=== PATIENT | female | born 1955 | race Caucasian/White ===

== ENCOUNTER 2019-06-04 12:37 | Emergency (ER) | payer OTHER, SELFPAY ==
[2019-06-04 12:31] VITALS: BP 128/78; BP 129/75; PULSE 107; PULSE 110; RESP 18; TEMP 36.8; O2SAT 97; O2SAT 98; BMI 29.8
--- NOTE | 2019-06-04 12:40 | W.ED.NECK ---
HPI - Neck Pain/Injury General: Chief Complaint: Fall Stated Complaint: fall Time Seen by Provider: 06/04/19 12:38 Source: patient Mode of arrival: ambulatory Limitations: no limitations History of Present Illness: HPI Narrative: Patient comes in today for evaluation of fall and injury. Patient reports stepping up onto the sidewalk and slipping falling backwards and hitting the back of her head on the ground. Patient has a noticeable hematoma to the occiput of her scalp. No open areas. Patient reports tenderness in the area but no headache. Patient reports feeling normal. Patient has no other complaints except for pain in the back of the head. Patient appears well. Patient appears in mild pain. Review of Systems General: Reports: 10 or more systems reviewed and unremarkable except in HPI and below Musc: Reports: neck pain Neuro: Reports: other (scalp hemotoma occiput scalp) PFSH ED PFSH: Statuses (acute, chronic, etc) shown below reflect problem list status as previously entered and may not be historically accurate Social History Smoking and tobacco status: never smoked Physical Exam Const: COMMON NORMALS: no apparent distress and oriented x3 GENERAL APPEARANCE: cooperative HENMT: COMMON NORMALS: external ears normal, EAC's normal, TM's normal bilaterally and external nose normal HEAD & SCALP: scalp tenderness (hemotoma right occiput 4 cm diameter, no skull crepitus); no palpable skull fracture FACE & SINUS: normal facial exam NOSE: external nose normal GENERAL EAR: hearing not grossly impaired EXTERNAL EAR: Yes external ears normal EXTERNAL AUDITORY CANAL: EAC's normal TYMPANIC MEMBRANE: TM's normal bilaterally MOUTH: oral and palatal mucosa normal THROAT: posterior oropharynx normal Eye: COMMON NORMALS: PERRL and EOMs intact bilaterally PUPIL: Yes PERRL Neck/C-Spine: COMMON NORMALS: full ROM (no vertebral tenderness) Lymph: LYMPHATIC: no lymphedema noted Chest: COMMONS NORMALS: inspection of chest normal and palpation of chest normal Resp: COMMON NORMALS: normal respiratory effort and clear to auscultation bilaterally AUSCULTATION: clear to auscultation bilaterally Cardio: COMMON NORMALS: regular rate and regular rhythm RATE: regular rate RHYTHM: regular rhythm GI: COMMON NORMALS: normal to inspection, nondistended, normoactive bowel sounds and non-tender : COMMON NORMALS: Yes no CVA tenderness BLADDER/KIDNEY EXAM: Yes no CVA tenderness Back/Pelvis: COMMON NORMALS: no CVA tenderness and thoracic and lumbar spine normal to inspection (no vertebral tenderness) Extremity: COMMON NORMALS: normal to inspection GENERAL: No edema Neuro: COMMON NORMALS: oriented x3, moves all extremities and no focal motor deficits Psych: COMMON NORMALS: mental status grossly normal and cooperative Skin: COMMON NORMALS: no rashes or lesions noted GENERAL SKIN EXAM: no rashes or lesions noted Course Vital Signs: Vital signs: Vital Signs Temperature 98.2 F 06/04/19 12:53 Pulse Rate 110 H 06/04/19 12:31 Respiratory Rate 18 06/04/19 12:31 Blood Pressure 129/75 06/04/19 12:31 Pulse Oximetry 98 06/04/19 12:31 MDM - Neck Pain/Injury MDM Narrative: Medical decision making narrative: Patient comes in after suffering a fall this morning after slipping on the ice while stepping up onto the sidewalk. Patient complains of pain to the occipital head and to her buttocks. Patient appears well. Patient reports being able to ambulate without difficulty. Palpation of the vertebra noted no tenderness. Tenderness noted to the soft tissue of the buttocks. Hematoma was noted to the right parietal occiput of the scalp. No focal neural deficits. Vital signs were stable. Differential diagnosis includes fracture, sprain, intercerebral bleeding, contusion, hematoma, concussion. CT of the head and cervical spine were negative for fracture or intracranial bleeding. Patient did have some mild tachycardia that was sinus related per EKG. Reviewed exam with patient recommended Tylenol as needed for pain patient was given 1 hydrocodone in the emergency room for discomfort. Patient reported understanding of care plan and need for follow-up. EKG Data^: EKG 1: Attestation: I personally reviewed and interpreted this EKG as follows: (1344, sinus tach 130's, no ectopy, no QT elevation, regular rate.) Discharge Plan Discharge Patient Disposition: Home, Self-Care Clinical Impression: Fall due to slipping on ice or snow Qualifiers: Encounter type: initial encounter Qualified Code(s): W00.9XXA - Unspecified fall due to ice and snow, initial encounter Hematoma of right parietal scalp Qualifiers: Encounter type: initial encounter Qualified Code(s): S00.03XA - Contusion of scalp, initial encounter Condition: Stable Prescriptions: No Action Klor-Con M10 10 mEq tablet,ER particles/crystals PO RF: 0 Discharge Orders: Discharge Order (Routine); Ordered 06/04/19 Ordered By: Misbah Das Referrals: [facility] [Other] Discharge Diet: Usual diet Discharge Activity: Resume usual activity Activity Restrictions/Additional Instructions: Home and rest Activity as tolerated Drink plenty of water Acetaminophen as needed for headache Ice or heat to area for comfort Follow-up with primary care in one week for recheck Coding Level of Care Code ED Title Examiner for Long Fwchapo Exam Problem Focused
--- NOTE | 2019-06-04 12:47 | CT_ITS ---
WS: [id number] CT scan of the head, 06/04/2019 Clinical Data: fall Comparison: None. DLP: 882.[address] scans at [facility] use at least one of these dose optimization techniques: automat ed exposure control; mA and/or kV adjustment per patient size (includes targeted exams where dose is matched to clinical indication); or iterative reconstruction. Findings: The ventricular system is minimally dilated without shift. No recent infarct or hemorrhage is seen. T here are no abnormal intracerebral masses. The cerebellum and brainstem are not remarkable. Bony windows of the skull and skull base show no fractures or erosions. The mastoid air cells, pharmacy intern al auditory canals, sella turcica, intraorbital contents, and paranasal sinuses are unremarkable. CT/CT head wo con* [id number] Impression: Negative CT scan of the head
--- NOTE | 2019-06-04 12:47 | CT_ITS ---
WS: [id number] CT cervical spine. Additional two-dimensional coronal and sagittal reconstruction was performed. 06/04 Clinical Data: fall Comparison: None. DLP: 666.[address] scans at [facility] use at least one of these dose optimization techniques: automat ed exposure control; mA and/or kV adjustment per patient size (includes targeted exams where dose is matched to clinical indication); or iterative reconstruction. Findings: No compression fractures are seen. There is disc space narrowing at C4-C5 and C5-C6. At C5-C6 there i s anterior and posterior osteoarthritic narrowing. There is left facet joint arthritis at C4-C5.. The spinous processes are in good alignment. The odontoid is unremarkable. There is no prevertebral soft tissue swelling. The soft tissues of the cervical spine and the lung apices are not remarkable. CT/CT cervical spin wo con* [id number] Impression: 1. Negative for cervical spine fracture. 2. Osteoarthritis and disc space narrowing C4-C5 and C5-C6.
[2019-06-04 12:53] VITALS: TEMP 36.8
--- NOTE | 2019-06-04 13:11 | ECG_ITS ---
Measurements Intervals [place] Rate: 139 P: -14 WI: 142 QRS: 22 QRSD: 90 T: 42 QT: 292 QTc: 445 SINUS TACHYCARDIA ABNORMAL RHYTHM ECG Compared to ECG 12/03/2015 15:52:06 Sinus rhythm no longer present T-wave abnormality no longer present Electronically Signed On 06-05-2019 11:26:06 PHOTOVOLTAIC INSTALLER by Irwin Urbina M.D. [email or web address]
[2019-06-04] MEDS: HYDROcodone-acetaminophen 5-325 mg Tablet 1 TAB PO (13:58)
[2019-06-04 14:00] VITALS: BP 103/70; PULSE 116; RESP 18; O2SAT 98
== END 2019-06-04 14:01 | disposition home or self-care (01) ==
PROVIDERS: Emergency Provider Nurse Practitioner Family
DX: S00.03XA Contusion of scalp, initial encounter (principal); W00.0XXA Fall on same level due to ice and snow, initial encounter
CPT/HCPCS: 70450; 72125; 93005; 99282; 99283

== ENCOUNTER 2019-06-18 12:55 | Outpatient (RCR) | payer OTHER, SELFPAY ==
--- NOTE | 2019-05-28 15:13 | XR_ITS ---
WS: [id number] FOOT RIGHT TECHNIQUE: 3 views of the right foot CLINICAL INFORMATION: DIABETES W/FOOT ULCER/R FOOT PAIN COMPARISON: None. FINDINGS: Soft tissue edema. Ulceration plantar soft tissues first digit. Small pocket of subcutaneous emphysem a. No definite evidence of osteomyelitis. Plantar calcaneal spurring. XR/XR foot RT min 3V* [id number] IMPRESSION: Soft tissue edema with ulceration. No definite osteomyelitis.
[2019-05-28 15:49] LABS: Hematocrit 39.4 % (37.0-47.0); Hemoglobin 12.5 g/dL (11.5-15.3); Mean Corpuscular HGB Conc 31.7 g/dL (30.0-36.0); Mean Corpuscular Hemoglobin 26.7 pg (28.0-34.0); Mean Corpuscular Volume 84.2 fL (81-99); Mean Platelet Volume 9.5 fL (7.4-10.4); Monocytes # 0.6 10^3/uL (0.2-0.9); Monocytes % 6.7 %; Neutrophils # 6.4 10^3/uL (1.8-7.7); Neutrophils % 70.9 %; Nucleated Red Blood Cells % 0 %; Platelet Count 269 10^3/cmm (130-400); Red Blood Count 4.68 10^6/uL (4.1-5.3); Red Cell Distribution Width 13.8 % (12.1-15.1)
[2019-05-28 15:59] LABS: Alanine Aminotransferase 21 U/L (0-33); Albumin Level 3.8 g/dL (3.5-5.2); Alkaline Phosphatase 144 IU/L (35-105); Anion Gap 13.5 (5-19); Aspartate Amino Transferase 18 U/L (0-32); Blood Urea Nitrogen 13 mg/dL (8-23); Carbon Dioxide 26 mmol/L (22-29); Chloride 97 mmol/L (98-107); Glomerular Filtration Rate 84.5 mL/min (90-130); Glucose 247 mg/dL (74-106); Potassium 4.5 mmol/L (3.5-5.1); Sodium 132 mmol/L (136-145); Total Bilirubin 0.2 mg/dL (0.15-1.2); Total Protein 6.8 g/dL (6.6-8.7)
[2019-05-28 16:19] LABS: Estmated Average Glucose 194; Hemoglobin A1C 8.4 % (4.0-6.0)
== END 2019-06-18 23:59 | disposition home or self-care (01) ==
LOC: WOUND 12:55
PROVIDERS: Visit Provider Surgery
DX: E11.621 Type 2 diabetes mellitus with foot ulcer (principal); L97.413 Non-pressure chronic ulcer of right heel and midfoot with necrosis of muscle
CPT/HCPCS: 11043; 36415; 73630; 80053; 83036; 85025; 87070; L4387

== ENCOUNTER 2019-06-25 10:48 | Outpatient (CLI) | payer OTHER, SELFPAY ==
--- NOTE | 2019-06-25 11:13 | CT_ITS ---
WS: [id number] CT scan of the right foot with IV contrast.. Additional two-dimensional coronal and sagittal reconstr uction was performed. 06/25/2019 Clinical Data: DIABETIC ULCER/R FOOT PAIN/?OSTEOMYELITIS Comparison: Right foot x-ray, 05/28/2019 DLP: 175.[address] scans at [facility] use at least one of these dose optimization techniques: automat ed exposure control; mA and/or kV adjustment per patient size (includes targeted exams where dose is matched to clinical indication); or iterative reconstruction. Findings: The patient has soft tissue swelling on the plantar surface of the foot with a soft tissue ulcer that communicates with the soft tissue at the level of the head of the right first metatarsal. There is s oft tissue swelling all along the plantar surface of the foot. A definite abscess is not seen. No bon e destruction or evidence of osteomyelitis is noted. The metatarsals and phalanges appear to be intac t. The toes demonstrate flexion deformity seen in hammertoes. There is a plantar spur. The tarsal bon es are normal. CT/CT foot RT w con [id number] Impression: 1. Ulcer at the head of the right first metatarsal with soft tissue swelling of mixed density extending the length of the plantar surface of the foot. 2. Negative for bone destruction or evidence of osteomyelitis. 3. No definite subcutaneous abscess is seen.
[2019-06-25] MEDS: iohexol 300 mg/mL 100 mL Btl 95 ML IV (11:30)
== END 2019-06-25 10:49 | disposition home or self-care (01) ==
LOC: RAD 11:08
PROVIDERS: PCP Family Medicine; Visit Provider Surgery
DX: E11.621 Type 2 diabetes mellitus with foot ulcer (principal)
CPT/HCPCS: 11043; 73701; 87070; 87205; Q9967

== ENCOUNTER 2019-07-16 09:40 | Outpatient (RCR) | payer OTHER, SELFPAY | END 2019-07-17 23:59 | disposition home or self-care (01) | LOC: WOUND 09:40 | PROVIDERS: PCP Family Medicine; Visit Provider Surgery | DX: E11.621 Type 2 diabetes mellitus with foot ulcer (principal); L97.512 Non-pressure chronic ulcer of other part of right foot with fat layer exposed | CPT/HCPCS: 11042; 11043 ==

== ENCOUNTER 2019-07-26 14:00 | Emergency (ER) | payer OTHER, SELFPAY ==
[2019-07-26 14:44] VITALS: BP 123/83; PULSE 94; RESP 16; TEMP 37; O2SAT 98; BMI 30.7
--- NOTE | 2019-07-26 16:07 | PC.NURSE ---
PT PRESENTS WITH MULTIPLE C/O. STATES HER RIGHT FOOT, WHICH WAS INJURED BEFORE ERWIN, IS SLOW TO HEAL . C/O THAT RIGHT FOOT IN [place], AND HER BELLY BUTTON IS RED, AND SHE'S BEEN RUNNING A FEVER. PT NOTED TO BE AFEBRILE AT THIS TIME.
--- NOTE | 2019-07-26 17:02 | W.ED.EXTPRO ---
HPI - Extremity Problem General: Chief complaint: Extremity Injury, Lower Stated complaint: fever, right foot is swollen Time Seen by Provider: 07/26/19 16:06 Source: patient Mode of arrival: ambulatory Limitations: no limitations History of Present Illness: HPI Narrative: Patient is a 64-year-old female who presents to ED today with complaints of an ulcer to her right foot that she has had chronically. Patient states yesterday she thought she was running a fever and was told if anytime she runs a fever she needs to come to the emergency department for evaluation. Patient states she checked her fever multiple times and it was never abnormal however she felt hot . She was afebrile upon arrival. Patient follows with wound care weekly for her ulcer. She states if she is up on her extremity for long periods of time she will notice a little redness and swelling to the foot but this always subsides with rest and elevation. Patient has not noticed any differences in her foot or ulcer today. There is been no change in drainage or odor. Complaint: other (R foot ulcer) Onset (ago): month(s) Location: right Associated symptoms: Reports no associated symptoms; Deny fever(s) (subjective) Review of Systems Const: Denies: fever (subjective), chills, body aches, change in appetite or change in weight GI: Denies: nausea or vomiting Musc: Reports: redness (mild R foot redness-normal per patient ); Denies: neck pain, back pain, extremity pain, joint pain or joint swelling Skin/Breast: Reports: other (chronic ulcer) Neuro: Denies: headache, numbness in extremities, weakness in extremities or changes in sensation [facility] ED PFSH: Social History Smoking and tobacco status: former smoker Physical Exam Const: COMMON NORMALS: no apparent distress, average body habitus, oriented x3, no limitations, healthy appearing, alert and well nourished Extremity: OTHER: pt has a stage II ulcer to plantar R foot measuring about 4x3cm; no discharge or foul smell; no surrounding erythema; pt has mild erythema and swelling to dorsum of foot that again she states is normal for her Neuro: COMMON NORMALS: oriented x3 SENSORIUM/ORIENTATION: Yes alert Skin: OTHER: see extremity assessment Course Vital Signs: Vital signs: Vital Signs Temperature 98.6 F 07/26/19 14:44 Pulse Rate 72 07/26/19 17:19 Respiratory Rate 18 07/26/19 17:19 Blood Pressure 156/74 07/26/19 17:19 Pulse Oximetry 96 07/26/19 17:19 MDM - Extremity (Nontraumatic) MDM Narrative: Medical decision making narrative: Patient really has no new complaints today. Her vital signs are completely stable. I do not feel she needs any additional work-up from the emergency department. Recommend she follow-up with her normal wound care appointment on Friday. Discharge Plan Discharge Patient Disposition: Home, Self-Care Clinical Impression: Crista infection Chronic ulcer of right foot Qualifiers: Non-pressure ulcer stage: with fat layer exposed Qualified Code(s): L97.512 - Non-pressure chronic ulcer of other part of right foot with fat layer exposed Condition: Stable Prescriptions: New nystatin 100,000 unit/gram powder 1 applic TOPICAL BID Qty: 15 RF: 0 No Action Klor-Con M10 10 mEq tablet,ER particles/crystals PO RF: 0 Discharge Orders: Discharge Order (Routine); Ordered 07/26/19 Ordered By: Negra Joaquin Referrals: Tree Souza MD [Primary Care Provider] - Activity Restrictions/Additional Instructions: Follow up with wound care on Friday as scheduled. Discharge Date/Time: 07/26/19 17:23 Coding Level of Care Code ED Sweatband Flanger for Long Du
[2019-07-26 17:19] VITALS: BP 156/74; PULSE 72; RESP 18; O2SAT 96
== END 2019-07-26 17:23 | disposition home or self-care (01) ==
PROVIDERS: Emergency Provider Physician Assistant; PCP Family Medicine
DX: L89.612 Pressure ulcer of right heel, stage 2 (principal); B37.2 Candidiasis of skin and nail; Z87.891 Personal history of nicotine dependence
CPT/HCPCS: 11043; 12345; 99281

== ENCOUNTER 2019-07-30 14:32 | Outpatient (CLI) | payer OTHER, SELFPAY ==
--- NOTE | 2019-07-30 14:45 | USCV_ITS ---
Jacquelin Garduno Age: 64 Gender: F : 1955 Exam Date: 07/30/2019 15:01 Ordering Phys: Kurtis Rios MD Technologist: Gladis Power Exam Location: [facility] – [place] Indication: RT NON HEALING WOUND RT FOREFOOT HISTORY: Non healing wound rt foot. Swollen Rt leg PROCEDURES: Venous duplex imaging was performed in only the right lower extremity. The following venous structures were evaluated: common femoral vein, profunda vein, proximal portion of the greater saphenous vein, superficial femoral vein, and the popliteal vein. In addition, the posterior tibial and peroneal trunk were evaluated. Serial compression, augmentation maneuvers, and spectral Doppler flow evaluation were performed. FINDINGS: No DVT seen in any vessel examined CONCLUSIONS No evidence of right lower extremity DVT. Salbador Choudhury MD (Electronically Signed) Final Date: 30 July 2019 16:34 S
== END 2019-07-30 14:33 | disposition home or self-care (01) ==
LOC: RAD 14:42
PROVIDERS: PCP Family Medicine; Visit Provider Surgery
DX: M79.661 Pain in right lower leg (principal); M79.89 Other specified soft tissue disorders
CPT/HCPCS: 93971

== ENCOUNTER 2019-08-06 14:13 | Outpatient (CLI) | payer OTHER, SELFPAY ==
--- NOTE | 2019-08-06 14:39 | CT_ITS ---
WS: [id number] CT scan of the of the right leg, ankle and foot with and without IV contrast.. Additional two-dimensi onal coronal and sagittal reconstruction was performed. MIP images were also performed. 08/06/2019 Clinical Data: PAIN, REDNESS, NON HEALING ULCER, R/O OSTEOMYELITIS Comparison: CT foot, 06/25/2019. DLP: 1304.[address] scans at [facility] use at least one of these dose optimization techniques: automat ed exposure control; mA and/or kV adjustment per patient size (includes targeted exams where dose is matched to clinical indication); or iterative reconstruction. Findings: Compared to the prior study there is been erosion of the head of the right first metatarsal which is suspicious for rapidly developing osteomyelitis. There is erosion of the medial sesamoid bone at the head of the right first metatarsal again consistent with osteomyelitis. There is cystic change at the base of the right first proximal phalanx. The second through fifth metatarsals and phalanges show no change. There is soft tissue swelling about the right ankle and the foot. It is erosion of the subcu taneous tissue on the plantar surface of the foot at the level of the right first metatarsal probably corresponding to a soft tissue ulcer. No soft tissue abscess or fluid collection is seen. The tarsal bones are intact. The ankle is unremarkable. CT/CT lower leg RT w con [id number] Impression: 1. Change from the prior study with erosion of the right first metatarsal, eros ion of the medial sesamoid of the head of the right first metatarsal and cystic change and erosion of the base of the right first proximal phalanx. Suspicious for osteomyelitis. 2. Soft tissue swelling about the foot and ankle. 3. Soft tissue ulcer at the dorsal surface of the head of the right first metat arsal but no soft tissue abscess is seen.
[2019-08-06] MEDS: iohexol 300 mg/mL 100 mL Btl IV (16:30)
== END 2019-08-06 14:14 | disposition home or self-care (01) ==
LOC: RADWPI 14:16
PROVIDERS: PCP Family Medicine; Visit Provider Surgery
DX: L97.518 Non-pressure chronic ulcer of other part of right foot with other specified severity (principal); M79.89 Other specified soft tissue disorders; M79.671 Pain in right foot
CPT/HCPCS: 73701; 82565; 84520; Q9967

== ENCOUNTER 2019-08-06 16:15 | Inpatient (IN) | payer OTHER, SELFPAY ==
[2019-08-06 16:37] VITALS: BMI 33.3
[2019-08-06 16:43] VITALS: BP 143/97; PULSE 97; RESP 18; TEMP 37; O2SAT 98
--- NOTE | 2019-08-06 18:58 | P.HP_ITS ---
Providers/Chief Complaint Admitting Physician: Autumn Ivory MD Primary Care Provider: Tree Souza MD Chief Complaint: R foot pain and swelling History of Present Illness Jacquelin Garduno is a 64 year old female with PMHx of NIDDM type II, CKD stage 2, HTN, Obesity, GERD, Gout; presents as direct admission from wound care clinic per Dr. Pinon' request due to R diabetic foot infection and concern for possible abscess and osteomyelitis. Patient was seen by Dr. Pinon earlier today at the wound care clinic in was noted to have a right foot wound that he debrided but was concerned about increased foot swelling and possible abscess, osteomyelitis so requested direct admission. She had a CT of the lower extremity done showing soft tissue swelling, suspicious for osteomyelitis. Findings discussed with Dr. Rios and plan is to treat with IV antibiotics for at least 6 weeks, no need for surgical intervention at this time. Patient states that she has had the wound on her right foot since April but had noted increased pain and swelling of the right foot for the past 2 to 3 days. She has been able to weight-bear though with increasing discomfort. She has not noted any drainage and denies any fever/chills, precipitating trauma. She is a known diabetic with last A1c done in May being 8.4. She is on metformin and Januvia, denies being on any insulin therapy. Has otherwise been in her usual state of health. I will order baseline labs including ESR, CRP, lactic acid and request blood cultures as well. I will start her on treatment with vancomycin and Zosyn for broad-spectrum coverage. Patient is being admitted for further management including IV antibiotic treatment as mentioned. Review of Systems Const: Reports: change in appetite (decreased appetite) and fatigue; Denies: fever or chills Eyes: Denies: change in vision ENMT: Reports: dry mouth Card: Denies: chest pain, swelling of feet/ankles or lightheadedness Resp: Reports: productive cough (green sputum); Denies: shortness of breath GI: Denies: abdominal pain, nausea, vomiting, vomiting blood or blood in stool : Reports: urinary frequency; Denies: difficulty urinating or painful urination Musc: Denies: back pain Skin/Breast: Denies: rash Neuro: Reports: weakness in extremities; Denies: numbness in extremities Psych: Denies: anxiety Medications/Allergies Home Medications Medication Instructions Recorded Confirmed Last Taken Type allopurinol 100 mg PO DAILY 08/06/19 08/06/19 Unknown History metformin mg 08/06/19 Unknown History Allergies Allergy/AdvReac Type Severity Reaction Status Date / Time ibuprofen Allergy ALGY-Rash Verified 06/04/19 12:54 PFSH Acute PFSH: Medical History (Updated 08/06/19 @ 19:11 by Autumn Ivory MD) Cardiomyopathy Congestive heart failure Diabetes mellitus, type II With peripheral neuropathy and nephropathy Gall bladder disease Gastroesophageal reflux Gout Hypertension Rotator cuff arthropathy of both shoulders Surgical History (Updated 08/06/19 @ 19:01 by Autumn Ivory MD) H/O shoulder surgery Bilateral History of appendectomy History of cardiac cath History of delivery Hx of cholecystectomy Family History Other Diabetes Social History (Updated 08/06/19 @ 19:02 by Autumn Ivory MD) Smoking and tobacco status: former smoker Alcohol intake: never Substance/Drug Use: never Lives independently: Yes Household members: spouse Vitals/I&O/Wt Last Vital Signs Temp 98.6 F 08/06/19 16:43 Pulse 97 08/06/19 16:43 Resp 18 08/06/19 16:43 BP 143/97 08/06/19 16:43 Pulse Ox 98 08/06/19 16:43 08/06/19 08/06/19 08/06/19 06:59 14:59 22:59 Intake Total 540 / 540 Output Total 300 / 300 Balance 240 / 240 Weight last 48 hrs Weight 82.724 kg Physical Exam Const: COMMON NORMALS: no apparent distress and oriented x3 GENERAL APPEARANCE: cooperative and comfortable NUTRITIONAL APPEARANCE: obese ORIENTATION/CONSCIOUSNESS: Yes awake HENMT: COMMON NORMALS: normocephalic, head/scalp atraumatic, hearing grossly normal bilaterally and moist oral mucous membranes HEAD & SCALP: normocephalic and atraumatic Eye: COMMON NORMALS: PERRL, EOMs intact bilaterally and conjunctivae normal CONJUNCTIVA: Yes conjunctivae normal PUPIL: Yes PERRL Neck/C-Spine: COMMON NORMALS: full ROM GENERAL: Yes normal visual inspection and Yes trachea midline Resp: COMMON NORMALS: normal respiratory effort, no retractions, no use of accessory muscles and clear to auscultation bilaterally EFFORT & INSPECTION: Yes able to speak in complete sentences, Yes symmetric chest movement and No tachypneic AUSCULTATION: clear to auscultation bilaterally Cardio: COMMON NORMALS: regular rate, regular rhythm, S1 normal heart sound, S2 normal heart sound and no murmurs RATE: regular rate RHYTHM: regular rhythm HEART SOUNDS: S1 normal and S2 normal GI: COMMON NORMALS: normal to inspection, nondistended, normoactive bowel sounds, soft to palpation and non-tender INSPECTION: Yes central obesity PALPATION: Yes soft Extremity: COMMON NORMALS: normal to inspection, full ROM and no clubbing, cyanosis or edema (of LLE); negative for no pedal edema NARRATIVE EXTREMITY EXAM: -unable to palpate peripheral pulses on R foot -R foot: erythematous, warm to touch, open wound on dorsum of foot with good granulation tissue noted, no active drainage, no tunneling -diminished pulses on L Neuro: COMMON NORMALS: oriented x3, moves all extremities, no focal motor deficits and no sensory deficits noted Psych: COMMON NORMALS: mental status grossly normal, thought process normal, cooperative, affect normal and speech normal SPEECH: Yes normal speech THOUGHT PROCESS: normal thought process Skin: COMMON NORMALS: no rashes or lesions noted, no jaundice, no petechiae and no mottling NARRATIVE SKIN EXAM: -R foot: discrete area of erythema extending to about mid-foot, + edema, tinea pedis, onychomycosis GENERAL SKIN EXAM: no rashes or lesions noted A&P Assessment and plan (1) Diabetic foot ulcer: -noted R diabetic foot ulcer, debrided earlier today by Dr. Watts at [facility], noted good granulation tissue on wound bed, + edema and erythema extending to mid-foot, will jaylon area to monitor response to treatment -order baseline labs including CRP, ESR -CT RLE: Noted erosion of the right first metatarsal, medial sesamoid of right first metatarsal and erosion of the base of the right proximal phalanx, findings suspicious for osteomyelitis. Noted soft tissue swelling involving the foot and ankle; for abscess. Findings discussed with Dr. Rios; no need for surgery -start on broad spectrum antibiotics; Vanc/Zosyn for appropriate coverage -order blood cx -pain control as needed -keep RLE elevated -wet to dry dressing changes per Dr. Giurguis -surgery consult by Dr. Watts -will need PICC line for exterminator termite IV antibiotics Status: Acute Qualifiers: Diabetic foot ulcer location: unspecified part of foot Diabetes mellitus type: type 2 Laterality: right Non-pressure ulcer stage: unspecified non-pressure ulcer stage Qualified Code(s): E11.621 - Type 2 diabetes mellitus with foot ulcer; L97.519 - Non-pressure chronic ulcer of other part of right foot with unspecified severity Code(s): E11.621 - Type 2 diabetes mellitus with foot ulcer; L97.509 - Non-pressure chronic ulcer of other part of unspecified foot with unspecified severity (2) Diabetes mellitus, type II: -has known hx of NIDDM type II, last A1c-8.4 (05/2019) -Accuchecks, ISS, hold metformin as had contrast study -consistent carb diet -complicated by peripheral neuropathy and nephropathy Status: Acute Qualifiers: Diabetes mellitus senior living insulin use: without senior living use Diabetes mellitus complication status: with neurologic complications Diabetes mellitus complication detail: with polyneuropathy Qualified Code(s): E11.42 - Type 2 diabetes mellitus with diabetic polyneuropathy Code(s): E11.9 - Type 2 diabetes mellitus without complications (3) Congestive heart failure: -normal EF per stress echo done 11/2015 -resume diuretics Status: Acute Qualifiers: Heart failure type: diastolic Heart failure chronicity: chronic Qualified Code(s): I50.32 - Chronic diastolic (congestive) heart failure Code(s): I50.9 - Heart failure, unspecified Additional A&P Information -Morbid obesity: BMI-33 kg/m2 -HTN; resume ACEi -CKD stage 2; baseline Cr wnl -Gout; resume allopurinol -GERD; resume PPI -GI ppx with PPI -DVT ppx with Lovenox -Dispo: home -Code status: FULL code Attestations Medical Necessity Statement*: Jacquelin Garduno's hospital stay will require greater than 2 midnights for management of R diabetic foot infection with likely osteomyelitis, needs IV antibiotics and appropriate wound care. Time Spent in Patient Care: Greater than 35 minutes (>than 50% of time spent in counselling and/or direct pt care on unit) . Coding Level of Care Code Acute Roasterman for Chg Fwd Diagnoses Diabetic foot ulcer E11.621; L97.519 Diabetic foot ulcer location: unspecified part of foot Diabetes mellitus type: type 2 Laterality: right Non-pressure ulcer stage: unspecified non-pressure ulcer stage Diabetes mellitus, type II E11.42 Diabetes mellitus exterminator termite insulin use: without senior living use Diabetes mellitus complication status: with neurologic complications Diabetes mellitus complication detail: with polyneuropathy Congestive heart failure I50.32 Heart failure type: diastolic Heart failure chronicity: chronic
[2019-08-06 20:00] VITALS: BP 157/98; PULSE 99; RESP 18; TEMP 36.6; O2SAT 95
[2019-08-06 20:22] LABS: Basophils % 0.2 %; Eosinophils # 0.1 10^3/uL (0.0-0.8); Eosinophils % 0.7 %; Hematocrit 34.5 % (37.0-47.0); Lymphocytes % 16.8 %; Mean Corpuscular HGB Conc 31.9 g/dL (30.0-36.0); Mean Corpuscular Hemoglobin 24.9 pg (28.0-34.0); Mean Corpuscular Volume 78.1 fL (81-99); Monocytes # 0.7 10^3/uL (0.2-0.9); Monocytes % 5.8 %; Neutrophils # 9.1 10^3/uL (1.8-7.7); Neutrophils % 75.9 %; Nucleated Red Blood Cells % 0 %; Platelet Count 379 10^3/cmm (130-400); Red Blood Count 4.42 10^6/uL (4.1-5.3); Red Cell Distribution Width 13.7 % (12.1-15.1)
[2019-08-06 20:31] LABS: Alanine Aminotransferase 18 U/L (0-33); Albumin Level 3.1 g/dL (3.5-5.2); Alkaline Phosphatase 124 IU/L (35-105); Anion Gap 17.1 (5-19); Aspartate Amino Transferase 15 U/L (0-32); Blood Urea Nitrogen 10 mg/dL (8-23); Calcium 9.4 mg/dL (8.5-10.5); Carbon Dioxide 27 mmol/L (22-29); Chloride 92 mmol/L (98-107); Globulin 4.6 g/dL (1.3-4.6); Glomerular Filtration Rate 84.5 mL/min (90-130); Glucose 318 mg/dL (65-115); Osmolality Calculated 282 mOsm/kg (285-295); Potassium 4.1 mmol/L (3.5-5.1); Sodium 132 mmol/L (136-145); Total Bilirubin 0.2 mg/dL (0.15-1.2); Total Protein 7.7 g/dL (6.6-8.7)
[2019-08-06 20:32] LABS: Lactic Sepsis W/Reflex 1.3 mmol/L (0.5-2.2)
--- NOTE | 2019-08-06 20:47 | PC.PHAR ---
Creatinine clearance is 82.00. Vancomycin is dosed at 1500mg IVPB every 18 hours to produce a predicted trough level of 14.44 (population based pharmacokinetic analysis). A trough level has been ordered from the lab to be obtained before the fourth dose to confirm and adjust if needed.
[2019-08-06 21:13] LABS: Erythrocyte Sedimentation Rate 107 mm/hr (0-15)
[2019-08-06] MEDS: enoxaparin 40 mg/0.4 mL Syringe SUBCUT (21:31)
[2019-08-06 21:45] LABS: Glucose Point of Care 295 mg/dL (70-110)
[2019-08-06] MEDS: piperacillin-tazobactam 3.375 GM in sodium chloride 0.9% (plus) 50 ML IV (23:12)
[2019-08-07] VITALS (9 sets, daily range): BP systolic 137–158; BP diastolic 76–102; PULSE 74–101; RESP 17–18; TEMP 36.3–37.2; O2SAT 92–96
[2019-08-07] MEDS: piperacillin-tazobactam 3.375 GM in sodium chloride 0.9% (plus) 50 ML IV ×3 (06:07→23:19)
[2019-08-07 06:38] LABS: Glucose Point of Care 245 mg/dL (70-110)
[2019-08-07] MEDS: bumetanide 1 mg Tablet 0.5 MG PO (08:08)
[2019-08-07] MEDS: dilTIAZem ER (24HR) 120 mg Capsule PO (08:08)
[2019-08-07] MEDS: lisinopril 20 mg Tablet 40 MG PO (08:08)
--- NOTE | 2019-08-07 08:08 | PM.PN ---
Subjective Subjective: Interval history: Overall patient feels better, undergone a CT scan of the right foot with IV contrast as previously ordered that did show no abscess formation, patient was admitted on the hospitalist service to receive IV anti-microbial therapy and because of the concern of osteomyelitis on the CT scan she will receive a PICC line to start antibiotics for at least 6-week. Patient was seen and evaluated yesterday at the wound care center as she follows up with me on weekly basis yet yesterday she had worsening swelling of the right forefoot associated with redness that required hospitalization and IV antibiotics. CT scan findings: 1. Change from the prior study with erosion of the right first metatarsal, erosion of the medial sesamoid of the head of the right first metatarsal and cystic change and erosion of the base of the right first proximal phalanx. Suspicious for osteomyelitis. 2. Soft tissue swelling about the foot and ankle. 3. Soft tissue ulcer at the dorsal surface of the head of the right first metatarsal but no soft tissue abscess is seen. Vitals/I&O/Wt Last Vital Signs Temp 97.8 F 08/07/19 07:56 Pulse 96 08/07/19 07:56 Resp 17 08/07/19 07:56 BP 158/101 08/07/19 07:56 Pulse Ox 95 08/07/19 07:56 08/06/19 08/07/19 08/07/19 22:59 06:59 14:59 Intake Total 540 / 540 300 / 840 Output Total 300 / 300 1625 / 1925 Balance 240 / 240 -1325 / -1085 Weight last 48 hrs Weight 182 lb 6 oz Physical Exam Narrative: EXAM NARRATIVE: Patient is conscious alert oriented X3 BMI 33.4 Head and neck examination PERRLA no masses no cervical lymphadenopathy no jaundice Right foot examination shows much less swelling and receding of the cellulitis, mild discharge from the ulcer and packing was done by me bedside in the form of new gauze quarter inch followed by POPPY and Tami. Data : 08/06/19 20:03 08/06/19 20:03 Micro: Microbiology 08/06/19 19:58 Blood Culture - Preliminary Blood SPECIMEN COLLECTED 08/06/19 20:03 Blood Culture - Preliminary Blood SPECIMEN COLLECTED A&P Assessment and plan (1) Diabetic foot ulcer: After thorough history physical examination and reviewing the chart and images with my personal interpretation and from surgical standpoint of view 1-we will continue broad-spectrum IV antibiotic 2-Patient will require PICC line for 6 weeks of antibiotics to treat osteomyelitis 3-Daily packing of the wound with new gauze quarter inch dry to dry followed by Yulia 4-Physical therapy to assess the patient with recommendation to have non-weight bearing of right forefoot 5-Management of diabetes per hospitalist service 6-We will keep n.p.o. after midnight for reevaluation in the morning in case the wound deteriorated and require surgical intervention Assurance and education All questions have been answered and all concerns have been addressed to patient's satisfaction. I appreciate Dr. Ivory's input Status: Acute Qualifiers: Diabetic foot ulcer location: unspecified part of foot Diabetes mellitus type: type 2 Laterality: right Non-pressure ulcer stage: unspecified non-pressure ulcer stage Qualified Code(s): E11.621 - Type 2 diabetes mellitus with foot ulcer; L97.519 - Non-pressure chronic ulcer of other part of right foot with unspecified severity Code(s): E11.621 - Type 2 diabetes mellitus with foot ulcer; L97.509 - Non-pressure chronic ulcer of other part of unspecified foot with unspecified severity Attestations Medical Necessity Statement*: Medical necessity care is expected to cross 2 midnights Time Spent in Patient Care: 16 - 35 minutes (>than 50% of time spent in counselling and/or direct pt care on unit). Coding Level of Care Code Acute Optical Instrument Repairer for g Fwd Diagnoses Diabetic foot ulcer E11.621; L97.519 Diabetic foot ulcer location: unspecified part of foot Diabetes mellitus type: type 2 Laterality: right Non-pressure ulcer stage: unspecified non-pressure ulcer stage
[2019-08-07] MEDS: allopurinol 100 mg Tablet PO (08:09)
[2019-08-07] MEDS: sertraline 50 mg Tablet PO (08:12)
[2019-08-07 08:28] LABS: Basophils % 0.3 %; Eosinophils % 0.4 %; Hematocrit 37.1 % (37.0-47.0); Hemoglobin 11.8 g/dL (11.5-15.3); Lymphocytes # 1.9 10^3/uL (0.8-4.8); Lymphocytes % 16.7 %; Mean Corpuscular HGB Conc 31.8 g/dL (30.0-36.0); Mean Corpuscular Hemoglobin 24.8 pg (28.0-34.0); Mean Corpuscular Volume 78.1 fL (81-99); Mean Platelet Volume 10.3 fL (7.4-10.4); Monocytes # 0.7 10^3/uL (0.2-0.9); Monocytes % 6.5 %; Neutrophils # 8.5 10^3/uL (1.8-7.7); Neutrophils % 75.6 %; Nucleated Red Blood Cells % 0 %; Platelet Count 387 10^3/cmm (130-400); Red Blood Count 4.75 10^6/uL (4.1-5.3); Red Cell Distribution Width 13.9 % (12.1-15.1); White Blood Count 11.2 10^3/uL (4.0-10.0)
--- NOTE | 2019-08-07 08:30 | PM.PN ---
Subjective Subjective: Interval history: Patient seen and examined with Dr. Watts. Sitting up in bed, no apparent distress, has 1625 mL urine output overnight, noted AM labs with leukocytosis, increased ESR and CRP. Denies pain currently, R foot less swollen and erythematous, able to express minimal pus, area demarcated again. Dressing change done at bedside by Dr. Watts, will keep NPO after midnight in case of need for surgical intervention. Discussed PICC line which patient is agreeable to. Noted hypertension this AM, will recheck BP. Medications: Reviewed: Yes Medication Review Details: Active Medications Generic Name Dose Route Start Last Admin Trade Name Freq PRN Reason Stop Dose Admin Acetaminophen 650 mg 08/06/19 18:54 Tylenol PO Q6H PRN Mild/Mod Pain Or Temp >/= 101 Hydrocodone Bitart /Acetaminophen 1 tab 08/06/19 18:54 Elberta 5-325 Mg PO Q4H PRN MODERATE TO SEVER E PAIN Allopurinol 100 mg 08/07/19 09:00 08/07/19 08:09 Zyloprim PO 100 mg DAILY HERNAN Administration Bumetanide 0.5 mg 08/07/19 09:00 08/07/19 08:08 Bumex PO 0.5 mg DAILY HERNAN Administration Cyclobenzaprine HC l 10 mg 08/06/19 18:54 Flexeril PO TID PRN MUSCLE SPASMS Dextrose 25 ml 08/06/19 18:54 D50w IVP ONCE PRN hypoglycemia prot ocol Protocol Dextrose 50 ml 08/06/19 18:54 D50w IVP PRN PRN hypoglycemia prot ocol Protocol Diltiazem HCl 120 mg 08/07/19 09:00 08/07/19 08:08 Cardizem Cd (24h r) PO 120 mg DAILY HERNAN Administration Enoxaparin Sodium 40 mg 08/06/19 19:00 08/06/19 21:31 Lovenox SUBCUT 40 mg Q24H HERNAN Administration Glucagon 1 mg 08/06/19 18:54 Glucagen IM ONCE PRN Adult Acute Hypog lycemia Prot. Protocol Dextrose 500 mls @ 100 mls /hr 08/06/19 18:54 D5w IV ONCE PRN Adult Acute Hypog lycemia Prot Protocol Vancomycin HCl 1,5 00 mg/ 250 mls @ 250 mls /hr 08/06/19 21:00 08/06/19 23:12 Sodium Chloride IV Infused Q18H HERNAN Infusion Protocol As Directed Piperacillin Sod/T azobactam 50 mls @ 12.5 mls /hr 08/06/19 19:30 08/07/19 06:07 Sod 3.375 gm/ So dium Chloride IV 12.5 mls/hr Q8H HERNAN Administration Protocol Insulin Aspart 0 unit 08/06/19 21:00 08/07/19 08:07 Novolog SUBCUT 8 unit WM&BEDTIME HERNAN Administration Protocol Lisinopril 40 mg 08/07/19 09:00 08/07/19 08:08 Prinivil PO 40 mg DAILY HERNAN Administration Morphine Sulfate 2 mg 08/06/19 18:54 Morphine IVP Q4H PRN SEVERE PAIN Ondansetron HCl 4 mg 08/06/19 18:54 Zofran IVP Q6H PRN vomiting, or N/V if npo Sertraline HCl 50 mg 08/07/19 09:00 08/07/19 08:12 Zoloft PO 50 mg DAILY HERNAN Administration ibuprofen Allergy (Verified 06/04/19 12:54) ALGY-Rash Vitals/I&O/Wt Last Vital Signs Temp 97.4 F L 08/07/19 08:00 Pulse 96 08/07/19 08:00 Resp 17 08/07/19 08:00 BP 158/101 08/07/19 08:00 Pulse Ox 95 08/07/19 08:00 08/06/19 08/07/19 08/07/19 22:59 06:59 14:59 Intake Total 540 / 540 300 / 840 Output Total 300 / 300 1625 / 1925 Balance 240 / 240 -1325 / -1085 Weight last 48 hrs Weight 82.724 kg Physical Exam Const: COMMON NORMALS: no apparent distress and oriented x3 GENERAL APPEARANCE: cooperative and comfortable NUTRITIONAL APPEARANCE: obese ORIENTATION/CONSCIOUSNESS: Yes awake HENMT: COMMON NORMALS: normocephalic, head/scalp atraumatic, hearing grossly normal bilaterally and moist oral mucous membranes HEAD & SCALP: normocephalic and atraumatic Eye: COMMON NORMALS: PERRL, EOMs intact bilaterally and conjunctivae normal CONJUNCTIVA: Yes conjunctivae normal PUPIL: Yes PERRL Neck/C-Spine: COMMON NORMALS: full ROM GENERAL: Yes normal visual inspection and Yes trachea midline Resp: COMMON NORMALS: normal respiratory effort, no retractions, no use of accessory muscles and clear to auscultation bilaterally EFFORT & INSPECTION: Yes able to speak in complete sentences, Yes symmetric chest movement and No tachypneic AUSCULTATION: clear to auscultation bilaterally Cardio: COMMON NORMALS: regular rate, regular rhythm, S1 normal heart sound, S2 normal heart sound and no murmurs RATE: regular rate RHYTHM: regular rhythm HEART SOUNDS: S1 normal and S2 normal GI: COMMON NORMALS: normal to inspection, nondistended, normoactive bowel sounds, soft to palpation and non-tender INSPECTION: Yes central obesity PALPATION: Yes soft Extremity: COMMON NORMALS: normal to inspection, full ROM and no clubbing, cyanosis or edema (of LLE); negative for no pedal edema NARRATIVE EXTREMITY EXAM: -unable to palpate peripheral pulses on R foot -R foot: less erythematous, warm to touch, open wound on dorsum of foot with good granulation tissue noted and minimal expression of pus, tunneling -diminished pulses on L Neuro: COMMON NORMALS: oriented x3, moves all extremities, no focal motor deficits and no sensory deficits noted Psych: COMMON NORMALS: mental status grossly normal, thought process normal, cooperative, affect normal and speech normal SPEECH: Yes normal speech THOUGHT PROCESS: normal thought process Skin: COMMON NORMALS: no rashes or lesions noted, no jaundice, no petechiae and no mottling NARRATIVE SKIN EXAM: -R foot: discrete area of erythema extending to about mid-foot, + edema (decreasing), tinea pedis, onychomycosis GENERAL SKIN EXAM: no rashes or lesions noted Data : 08/07/19 05:14 08/06/19 20:03 Micro: Microbiology 08/06/19 19:58 Blood Culture - Preliminary Blood SPECIMEN COLLECTED 08/06/19 20:03 Blood Culture - Preliminary Blood SPECIMEN COLLECTED A&P Assessment and plan (1) Diabetic foot ulcer: -noted R diabetic foot ulcer, debrided by Dr. Watts at [facility] (08/05), noted good granulation tissue on wound bed, + edema and erythema extending to mid-foot, marked area to monitor response to treatment -noted elevated CRP, ESR; leukocytosis with neutrophilic predominance; continue to trend WBC -CT RLE: Noted erosion of the right first metatarsal, medial sesamoid of right first metatarsal and erosion of the base of the right proximal phalanx, findings suspicious for osteomyelitis. Noted soft tissue swelling involving the foot and ankle; for abscess. Findings discussed with Dr. Rios; no need for surgery but will keep NPO after midnight in case wound does not improve as expected -on broad spectrum antibiotics; Vanc/Zosyn for appropriate coverage -f/u blood cx -pain control as needed -keep RLE elevated; NWB RLE; PT evaluation -wound care per Dr. Watts -surgery consult by Dr. Watts -will need PICC line for terminal computer operator IV antibiotics Status: Acute Qualifiers: Diabetic foot ulcer location: unspecified part of foot Diabetes mellitus type: type 2 Laterality: right Non-pressure ulcer stage: unspecified non-pressure ulcer stage Qualified Code(s): E11.621 - Type 2 diabetes mellitus with foot ulcer; L97.519 - Non-pressure chronic ulcer of other part of right foot with unspecified severity Code(s): E11.621 - Type 2 diabetes mellitus with foot ulcer; L97.509 - Non-pressure chronic ulcer of other part of unspecified foot with unspecified severity (2) Diabetes mellitus, type II: -has known hx of NIDDM type II, last A1c-8.4 (05/2019) -MAR Minor, hold metformin as had contrast study -consistent carb diet -complicated by peripheral neuropathy and nephropathy Status: Acute Qualifiers: Diabetes mellitus skilled nursing insulin use: without skilled nursing use Diabetes mellitus complication status: with neurologic complications Diabetes mellitus complication detail: with polyneuropathy Qualified Code(s): E11.42 - Type 2 diabetes mellitus with diabetic polyneuropathy Code(s): E11.9 - Type 2 diabetes mellitus without complications (3) Congestive heart failure: -normal EF per stress echo done 11/2015 -resume diuretics Status: Acute Qualifiers: Heart failure type: diastolic Heart failure chronicity: chronic Qualified Code(s): I50.32 - Chronic diastolic (congestive) heart failure Code(s): I50.9 - Heart failure, unspecified Additional A&P Information -Morbid obesity: BMI-33 kg/m2 -HTN; continue ACEi -CKD stage 2; baseline Cr wnl -Gout; continue allopurinol -GERD; continue PPI -GI ppx with PPI -DVT ppx with Lovenox -Dispo: home -Code status: FULL code Attestations Medical Necessity Statement*: Patient requires hospitalization for continued IV antibiotic treatment of R diabetic foot ulcer pending culture results and consistent clinical improvement. Time Spent in Patient Care: 16 - 35 minutes (>than 50% of time spent in counselling and/or direct pt care on unit). Coding Level of Care Code Acute Licensed Bondsman for g Fwd Diagnoses Diabetic foot ulcer E11.621; L97.519 Diabetic foot ulcer location: unspecified part of foot Diabetes mellitus type: type 2 Laterality: right Non-pressure ulcer stage: unspecified non-pressure ulcer stage Diabetes mellitus, type II E11.42 Diabetes mellitus terminal computer operator insulin use: without terminal computer operator use Diabetes mellitus complication status: with neurologic complications Diabetes mellitus complication detail: with polyneuropathy Congestive heart failure I50.32 Heart failure type: diastolic Heart failure chronicity: chronic
[2019-08-07 08:37] LABS: Anion Gap 14.6 (5-19); Blood Urea Nitrogen 8 mg/dL (8-23); Calcium 9.4 mg/dL (8.5-10.5); Carbon Dioxide 31 mmol/L (22-29); Chloride 92 mmol/L (98-107); Glomerular Filtration Rate 124.6 mL/min (90-130); Glucose 228 mg/dL (65-115); Osmolality Calculated 281 mOsm/kg (285-295); Potassium 3.6 mmol/L (3.5-5.1); Sodium 134 mmol/L (136-145)
[2019-08-07 10:57] LABS: Glucose Point of Care 318 mg/dL (70-110)
--- NOTE | 2019-08-07 15:19 | PC.CHAP ---
Pastoral Care Encounter/Spiritual Assessment Type of Contact [] Declined excel developer visit [] Patient/Family/Request visit [] Outpatient visit [] Follow-up visit [] Physician referral [] Code/Alert [X] Routine visit [] Staff referral [] Actively dying [] Patient sleeping [] Family support [] [] Out of room [] Palliative care [] [] Receiving care in room [] Pre-surgical visit [] Trauma [] Long length of stay [] ICU visit [] Other: Relational/Emotional Strength [] Patient feels connected with others/family/visitors/staff [] Distress [] Loneliness/isolation [] Abandonment Spirituality of Patient [] Person of [place] [] Attends Hindu of their [place] [] Believes in Prayer [] Reads Bible or Presybeterian materials [] There are Spiritual issues to be addressed Newspaper Carriers Supervisor Interventions [] Prayer [] Active listening [] Non-anxious presence [] Spiritual/emotional support [] Crisis/trauma care [] Spiritual counseling [] Bereavement support [] Provided bereavement packet [] Provided Bible/devotional materials [] Provided toy/stuffed animal, coloring book to patient or family member [] Provided Communion [] Anointing/S[place]cer [] Salvation [] Completed spiritual assessment [] Other: Impact on Illness or Injury [] Angry [] Fearful [] Anxious [] Often cries [] Exhaustion [] Unable to work [] Unable to attend spiritism [] Unable to walk/stand [] Unable to read [] Unable to drive [] Unable to eat/drink [] Unable to sleep [] Unable to be with family [] Patient intubated [] Other: Summary ONE VISITOR WITH PT Time spent with patient
[2019-08-07 16:50] LABS: Glucose Point of Care 230 mg/dL (70-110)
[2019-08-07 20:07] LABS: Glucose Point of Care 330 mg/dL (70-110)
[2019-08-07] MEDS: enoxaparin 40 mg/0.4 mL Syringe SUBCUT (20:19)
[2019-08-08] VITALS: BP 132/86; PULSE 82; RESP 18; TEMP 37.2; O2SAT 93
[2019-08-08 04:00] VITALS: BP 146/92; PULSE 100; RESP 18; TEMP 37; O2SAT 97
[2019-08-08 06:02] LABS: Basophils % 0.4 %; Eosinophils # 0.1 10^3/uL (0.0-0.8); Eosinophils % 1.4 %; Hematocrit 37.9 % (37.0-47.0); Hemoglobin 11.9 g/dL (11.5-15.3); Lymphocytes # 1.8 10^3/uL (0.8-4.8); Lymphocytes % 22.1 %; Mean Corpuscular HGB Conc 31.4 g/dL (30.0-36.0); Mean Corpuscular Hemoglobin 24.6 pg (28.0-34.0); Mean Corpuscular Volume 78.5 fL (81-99); Monocytes # 0.7 10^3/uL (0.2-0.9); Neutrophils # 5.4 10^3/uL (1.8-7.7); Neutrophils % 66.7 %; Nucleated Red Blood Cells % 0 %; Platelet Count 384 10^3/cmm (130-400); Red Blood Count 4.83 10^6/uL (4.1-5.3); Red Cell Distribution Width 13.9 % (12.1-15.1); White Blood Count 8.1 10^3/uL (4.0-10.0)
[2019-08-08] MEDS: piperacillin-tazobactam 3.375 GM in sodium chloride 0.9% (plus) 50 ML IV ×3 (06:07→22:23)
[2019-08-08 06:28] LABS: Anion Gap 16.8 (5-19); Blood Urea Nitrogen 8 mg/dL (8-23); Calcium 9.5 mg/dL (8.5-10.5); Carbon Dioxide 27 mmol/L (22-29); Chloride 95 mmol/L (98-107); Glomerular Filtration Rate 124.6 mL/min (90-130); Glucose 248 mg/dL (65-115); Osmolality Calculated 284 mOsm/kg (285-295); Potassium 3.8 mmol/L (3.5-5.1); Sodium 135 mmol/L (136-145)
[2019-08-08 06:47] LABS: Glucose Point of Care 267 mg/dL (70-110)
--- NOTE | 2019-08-08 07:47 | P.PN_ITS ---
Subjective Subjective: Interval history: Patient overall feels, no acute events overnight no evidence of fevers and WBC count normalized Medications: Reviewed: Yes Vitals/I&O/Wt Last Vital Signs Temp 98.6 F 08/08/19 04:00 Pulse 100 08/08/19 04:00 Resp 18 08/08/19 04:00 BP 146/92 08/08/19 04:00 Pulse Ox 97 08/08/19 04:00 08/07/19 08/08/19 08/08/19 22:59 06:59 14:59 Intake Total 405 / 815 50 / 865 Output Total 2250 / 2900 1400 / 4300 Balance -1845 / -2085 -1350 / -3435 Weight last 48 hrs Weight 186 lb 12.8 oz Weight 182 lb 6 oz Physical Exam Narrative: EXAM NARRATIVE: Patient is conscious alert oriented X3 BMI 33.4 Head and neck examination PERRLA no masses no cervical lymphadenopathy no jaundice Right foot examination shows much more less swelling and more receding of the cellulitis, no evidence of discharge from the ulcer and packing was done by me bedside after irrigation with normal saline, packing was in the form of new gauze quarter inch followed by Yulia. Please note line marked by me indicating receding of the cellulitis Data : 08/08/19 05:01 08/08/19 05:01 Micro: Microbiology 08/06/19 19:58 Blood Culture - Preliminary Blood NEGATIVE TO DATE 08/06/19 20:03 Blood Culture - Preliminary Blood NEGATIVE TO DATE A&P Assessment and plan (1) Diabetic foot ulcer: From surgical standpoint of view patient is making good clinical progress will hold off taking the patient to the OR and Will order a breakfast tray for the patient otherwise; 1-we will continue broad-spectrum IV antibiotic 2-tomorrow the plan that the patient will get a PICC line for 6 weeks of antibiotics to treat osteomyelitis 3-Daily packing of the wound with new gauze quarter inch dry to dry followed by Yulia 4-Physical therapy to assess the patient with recommendation to have non-weight bearing of right forefoot 5-Management of diabetes per hospitalist service. 6-patient continues to have hyperglycemia will defer to Dr. Ivory's expertise for tighter control Assurance and education All questions have been answered and all concerns have been addressed to patient's satisfaction. I appreciate Dr. Ivory's input Status: Acute Qualifiers: Diabetic foot ulcer location: unspecified part of foot Diabetes mellitus type: type 2 Laterality: right Non-pressure ulcer stage: unspecified non-pressure ulcer stage Qualified Code(s): E11.621 - Type 2 diabetes mellitus with foot ulcer; L97.519 - Non-pressure chronic ulcer of other part of right foot with unspecified severity Code(s): E11.621 - Type 2 diabetes mellitus with foot ulcer; L97.509 - Non-pressure c hronic ulcer of other part of unspecified foot with unspecified severity Attestations Medical Necessity Statement*: Medical necessity care is expected to cross 2 midnights Time Spent in Patient Care: 16 - 35 minutes (>than 50% of time spent in counselling and/or direct pt care on unit) . Coding Level of Care Code Acute Warehouse Receiving Supervisor for g Fwd Diagnoses Diabetic foot ulcer E11.621; L97.519 Diabetic foot ulcer location: unspecified part of foot Diabetes mellitus type: type 2 Laterality: right Non-pressure ulcer stage: unspecified non-pressure ulcer stage
[2019-08-08 08:00] VITALS: BP 146/95; PULSE 104; RESP 17; TEMP 36.8; O2SAT 97
[2019-08-08] MEDS: bumetanide 1 mg Tablet 0.5 MG PO (08:40)
[2019-08-08] MEDS: lisinopril 20 mg Tablet 40 MG PO (08:40)
[2019-08-08] MEDS: dilTIAZem ER (24HR) 120 mg Capsule PO (08:41)
[2019-08-08] MEDS: sertraline 50 mg Tablet PO (08:41)
[2019-08-08] MEDS: allopurinol 100 mg Tablet PO (08:41)
[2019-08-08 11:08] LABS: Glucose Point of Care 358 mg/dL (70-110)
[2019-08-08 11:31] VITALS: BP 169/106; PULSE 95; RESP 22; TEMP 36.6; O2SAT 97
--- NOTE | 2019-08-08 11:35 | PM.PN ---
Subjective Subjective: Interval history: AM labs noted, leukocytosis resolved, afebrile, noted to have some BP spikes, Accuchecks reviewed, will add Lantus and scheduled aspart as no need for surgical intervention per Dr. Watts, dressing change done by him earlier this AM. Patient had 3050 mL urine output overnight. Resting comfortably in bed, no complaints. PICC line placement tomorrow. Medications: Reviewed: Yes Medication Review Details: Active Medications Generic Name Dose Route Start Last Admin Trade Name Freq PRN Reason Stop Dose Admin Acetaminophen 650 mg 08/06/19 18:54 Tylenol PO Q6H PRN Mild/Mod Pain Or Temp >/= 101 Hydrocodone Bitart /Acetaminophen 1 tab 08/06/19 18:54 [place] 5-325 Mg PO Q4H PRN MODERATE TO SEVER E PAIN Allopurinol 100 mg 08/07/19 09:00 08/08/19 08:41 Zyloprim PO 100 mg DAILY HERNAN Administration Bumetanide 0.5 mg 08/07/19 09:00 08/08/19 08:40 Bumex PO 0.5 mg DAILY HERNAN Administration Cyclobenzaprine HC l 10 mg 08/06/19 18:54 Flexeril PO TID PRN MUSCLE SPASMS Dextrose 25 ml 08/06/19 18:54 D50w IVP ONCE PRN hypoglycemia prot ocol Protocol Dextrose 50 ml 08/06/19 18:54 D50w IVP PRN PRN hypoglycemia prot ocol Protocol Diltiazem HCl 120 mg 08/07/19 09:00 08/08/19 08:41 Cardizem Cd (24h r) PO 120 mg DAILY HERNAN Administration Enoxaparin Sodium 40 mg 08/06/19 19:00 08/07/19 20:19 Lovenox SUBCUT 40 mg Q24H HERNAN Administration Glucagon 1 mg 08/06/19 18:54 Glucagen IM ONCE PRN Adult Acute Hypog lycemia Prot. Protocol Dextrose 500 mls @ 100 mls /hr 08/06/19 18:54 D5w IV ONCE PRN Adult Acute Hypog lycemia Prot Protocol Vancomycin HCl 1,5 00 mg/ 250 mls @ 250 mls /hr 08/06/19 21:00 08/08/19 10:30 Sodium Chloride IV Infused Q18H HERNAN Infusion Protocol As Directed Piperacillin Sod/T azobactam 50 mls @ 12.5 mls /hr 08/06/19 19:30 08/08/19 08:58 Sod 3.375 gm/ So dium Chloride IV Infused Q8H [facility] Infusion Protocol Insulin Aspart 0 unit 08/06/19 21:00 08/08/19 11:23 Novolog SUBCUT 14 unit WM&BEDTIME HERNAN Administration Protocol Insulin Aspart 10 unit 08/08/19 17:00 Novolog SUBCUT TIDAC HERNAN Insulin Glargine 15 unit 08/08/19 21:00 Lantus SUBCUT BEDTIME HERNAN Lisinopril 40 mg 08/07/19 09:00 08/08/19 08:40 Prinivil PO 40 mg DAILY HERNAN Administration Morphine Sulfate 2 mg 08/06/19 18:54 Morphine IVP Q4H PRN SEVERE PAIN Ondansetron HCl 4 mg 08/06/19 18:54 Zofran IVP Q6H PRN vomiting, or N/V if npo Sertraline HCl 50 mg 08/07/19 09:00 08/08/19 08:41 Zoloft PO 50 mg DAILY HERNAN Administration ibuprofen Allergy (Verified 06/04/19 12:54) ALGY-Rash Vitals/I&O/Wt Last Vital Signs Temp 97.8 F 08/08/19 11:31 Pulse 95 08/08/19 11:31 Resp 22 H 08/08/19 11:31 BP 169/106 08/08/19 11:31 Pulse Ox 97 08/08/19 11:31 08/07/19 08/08/19 08/08/19 22:59 06:59 14:59 Intake Total 405 / 815 50 / 865 780 / 780 Output Total 2250 / 2900 1400 / 4300 450 / 450 Balance -1845 / -2085 -1350 / -3435 330 / 330 Weight last 48 hrs Weight 84.096 kg Weight 84.731 kg Weight 82.724 kg Physical Exam Const: COMMON NORMALS: no apparent distress and oriented x3 GENERAL APPEARANCE: cooperative and comfortable NUTRITIONAL APPEARANCE: obese ORIENTATION/CONSCIOUSNESS: Yes awake HENMT: COMMON NORMALS: normocephalic, head/scalp atraumatic, hearing grossly normal bilaterally and moist oral mucous membranes HEAD & SCALP: normocephalic and atraumatic Eye: COMMON NORMALS: PERRL, EOMs intact bilaterally and conjunctivae normal CONJUNCTIVA: Yes conjunctivae normal PUPIL: Yes PERRL Neck/C-Spine: COMMON NORMALS: full ROM GENERAL: Yes normal visual inspection and Yes trachea midline Resp: COMMON NORMALS: normal respiratory effort, no retractions, no use of accessory muscles and clear to auscultation bilaterally EFFORT & INSPECTION: Yes able to speak in complete sentences, Yes symmetric chest movement and No tachypneic AUSCULTATION: clear to auscultation bilaterally Cardio: COMMON NORMALS: regular rate, regular rhythm, S1 normal heart sound, S2 normal heart sound and no murmurs RATE: regular rate RHYTHM: regular rhythm HEART SOUNDS: S1 normal and S2 normal GI: COMMON NORMALS: normal to inspection, nondistended, normoactive bowel sounds, soft to palpation and non-tender INSPECTION: Yes central obesity PALPATION: Yes soft Extremity: COMMON NORMALS: normal to inspection, full ROM and no clubbing, cyanosis or edema (of LLE); negative for no pedal edema NARRATIVE EXTREMITY EXAM: -diminished peripheral pulses on R foot -R foot: less erythematous particularly around great toe, warm to touch, clean dressing in place -diminished pulses on L Neuro: COMMON NORMALS: oriented x3, moves all extremities, no focal motor deficits and no sensory deficits noted Psych: COMMON NORMALS: mental status grossly normal, thought process normal, cooperative, affect normal and speech normal SPEECH: Yes normal speech THOUGHT PROCESS: normal thought process Skin: COMMON NORMALS: no rashes or lesions noted, no jaundice, no petechiae and no mottling NARRATIVE SKIN EXAM: -R foot: receding discrete area of erythema, minimal edema, tinea pedis, onychomycosis. Clean dressing in place GENERAL SKIN EXAM: no rashes or lesions noted Data : 08/08/19 05:01 08/08/19 05:01 Micro: Microbiology 08/06/19 19:58 Blood Culture - Preliminary Blood NEGATIVE TO DATE 08/06/19 20:03 Blood Culture - Preliminary Blood NEGATIVE TO DATE A&P Assessment and plan (1) Diabetic foot ulcer: -noted R diabetic foot ulcer, debrided by Dr. Watts at [facility] (08/05), noted good granulation tissue on wound bed, + edema and erythema extending to mid-foot, marked area to monitor response to treatment -noted elevated CRP, ESR; leukocytosis with neutrophilic predominance now resolved -CT RLE: Noted erosion of the right first metatarsal, medial sesamoid of right first metatarsal and erosion of the base of the right proximal phalanx, findings suspicious for osteomyelitis. Noted soft tissue swelling involving the foot and ankle; for abscess. Findings discussed with Dr. Rios; no need for surgery -on broad spectrum antibiotics; Vanc/Zosyn for appropriate coverage -blood cx: prelim negative -pain control as needed -keep RLE elevated; NWB RLE; PT evaluation -wound care per Dr. Watts -surgery consult by Dr. Watts -will need PICC line for termite renewal inspector IV antibiotics, anticipate placement tomorrow Status: Acute Qualifiers: Diabetes mellitus type: type 2 Diabetic foot ulcer location: unspecified part of foot Laterality: right Non-pressure ulcer stage: unspecified non-pressure ulcer stage Qualified Code(s): E11.621 - Type 2 diabetes mellitus with foot ulcer; L97.519 - Non-pressure chronic ulcer of other part of right foot with unspecified severity Code(s): E11.621 - Type 2 diabetes mellitus with foot ulcer; L97.509 - Non-pressure chronic ulcer of other part of unspecified foot with unspecified severity (2) Diabetes mellitus, type II: -has known hx of NIDDM type II, last A1c-8.4 (05/2019) -Accuchecks, ISS, hold metformin as had contrast study. Continue ISS, add long acting and meal-time insulin for more optimal BG control -consistent carb diet -complicated by peripheral neuropathy and nephropathy Status: Chronic Qualifiers: Diabetes mellitus complication detail: with polyneuropathy Diabetes mellitus complication status: with neurologic complications Diabetes mellitus termite renewal inspector insulin use: without termite renewal inspector use Qualified Code(s): E11.42 - Type 2 diabetes mellitus with diabetic polyneuropathy Code(s): E11.9 - Type 2 diabetes mellitus without complications (3) Congestive heart failure: -normal EF per stress echo done 11/2015 -continue diuretics Status: Chronic Qualifiers: Heart failure chronicity: chronic Heart failure type: diastolic Qualified Code(s): I50.32 - Chronic diastolic (congestive) heart failure Code(s): I50.9 - Heart failure, unspecified Additional A&P Information -Morbid obesity: BMI-33 kg/m2 -HTN; continue ACEi, add Amlodipine for more optimal and consistent BP control -CKD stage 2; baseline Cr wnl -Gout; continue allopurinol -GERD; continue PPI -GI ppx with PPI -DVT ppx with Lovenox -Dispo: home with home health due to IV antibiotics -Code status: FULL code Attestations Medical Necessity Statement*: Patient requires hospitalization for continued management of R diabetic foot infection with suspicion for osteomyelitis on IV antibiotics, pending PICC line placement. Time Spent in Patient Care: 16 - 35 minutes (>than 50% of time spent in counselling and/or direct pt care on unit). Coding Level of Care Code Acute Making Department Preparer for [facility] Fwd Exam Comprehensive Diagnoses Diabetic foot ulcer E11.621; L97.519 Diabetes mellitus type: type 2 Diabetic foot ulcer location: unspecified part of foot Laterality: right Non-pressure ulcer stage: unspecified non-pressure ulcer stage Diabetes mellitus, type II E11.42 Diabetes mellitus complication detail: with polyneuropathy Diabetes mellitus complication status: with neurologic complications Diabetes mellitus penitentiary insulin use: without termite renewal inspector use Congestive heart failure I50.32 Heart failure chronicity: chronic Heart failure type: diastolic
[2019-08-08] MEDS: amlodipine 5 mg Tablet PO (12:19)
[2019-08-08 15:17] VITALS: BP 148/91; PULSE 84; RESP 22; TEMP 36.9; O2SAT 95
[2019-08-08 17:10] LABS: Glucose Point of Care 294 mg/dL (70-110)
[2019-08-08 19:05] VITALS: BP 147/88; PULSE 103; RESP 18; TEMP 37.1; O2SAT 97
[2019-08-08] MEDS: insulin glargine 100 units/1 mL 15 UNIT SUBCUT (20:18)
[2019-08-08] MEDS: enoxaparin 40 mg/0.4 mL Syringe SUBCUT (20:18)
[2019-08-08 20:59] LABS: Glucose Point of Care 358 mg/dL (70-110)
[2019-08-09] VITALS: BP 158/91; PULSE 84; RESP 20; TEMP 36.8; O2SAT 95
[2019-08-09 04:00] VITALS: BP 162/98; PULSE 90; RESP 18; TEMP 36.8; O2SAT 94
[2019-08-09] MEDS: piperacillin-tazobactam 3.375 GM in sodium chloride 0.9% (plus) 50 ML IV ×2 (05:21→15:17)
[2019-08-09 06:41] LABS: Glucose Point of Care 201 mg/dL (70-110)
[2019-08-09 07:59] VITALS: BP 143/78; PULSE 95; RESP 18; TEMP 36.6; O2SAT 96
[2019-08-09] MEDS: bumetanide 1 mg Tablet 0.5 MG PO (08:05)
[2019-08-09] MEDS: dilTIAZem ER (24HR) 180 mg Capsule PO (08:05)
[2019-08-09] MEDS: amlodipine 5 mg Tablet PO (08:06)
[2019-08-09] MEDS: allopurinol 100 mg Tablet PO (08:06)
[2019-08-09] MEDS: lisinopril 20 mg Tablet 40 MG PO (08:06)
[2019-08-09 11:43] VITALS: BP 145/84; PULSE 84; RESP 18; TEMP 36.7; O2SAT 98
[2019-08-09 11:55] LABS: Glucose Point of Care 242 mg/dL (70-110)
--- NOTE | 2019-08-09 13:37 | PM.DCS ---
Discharge Providers Date of Admission: 08/06/19 16:15 Date of Discharge: August 09, 2019 Attending Provider at Admission: Autumn Ivory MD Attending Provider at Discharge: Autumn Ivory MD Primary Care Provider: Tree Souza MD Diagnoses at Discharge Discharge Diagnosis (1) Diabetic foot ulcer: Status: Acute Problem details: -noted R diabetic foot ulcer, debrided by Dr. Watts at [facility] (08/05), noted good granulation tissue on wound bed, + edema and erythema extending to mid-foot, marked area to monitor response to treatment -noted elevated CRP, ESR; leukocytosis with neutrophilic predominance now resolved -CT RLE: Noted erosion of the right first metatarsal, medial sesamoid of right first metatarsal and erosion of the base of the right proximal phalanx, findings suspicious for osteomyelitis. Noted soft tissue swelling involving the foot and ankle; for abscess. Findings discussed with Dr. Rios; no need for surgery -on broad spectrum antibiotics; Vanc/Zosyn for appropriate coverage -blood cx: prelim negative -pain control as needed -keep RLE elevated; NWB RLE; PT evaluation -wound care per Dr. Watts -surgery consult by Dr. Watts appreciated; f/u at [facility] -has PICC line for intermodal owner operator truck driver IV antibiotics Qualifiers: Diabetes mellitus type: type 2 Diabetic foot ulcer location: unspecified part of foot Laterality: right Non-pressure ulcer stage: unspecified non-pressure ulcer stage Qualified Code(s): E11.621 - Type 2 diabetes mellitus with foot ulcer; L97.519 - Non-pressure chronic ulcer of other part of right foot with unspecified severity (2) Diabetes mellitus, type II: Status: Chronic Problem details: -has known hx of NIDDM type II, last A1c-8.4 (05/2019) -Accuchecks, ISS, hold metformin as had contrast study. Continue ISS, add long acting and meal-time insulin for more optimal BG control -consistent carb diet -complicated by peripheral neuropathy and nephropathy Qualifiers: Diabetes mellitus complication detail: with polyneuropathy Diabetes mellitus complication status: with neurologic complications Diabetes mellitus fpc insulin use: without intermodal owner operator truck driver use Qualified Code(s): E11.42 - Type 2 diabetes mellitus with diabetic polyneuropathy (3) Congestive heart failure: Status: Chronic Problem details: -normal EF per stress echo done 11/2015 -continue diuretics Qualifiers: Heart failure chronicity: chronic Heart failure type: diastolic Qualified Code(s): I50.32 - Chronic diastolic (congestive) heart failure Other Information Additional DC diagnoses/information: -Morbid obesity: BMI-33 kg/m2 -HTN; continue ACEi, added Amlodipine for more optimal and consistent BP control -CKD stage 2; baseline Cr wnl -Gout; continue allopurinol -GERD; continue PPI Reason for Visit Reason for Visit: Reason For Visit: R foot pain and swelling Hospital Course Hospital Course: Patient was admitted directly from the wound care clinic to the medical surgical floor and started on broad-spectrum IV antibiotic coverage as well as wound care per Dr. Watts recommendations. She had CT scan done to rule out leandro abscess and was found to have no drainable abscess part finding suspicious for osteomyelitis in addition to soft tissue swelling. Right diabetic foot infection has been responding well to broad-spectrum IV antibiotics and due to suspicion for osteomyelitis she will require long-term IV antibiotic treatment for at least 6 weeks hence PICC line placement. Leukocytosis has resolved, she has been afebrile, with no other noted systemic signs of infection. She is tolerating oral intake without difficulty. She had intermittent spikes in her blood pressure hence addition of oral antihypertensive regimen which she will continue on discharge. She will continue to follow-up with Dr. Rios at the wound care clinic and is to be nonweightbearing on the right to allow for appropriate wound healing. He was counseled on need to continue to monitor her blood sugar at home and to be compliant with her hypoglycemic medications. Metformin was held as patient had had a contrast study; she was covered with insulin instead. Discharge Summary: -Patient to follow up with primary care provider within 1 week -Patient to continue to follow-up with Dr. Rios at wound care clinic Physical Exam Const: COMMON NORMALS: no apparent distress and oriented x3 GENERAL APPEARANCE: cooperative and comfortable NUTRITIONAL APPEARANCE: obese ORIENTATION/CONSCIOUSNESS: Yes awake HENMT: COMMON NORMALS: normocephalic, head/scalp atraumatic, hearing grossly normal bilaterally and moist oral mucous membranes HEAD & SCALP: normocephalic and atraumatic Eye: COMMON NORMALS: PERRL, EOMs intact bilaterally and conjunctivae normal CONJUNCTIVA: Yes conjunctivae normal PUPIL: Yes PERRL Neck/C-Spine: COMMON NORMALS: full ROM GENERAL: Yes normal visual inspection and Yes trachea midline Resp: COMMON NORMALS: normal respiratory effort, no retractions, no use of accessory muscles and clear to auscultation bilaterally EFFORT & INSPECTION: Yes able to speak in complete sentences, Yes symmetric chest movement and No tachypneic AUSCULTATION: clear to auscultation bilaterally Cardio: COMMON NORMALS: regular rate, regular rhythm, S1 normal heart sound, S2 normal heart sound and no murmurs RATE: regular rate RHYTHM: regular rhythm HEART SOUNDS: S1 normal and S2 normal GI: COMMON NORMALS: normal to inspection, nondistended, normoactive bowel sounds, soft to palpation and non-tender INSPECTION: Yes central obesity PALPATION: Yes soft Extremity: COMMON NORMALS: normal to inspection, full ROM and no clubbing, cyanosis or edema (of LLE); negative for no pedal edema NARRATIVE EXTREMITY EXAM: -diminished peripheral pulses on R foot -R foot: less erythematous particularly around great toe, warm to touch, clean dressing in place -diminished pulses on L Neuro: COMMON NORMALS: oriented x3, moves all extremities, no focal motor deficits and no sensory deficits noted Psych: COMMON NORMALS: mental status grossly normal, thought process normal, cooperative, affect normal and speech normal SPEECH: Yes normal speech THOUGHT PROCESS: normal thought process Skin: COMMON NORMALS: no rashes or lesions noted, no jaundice, no petechiae and no mottling NARRATIVE SKIN EXAM: -R foot: receding discrete area of erythema, minimal edema, tinea pedis, onychomycosis. Clean dressing in place GENERAL SKIN EXAM: no rashes or lesions noted Discharge Data Data Completed and Pending: Pending at discharge Category Date Time Status Blood Culture Rou garcia Lab 08/06/19 19:58 Results Vancomycin Trough Timed Lab 08/09/19 20:00 Ordered Labs from last 24 hours 08/09/19 08/09/19 08/08/19 11:42 06:36 20:56 POC Glucose 242 201 358 08/08/19 16:58 POC Glucose 294 Vitals: Last Vital Signs Temp 98.1 F 08/09/19 11:43 Pulse 84 08/09/19 11:43 Resp 18 08/09/19 11:43 BP 145/84 08/09/19 11:43 Pulse Ox 98 08/09/19 11:43 Discharge Plan Discharge Patient Disposition: Home Health Service Condition: Stable Prescriptions: New hydrocodone-acetaminophen 5-325 mg Tablet 1 tab PO Q4H PRN (Reason: Moderate To Severe Pain) Qty: 30 RF: 0 lisinopril 20 mg Tablet 40 mg PO DAILY 30 Days Qty: 60 RF: 0 amlodipine 5 mg Tablet 5 mg PO DAILY 30 Days Qty: 30 RF: 0 bumetanide 1 mg Tablet 0.5 mg PO DAILY 30 Days Qty: 30 RF: 0 DILT-XR 180 mg Capsule,Ext.Rel 24h Degradable 180 mg PO DAILY 30 Days Qty: 30 RF: 0 Zosyn 3.375 gram recon soln 3.375 gm IVP Q8H 38 Days Qty: 114 RF: 0 vancomycin 1.5 gram recon soln 1.5 gm IVP Q12H 38 Days Qty: 76 RF: 0 Continued potassium chloride [Klor-Con M10] 10 mEq tablet,ER particles/crystals 10 meq PO DAILY RF: 0 metformin [Glucophage] 850 mg Tablet 850 mg PO DAILY RF: 0 allopurinol 100 mg Tablet 100 mg PO DAILY RF: 0 glipizide 10 mg Tablet 20 mg PO BID RF: 0 Januvia 50 mg tablet 50 mg PO DAILY RF: 0 Lipitor 40 mg tablet 40 mg PO DAILY RF: 0 omeprazole 20 mg capsule,delayed release(DR/EC) 20 mg PO DAILY RF: 0 Discharge Orders: Discharge Order (Routine); Ordered 08/09/19 Ordered By: Autumn Ivory Referrals: [facility] [Outside] Tree Souza MD [Primary Care Provider] - 4-7 days (Post hospital discharge follow up, treated for diabetic foot infection and osteomyelitis with 6 weeks of IV antibiotics. ) Kurtis Rios MD [Physician] - 08/13/19 (Follow up at wound care clinic) Discharge Diet: Diabetic Discharge Activity: Resume usual activity Activity Restrictions/Additional Instructions: -Please continue non-weight bearing status on R foot to allow for appropriate wound healing Discharge Attestations Time Spent in Discharge Care*: greater than 30 min Specific Discharge Activities: Specific discharge activities: educating patient, educating and/or supporting family/caregiver, discussing with pcp/other providers, discussing with counter caser/social workers/dc planners, documenting/other paperwork and evaluating patient/reviewing data Status at Discharge: Cognitive status at discharge: cognitively intact, Behavioral status at discharge: cooperative, Functional status at discharge: other (NWB on RLE) Overall status at discharge: patient is back to baseline Quality Metrics Clinical Quality Measures During this hospital stay, did patient experience: None Coding Level of Care Code Acute Physician Anesthesiologist for g Fwd Exam Comprehensive Diagnoses Diabetic foot ulcer E11.621; L97.519 Diabetes mellitus type: type 2 Diabetic foot ulcer location: unspecified part of foot Laterality: right Non-pressure ulcer stage: unspecified non-pressure ulcer stage Diabetes mellitus, type II E11.42 Diabetes mellitus complication detail: with polyneuropathy Diabetes mellitus complication status: with neurologic complications Diabetes mellitus intermodal owner operator truck driver insulin use: without fpc use Congestive heart failure I50.32 Heart failure chronicity: chronic Heart failure type: diastolic
--- NOTE | 2019-08-09 13:47 | XR_ITS ---
WS: [id number] CHEST XRAY TECHNIQUE: Portable chest. CLINICAL INFORMATION: post picc COMPARISON: None. FINDINGS: Right PICC line with tip in the proximal mid SVC. No pneumothorax. Shallow inspiration. Rotator cuff anchors. XR/XR chest 1V portable [id number] IMPRESSION: Right PICC line with tip in the proximal to mid SVC
--- NOTE | 2019-08-09 14:33 | P.PN_ITS ---
Subjective Subjective: Interval history: Patient overall feels much better No acute events overnight Swelling is much less and almost cellulitis subside Vitals/I&O/Wt Last Vital Signs Temp 98.1 F 08/09/19 11:43 Pulse 84 08/09/19 11:43 Resp 18 08/09/19 11:43 BP 145/84 08/09/19 11:43 Pulse Ox 98 08/09/19 11:43 08/08/19 08/09/19 08/09/19 22:59 06:59 14:59 Intake Total 410 / 1670 300 / 1970 585 / 585 Output Total 1800 / 2250 1600 / 3850 400 / 400 Balance -1390 / -580 -1300 / -1880 185 / 185 Weight last 48 hrs Weight 185 lb 6.4 oz Weight 185 lb 6.4 oz Physical Exam Narrative: EXAM NARRATIVE: Patient is conscious alert oriented X3 BMI 33.4 Head and neck examination PERRLA no masses no cervical lymphadenopathy no jaundice Right foot examination shows almost the swelling is gone and more receding of the cellulitis, no evidence of discharge from the ulcer bed. Data : 08/08/19 05:01 08/08/19 05:01 A&P Assessment and plan (1) Diabetic foot ulcer: From surgical standpoint of view patient can be discharged today once she gets the PICC line and follow-up with me this coming Friday at the wound care c enter Continue diabetes management and hyperglycemic control per hospitalist service and further recommendations as an outpatient Daily packing of the wound with dry to dry using quarter inch Nu Gauze allowed by POPPY and Tami Assurance and education All questions have been answered and all concerns have been addressed to patient's satisfaction. I appreciate Dr. Ivory's input Status: Acute Qualifiers: Diabetic foot ulcer location: unspecified part of foot Diabetes mellitus type: type 2 Laterality: right Non-pressure ulcer stage: unspecified non-pressure ulcer stage Qualified Code(s): E11.621 - Type 2 diabetes mellitus with foot ulcer; L97.519 - Non-pressure chronic ulcer of other part of right foot with unspecified severity Code(s): E11.621 - Type 2 diabetes mellitus with foot ulcer; L97.509 - Non-pressure chronic ulcer of other part of unspecified foot with unspecified severity Attestations Medical Necessity Statement*: Per hospitalist service Time Spent in Patient Care: 16 - 35 minutes (>than 50% of time spent in counselling and/or direct pt care on unit) . Coding Level of Care Code Acute Pharmacy District Manager for [place] Fwd Diagnoses Diabetic foot ulcer E11.621; L97.519 Diabetic foot ulcer location: unspecified part of foot Diabetes mellitus type: type 2 Laterality: right Non-pressure ulcer stage: unspecified non-pressure ulcer stage
[2019-08-09 15:23] VITALS: BP 145/84; PULSE 84; RESP 18; TEMP 36.7; O2SAT 98
[2019-08-09 15:43] VITALS: BP 120/75; PULSE 72; RESP 18; TEMP 37.2; O2SAT 95
--- NOTE | 2019-08-09 16:41 | PC.NURSE ---
Patient being discharged today, Dr. Ivory wanted patient to have a dose of Zosyn and Vancomycin before discharge. She stated that it was okay for Zosyn to be ran over 30 minute period through peripheral IV and Vancomycin to be hung early and run through her PICC line
[2019-08-09 17:03] LABS: Glucose Point of Care 247 mg/dL (70-110)
== END 2019-08-09 18:38 | disposition home health service (06) | DRG 638 ==
PROVIDERS: Admitting Provider Family Medicine; PCP Family Medicine; Visit Provider Family Medicine
DX: E11.621 Type 2 diabetes mellitus with foot ulcer (principal); I50.32 Chronic diastolic (congestive) heart failure; I13.0 Hypertensive heart and chronic kidney disease with heart failure and stage 1 through stage 4 chronic kidney disease, or unspecified chronic kidney disease; M86.8X7 Other osteomyelitis, ankle and foot; L97.519 Non-pressure chronic ulcer of other part of right foot with unspecified severity; E11.42 Type 2 diabetes mellitus with diabetic polyneuropathy; N18.2 Chronic kidney disease, stage 2 (mild); K21.9 Gastro-esophageal reflux disease without esophagitis; M10.9 Gout, unspecified; E66.9 Obesity, unspecified; E66.01 Morbid (severe) obesity due to excess calories; Z79.84 Long term (current) use of oral hypoglycemic drugs; Z79.83 Long term (current) use of bisphosphonates; Z68.33 Body mass index [BMI] 33.0-33.9, adult
CPT/HCPCS: 11044; 12345; 36415; 36416; 36569; 71045; 80048; 80053; 82962; 83605; 85025; 85651; 86140; 87040; 96372; 97161; J1650; J1815; J2543; J3370; J7050

== ENCOUNTER 2019-08-13 13:19 | Outpatient (RCR) | payer OTHER, SELFPAY ==
[2019-08-16 11:11] LABS: Blood Urea Nitrogen 19 mg/dL (8-23); Vancomycin Trough 18.5 ug/mL (10-15)
== END 2019-08-17 23:59 | disposition home or self-care (01) ==
LOC: WOUND 13:19
PROVIDERS: PCP Family Medicine; Visit Provider Surgery
DX: E11.621 Type 2 diabetes mellitus with foot ulcer (principal); L97.412 Non-pressure chronic ulcer of right heel and midfoot with fat layer exposed
CPT/HCPCS: 11043; 11044; 80202; 82565; 84520; 85025; L3260; L4387

== ENCOUNTER 2019-08-23 12:40 | Outpatient (CLI) | payer OTHER, SELFPAY ==
[2019-08-23 13:53] LABS: Blood Urea Nitrogen 15 mg/dL (8-23); Glomerular Filtration Rate 72.4 mL/min (90-130); Vancomycin Trough 19.5 ug/mL (10-15)
== END 2019-08-23 12:41 | disposition home or self-care (01) ==
LOC: LAB 12:42
PROVIDERS: PCP Family Medicine; Visit Provider Family Medicine
DX: E11.621 Type 2 diabetes mellitus with foot ulcer (principal); M86.9 Osteomyelitis, unspecified
CPT/HCPCS: 11042; 80202; 82565; 84520

== ENCOUNTER 2019-08-30 15:45 | Outpatient (CLI) | payer OTHER, SELFPAY ==
[2019-08-30 17:36] LABS: Blood Urea Nitrogen 12 mg/dL (8-23); Glomerular Filtration Rate 72.4 mL/min (90-130)
[2019-08-30 17:51] LABS: Vancomycin Trough 45.8 ug/mL (10-15)
[2019-08-31 10:11] LABS: Vancomycin Trough 16.1 ug/mL (10-15)
== END 2019-08-30 15:46 | disposition home or self-care (01) ==
LOC: LAB 15:47
PROVIDERS: PCP Family Medicine; Visit Provider Family Medicine
DX: M86.9 Osteomyelitis, unspecified (principal)
CPT/HCPCS: 11042; 80202; 82565; 84520

== ENCOUNTER 2019-09-06 19:21 | Outpatient (REF) | payer OTHER, SELFPAY ==
[2019-09-06 21:11] LABS: Blood Urea Nitrogen 16 mg/dL (8-23); Glomerular Filtration Rate 84.5 mL/min (90-130)
[2019-09-06 23:20] LABS: Vancomycin Trough 26.5 ug/mL (10-15)
== END 2019-09-06 19:22 | disposition home or self-care (01) ==
LOC: LAB 19:21
PROVIDERS: PCP Family Medicine; Visit Provider Family Medicine
DX: M86.9 Osteomyelitis, unspecified (principal); E11.621 Type 2 diabetes mellitus with foot ulcer
CPT/HCPCS: 80202; 82565; 84520

== ENCOUNTER 2019-09-08 17:48 | Outpatient (CLI) | payer OTHER, SELFPAY ==
[2019-09-08 23:30] LABS: Vancomycin Trough 15.7 ug/mL (10-15)
== END 2019-09-08 17:49 | disposition home or self-care (01) ==
LOC: LAB 17:51
PROVIDERS: PCP Family Medicine; Visit Provider Family Medicine
DX: E11.9 Type 2 diabetes mellitus without complications (principal); M86.9 Osteomyelitis, unspecified
CPT/HCPCS: 80202

== ENCOUNTER 2019-09-13 09:55 | Outpatient (RCR) | payer OTHER, SELFPAY ==
[2019-09-10 15:06] LABS: Basophils # 0.1 10^3/uL (0.0-0.1); Basophils % 0.8 %; Eosinophils # 0.4 10^3/uL (0.0-0.8); Eosinophils % 3.8 %; Hematocrit 39.4 % (37.0-47.0); Hemoglobin 12.3 g/dL (11.5-15.3); Lymphocytes # 1.7 10^3/uL (0.8-4.8); Mean Corpuscular HGB Conc 31.2 g/dL (30.0-36.0); Mean Corpuscular Hemoglobin 24.2 pg (28.0-34.0); Mean Corpuscular Volume 77.4 fL (81-99); Mean Platelet Volume 9.6 fL (7.4-10.4); Monocytes # 0.8 10^3/uL (0.2-0.9); Monocytes % 7.2 %; Neutrophils # 8.1 10^3/uL (1.8-7.7); Neutrophils % 72.8 %; Nucleated Red Blood Cells % 0 %; Platelet Count 278 10^3/cmm (130-400); Red Blood Count 5.09 10^6/uL (4.1-5.3); Red Cell Distribution Width 15.2 % (12.1-15.1); White Blood Count 11.2 10^3/uL (4.0-10.0)
[2019-09-10 15:24] LABS: Blood Urea Nitrogen 18 mg/dL (8-23)
[2019-09-13 10:38] LABS: Blood Urea Nitrogen 10 mg/dL (8-23); Glomerular Filtration Rate 72.4 mL/min (90-130); Vancomycin Trough 8.3 ug/mL (10-15)
== END 2019-09-16 23:59 | disposition home or self-care (01) ==
LOC: WOUND 09:55
PROVIDERS: Surgery; PCP Family Medicine; Visit Provider Family Medicine
DX: E11.621 Type 2 diabetes mellitus with foot ulcer (principal); L97.413 Non-pressure chronic ulcer of right heel and midfoot with necrosis of muscle
CPT/HCPCS: 11042; 11044; 36415; 80202; 82565; 84520; 85025

== ENCOUNTER 2019-09-17 13:54 | Outpatient (CLI) | payer OTHER, SELFPAY | END 2019-09-17 13:55 | disposition home or self-care (01) | LOC: WOUND 09-20 13:39 | PROVIDERS: PCP Family Medicine; Visit Provider Surgery | DX: E11.621 Type 2 diabetes mellitus with foot ulcer (principal); L97.412 Non-pressure chronic ulcer of right heel and midfoot with fat layer exposed | CPT/HCPCS: 11042 ==

== ENCOUNTER 2019-09-24 14:19 | Outpatient (CLI) | payer OTHER, SELFPAY | END 2019-09-24 14:20 | disposition home or self-care (01) | LOC: WOUND 14:20 | PROVIDERS: PCP Family Medicine; Visit Provider Surgery | DX: E11.621 Type 2 diabetes mellitus with foot ulcer (principal); L97.413 Non-pressure chronic ulcer of right heel and midfoot with necrosis of muscle | CPT/HCPCS: 99212 ==

== ENCOUNTER 2019-10-18 14:06 | Emergency (ER) | payer OTHER, SELFPAY ==
[2019-10-18 14:14] VITALS: BP 110/78; PULSE 107; RESP 14; TEMP 36.7; O2SAT 98; BMI 29.0
--- NOTE | 2019-10-18 14:21 | CT_ITS ---
WS: [id number] CT head wo con* [id number] REASON FOR EXAM: injury IV CONTRAST ADMINISTERED: none TOTAL EXAM DLP: 978.[address] scans at [facility] use at least one of these dose optimization techniques: automat ed exposure control; mA and/or kV adjustment per patient size (includes targeted exams where dose is matched to clinical indication); or iterative reconstruction. FINDINGS: The right temporal lobe shows an intraparenchymal hemorrhage the area involved measures 4.8 3 cm. The left side appears to be essentially normal. The calvarium was intact with no fractures seen. The paranasal sinuses were normal. The orbits show no abnormalities. Mild dilatation of the ventricles. No intraventricular hemorrhage. The posterior fossa was normal as well as the page. CT/CT head wo con* [id number] IMPRESSION: Prominent intraparenchymal hemorrhage temporal lobe right side
--- NOTE | 2019-10-18 15:56 | ECG_ITS ---
Measurements Intervals [place] Rate: 92 P: -15 PA: 149 QRS: 7 QRSD: 94 T: 40 QT: 345 QTc: 429 SINUS RHYTHM Compared to ECG 06/04/2019 13:44:47 Sinus tachycardia no longer present Electronically Signed On 10-18-2019 17:04:44 CDT by Irwin Urbina M.D. [id number]
--- NOTE | 2019-10-18 15:56 | XR_ITS ---
WS: [id number] XR chest 1V portable [id number] REASON FOR EXAM: fall FINDINGS: The lung peacock are mildly hypoaerated. There is no definite infiltrates pneumonia, edema, or pleural effusion. There is postop changes in the right shoulder. There is no fractures of the clavicles, shoulders, or rib cage. XR/XR chest 1V portable [id number] IMPRESSION: No fractures or injuries of the lung peacock.
[2019-10-18 16:00] VITALS: BP 130/85; PULSE 98; RESP 20; O2SAT 98
--- NOTE | 2019-10-18 16:06 | W.ED.FALL ---
HPI - Fall General: Chief Complaint: Fall Stated Complaint: fall last friday,weaver, blurry vision Time Seen by Provider: 10/18/19 15:56 Source: patient Mode of arrival: ambulatory Limitations: no limitations History of Present Illness: HPI Narrative: 64-year-old female who states she fell 4 days ago and struck her head. She states she is not been able to get in the hospital but she has had weakness along with blurry vision. She has had a headache as well. Patient is awake and alert able answer all my questions currently. Denies any pain elsewhere. complaint: fall Onset (ago): day(s) Associated symptoms-after fall: Denies abdominal pain, chest pain, headache(s) or neck pain Review of Systems Const: Denies: fever(s), chills, body aches or change in appetite Eyes: Denies: blurry vision or eye discomfort ENMT: Denies: throat pain or dental pain Card: Denies: chest pain Resp: Denies: dyspnea GI: Denies: abdominal pain, nausea, vomiting or diarrhea : Denies: dysuria Musc: Denies: neck pain or back pain Skin/Breast: Denies: rash Neuro: Denies: headache(s) Psych: Denies: depression Candido/Lymph: Denies: easy bruising All/Imm: Denies: urticaria PFSH ED PFSH: Medical History Cardiomyopathy Congestive heart failure -normal EF per stress echo done 11/2015 -continue diuretics Diabetes mellitus, type II -has known hx of NIDDM type II, last A1c-8.4 (05/2019) -Accuchecks, ISS, hold metformin as had contrast study. Continue ISS, add long acting and meal-time insulin for more optimal BG control -consistent carb diet -complicated by peripheral neuropathy and nephropathy Gall bladder disease Gastroesophageal reflux Gout Hypertension Rotator cuff arthropathy of both shoulders Surgical History H/O shoulder surgery Bilateral History of appendectomy History of cardiac cath History of delivery Hx of cholecystectomy Family History Other Diabetes Social History Smoking and tobacco status: never smoked Alcohol intake: never Lives independently: Yes Household members: spouse Physical Exam Const: COMMON NORMALS: no acute distress, patient oriented x3 and healthy appearing HENMT: COMMON NORMALS: normocephalic and atraumatic HEAD & SCALP: normocephalic and atraumatic Eye: COMMON NORMALS: Equal, round and reactive pupils present and EOMs intact bilaterally PUPIL: Yes Equal, round and reactive pupils present Neck/C-Spine: COMMON NORMALS: full ROM and supple Chest: COMMONS NORMALS: normal inspection of the chest and normal palpation of entire chest wall Resp: COMMON NORMALS: normal respiratory effort, No retractions, No use of accessory muscles and clear to auscultation bilaterally AUSCULTATION: clear to auscultation bilaterally Cardio: COMMON NORMALS: regular rate, regular rhythm and No murmurs present (Cardio) RATE: regular rate RHYTHM: regular rhythm GI: COMMON NORMALS: Normal to inspection, nondistended, normoactive bowel sounds present, Soft to palpation, non-tender and no masses PALPATION: Yes Soft to palpation Extremity: COMMON NORMALS: normal to inspection and full ROM Neuro: COMMON NORMALS: patient oriented x3, moves all extremities and no focal motor deficits Psych: COMMON NORMALS: mental status grossly normal, Normal thought process present and cooperative THOUGHT PROCESS: Normal thought process present Skin: COMMON NORMALS: no rashes or lesions noted and no wounds GENERAL SKIN EXAM: no rashes or lesions noted Course Vital Signs: Vital signs: Vital Signs Temperature 98.1 F 10/18/19 14:14 Pulse Rate 98 10/18/19 16:00 Respiratory Rate 20 H 10/18/19 16:00 Blood Pressure 130/85 10/18/19 16:00 Pulse Oximetry 98 10/18/19 16:00 MDM - Fall MDM Narrative: Medical decision making narrative: Patient presents here with an intracranial hemorrhage from a fall. Hemorrhage is large and 4 cm. Patient is awake and alert and neurologically intact here. I spoke to physician at [facility] and will transfer there for higher level of care for neurosurgery. Critical Care Time Critical Care Time: Critical Care Time: Yes Total Critical Care Time: 36 Attestation: This case had a high probability of a clinically significant, sudden, or life threatening deterioration of this patient's condition which required my full and direct attention, intervention and personal management. Discharge Plan Discharge Patient Disposition: Xfer Other Clinical Impression: Intraparenchymal hemorrhage of brain, Fall Condition: Stable Referrals: Tree Souza MD [Primary Care Provider] - Coding Level of Care Code ED Crime Scene Analyst for [place]
[2019-10-18] MEDS: sodium chloride 0.9% 1,000 ML 999 ML IV (16:07)
[2019-10-18 16:16] VITALS: BP 132/87; PULSE 98; RESP 18; O2SAT 98
[2019-10-18 16:31] LABS: Basophils % 0.4 %; Hemoglobin 12.1 g/dL (11.5-15.3); Lymphocytes % 19.7 %; Mean Corpuscular Hemoglobin 24.8 pg (28.0-34.0); Mean Corpuscular Volume 79.9 fL (81-99); Monocytes # 0.8 10^3/uL (0.2-0.9); Monocytes % 7.9 %; Neutrophils # 7.2 10^3/uL (1.8-7.7); Neutrophils % 71.5 %; Nucleated Red Blood Cells % 0 %; Platelet Count 295 10^3/cmm (130-400); Red Blood Count 4.88 10^6/uL (4.1-5.3); White Blood Count 10.1 10^3/uL (4.0-10.0)
[2019-10-18 16:43] LABS: INR 0.94 (0.8-1.2)
[2019-10-18 17:17] LABS: Alanine Aminotransferase 28 U/L (0-33); Albumin Level 4.2 g/dL (3.5-5.2); Alkaline Phosphatase 149 IU/L (35-105); Aspartate Amino Transferase 25 U/L (0-32); Blood Urea Nitrogen 28 mg/dL (8-23); Calcium 9.8 mg/dL (8.5-10.5); Carbon Dioxide 18 mmol/L (22-29); Chloride 91 mmol/L (98-107); Globulin 3.3 g/dL (1.3-4.6); Glucose 189 mg/dL (65-115); Osmolality Calculated 266 mOsm/kg (285-295); Sodium 127 mmol/L (136-145); Total Bilirubin 0.2 mg/dL (0.15-1.2); Total Protein 7.5 g/dL (6.6-8.7)
== END 2019-10-18 16:51 | disposition other institution (70) ==
PROVIDERS: Emergency Provider Emergency Medicine; PCP Family Medicine
DX: S06.309A Unspecified focal traumatic brain injury with loss of consciousness of unspecified duration, initial encounter (principal); W19.XXXA Unspecified fall, initial encounter; I11.0 Hypertensive heart disease with heart failure; I50.9 Heart failure, unspecified; E11.9 Type 2 diabetes mellitus without complications
CPT/HCPCS: 12345; 36415; 70450; 71045; 80053; 85025; 85610; 93005; 96361; 96374; 99282; 99283; J1953; J7030

== ENCOUNTER 2021-05-11 17:29 | Inpatient (IN) | payer MEDICARE, OTHER, SELFPAY ==
[2021-05-11 17:38] VITALS: BP 115/77; PULSE 104; RESP 16; TEMP 37.1; O2SAT 98
--- NOTE | 2021-05-11 17:43 | ED_ITS ---
HPI - Wound/Laceration General: Chief Complaint: Wound/Laceration Stated Complaint: RIGHT FOOT INJURY Time Seen by Provider: 05/11/21 17:42 History of Present Illness: HPI narrative: 86-year-old female presents emergency room with complaint of a wound on her right foot. Is been treated in the past and is recurring. Has drainage from the wound has not been running a fever has not been having wound cared for recently. Onset (ago): minute(s) Extremity Location: Right: foot Place: home Associated symptoms: Reports pain; Denies chills, fever(s), foreign body sensation, inability to move, nausea, numbness, syncope or vomiting Treatments prior to arrival: bandage Review of Systems Const: Denies: fever(s) or chills ENMT: Denies: throat pain, ear or mastoid pain, nasal discharge or nasal congestion Card: Denies: syncope Resp: Denies: dyspnea, productive cough or non-productive cough GI: Denies: nausea or vomiting : Denies: flank pain, difficulty voiding, dysuria, urinary frequency or urinary urgency Skin/Breast: Denies: rash or pruritus PFSH ED PFSH: Medical History (Updated 05/18/21 @ 08:16 by Leonard Forbes DO) Cardiomyopathy Congestive heart failure -normal EF per stress echo done 11/2015 -continue diuretics Diabetes mellitus, type II -has known hx of NIDDM type II, last A1c-8.4 (05/2019) -complicated by peripheral neuropathy and nephropathy Gall bladder disease Gastroesophageal reflux Gout Hypertension Rotator cuff arthropathy of both shoulders Surgical History (Updated 05/18/21 @ 08:16 by Leonard Forbes DO) H/O shoulder surgery Bilateral History of appendectomy History of cardiac cath History of delivery Hx of cholecystectomy Family History Other Diabetes Social History Smoking and tobacco status: never smoked Alcohol intake: never Lives independently: Yes Household members: spouse Physical Exam Const: COMMON NORMALS: no acute distress GENERAL APPEARANCE: cooperative and comfortable ORIENTATION/CONSCIOUSNESS: Yes awake, Yes oriented to person, Yes oriented to place and Yes oriented to time HENMT: COMMON NORMALS: normocephalic, atraumatic and hearing grossly normal bilaterally HEAD & SCALP: normocephalic and atraumatic Neck/C-Spine: COMMON NORMALS: no JVD Resp: COMMON NORMALS: normal respiratory effort, No retractions, No use of accessory muscles and clear to auscultation bilaterally AUSCULTATION: clear to auscultation bilaterally Cardio: COMMON NORMALS: no JVD, regular rate, regular rhythm and No murmurs present (Cardio) RATE: regular rate RHYTHM: regular rhythm GI: COMMON NORMALS: Soft to palpation and No hepatosplenomegaly present AUSCULTATION: Yes normoactive bowel sounds PALPATION: Yes Soft to palpation, No Tenderness to palpation present (GI), No Guarding due to palpation present (GI) and Yes No hepatosplenomegaly present Extremity: OTHER: Sole of the right foot between first and second distal metatarsal heads there is an open wound. Great toe and the second toe are inflamed and enlarged with significant swelling and erythema with proximal lymphangitic spread. Neuro: SENSORIUM/ORIENTATION: Yes oriented to person, Yes oriented to place and Yes oriented to time Skin: COMMON NORMALS: no rashes or lesions noted GENERAL SKIN EXAM: no rashes or lesions noted Course Vital Signs: Vital signs: Vital Signs Temperature 98.0 F 05/18/21 07:40 Pulse Rate 100 05/18/21 07:40 Respiratory Rate 16 05/18/21 07:40 Blood Pressure 141/85 05/18/21 07:40 Pulse Oximetry 95 05/18/21 07:40 MDM - Wound/Laceration MDM Narrative: Medical decision making narrative: Labs imaging and EKG reviewed as found on the chart patient has significant cellulitis and osteomyelitis. Will admit start IV antibiotics consult orthopedics. Discharge Plan Discharge Patient Disposition: Admitted As Inpatient Admit Provider: Kelvin Antunez Clinical Impression: Diabetic infection of right foot, Osteomyelitis, Status post amputation, Diabetes mellitus, type II Condition: Stable Coding Level of Care Code ED Forestry Fire Aid for Chg Fwd Exam Detailed
[2021-05-11 17:47] VITALS: BP 115/77; PULSE 104; RESP 16; TEMP 37.1; O2SAT 98
--- NOTE | 2021-05-11 17:52 | XRR_ITS ---
PROCEDURE INFORMATION: Exam: XR Right Foot Exam date and time: 05/11/2021 5:52 PM Age: 66 years old Clinical indication: Swelling, leg or foot; Additional info: Pain/swelling TECHNIQUE: Imaging protocol: XR Right foot. Views: 3 or more views. COMPARISON: No relevant prior studies available. FINDINGS: Bones/joints: Well-defined marginal erosions along the medial and lateral aspects of the 1st metatarsal head, radiographic appearance resembles gout. There is also severe joint space narrowing of the 1st MTP as well as some periarticular calcifications. Prominent calcaneal spur noted. Soft tissues: Soft tissue swelling around the 1st MTP. XR/XR foot RT min 3V* [id number] IMPRESSION: Constellation of findings resembling gout at the 1st MTP as described in the body of the report.
[2021-05-11 19:08] LABS: Basophils % 0.3 %; Eosinophils # 0.1 10^3/uL (0.0-0.8); Eosinophils % 1.1 %; Hematocrit 34.2 % (37.0-47.0); Hemoglobin 10.9 g/dL (11.5-15.3); Lymphocytes # 2.3 10^3/uL (0.8-4.8); Lymphocytes % 19.1 %; Mean Corpuscular HGB Conc 31.9 g/dL (30.0-36.0); Mean Corpuscular Hemoglobin 23.6 pg (28.0-34.0); Mean Corpuscular Volume 74.2 fl (81-99); Mean Platelet Volume 10.4 fL (7.4-10.4); Monocytes # 1.1 10^3/uL (0.2-0.9); Monocytes % 8.9 %; Neutrophils # 8.35 10^3/uL (1.8-7.7); Neutrophils % 69.8 %; Nucleated Red Blood Cells % 0 %; Platelet Count 331 10^3/cmm (130-400); Red Blood Count 4.61 10^6/uL (4.1-5.3); Red Cell Distribution Width 15.4 % (12.1-15.1)
[2021-05-11 19:29] LABS: Alanine Aminotransferase 11 U/L (0-33); Albumin Level 3.4 g/dL (3.5-5.2); Alkaline Phosphatase 118 IU/L (35-105); Anion Gap 20.8 (5-19); Aspartate Amino Transferase 12 U/L (0-32); Blood Urea Nitrogen 14 mg/dL (8-23); C Reactive Protein 172.5 mg/L (0.0-4.9); Carbon Dioxide 21 mmol/L (22-29); Chloride 87 mmol/L (98-107); Globulin 4.1 g/dL (1.3-4.6); Glomerular Filtration Rate 62.8 mL/min (90-130); Glucose 265 mg/dL (65-115); Osmolality Calculated 270 mOsm/kg (285-295); Potassium 3.8 mmol/L (3.5-5.1); Sodium 125 mmol/L (136-145); Total Bilirubin 0.3 mg/dL (0.15-1.2); Total Protein 7.5 g/dL (6.6-8.7)
--- NOTE | 2021-05-11 23:07 | PM.HP ---
Providers/Chief Complaint Admitting Physician: Kelvin Antunez Primary Care Provider: Tree Souza MD Chief Complaint: RIGHT FOOT INJURY History of Present Illness Jacquelin Garduno is a 66 year old female with past medical history of hypertension, hyperlipidemia, gout, diabetes mellitus and chronic diabetic foot ulcer who is presenting to ER with increasing right foot pain/swelling. This has been progressively increasing for the past 3 days. Noted redness extending primarily from right big toe. Denied any fevers however noted some chills. Upon arrival to ER she was noted to have a wbc of 12. Right foot xray showed well-defined marginal erosions along the medial and lateral aspects of the 1st metatarsal head, radiographic appearance resembles gout with soft tissue swelling. Patient was admitted for further work up. Review of Systems General: Reports: 10 or more systems reviewed and unremarkable except in HPI and below Medications/Allergies Home Medications Medication Instructions Recorded Confirmed Last Taken Type potassium chloride [Klor-Con M10] 10 meq PO DAILY 06/04/19 10/18/19 10/18/19 History allopurinol 100 mg PO DAILY 08/06/19 10/18/19 10/18/19 History metformin [Glucophage] 850 mg PO BID 08/06/19 10/18/19 10/18/19 History Januvia 50 mg PO DAILY 08/07/19 10/18/19 10/18/19 History atorvastatin [Lipitor] 40 mg PO DAILY 08/07/19 10/18/19 10/17/19 History glipizide 20 mg PO BID 08/07/19 10/18/19 10/18/19 History omeprazole 20 mg PO BID 08/07/19 10/18/19 10/18/19 History aspirin 325 mg PO DAILY 10/18/19 10/18/19 10/18/19 History bumetanide 0.5 mg PO DAILY 10/18/19 10/18/19 10/18/19 History cyclobenzaprine 10 mg PO TID PRN 10/18/19 10/18/19 Unknown History diltiazem HCl 180 mg PO DAILY 10/18/19 10/18/19 10/18/19 History lisinopril 40 mg PO DAILY 10/18/19 10/18/19 10/18/19 History sertraline 50 mg PO DAILY 10/18/19 10/18/19 10/18/19 History Allergies Allergy/AdvReac Type Severity Reaction Status Date / Time ibuprofen Allergy ALGY-Rash Verified 05/11/21 17:42 PFSH Acute PFSH: Medical History (Updated 05/12/21 @ 04:16 by Clemencia Burk MD) Cardiomyopathy Congestive heart failure -normal EF per stress echo done 11/2015 -continue diuretics Diabetes mellitus, type II -has known hx of NIDDM type II, last A1c-8.4 (05/2019) -Accuchecks, ISS, hold metformin as had contrast study. Continue ISS, add long acting and meal-time insulin for more optimal BG control -consistent carb diet -complicated by peripheral neuropathy and nephropathy Gall bladder disease Gastroesophageal reflux Gout Hypertension Rotator cuff arthropathy of both shoulders Surgical History H/O shoulder surgery Bilateral History of appendectomy History of cardiac cath History of delivery Hx of cholecystectomy Family History Other Diabetes Social History Smoking and tobacco status: never smoked Alcohol intake: never Lives independently: Yes Household members: spouse Vitals/I&O/Wt Last Vital Signs Temp 98.1 F 05/12/21 00:00 Pulse 136 H 05/12/21 03:46 Resp 16 05/12/21 00:00 BP 124/78 05/12/21 00:00 Pulse Ox 94 05/12/21 00:00 Weight last 48 hrs Weight 81.647 kg Physical Exam Narrative: EXAM NARRATIVE: General : Alert, awake, oriented x3 HEENT: Grossly unremarkable CVS;Tachycardia Chest: Non-labored respiration Abd; soft,NT,ND Ext; Right 1st MTP joint tenderness, erythema of right foot. Data : 05/11/21 18:55 05/11/21 18:55 Micro: Microbiology 05/11/21 18:55 Blood Culture - Preliminary Blood SPECIMEN COLLECTED 05/11/21 18:55 Blood Culture - Preliminary Blood SPECIMEN COLLECTED A&P Assessment and plan (1) Diabetic infection of right foot: Status: Acute (2) Gout attack: Status: Acute (3) Diabetes mellitus, type II: Status: Chronic Qualifiers: Diabetes mellitus alf insulin use: without alf use Diabetes mellitus complication status: with neurologic complications Diabetes mellitus complication detail: with polyneuropathy Qualified Code(s): E11.42 - Type 2 diabetes mellitus with diabetic polyneuropathy (4) Congestive heart failure: Status: Chronic Qualifiers: Heart failure type: diastolic Heart failure chronicity: chronic Qualified Code(s): I50.32 - Chronic diastolic (congestive) heart failure (5) Diabetic foot ulcer: Status: Acute Qualifiers: Diabetic foot ulcer location: unspecified part of foot Diabetes mellitus type: type 2 Laterality: right Non-pressure ulcer stage: unspecified non-pressure ulcer stage Qualified Code(s): E11.621 - Type 2 diabetes mellitus with foot ulcer; L97.519 - Non-pressure chronic ulcer of other part of right foot with unspecified severity Additional A&P Information Possible gout attack vs cellulitis Will empirically start on vancomycin/zosyn Follow up on blood culture x 2 May consider MRI to r/o osteomylitis Pain control Procal in am ESR/CRP in am Verfiy and resume home meds Attestations Medical Necessity Statement*: Anticipate > 2 midnight stay in hospital for eval and treatment Time Spent in Patient Care: Greater than 35 minutes Coding Level of Care Code Acute Dial Maker for g Fwd Diagnoses Diabetic infection of right foot E11.628; L08.9 Gout attack M10.9 Diabetes mellitus, type II E11.42 Diabetes mellitus predatory animal exterminator insulin use: without alf use Diabetes mellitus complication status: with neurologic complications Diabetes mellitus complication detail: with polyneuropathy Congestive heart failure I50.32 Heart failure type: diastolic Heart failure chronicity: chronic Diabetic foot ulcer E11.621; L97.519 Diabetic foot ulcer location: unspecified part of foot Diabetes mellitus type: type 2 Laterality: right Non-pressure ulcer stage: unspecified non-pressure ulcer stage
[2021-05-12] VITALS (8 sets, daily range): BP systolic 116–135; BP diastolic 78–93; PULSE 86–136; RESP 16–18; TEMP 36.4–37.1; O2SAT 93–97
--- NOTE | 2021-05-12 03:46 | ECG_ITS ---
[facility] Test Date: 2021-05-12 Pat Name: Jacquelin Garduno Department: Room: 254 Gender: Female Engine Cowling Installer: : [id number] Requested By: Clemencia Burk Order Number: [id number] Marry MD: Annette Irving M.D. Measurements Intervals [place] Rate: 98 P: 42 MI: 150 QRS: 15 QRSD: 97 T: 15 QT: 348 QTc: 445 Interpretive Statements SINUS RHYTHM WITH OCCASIONAL VENTRICULAR PREMATURE COMPLEXES WITH OCCASIONAL SUPRAVENTRICULAR PREMATURE COMPLEXES Compared to ECG 10/18/2019 16:20:06 Ventricular premature complex(es) now present Electronically Signed On 05-12-2021 17:05:37 ETHNOARCHAEOLOGY PROFESSOR by Annette Irving M.D. [id number]
--- NOTE | 2021-05-12 04:16 | PC.NURSE ---
i reported to nurse high pulse 131
--- NOTE | 2021-05-12 04:16 | PC.PHAR ---
Vancomycin is dosed at 1500mg IVPB every 24 hours to produce a predicted trough level of 13.75 (population based pharmacokinetic analysis). A trough level has been ordered from the lab to be obtained before the fourth dose to confirm and adjust if needed. The Zosyn is dosed at 3.375gm IVPB every 8 hours on the basis of the creatinine clearance of 61.70
[2021-05-12] MEDS: vancomycin 1,500 MG/300 ML PIGGYBACK 150 MG IV (04:30)
[2021-05-12] MEDS: heparin 5,000 unit/mL INJ 1 mL 5000 UNIT SUBCUT ×3 (04:30→19:41)
[2021-05-12] MEDS: sodium chloride 0.9% 500 ML 999 ML IV (04:30)
[2021-05-12] MEDS: sodium chloride 0.9% 1,000 ML 75 ML IV ×2 (05:19→19:41)
[2021-05-12 05:20] LABS: Basophils % 0.4 %; Eosinophils # 0.1 10^3/uL (0.0-0.8); Eosinophils % 1.8 %; Hematocrit 35.8 % (37.0-47.0); Hemoglobin 11.2 g/dL (11.5-15.3); Lymphocytes % 26.1 %; Mean Corpuscular HGB Conc 31.3 g/dL (30.0-36.0); Mean Corpuscular Hemoglobin 23.2 pg (28.0-34.0); Mean Corpuscular Volume 74.1 fl (81-99); Mean Platelet Volume 10.2 fL (7.4-10.4); Monocytes # 0.7 10^3/uL (0.2-0.9); Neutrophils # 4.78 10^3/uL (1.8-7.7); Neutrophils % 62.1 %; Nucleated Red Blood Cells % 0 %; Platelet Count 332 10^3/cmm (130-400); Red Blood Count 4.83 10^6/uL (4.1-5.3); Red Cell Distribution Width 15.2 % (12.1-15.1); White Blood Count 7.7 10^3/uL (4.0-10.0)
[2021-05-12 05:44] LABS: Alanine Aminotransferase 10 U/L (0-33); Albumin Level 3.4 g/dL (3.5-5.2); Alkaline Phosphatase 117 IU/L (35-105); Anion Gap 18.4 (5-19); Aspartate Amino Transferase 10 U/L (0-32); Blood Urea Nitrogen 9 mg/dL (8-23); Calcium 8.4 mg/dL (8.5-10.5); Carbon Dioxide 23 mmol/L (22-29); Chloride 95 mmol/L (98-107); Globulin 3.9 g/dL (1.3-4.6); Glomerular Filtration Rate 123.8 mL/min (90-130); Glucose 98 mg/dL (65-115); Osmolality Calculated 275 mOsm/kg (285-295); Potassium 3.4 mmol/L (3.5-5.1); Sodium 133 mmol/L (136-145); Total Bilirubin 0.3 mg/dL (0.15-1.2); Total Protein 7.3 g/dL (6.6-8.7)
[2021-05-12] MEDS: dilTIAZem ER (24HR) 180 mg Capsule PO (05:52)
[2021-05-12] MEDS: piperacillin-tazobactam 3.375 GM in sodium chloride 0.9% (plus) 50 ML IV ×3 (06:29→22:15)
[2021-05-12 07:29] LABS: Glucose Point of Care 135 mg/dL (70-110)
[2021-05-12] MEDS: sertraline 50 mg Tablet PO (08:08)
[2021-05-12] MEDS: pantoprazole DR 40 mg Tablet PO (08:08)
[2021-05-12 09:49] LABS: Uric Acid 2.8 mg/dL (2.4-5.7)
[2021-05-12] MEDS: potassium chloride ER 20 mEq Tablet PO (09:56)
[2021-05-12 11:50] LABS: Glucose Point of Care 295 mg/dL (70-110)
[2021-05-12] MEDS: insulin lispro 100 unit/1 mL SUBCUT ×3 (12:24→20:54)
--- NOTE | 2021-05-12 14:19 | PM.PN ---
Subjective Subjective: Interval history: Right foot plantar ulceration is draining fluid. First toe, distal foot is red, tender, swollen. Vitals/I&O/Wt Last Vital Signs Temp 98.1 F 05/12/21 11:25 Pulse 93 05/12/21 11:25 Resp 18 05/12/21 11:25 BP 116/81 05/12/21 11:25 Pulse Ox 97 05/12/21 11:25 05/11/21 05/12/21 05/12/21 22:59 06:59 14:59 Intake Total 1040 / 1040 835.00 / 835.00 Output Total 160 / 160 Balance 880 / 880 835.00 / 835.00 Weight last 48 hrs Weight 81.647 kg Physical Exam Const: COMMON NORMALS: no acute distress and patient oriented x3 HENMT: COMMON NORMALS: oropharynx normal Neck/C-Spine: COMMON NORMALS: no JVD Resp: COMMON NORMALS: normal respiratory effort and clear to auscultation bilaterally AUSCULTATION: clear to auscultation bilaterally Cardio: COMMON NORMALS: no JVD, regular rhythm, S1 normal heart sound present, S2 normal heart sound present and No murmurs present (Cardio) RHYTHM: regular rhythm HEART SOUNDS: S1 normal heart sound present and S2 normal heart sound present GI: COMMON NORMALS: Normal to inspection, nondistended, normoactive bowel sounds present, Soft to palpation and non-tender PALPATION: Yes Soft to palpation Extremity: COMMON NORMALS: no joint enlargement and no pedal edema Neuro: COMMON NORMALS: patient oriented x3 and moves all extremities Skin: LESIONS: lesion noted (R plantar sub-MTP joint ulcer draining thick turbid fluid) RASHES: rashes noted (Erythema, swelling first and second toes, distal foot) Data : 05/12/21 04:37 05/12/21 04:37 Micro: Microbiology 05/11/21 18:55 Blood Culture - Preliminary Blood SPECIMEN COLLECTED 05/11/21 18:55 Blood Culture - Preliminary Blood SPECIMEN COLLECTED A&P Assessment and plan (1) Diabetic infection of right foot: Draining turbid thick fluid from ulceration on plantar surface of right MTP joint, swelling of the distal foot, toes, with cellulitis. Discussed with her high concern for osteomyelitis given nonhealing infection, drainage. Would benefit from MRI assessment. Currently continue IV antibiotics. Pending additional surgical evaluation. Requested to collect cultures from the drainage. Status: Acute (2) Gout attack: She has also had gout previously, possibly predisposing conditions to the development of the current nonhealing ulcer, infection. Gouty changes noted on x-ray. Check uric acid. Status: Acute (3) Diabetes mellitus, type II: Status: Chronic Qualifiers: Diabetes mellitus piano bench assembler insulin use: without piano bench assembler use Diabetes mellitus complication status: with neurologic complications Diabetes mellitus complication detail: with polyneuropathy Qualified Code(s): E11.42 - Type 2 diabetes mellitus with diabetic polyneuropathy (4) Congestive heart failure: Status: Chronic Qualifiers: Heart failure type: diastolic Heart failure chronicity: chronic Qualified Code(s): I50.32 - Chronic diastolic (congestive) heart failure (5) Diabetic foot ulcer: Status: Acute Qualifiers: Diabetic foot ulcer location: unspecified part of foot Diabetes mellitus type: type 2 Laterality: right Non-pressure ulcer stage: unspecified non-pressure ulcer stage Qualified Code(s): E11.621 - Type 2 diabetes mellitus with foot ulcer; L97.519 - Non-pressure chronic ulcer of other part of right foot with unspecified severity Attestations Medical Necessity Statement*: Continue admission for cyst management of nonhealing diabetic wound, soft tissue and suspected bony foot infection in a lady with diabetes. Coding Level of Care Code Acute Insole Department Worker for [facility] Diagnoses Diabetic infection of right foot E11.628; L08.9 Gout attack M10.9 Diabetes mellitus, type II E11.42 Diabetes mellitus piano bench assembler insulin use: without piano bench assembler use Diabetes mellitus complication status: with neurologic complications Diabetes mellitus complication detail: with polyneuropathy Congestive heart failure I50.32 Heart failure type: diastolic Heart failure chronicity: chronic Diabetic foot ulcer E11.621; L97.519 Diabetic foot ulcer location: unspecified part of foot Diabetes mellitus type: type 2 Laterality: right Non-pressure ulcer stage: unspecified non-pressure ulcer stage
--- NOTE | 2021-05-12 15:05 | PM.CONSULT ---
Providers/Reason For Consult Consulting Physician/Specialty*: Adeline Akbar MD Reason for Consult*: Right diabetic foot ulcer, plantar, with infection Requesting Physician: Dr. Leonard Forbes Attending Physician: Kelvin Antunez Primary Care Provider: Tree Souza MD History of Present Illness History of Present Illness Jacquelin Garduno is a 66 year old female who presented through the emergency department with a chronically draining right first metatarsal head plantar surface diabetic foot ulcer. The patient's previously been treated at wound care. This was approximately a year to a year and a half ago. She notes that she chronically treats her foot with bacitracin. She states occasionally it drains but not very often. She presented to the emergency department because she states it was more red than it had been, and she noted that it was more painful. Upon presentation to the hospital and treatment with antibiotics, her white count has normalized and redness and pain are significantly less. Review of Systems General: Reports: 10 or more systems reviewed and unremarkable except in HPI and below Const: Denies: fever(s) or chills ENMT: Denies: throat pain, ear or mastoid pain, nasal discharge or nasal congestion Card: Denies: syncope Resp: Denies: dyspnea, productive cough or non-productive cough GI: Denies: nausea or vomiting : Denies: flank pain, difficulty voiding, dysuria, urinary frequency or urinary urgency Skin/Breast: Denies: rash or pruritus Meds/Allergies Home Medications and Allergies Home Medications Medication Instructions Recorded Confirmed Last Taken Type potassium chloride [Klor-Con M10] 10 meq PO QAM 06/04/19 05/12/21 10/18/19 History allopurinol 100 mg PO DAILY 08/06/19 05/12/21 10/18/19 History Januvia 50 mg PO QAM 08/07/19 05/12/21 10/18/19 History atorvastatin [Lipitor] 40 mg PO BEDTIME 08/07/19 05/12/21 10/17/19 History glipizide 20 mg PO BID 08/07/19 05/12/21 10/18/19 History aspirin 325 mg PO DAILY 10/18/19 05/12/21 10/18/19 History bumetanide 0.5 mg PO QAM 10/18/19 05/12/21 10/18/19 History cyclobenzaprine 10 mg PO TID PRN 10/18/19 05/12/21 Unknown History diltiazem HCl 180 mg PO QAM 10/18/19 05/12/21 10/18/19 History lisinopril 40 mg PO QAM 10/18/19 05/12/21 10/18/19 History sertraline 50 mg PO DAILY 10/18/19 05/12/21 10/18/19 History Vitamin B-12 1 tab PO DAILY 05/12/21 05/12/21 Unknown History amlodipine 5 mg PO QAM 05/12/21 05/12/21 Unknown History ascorbic acid (vitamin C) [Vitamin 500 mg PO DAILY 05/12/21 05/12/21 Unknown History C] metformin 850 mg PO BID 05/12/21 05/12/21 Unknown History multivitamin 1 tab PO DAILY 05/12/21 05/12/21 Unknown History sulfamethoxazole-trimethoprim 1 tab PO BID 05/12/21 05/12/21 Unknown History vitamin E 1 cap PO DAILY 05/12/21 05/12/21 Unknown History Allergies Allergy/AdvReac Type Severity Reaction Status Date / Time ibuprofen Allergy ALGY-Rash Verified 05/12/21 08:57 Current Medications Current Medications Generic Name Dose Route Start Last Admin Trade Name Freq PRN Reason Stop Dose Admin Diltiazem HCl 180 mg 05/12/21 09:00 05/12/21 06:14 Diltiazem Er (24hr) 180 Mg Capsule PO Not Given DAILY HERNAN Heparin Sodium (Porcine) 5,000 unit 05/12/21 04:00 05/12/21 12:25 Heparin 5,000 Unit/Ml Inj 1 Ml SUBCUT 5,000 unit Q8H HERNAN Administration Sodium Chloride 1,000 mls @ 75 mls/hr 05/12/21 04:00 05/12/21 10:00 Sodium Chloride 0.9% IV 75 mls/hr .[id number] HERNAN Infusion Piperacillin Sod/Tazobactam 50 mls @ 12.5 mls/hr 05/12/21 05:30 05/12/21 14:10 Sod 3.375 gm/ Sodium Chloride IV 12.5 mls/hr Q8H HERNAN Administration Protocol As Directed Vancomycin/PEG/NADA/Lysine/Water 1,500 mg in 300 mls @ 150 mls/hr 05/12/21 04:30 05/12/21 06:37 Vancocin IV Infused Q24H HERNAN Infusion Insulin Human Lispro 0 unit 05/12/21 08:00 05/12/21 12:24 Insulin Lispro 100 Unit/1 Ml SUBCUT 8 unit WM&BEDTIME HERNAN Administration Protocol Pantoprazole Sodium 40 mg 05/12/21 09:00 05/12/21 08:[address] 40 Mg Tablet PO 40 mg DAILY HERNAN Administration Sertraline HCl 50 mg 05/12/21 09:00 05/12/21 08:08 Sertraline 50 Mg Tablet PO 50 mg DAILY HERNAN Administration PFSH Acute PFSH: Medical History Cardiomyopathy Congestive heart failure -normal EF per stress echo done 11/2015 -continue diuretics Diabetes mellitus, type II -has known hx of NIDDM type II, last A1c-8.4 (05/2019) -Accuchecks, ISS, hold metformin as had contrast study. Continue ISS, add long acting and meal-time insulin for more optimal BG control -consistent carb diet -complicated by peripheral neuropathy and nephropathy Gall bladder disease Gastroesophageal reflux Gout Hypertension Rotator cuff arthropathy of both shoulders Surgical History H/O shoulder surgery Bilateral History of appendectomy History of cardiac cath History of delivery Hx of cholecystectomy Family History Other Diabetes Social History Smoking and tobacco status: never smoked Alcohol intake: never Lives independently: Yes Household members: spouse Vitals/I&O/Wt Last Vital Signs Temp 98.1 F 05/12/21 11:25 Pulse 93 05/12/21 11:25 Resp 18 05/12/21 11:25 BP 116/81 05/12/21 11:25 Pulse Ox 97 05/12/21 11:25 05/12/21 05/12/21 05/12/21 06:59 14:59 22:59 Intake Total 1040 / 1040 835.00 / 835.00 Output Total 160 / 160 Balance 880 / 880 835.00 / 835.00 Weight last 48 hrs Weight 180 lb Physical Exam Const: COMMON NORMALS: no acute distress, average body habitus, patient oriented x3 and alert GENERAL APPEARANCE: cooperative and comfortable ORIENTATION/CONSCIOUSNESS: Yes awake HENMT: COMMON NORMALS: normocephalic and atraumatic HEAD & SCALP: normocephalic and atraumatic Eye: GENERAL EYE: appearance normal, both eyes and all related structures Chest: COMMONS NORMALS: normal inspection of the chest Resp: COMMON NORMALS: normal respiratory effort EFFORT & INSPECTION: Yes able to speak in complete sentences and Yes symmetric chest movement Extremity: RIGHT LOWER EXTREMITY: Yes foot & digits (Erythematous great toe with drainage from ulcer, improving) Right foot and digits: Yes inspection (Draining plantar diabetic ulcer), Yes ROM (Able to wiggle the great toe.) and Yes neurovascular exam (Decreased sensation throughout) LEFT LOWER EXTREMITY: Yes foot & digits (Intact with no prior amputation) Neuro: COMMON NORMALS: patient oriented x3 SENSORIUM/ORIENTATION: Yes alert Psych: COMMON NORMALS: mental status grossly normal APPEARANCE: Yes grossly normal ATTITUDE: Yes calm and Yes engaged ATTENTION/CONCENTRATION: Yes attention grossly intact Skin: COMMON NORMALS: no rashes or lesions noted GENERAL SKIN EXAM: no rashes or lesions noted Data Micro: Micro: Microbiology 05/11/21 18:55 Blood Culture - Pr eliminary Blood SPECIMEN [facility] 05/11/21 18:55 Blood Culture - Pr eliminary Blood SPECIMEN [facility] Imaging^: Xray Ortho: I personally reviewed and interpreted this imaging study as follows: My impression: There is destructive change at the right first metatarsal head. This was read by the radiologist as consistent with gout, but likely, this is consistent with osteomyelitis. A&P Assessment and plan (1) Diabetic infection of right foot: Ms. Crowe is a 66-year-old woman who presents with chronic complaints of ulceration on the plantar surface of her right first metatarsal head. She states that at times it drains, but at other times, she feels that she nearly had her issue completely resolved. This issue was previously been treated by Dr. Rios, but she states over the past year, she has been treating it herself . She is using ointment and notes that on occasion, it is nearly normal. I discussed with her the need for an MRI with and without contrast as this will better define the extent of her osteomyelitis. She is also advised that she will likely need an amputation, and this seemed to surprise her. Further discussion will be undertaken with the patient when she has more information in the form of her MRI. Status: Acute (2) Diabetes mellitus, type II: Status: Chronic Qualifiers: Diabetes mellitus terminal press operator insulin use: without care home use Diabetes mellitus complication status: with neurologic complications Diabetes mellitus complication detail: with polyneuropathy Qualified Code(s): E11.42 - Type 2 diabetes mellitus with diabetic polyneuropathy (3) Diabetic foot ulcer: Status: Acute Qualifiers: Diabetic foot ulcer location: unspecified part of foot Diabetes mellitus type: type 2 Laterality: right Non-pressure ulcer stage: unspecified non-pressure ulcer stage Qualified Code(s): E11.621 - Type 2 diabetes mellitus with foot ulcer; L97.519 - Non-pressure chronic ulcer of other part of right foot with unspecified severity Consult Attestations Medical Necessity Statement: Patient requires ongoing IV antibiotic for treatment of diabetic foot ulcer. This is being managed by the medical service. MRI is pending. Coding Level of Care Code Acute Water Regulator And Valve Repairer [facility] Diagnoses Diabetic infection of right foot E11.628; L08.9 Diabetes mellitus, type II E11.42 Diabetes mellitus terminal press operator insulin use: without terminal press operator use Diabetes mellitus complication status: with neurologic complications Diabetes mellitus complication detail: with polyneuropathy Diabetic foot ulcer E11.621; L97.519 Diabetic foot ulcer location: unspecified part of foot Diabetes mellitus type: type 2 Laterality: right Non-pressure ulcer stage: unspecified non-pressure ulcer stage
[2021-05-12 17:22] LABS: Glucose Point of Care 251 mg/dL (70-110)
[2021-05-12 20:05] LABS: Glucose Point of Care 214 mg/dL (70-110)
[2021-05-12] MEDS: atorvastatin 40 mg Tablet PO (20:55)
[2021-05-12] MEDS: silver sulfadiazine cream 1% 50 gm 1 APPLIC TOPICAL (21:55)
[2021-05-13 04:00] VITALS: BP 152/85; PULSE 93; RESP 18; TEMP 36.9; O2SAT 98
[2021-05-13] MEDS: heparin 5,000 unit/mL INJ 1 mL 5000 UNIT SUBCUT ×3 (04:38→21:11)
[2021-05-13] MEDS: vancomycin 1,500 MG/300 ML PIGGYBACK 150 MG IV (04:39)
[2021-05-13 05:37] LABS: Basophils % 0.7 %; Eosinophils # 0.1 10^3/uL (0.0-0.8); Eosinophils % 2.3 %; Hematocrit 33.9 % (37.0-47.0); Hemoglobin 10.5 g/dL (11.5-15.3); Lymphocytes # 1.4 10^3/uL (0.8-4.8); Lymphocytes % 23.6 %; Mean Corpuscular Hemoglobin 23.2 pg (28.0-34.0); Mean Platelet Volume 10.4 fL (7.4-10.4); Monocytes # 0.5 10^3/uL (0.2-0.9); Monocytes % 9.4 %; Neutrophils # 3.66 10^3/uL (1.8-7.7); Neutrophils % 63.5 %; Nucleated Red Blood Cells % 0 %; Platelet Count 283 10^3/cmm (130-400); Red Blood Count 4.52 10^6/uL (4.1-5.3); Red Cell Distribution Width 15.1 % (12.1-15.1); White Blood Count 5.8 10^3/uL (4.0-10.0)
[2021-05-13 06:17] LABS: Alanine Aminotransferase 12 U/L (0-33); Albumin Level 3.1 g/dL (3.5-5.2); Alkaline Phosphatase 104 IU/L (35-105); Anion Gap 15.9 (5-19); Aspartate Amino Transferase 11 U/L (0-32); Blood Urea Nitrogen 8 mg/dL (8-23); Carbon Dioxide 24 mmol/L (22-29); Chloride 101 mmol/L (98-107); Globulin 3.9 g/dL (1.3-4.6); Glomerular Filtration Rate 123.8 mL/min (90-130); Glucose 133 mg/dL (65-115); Osmolality Calculated 284 mOsm/kg (285-295); Potassium 3.9 mmol/L (3.5-5.1); Sodium 137 mmol/L (136-145); Total Bilirubin 0.2 mg/dL (0.15-1.2)
[2021-05-13 06:30] LABS: Glucose Point of Care 181 mg/dL (70-110)
[2021-05-13] MEDS: piperacillin-tazobactam 3.375 GM in sodium chloride 0.9% (plus) 50 ML IV ×3 (06:45→22:47)
[2021-05-13 07:57] VITALS: BP 149/97; PULSE 99; RESP 17; TEMP 36.4; O2SAT 96
[2021-05-13] MEDS: sertraline 50 mg Tablet PO (08:25)
[2021-05-13] MEDS: pantoprazole DR 40 mg Tablet PO (08:25)
[2021-05-13] MEDS: insulin lispro 100 unit/1 mL SUBCUT ×4 (08:25→21:12)
[2021-05-13] MEDS: dilTIAZem ER (24HR) 180 mg Capsule PO (08:25)
[2021-05-13] MEDS: sodium chloride 0.9% 1,000 ML 75 ML IV ×2 (09:20→21:14)
[2021-05-13] MEDS: silver sulfadiazine cream 1% 50 gm 1 APPLIC TOPICAL ×2 (10:35→21:13)
[2021-05-13 11:15] VITALS: BP 120/74; PULSE 99; RESP 17; TEMP 37.1; O2SAT 95
[2021-05-13 11:33] LABS: Glucose Point of Care 291 mg/dL (70-110)
[2021-05-13 15:48] VITALS: BP 146/94; PULSE 90; RESP 17; TEMP 36.8; O2SAT 97
--- NOTE | 2021-05-13 15:48 | PC.NUTR ---
Nutrition note: Provided nutrition education related to carbohydrate sources/intake. Pt would benefit from further outpatient education if interested. Attempted to call social sciences research scientist but no answer. Recommend assistance with getting diabetes equipment, particularly blood glucose monitor. See full RD assessment for further details.
--- NOTE | 2021-05-13 15:50 | PC.CHAP ---
Pastoral Care Encounter/Spiritual Assessment Type of Contact [] Declined pants maker visit [] Patient/Family/Request visit [] Outpatient visit [] Follow-up visit [] Physician referral [] Code/Alert [XX] Routine visit [] Staff referral [] Actively dying [] Patient sleeping [] Family support [] [] Out of room [] Palliative care [] [] Receiving care in room [] Pre-surgical visit [] Trauma [] Long length of stay [] ICU visit [] Other: Relational/Emotional Strength [XX] Patient feels connected with others/family/visitors/staff [] Distress [] Loneliness/isolation [] Abandonment Spirituality of Patient [] Person of [place] [] Attends Muslim of their [place] [XX] Believes in Prayer [] Reads Bible or Islam materials [XX] There are Spiritual issues to be addressed Kettle Girl Interventions [] Prayer [XX] Active listening [XX] Non-anxious presence [] Spiritual/emotional support [] Crisis/trauma care [] Spiritual counseling [] Bereavement support [] Provided bereavement packet [] Provided Bible/devotional materials [] Provided toy/stuffed animal, coloring book to patient or family member [] Provided Communion [] Anointing/[place] [] Salvation [XX] Completed spiritual assessment [] Other: Impact on Illness or Injury [] Angry [] Fearful [XX] Anxious [] Often cries [] Exhaustion [] Unable to work [] Unable to attend pentecostalism [] Unable to walk/stand [] Unable to read [] Unable to drive [] Unable to eat/drink [] Unable to sleep [] Unable to be with family [] Patient intubated [] Other: Summary: Pt has diabetes and living situations that make it difficult to stay healthy. As such, pt's foot is infected and there is concern about possible need for amputation of a toe. Pt does not have a functional living space but does have a roof over her head and can shower at her son's home. Pt is often with her who hauls RVs for a living. Pt states that she prays but did not want pants maker to pray with her today. Pt appreciated pants maker visit. Time spent with patient: 10 mins
[2021-05-13 16:38] LABS: Glucose Point of Care 225 mg/dL (70-110)
--- NOTE | 2021-05-13 17:24 | PM.PN ---
Subjective Subjective: Interval history: Wound continues to drain. Some decrease in erythema of the right hallux. Denies spread erythema proximal. No chills or systemic symptoms. No chest pain or trouble breathing. Vitals/I&O/Wt Last Vital Signs Temp 98.2 F 05/13/21 15:48 Pulse 90 05/13/21 15:48 Resp 17 05/13/21 15:48 BP 146/94 05/13/21 15:48 Pulse Ox 97 05/13/21 15:48 05/13/21 05/13/21 05/13/21 06:59 14:59 22:59 Intake Total 1503.75 / 3323.75 241.25 / 241.25 960 / 1201.25 Balance 1503.75 / 3323.75 241.25 / 241.25 960 / 1201.25 Weight last 48 hrs Weight 81.647 kg Physical Exam Const: COMMON NORMALS: no acute distress and patient oriented x3 HENMT: COMMON NORMALS: oropharynx normal Neck/C-Spine: COMMON NORMALS: no JVD Resp: COMMON NORMALS: normal respiratory effort and clear to auscultation bilaterally AUSCULTATION: clear to auscultation bilaterally Cardio: COMMON NORMALS: no JVD, regular rhythm, S1 normal heart sound present, S2 normal heart sound present and No murmurs present (Cardio) RHYTHM: regular rhythm HEART SOUNDS: S1 normal heart sound present and S2 normal heart sound present GI: COMMON NORMALS: Normal to inspection, nondistended, normoactive bowel sounds present, Soft to palpation and non-tender PALPATION: Yes Soft to palpation Extremity: COMMON NORMALS: no joint enlargement and no pedal edema Neuro: COMMON NORMALS: patient oriented x3 and moves all extremities Skin: LESIONS: lesion noted (R plantar sub-MTP joint ulcer draining thick turbid fluid) RASHES: rashes noted (Fainter erythema, swelling first toe, distal foot) Data : 05/13/21 04:42 05/13/21 04:42 Micro: Microbiology 05/12/21 12:20 Gram Stain - Final Toe - Right Big Wound Culture - Preliminary 05/11/21 18:55 Blood Culture - Preliminary Blood NEGATIVE TO DATE 05/11/21 18:55 Blood Culture - Preliminary Blood NEGATIVE TO DATE A&P Assessment and plan (1) Diabetic infection of right foot: Surgical recommendations appreciated. MRI is requested. Discussed also with podiatry who will see in consultation tomorrow and on review of images will discuss with her further options. Continue IV antibiotics. Cultures collected, so far growing mixed superficial eleazar, few gram-negative rods on Gram stain. Draining turbid thick fluid from ulceration on plantar surface of right MTP joint, swelling of the distal foot, toes, with cellulitis. Discussed with her high concern for osteomyelitis given nonhealing infection, drainage. Currently continue IV antibiotics. Status: Acute (2) Gout attack: She has also had gout previously, possibly predisposing conditions to the development of the current nonhealing ulcer, infection. Gouty changes noted on x-ray. Normal uric acid. There is decreasing erythema and swelling of distal right foot with treatment with antibiotics. These changes are related to acute infection, not likely gout, although has had gout in the past, possibly predisposing the area to the infection. Blood cultures so far negative. Status: Acute (3) Diabetes mellitus, type II: Status: Chronic Qualifiers: Diabetes mellitus extermination supervisor insulin use: without shelter use Diabetes mellitus complication status: with neurologic complications Diabetes mellitus complication detail: with polyneuropathy Qualified Code(s): E11.42 - Type 2 diabetes mellitus with diabetic polyneuropathy (4) Congestive heart failure: Status: Chronic Qualifiers: Heart failure type: diastolic Heart failure chronicity: chronic Qualified Code(s): I50.32 - Chronic diastolic (congestive) heart failure (5) Diabetic foot ulcer: Status: Acute Qualifiers: Diabetic foot ulcer location: unspecified part of foot Diabetes mellitus type: type 2 Laterality: right Non-pressure ulcer stage: unspecified non-pressure ulcer stage Qualified Code(s): E11.621 - Type 2 diabetes mellitus with foot ulcer; L97.519 - Non-pressure chronic ulcer of other part of right foot with unspecified severity Attestations Medical Necessity Statement*: Continue admission for assessment management of diabetic foot wound, improving cellulitis but also draining ulceration with high suspicion of osteomyelitis, recurrent after having completed course of antibiotics, pending additional assessment with MRI, surgical evaluation and possible amputation. Coding Level of Care Code Acute Director Of Education for [facility] Diagnoses Diabetic infection of right foot E11.628; L08.9 Gout attack M10.9 Diabetes mellitus, type II E11.42 Diabetes mellitus shelter insulin use: without extermination supervisor use Diabetes mellitus complication status: with neurologic complications Diabetes mellitus complication detail: with polyneuropathy Congestive heart failure I50.32 Heart failure type: diastolic Heart failure chronicity: chronic Diabetic foot ulcer E11.621; L97.519 Diabetic foot ulcer location: unspecified part of foot Diabetes mellitus type: type 2 Laterality: right Non-pressure ulcer stage: unspecified non-pressure ulcer stage
--- NOTE | 2021-05-13 19:19 | PM.MISC ---
Miscellaneous Note Purpose of Documentation: Transfer of care Note: I spoke with Dr. Elizondo today who is willing to accept care of this patient with a diabetic foot ulcer and probable first metatarsal infection. MRI was ordered yesterday, however, it is still pending. He wishes to await for outcome of MRI prior to planning her surgical intervention. I will sign off.
[2021-05-13 20:00] VITALS: BP 137/87; PULSE 92; RESP 19; TEMP 36.8; O2SAT 95
[2021-05-13 20:35] LABS: Glucose Point of Care 246 mg/dL (70-110)
[2021-05-13] MEDS: atorvastatin 40 mg Tablet PO (21:11)
[2021-05-13 23:35] VITALS: BP 148/86; PULSE 86; RESP 18; TEMP 36.8; O2SAT 96
[2021-05-14] MEDS: vancomycin 1,500 MG/300 ML PIGGYBACK 150 MG IV (03:58)
[2021-05-14 04:00] VITALS: BP 137/83; PULSE 90; RESP 18; TEMP 36.7; O2SAT 94
[2021-05-14] MEDS: heparin 5,000 unit/mL INJ 1 mL 5000 UNIT SUBCUT ×3 (04:00→20:22)
[2021-05-14 06:11] LABS: Basophils % 0.4 %; Eosinophils # 0.2 10^3/uL (0.0-0.8); Eosinophils % 2.2 %; Hematocrit 36.1 % (37.0-47.0); Hemoglobin 11.3 g/dL (11.5-15.3); Lymphocytes # 1.5 10^3/uL (0.8-4.8); Lymphocytes % 19.5 %; Mean Corpuscular HGB Conc 31.3 g/dL (30.0-36.0); Mean Corpuscular Hemoglobin 23.5 pg (28.0-34.0); Mean Corpuscular Volume 75.1 fl (81-99); Mean Platelet Volume 10.2 fL (7.4-10.4); Monocytes # 0.5 10^3/uL (0.2-0.9); Monocytes % 6.4 %; Neutrophils # 5.58 10^3/uL (1.8-7.7); Nucleated Red Blood Cells % 0 %; Platelet Count 323 10^3/cmm (130-400); Red Blood Count 4.81 10^6/uL (4.1-5.3); White Blood Count 7.9 10^3/uL (4.0-10.0)
[2021-05-14] MEDS: piperacillin-tazobactam 3.375 GM in sodium chloride 0.9% (plus) 50 ML IV ×2 (06:23→16:08)
--- NOTE | 2021-05-14 06:27 | PC.NURSE ---
SHIFT SUMMARY Has rested well tonight. Denies pain or discomfort. Says hoping MRI today will tell something. IV infusing without difficulty at 75ml/hr rate. Receiving IV antibiotics as ordered. Required new IV site tonight. IV accidentally pulled out. Dressing to right foot was changed in the evening and remains dry this am.
[2021-05-14 06:29] LABS: Alanine Aminotransferase 11 U/L (0-33); Albumin Level 3.4 g/dL (3.5-5.2); Alkaline Phosphatase 104 IU/L (35-105); Anion Gap 17.7 (5-19); Aspartate Amino Transferase 12 U/L (0-32); Blood Urea Nitrogen 11 mg/dL (8-23); Calcium 8.3 mg/dL (8.5-10.5); Carbon Dioxide 23 mmol/L (22-29); Chloride 98 mmol/L (98-107); Glomerular Filtration Rate 123.8 mL/min (90-130); Glucose 197 mg/dL (65-115); Osmolality Calculated 285 mOsm/kg (285-295); Potassium 3.7 mmol/L (3.5-5.1); Sodium 135 mmol/L (136-145); Total Bilirubin 0.2 mg/dL (0.15-1.2); Total Protein 7.4 g/dL (6.6-8.7)
[2021-05-14 06:30] LABS: Glucose Point of Care 220 mg/dL (70-110)
[2021-05-14 07:33] VITALS: BP 140/85; PULSE 99; RESP 16; TEMP 36.6; O2SAT 98
[2021-05-14] MEDS: dilTIAZem ER (24HR) 180 mg Capsule PO (08:05)
[2021-05-14] MEDS: pantoprazole DR 40 mg Tablet PO (08:05)
[2021-05-14] MEDS: insulin lispro 100 unit/1 mL SUBCUT ×4 (08:05→20:57)
[2021-05-14] MEDS: sertraline 50 mg Tablet PO (08:05)
--- NOTE | 2021-05-14 10:00 | MR_ITS ---
WS: [id number] INDICATION: Osteomyelitis TECHNIQUE: MR OF THE RIGHT FOOT WITHOUT AND WITH GADOLINIUM ENHANCEMENT. FINDINGS: Diffuse T2 hyperintensity with enhancement involving the subcutaneous soft tissues overlyin g the first metatarsal. Findings are compatible with cellulitis. Additional replacement normal bone m arrow signal involving the first distal phalanx extending to the distal third of the first metatarsal . This involves the metatarsal head and MTP joint. Diffuse soft tissue edema and enhancement in these areas compatible with osteomyelitis. Phlegmon about the first metatarsal head. Additional enhancemen t extends into the first metatarsal shaft and the base of the first metatarsal with associated edema. Findings are suspicious for osteomyelitis extending to the base of the first metatarsal. Normal bon e marrow signal in the second metatarsal. Normal bone marrow signal in the first cuneiform. MR/MR foot RT wo/w con [id number] IMPRESSION: 1. Osteomyelitis involving the big toe extending from the distal phalanx to the base of the first metatarsal. Normal bone marrow signal involving the first cu neiform. 2. Diffuse surrounding edema and cellulitis worse at the MTP joint. Small amoun t of phlegmon about the first metatarsal head.
--- NOTE | 2021-05-14 10:10 | PM.CONSULT ---
Providers/Reason For Consult Consulting Physician/Specialty*: Marco Elizondo D.P.M. Reason for Consult*: Osteomyelitis right foot Attending Physician: George Lundberg MD Primary Care Provider: Tree Souza MD History of Present Illness History of Present Illness Jacquelin Garduno is a 66 year old poorly controlled diabetic female who presented to the emergency department with a right foot ulcer with redness and drainage. Patient states that she has had a wound for greater than 1 year history of wound care treatments as well as previous surgical debridement by Dr. Rios. On admission she had elevated white count, elevated CRP and destruction at the first metatarsal head of the right foot on x-ray indicative of possible osteomyelitis. Patient denies any subjective nausea, vomiting, fever, chills, shortness of breath or chest pain. Review of Systems General: Reports: 10 or more systems reviewed and unremarkable except in HPI and below Const: Denies: fever(s) or chills Card: Denies: chest pain or palpitations Resp: Denies: productive cough GI: Denies: abdominal pain, nausea or vomiting : Denies: flank pain Musc: Reports: extremity swelling, joint pain, joint stiffness, limited range of motion and deformity Skin/Breast: Reports: erythema, sores, nail changes and change in hair; Denies: rash Neuro: Reports: numbness in extremities, sensory changes and difficulty walking Psych: Denies: suicidal ideation Candido/Lymph: Denies: easy bruising Meds/Allergies Home Medications and Allergies Home Medications Medication Instructions Recorded Confirmed Last Taken Type potassium chloride [Klor-Con M10] 10 meq PO QAM 06/04/19 05/12/21 10/18/19 History allopurinol 100 mg PO DAILY 08/06/19 05/12/21 10/18/19 History Januvia 50 mg PO QAM 08/07/19 05/12/21 10/18/19 History atorvastatin [Lipitor] 40 mg PO BEDTIME 08/07/19 05/12/21 10/17/19 History glipizide 20 mg PO BID 08/07/19 05/12/21 10/18/19 History aspirin 325 mg PO DAILY 10/18/19 05/12/21 10/18/19 History bumetanide 0.5 mg PO QAM 10/18/19 05/12/21 10/18/19 History cyclobenzaprine 10 mg PO TID PRN 10/18/19 05/12/21 Unknown History diltiazem HCl 180 mg PO QAM 10/18/19 05/12/21 10/18/19 History lisinopril 40 mg PO QAM 10/18/19 05/12/21 10/18/19 History sertraline 50 mg PO DAILY 10/18/19 05/12/21 10/18/19 History Vitamin B-12 1 tab PO DAILY 05/12/21 05/12/21 Unknown History amlodipine 5 mg PO QAM 05/12/21 05/12/21 Unknown History ascorbic acid (vitamin C) [Vitamin 500 mg PO DAILY 05/12/21 05/12/21 Unknown History C] metformin 850 mg PO BID 05/12/21 05/12/21 Unknown History multivitamin 1 tab PO DAILY 05/12/21 05/12/21 Unknown History sulfamethoxazole-trimethoprim 1 tab PO BID 05/12/21 05/12/21 Unknown History vitamin E 1 cap PO DAILY 05/12/21 05/12/21 Unknown History Allergies Allergy/AdvReac Type Severity Reaction Status Date / Time ibuprofen Allergy ALGY-Rash Verified 05/12/21 08:57 Current Medications Current Medications Generic Name Dose Route Start Last Admin Trade Name Freq PRN Reason Stop Dose Admin Atorvastatin Calcium 40 mg 05/12/21 21:00 05/13/21 21:11 Atorvastatin 40 Mg Tablet PO 40 mg BEDTIME HERNAN Administration Diltiazem HCl 180 mg 05/12/21 09:00 05/14/21 08:05 Diltiazem Er (24hr) 180 Mg Capsule PO 180 mg DAILY HERANN Administration Heparin Sodium (Porcine) 5,000 unit 05/12/21 04:00 05/14/21 04:00 Heparin 5,000 Unit/Ml Inj 1 Ml SUBCUT 5,000 unit Q8H HERNAN Administration Sodium Chloride 1,000 mls @ 75 mls/hr 05/12/21 04:00 05/13/21 21:14 Sodium Chloride 0.9% IV 75 mls/hr .[id number] HERNAN Administration Piperacillin Sod/Tazobactam 50 mls @ 12.5 mls/hr 05/12/21 05:30 05/14/21 06:23 Sod 3.375 gm/ Sodium Chloride IV 12.5 mls/hr Q8H HERNAN Administration Protocol As Directed Vancomycin/PEG/NADA/Lysine/Water 1,500 mg in 300 mls @ 150 mls/hr 05/12/21 04:30 05/14/21 06:21 Vancocin IV Infused Q24H HERNAN Infusion Insulin Human Lispro 0 unit 05/12/21 08:00 05/14/21 08:05 Insulin Lispro 100 Unit/1 Ml SUBCUT 4 unit WM&BEDTIME HERNAN Administration Protocol Pantoprazole Sodium 40 mg 05/12/21 09:00 05/14/21 08:[address] 40 Mg Tablet PO 40 mg DAILY HERNAN Administration Sertraline HCl 50 mg 05/12/21 09:00 05/14/21 08:05 Sertraline 50 Mg Tablet PO 50 mg DAILY HERNAN Administration Silver Sulfadiazine 1 applic 05/12/21 18:00 05/13/21 21:13 Silver Sulfadiazine Cream 1% 50 Gm TOPICAL 1 applic BID HERNAN Administration PFSH Acute PFSH: Medical History (Updated 05/14/21 @ 19:34 by Marco Elizondo DPM) Cardiomyopathy Congestive heart failure -normal EF per stress echo done 11/2015 -continue diuretics Diabetes mellitus, type II -has known hx of NIDDM type II, last A1c-8.4 (05/2019) -complicated by peripheral neuropathy and nephropathy Gall bladder disease Gastroesophageal reflux Gout Hypertension Rotator cuff arthropathy of both shoulders Surgical History H/O shoulder surgery Bilateral History of appendectomy History of cardiac cath History of delivery Hx of cholecystectomy Family History Other Diabetes Social History Smoking and tobacco status: never smoked Alcohol intake: never Lives independently: Yes Household members: spouse Vitals/I&O/Wt Last Vital Signs Temp 97.9 F 05/14/21 07:33 Pulse 99 05/14/21 07:33 Resp 16 05/14/21 07:33 BP 140/85 05/14/21 07:33 Pulse Ox 98 05/14/21 07:33 05/13/21 05/14/21 05/14/21 22:59 06:59 14:59 Intake Total 2640 / 2881.25 830 / 3711.25 360 / 360 Balance 2640 / 2881.25 830 / 3711.25 360 / 360 Physical Exam Narrative: EXAM NARRATIVE: GENERAL: Patient is alert and oriented ?3 and in no acute distress. The following is a focused bilateral lower extremity exam. VASCULAR: Dorsalis pedis palpable bilaterally, posterior tibial arteries palpable. Capillary refill time less than 3 seconds to the distal hallux bilaterally. Calf is supple and nontender proximally and distally. Decreased pedal hair growth bilaterally. NEUROLOGICAL: Protective sensation intact 0/10 sites, tested with [place] Smitha monofilament to bilateral feet. DERMATOLOGICAL: Full-thickness wound right plantar forefoot subfirst metatarsal head probes to bone has localized erythema without proximal lymphangitic streaking, serous drainage and malodor present. Dystrophic toenails x10. MUSCULOSKELETAL: Hammertoe deformities lesser digits 2 through 5 bilaterally, left foot are reducible, right foot are rigid. Hallux malleus bilaterally right greater than left. Ankle joint dorsiflexion is to neutral bilaterally. Data Micro: Micro: Microbiology 05/12/21 12:20 Gram Stain - Final Toe - Right Big Wound Culture - Pr eliminary A&P Assessment and plan (1) Diabetic infection of right foot: Status: Acute (2) Diabetes mellitus, type II: Status: Chronic Qualifiers: Diabetes mellitus fci insulin use: without remote computer terminal operator use Diabetes mellitus complication status: with neurologic complications Diabetes mellitus complication detail: with polyneuropathy Qualified Code(s): E11.42 - Type 2 diabetes mellitus with diabetic polyneuropathy (3) Non-pressure chronic ulcer of other part of right foot with necrosis of bone: Status: Acute 66-year-old uncontrolled diabetic female with diabetic ulcer and acute osteomyelitis right great toe and first metatarsal. -On admission patient had leukocytosis, blood cultures negative. Elevated CRP. -Wound culture taken 05/12/2021 shows gram-negative rods, growth to date is superficial skin eleazar. Wound had strep G historically. -X-ray shows destructive erosive changes at the first metatarsal head right foot. -MRI indicative of osteomyelitis involving the distal phalanx, proximal phalanx and entire first metatarsal down to the base right foot. -Ordered DORA/TBI/PVR, pending -Patient on empiric IV antibiotics Right plantar forefoot ulceration subfirst metatarsal head was debrided excisionally nature sharply down to and including bone, was able to probe directly to first metatarsal head plantarly, hemostasis via manual pressure, post wound debridement measurements 2.5 cm x 2.5 cm x 1 cm, no anesthesia was required secondary to neuropathy. Post debridement dressing consisting of Betadine wet-to-dry. I reviewed laboratory and diagnostic imaging results with the patient at length. Patient was educated on her diagnosis of osteomyelitis of the right foot. Discussed a variety of treatment options including bone biopsy with surgical debridement and PICC line placement for long-term IV antibiotics versus partial first ray amputation versus transmetatarsal amputation. Patient wishing to avoid a PICC line states that she has had this in the past and it did not get rid of the infection. In regards to partial first ray amputation versus transmetatarsal amputation. I explained to the patient that she has contracted hammertoe deformities and that a partial first ray amputation could result in altered mechanics and transfer pressure and subsequent transfer lesions and ulcerations down the road and that a more durable amputation level would be a transmetatarsal amputation, she is reluctant to undergo this at this time. States that she would prefer to remove the infected bone initially and should she have any other issues down the road then she would resort to transmetatarsal amputation. Patient scheduled for surgical intervention tomorrow 05/15/2021 at noon will be n.p.o. at midnight. Plan will be amputation of the right hallux and first metatarsectomy, will likely require delayed closure which could be performed this week pending soft tissue quality. Following this level of amputation should be curative for osteomyelitis with plan for oral antibiotic on discharge for soft tissue only. Emphasized importance of nonweightbearing to the right lower extremity at this time will likely require nonweightbearing status for up to approximately 6 weeks postoperatively she states that she is able to accomplish this. Consult Attestations Medical Necessity Statement: Osteomyelitis right foot Coding Level of Care Code Acute Mechanical Design Drafter for [facility] F[facility] Diagnoses Diabetic infection of right foot E11.628; L08.9 Diabetes mellitus, type II E11.42 Diabetes mellitus remote computer terminal operator insulin use: without fci use Diabetes mellitus complication status: with neurologic complications Diabetes mellitus complication detail: with polyneuropathy Non-pressure chronic ulcer of other part of right foot with necrosis of bone L97.514 Comment Debridement down to bone CPT code 51849
[2021-05-14 11:03] LABS: Glucose Point of Care 414 mg/dL (70-110)
[2021-05-14 11:22] VITALS: BP 128/85; PULSE 92; RESP 16; TEMP 36.7; O2SAT 96
--- NOTE | 2021-05-14 11:31 | PC.SOCIAL ---
IMM Update Pg. 2 of IMM updated and reviewed with patient who verbalized understanding. Copy provided.
--- NOTE | 2021-05-14 11:52 | USCV_ITS ---
Jacquelin Garduno Age: 66 Gender: F : 1955 Exam Date: 05/14/2021 13:27 Ordering Phys: Marco Elizondo DPM Technologist: Angi Austin Exam Location: [facility] [place] Indication: PREOPERATIVE PLANNING, DIABETIC ULCER RIGHT FOOT RIGHT LEFT Brachial 164.00 mmHg Brachial 153.00 mmHg Pressure (mmHg) Waveform Pressure (mmHg) Waveform 164.00 High Thigh 151.00 166.00 Below Knee 171.00 158.00 CATHODIC PROTECTION TECHNICIAN 166.00 153.00 DPA 169.00 0.96 Ankle/Brachial Index 1.03 88.00 Pre-Exercise Toe Pressure 83.00 Pre-Exercise Toe/Brachial Index 0.51 0.54 FINDINGS Normal resting DORA of 0.96 and 1.03, respectively on the right and left. Slightly diminished resting TBI of 0.54 and 0.51 the right and left PVR waveforms showing minimal blunting of the dicrotic notch on the right side Normal PVR waveforms on the left side CONCLUSIONS Slightly abnormal PVR waveforms and slightly diminished resting TBI on the right side, suggestive of mild peripheral artery disease Normal resting DORA with a slightly diminished TBI on the left side, suggestive of mild peripheral artery disease, involving the distal vessels . Corrected copy Dr Samantha Wade MD [facility] (Electronically Signed) Final Date: 15 May 2021 23:20 Amended: 15 May 2021 23:24 C
--- NOTE | 2021-05-14 12:02 | P.PN_ITS ---
Subjective Subjective: Interval history: Hospital course, labs appreciated. Examination patient sitting up in bed. Denies any nausea, vomiting, headache. Awaiting for MRI. We discussed in detail regarding the future treatment plan. Patient is agreeable. Vitals/I&O/Wt Last Vital Signs Temp 98.1 F 05/14/21 11:22 Pulse 92 05/14/21 11:22 Resp 16 05/14/21 11:22 BP 128/85 05/14/21 11:22 Pulse Ox 96 05/14/21 11:22 05/13/21 05/14/21 05/14/21 22:59 06:59 14:59 Intake Total 2640 / 2881.25 830 / 3711.25 410 / 410 Balance 2640 / 2881.25 830 / 3711.25 410 / 410 Physical Exam Const: COMMON NORMALS: no acute distress and patient oriented x3 HENMT: COMMON NORMALS: oropharynx normal Neck/C-Spine: COMMON NORMALS: no JVD Resp: COMMON NORMALS: normal respiratory effort and clear to auscultation bilaterally AUSCULTATION: clear to auscultation bilaterally Cardio: COMMON NORMALS: no JVD, regular rhythm, S1 normal heart sound present, S2 normal heart sound present and No murmurs present (Cardio) RHYTHM: regular rhythm HEART SOUNDS: S1 normal heart sound present and S2 normal heart sound present GI: COMMON NORMALS: Normal to inspection, nondistended, normoactive bowel sounds present, Soft to palpation and non-tender PALPATION: Yes Soft to palp ation Extremity: COMMON NORMALS: no joint enlargement and no pedal edema Neuro: COMMON NORMALS: patient oriented x3 and moves all extremities Skin: LESIONS: lesion noted (R plantar sub-MTP joint ulcer draining thick turbid fluid) RASHES: rashes noted (Fainter erythema, swelling first toe, distal foot) Data : 05/14/21 05:02 05/14/21 05:02 Micro: Microbiology 05/12/21 12:20 Gram Stain - Final Toe - Right Big Wound Culture - Preliminary A&P Assessment and plan (1) Diabetic infection of right foot: High suspicion of osteomyelitis. Awaiting MRI. Appreciate podiatry recommendations. Plan for further treatment as per the results of MRI. For now continue with vancomycin and Zosyn. Check bilateral arterial studies. Status: Acute (2) Gout attack: Status: Acute (3) Diabetes mellitus, type II: Last known A1c 8.4 from 2020. Blood sugars extremely elevated. Check A1c. Switch to insulin sliding scale high-dose protocol. Will start long-acting insulin depending on insulin requirement in next 24 hours. Status: Chronic Qualifiers: Diabetes mellitus usp insulin use: without usp use Diabetes mellitus complication status: with neurologic complications Diabetes mellitus complication detail: with polyneuropathy Qualified Code(s): E11.42 - Type 2 diabetes mellitus with diabetic polyneuropathy (4) Congestive heart failure: No exacerbation. Hold off on further diuretics. Status: Chronic Qualifiers: Heart failure type: diastolic Heart failure chronicity: chronic Qualified Code(s): I50.32 - Chronic diastolic (congestive) heart failure (5) Diabetic foot ulcer: Status: Acute Qualifiers: Diabetic foot ulcer location: unspecified part of foot Diabetes mellitus type: type 2 Laterality: right Non-pressure ulcer stage: unspecified non-pressure ulcer stage Qualified Code(s): E11.621 - Type 2 diabetes mellitus with foot ulcer; L97.519 - Non-pressure chronic ulcer of other part of right foot with unspecified severity Additional A&P Information Hypertension: Goal blood pressure less than 140/90 Amici. Blood pressures normal for now. Continue to hold off on home dose of lisinopril for now. Continue other chronic home medications including aspirin, statins, Cardizem, sertraline. Full code. Cardiac carb consistent diet. Heparin for DVT prophylaxis. Attestations Medical Necessity Statement*: Requires further hospitalization for management of diabetic right foot with a high suspicion of osteomyelitis Time Spent in Patient Care: Greater than 35 minutes (>than 50% of time spent in counselling and/or direct pt care on unit) . Coding Level of Care Code Acute Software Team Leader for [facility] Fwd Diagnoses Diabetic infection of right foot E11.628; L08.9 Gout attack M10.9 Diabetes mellitus, type II E11.42 Diabetes mellitus superintendent marine oil terminal insulin use: without superintendent marine oil terminal use Diabetes mellitus complication status: with neurologic complications Diabetes mellitus complication detail: with polyneuropathy Congestive heart failure I50.32 Heart failure type: diastolic Heart failure chronicity: chronic Diabetic foot ulcer E11.621; L97.519 Diabetic foot ulcer location: unspecified part of foot Diabetes mellitus type: type 2 Laterality: right Non-pressure ulcer stage: unspecified non-pressure ulcer stage
[2021-05-14 13:43] LABS: Chol HDL Ratio 4.39 mg/dL (0.0-4.40); Cholesterol 145 mg/dL (0-200); HDL Cholesterol 33 mg/dL (60-100); LDL Cholesterol Calculated 86 mg/dL (50-129); Triglycerides 131 mg/dL (0-150); VLDL Cholestrol Calculation 26 mg/dL (0-30)
--- NOTE | 2021-05-14 13:55 | PM.MISC ---
Miscellaneous Note Purpose of Documentation: Change of care provider Note: Patient was seen in her room today. I advised her that Dr. Elizondo would be assuming care of her foot. She understood that and had had a discussion with him already. He is awaiting the MRI that I previously ordered. She is comfortable with the transition of care and understands the reasonings behind it.
[2021-05-14 14:03] LABS: Estmated Average Glucose 372; Hemoglobin A1C 14.6 % (4.0-6.0)
[2021-05-14] MEDS: gadobenate dimeglumine 20 mL vial IV (15:45)
[2021-05-14 17:14] LABS: Glucose Point of Care 205 mg/dL (70-110)
[2021-05-14 20:00] VITALS: BP 122/71; PULSE 79; RESP 18; TEMP 36.5; O2SAT 93
[2021-05-14] MEDS: atorvastatin 40 mg Tablet PO (20:23)
[2021-05-14 20:37] LABS: Glucose Point of Care 257 mg/dL (70-110)
[2021-05-15] VITALS (18 sets, daily range): BP systolic 102–143; BP diastolic 63–95; PULSE 69–111; RESP 13–18; TEMP 36.3–37.1; O2SAT 92–100
[2021-05-15] MEDS: piperacillin-tazobactam 3.375 GM in sodium chloride 0.9% (plus) 50 ML IV ×3 (00:22→18:47)
[2021-05-15] MEDS: heparin 5,000 unit/mL INJ 1 mL 5000 UNIT SUBCUT (03:25)
[2021-05-15 03:35] LABS: Basophils # 0.1 10^3/uL (0.0-0.1); Basophils % 0.6 %; Eosinophils # 0.2 10^3/uL (0.0-0.8); Eosinophils % 2.1 %; Hematocrit 38.1 % (37.0-47.0); Hemoglobin 11.8 g/dL (11.5-15.3); Lymphocytes # 1.7 10^3/uL (0.8-4.8); Mean Corpuscular Volume 74.1 fl (81-99); Mean Platelet Volume 9.6 fL (7.4-10.4); Monocytes # 0.6 10^3/uL (0.2-0.9); Monocytes % 6.7 %; Neutrophils # 5.72 10^3/uL (1.8-7.7); Neutrophils % 69.1 %; Nucleated Red Blood Cells % 0 %; Platelet Count 330 10^3/cmm (130-400); Red Blood Count 5.14 10^6/uL (4.1-5.3); White Blood Count 8.3 10^3/uL (4.0-10.0)
[2021-05-15 03:54] LABS: Alanine Aminotransferase 14 U/L (0-33); Albumin Level 3.5 g/dL (3.5-5.2); Alkaline Phosphatase 114 IU/L (35-105); Anion Gap 16.7 (5-19); Aspartate Amino Transferase 18 U/L (0-32); Blood Urea Nitrogen 12 mg/dL (8-23); Calcium 8.4 mg/dL (8.5-10.5); Carbon Dioxide 24 mmol/L (22-29); Chloride 100 mmol/L (98-107); Globulin 4.2 g/dL (1.3-4.6); Glomerular Filtration Rate 100.3 mL/min (90-130); Glucose 118 mg/dL (65-115); Osmolality Calculated 285 mOsm/kg (285-295); Potassium 3.7 mmol/L (3.5-5.1); Sodium 137 mmol/L (136-145); Total Bilirubin 0.2 mg/dL (0.15-1.2); Total Protein 7.7 g/dL (6.6-8.7)
[2021-05-15 03:55] LABS: Vancomycin Trough 8.1 ug/mL (10-15)
[2021-05-15] MEDS: vancomycin 1,500 MG/300 ML PIGGYBACK 150 MG IV ×2 (04:13→22:54)
--- NOTE | 2021-05-15 04:17 | PC.NURSE ---
VANC T Vanc trough level 8.1 this am. Pharmacy instructed nurse to go ahead with dose of Vanc and she will be changing the freq
[2021-05-15 06:55] LABS: Glucose Point of Care 159 mg/dL (70-110)
[2021-05-15 07:44] LABS: Glucose Point of Care 171 mg/dL (70-110)
[2021-05-15] MEDS: sodium chloride 0.9% 1,000 ML 30 ML IV (07:56)
--- NOTE | 2021-05-15 07:57 | PC.NURSE ---
0730 Pt was taken down to surgery at this time via wheelchair.
--- NOTE | 2021-05-15 08:03 | P.HPUD_ITS ---
Surgery/Procedure H&P Update DATE OF PROCEDURE: May 15, 2021 DATE H&P PERFORMED: 05/14/21 H&P UPDATE INFORMATION: I have reviewed H&P completed within last 30 days, I have examined patient prior to procedure, No changes to prior documentation and [place] [facility] [place] [facility] [place] indicated PREOP DIAGNOSIS: Osteomyelitis right foot PRIMARY INDICATION FOR PROCEDURE: Osteomyelitis right foot PLANNED PROCEDURE: Operation Date: 05/15/21 08:35 Proposed Procedures p incision and debridement with right hallux amputation and right first metatarsectomy
--- NOTE | 2021-05-15 08:06 | P.ANESASSM_ITS ---
Pre-Anesthetic Assessment Pre-Anesthetic Assessment: Height/Weight: Height 1.57 m Weight 81.647 kg Temp Pulse Resp BP Pulse Ox 97.8 F 111 H 18 143/95 95 05/15/21 07:39 05/15/21 07:39 05/15/21 07:39 05/15/21 07:39 05/15/21 07:39 Preop Diagnosis: Osteomyelitis right foot Proposed Procedure: Operation Date: 05/15/21 08:35 Proposed Procedures p Delayed Wound Closure(Right) - Marco Elizondo DPM s right achilles lengthening(Right) - Marco Elizondo DPM Familial anesthetic complications: None Was Beta Keyanna taken within 24 hours: N/A Was Clonidine taken within 24 hours: N/A Last intake: Intake Last Liquid Date 05/14/21 Last Liquid Time 17:00 Last Solid Date 05/14/21 Last Solid Time 17:00 Social: Social History: No alcohol and No tobacco Exam: Pre-Anes Outpt Exam: alert, oriented x 3, clear to auscultation bilaterally and regular rate & rhythm Airway: Cervical ROM: WNL MP: 3 Dentition: Full CV/HEM: CV/HEM: CHF Metabolic: Metabolic: DM and Hyperlipidemia Anesthetic Plan: ASA status: 3 Anesthesia: MAC Risk of > 500 ml blood loss (7ml/kg in children): No Meds/Allergies Current Medications: Current Medications Generic Name Dose Route Start Last Admin Trade Name Freq PRN Reason Stop Dose Admin Atorvastatin Calci um 40 mg 05/12/21 21:00 05/14/21 20:23 Atorvastatin 40 Mg Tablet PO 40 mg BEDTIME HERNAN Administration Diltiazem HCl 180 mg 05/12/21 09:00 05/14/21 08:05 Diltiazem Er (24 hr) 180 Mg Capsule PO 180 mg DAILY HERNAN Administration Heparin Sodium (Po rcine) 5,000 unit 05/12/21 04:00 05/15/21 03:25 Heparin 5,000 Un it/Ml Inj 1 Ml SUBCUT 5,000 unit Q8H HERNAN Administration Piperacillin Sod/T azobactam 50 mls @ 12.5 mls /hr 05/12/21 05:30 05/15/21 04:35 Sod 3.375 gm/ So dium Chloride IV Infused Q8H HERNAN Infusion Protocol As Directed Sodium Chloride 1,000 mls @ 30 ml s/hr 05/15/21 07:45 05/15/21 07:56 Sodium Chloride 0.9% IV 05/16/21 07:44 30 mls/hr .Q24H HERNAN Administration Insulin Human Lisp ro 0 unit 05/12/21 08:00 05/14/21 20:57 Insulin Lispro 1 00 Unit/1 Ml SUBCUT 10 unit WM&BEDTIME HERNAN Administration Protocol Pantoprazole Sodiu m 40 mg 05/12/21 09:00 05/14/21 08:[address] 40 Mg Tablet PO 40 mg DAILY HERNAN Administration Sertraline HCl 50 mg 05/12/21 09:00 05/14/21 08:05 Sertraline 50 Mg Tablet PO 50 mg DAILY HERNAN Administration PFSH Anesthesia PFSH: Medical History (Updated 05/14/21 @ 19:34 by Marco Elizondo DPM) Cardiomyopathy Congestive heart failure -normal EF per stress echo done 11/2015 -continue diuretics Diabetes mellitus, type II -has known hx of NIDDM type II, last A1c-8.4 (05/2019) -complicated by peripheral neuropathy and nephropathy Gall bladder disease Gastroesophageal reflux Gout Hypertension Rotator cuff arthropathy of both shoulders Surgical History H/O shoulder surgery Bilateral History of appendectomy History of cardiac cath History of delivery Hx of cholecystectomy Family History Other Diabetes Social History Smoking and tobacco status: never smoked Alcohol intake: never Lives independently: Yes Household members: spouse Data Anesthesia CBC & Chem 7: 05/15/21 03:25 05/15/21 03:25 Other Labs: Laboratory Results - last 48 hr 05/13/21 05/13/21 05/13/21 11:13 16:24 20:25 WBC RBC Hgb Hct MCV MCH MCHC RDW Plt Count MPV Neut % (Auto) Lymph % (Auto) Atlantic % (Auto) Eos % (Auto) Baso % (Auto) Neut # (Auto) Lymph # (Auto) [place] # (Auto) Eos # (Auto) Baso # (Auto) Nucleated RBC % (auto) Nucleated RBCs # Sodium Potassium Chloride Carbon Dioxide Anion Gap BUN Creatinine GFR Calculation Glucose POC Glucose 291 H 225 H 246 H Estimat Average Glucose Hemoglobin A1c Calculated Osmolality Calcium Total Bilirubin AST ALT Alkaline Phosphatase Total Protein Albumin Globulin Triglycerides Cholesterol LDL Cholesterol, Calc Total VLDL Cholesterol HDL Cholesterol Cholesterol/HDL Ratio Vancomycin Trough 05/14/21 05/14/21 05/14/21 05:02 05:02 05:02 WBC 7.9 RBC 4.81 Hgb 11.3 L Hct 36.1 L MCV 75.1 L MCH 23.5 L MCHC 31.3 RDW 15.0 Plt Count 323 MPV 10.2 Neut % (Auto) 71.0 Lymph % (Auto) 19.5 Atlantic % (Auto) 6.4 Eos % (Auto) 2.2 Baso % (Auto) 0.4 Neut # (Auto) 5.58 Lymph # (Auto) 1.5 Atlantic # (Auto) 0.5 Eos # (Auto) 0.2 Baso # (Auto) 0.0 Nucleated RBC % (auto) 0 Nucleated RBCs # 0.0 Sodium 135 L Potassium 3.7 Chloride 98 Carbon Dioxide 23 Anion Gap 17.7 BUN 11 Creatinine 0.5 GFR Calculation 123.8 Glucose 197 H POC Glucose Estimat Average Glucose 372 Hemoglobin A1c 14.6 H Calculated Osmolality 285 Calcium 8.3 L Total Bilirubin 0.2 AST 12 ALT 11 Alkaline Phosphatase 104 Total Protein 7.4 Albumin 3.4 L Globulin 4.0 Triglycerides Cholesterol LDL Cholesterol, Calc Total VLDL Cholesterol HDL Cholesterol Cholesterol/HDL Ratio Vancomycin Trough 05/14/21 05/14/21 05/14/21 05:02 06:22 10:58 WBC RBC Hgb Hct MCV MCH MCHC RDW Plt Count MPV Neut % (Auto) Lymph % (Auto) Atlantic % (Auto) Eos % (Auto) Baso % (Auto) Neut # (Auto) Lymph # (Auto) Atlantic # (Auto) Eos # (Auto) Baso # (Auto) Nucleated RBC % (auto) Nucleated RBCs # Sodium Potassium Chloride Carbon Dioxide Anion Gap BUN Creatinine GFR Calculation Glucose POC Glucose 220 H 414 H Estimat Average Glucose Hemoglobin A1c Calculated Osmolality Calcium Total Bilirubin AST ALT Alkaline Phosphatase Total Protein Albumin Globulin Triglycerides 131 Cholesterol 145 LDL Cholesterol, Calc 86 Total VLDL Cholesterol 26 HDL Cholesterol 33 L Cholesterol/HDL Ratio 4.39 Vancomycin Trough 05/14/21 05/14/21 05/15/21 17:12 20:33 03:25 WBC 8.3 RBC 5.14 Hgb 11.8 Hct 38.1 MCV 74.1 L MCH 23.0 L MCHC 31.0 RDW 15.0 Plt Count 330 MPV 9.6 Neut % (Auto) 69.1 Lymph % (Auto) 21.0 Atlantic % (Auto) 6.7 Eos % (Auto) 2.1 Baso % (Auto) 0.6 Neut # (Auto) 5.72 Lymph # (Auto) 1.7 Atlantic # (Auto) 0.6 Eos # (Auto) 0.2 Baso # (Auto) 0.1 Nucleated RBC % (auto) 0 Nucleated RBCs # 0.0 Sodium Potassium Chloride Carbon Dioxide Anion Gap BUN Creatinine GFR Calculation Glucose POC Glucose 205 H 257 H Estimat Average Glucose Hemoglobin A1c Calculated Osmolality Calcium Total Bilirubin AST ALT Alkaline Phosphatase Total Protein Albumin Globulin Triglycerides Cholesterol LDL Cholesterol, Calc Total VLDL Cholesterol HDL Cholesterol Cholesterol/HDL Ratio Vancomycin Trough 05/15/21 05/15/21 05/15/21 03:25 03:25 06:35 WBC RBC Hgb Hct MCV MCH MCHC RDW Plt Count MPV Neut % (Auto) Lymph % (Auto) Atlantic % (Auto) Eos % (Auto) Baso % (Auto) Neut # (Auto) Lymph # (Auto) Atlantic # (Auto) Eos # (Auto) Baso # (Auto) Nucleated RBC % (auto) Nucleated RBCs # Sodium 137 Potassium 3.7 Chloride 100 Carbon Dioxide 24 Anion Gap 16.7 BUN 12 Creatinine 0.6 GFR Calculation 100.3 Glucose 118 H POC Glucose 159 H Estimat Average Glucose Hemoglobin A1c Calculated Osmolality 285 Calcium 8.4 L Total Bilirubin 0.2 AST 18 ALT 14 Alkaline Phosphatase 114 H Total Protein 7.7 Albumin 3.5 Globulin 4.2 Triglycerides Cholesterol LDL Cholesterol, Calc Total VLDL Cholesterol HDL Cholesterol Cholesterol/HDL Ratio Vancomycin Trough 8.1 L 05/15/21 07:42 WBC RBC Hgb Hct MCV MCH MCHC RDW Plt Count MPV Neut % (Auto) Lymph % (Auto) Atlantic % (Auto) Eos % (Auto) Baso % (Auto) Neut # (Auto) Lymph # (Auto) Atlantic # (Auto) Eos # (Auto) Baso # (Auto) Nucleated RBC % (auto) Nucleated RBCs # Sodium Potassium Chloride Carbon Dioxide Anion Gap BUN Creatinine GFR Calculation Glucose POC Glucose 171 H Estimat Average Glucose Hemoglobin A1c Calculated Osmolality Calcium Total Bilirubin AST ALT Alkaline Phosphatase Total Protein Albumin Globulin Triglycerides Cholesterol LDL Cholesterol, Calc Total VLDL Cholesterol HDL Cholesterol Cholesterol/HDL Ratio Vancomycin Trough Micro: Microbiology 05/12/21 12:20 Gram Stain - Final Toe - Right Big Wound Culture - Preliminary Cardiac Studies: No Data to Display
[2021-05-15] MEDS: lidocaine 1% INJ 20 mL 15 ML INJECTION (08:42)
[2021-05-15] MEDS: vancomycin 1,000 MG SDV 1000 MG IRRIGATION (08:45)
--- NOTE | 2021-05-15 08:49 | PM.OP ---
Operative Report Date of procedure: May 15, 2021 Pre-op Diagnosis: Osteomyelitis right foot Post-op diagnosis: same Post-op Findings: Osteomyelitis right great toe both distal and proximal phalanx as well as first metatarsal Procedure Done: Right great toe amputation and right first metatarsectomy. Implants: None Specimens removed/disposition: Bone from right first metatarsal head sent to microbiology for Gram stain and culture Pathology: none sent Surgeon: Marco Elizondo D.P.M. Research Laboratory Manager: Yossi Anesthesia: MAC Estimated blood loss: 25 Tourniquet time: See intraoperative documentation IV fluids: 0 Urine output: 0 Complications: 0 Findings: Devitalized bone distal phalanx, proximal phalanx of the hallux and first metatarsal Condition: stable Disposition: floor Brief History: Wound at the right plantar forefoot with osteomyelitis confirmed on MRI. Patient wishes to proceed with right hallux amputation and first metatarsectomy after discussing options. Will require staged approach, will be left open for further debridement and delayed closure. Procedure: Under mild sedation the patient was brought to the operating room and placed on the operating table in supine position. A timeout was performed. Anesthesia was then administered by the anesthesia service. Local anesthesia injected by myself 25 cc of one-to-one mixture 1% lidocaine and 0.5% Marcaine plain and a right ankle block fashion. Well-padded pneumatic tourniquet applied to the right ankle. Right lower extremity was then scrubbed, prepped and draped utilizing normal aseptic technique. Right foot was elevated and the tourniquet inflated to 250 mmHg. Attention was directed to the right foot where a fishmouth incision was performed full-thickness in the right great toe was amputated at the metatarsophalangeal joint this was passed from operative field will be sent to pathology for permanent. The bone of the distal and proximal phalanx of the right great toe was devitalized with decreased density and had dark aldridge dusky appearance. Incision was extended proximally to the base of the first metatarsal the right foot where a right first metatarsectomy was performed, the head of the first metatarsal was sent to microbiology for Gram stain and culture. All bleeders were ligated and cauterized as necessary. Surgical wound was left open and packed with vancomycin powder 1 g, saline wet-to-dry and multilayer compressive dressing will evaluate over the next 2 days and plan for possible further debridement with delayed closure.
--- NOTE | 2021-05-15 09:08 | PC.NURSE ---
BS 171 in phase 1 recovery
[2021-05-15 09:09] LABS: Glucose Point of Care 171 mg/dL (70-110)
[2021-05-15] MEDS: dilTIAZem ER (24HR) 180 mg Capsule PO (10:14)
[2021-05-15] MEDS: sertraline 50 mg Tablet PO (10:14)
[2021-05-15] MEDS: pantoprazole DR 40 mg Tablet PO (10:14)
--- NOTE | 2021-05-15 11:42 | PC.NURSE ---
Bleeding Dr Elizondo came in and redressed after pt's foot was bleeding heavily.
[2021-05-15 11:57] LABS: Glucose Point of Care 210 mg/dL (70-110)
[2021-05-15] MEDS: insulin lispro 100 unit/1 mL SUBCUT ×3 (12:12→22:34)
[2021-05-15 12:31] LABS: Basophils % 0.4 %; Eosinophils # 0.2 10^3/uL (0.0-0.8); Hematocrit 33.8 % (37.0-47.0); Hemoglobin 10.5 g/dL (11.5-15.3); Lymphocytes # 1.6 10^3/uL (0.8-4.8); Lymphocytes % 19.1 %; Mean Corpuscular HGB Conc 31.1 g/dL (30.0-36.0); Mean Corpuscular Hemoglobin 23.5 pg (28.0-34.0); Mean Corpuscular Volume 75.8 fl (81-99); Mean Platelet Volume 9.6 fL (7.4-10.4); Monocytes # 0.6 10^3/uL (0.2-0.9); Monocytes % 7.4 %; Neutrophils # 5.96 10^3/uL (1.8-7.7); Neutrophils % 70.3 %; Nucleated Red Blood Cells % 0 %; Platelet Count 350 10^3/cmm (130-400); Red Blood Count 4.46 10^6/uL (4.1-5.3); Red Cell Distribution Width 15.2 % (12.1-15.1); White Blood Count 8.5 10^3/uL (4.0-10.0)
--- NOTE | 2021-05-15 13:16 | P.PN_ITS ---
Subjective Subjective: Interval history: Today morning seen post amputation. On examination patient had blood soakage through the bandages and bed sheets and blanket. Case was discussed with Dr. Elizondo and patient underwent bedside suturing of the wound. Repeat hemoglobin remained stable. Patient denies any nausea vomiting, headache. Vitals/I&O/Wt Last Vital Signs Temp 98 F 05/15/21 09:20 Pulse 107 H 05/15/21 12:17 Resp 16 05/15/21 12:17 BP 114/79 05/15/21 12:17 Pulse Ox 95 05/15/21 12:17 05/14/21 05/15/21 05/15/21 22:59 06:59 14:59 Intake Total 530 / 1180 830 / 2009 0 / 0 Output Total 360 / 360 Balance 530 / 1180 470 / 1650 - Physical Exam Const: COMMON NORMALS: no acute distress and patient oriented x3 HENMT: COMMON NORMALS: oropharynx normal Neck/C-Spine: COMMON NORMALS: no JVD Resp: COMMON NORMALS: normal respiratory effort and clear to auscultation bilaterally AUSCULTATION: clear to auscultation bilaterally Cardio: COMMON NORMALS: no JVD, regular rhythm, S1 normal heart sound present, S2 normal heart sound present and No murmurs present (Cardio) RHYTHM: regular rhythm HEART SOUNDS: S1 normal heart sound present and S2 normal heart sound present GI: COMMON NORMALS: Normal to inspection, nondistended, normoactive bowel sounds present, Soft to palpation and non-tender PALPATION: Yes Soft to palpation Extremity: COMMON NORMALS: no joint enlargement and no pedal edema OTHER: Right foot postoperative bandage soaked with blood Neuro: COMMON NORMALS: patient oriented x3 and moves all extremities Data : 05/15/21 12:08 05/15/21 03:25 Micro: Microbiology 05/12/21 12:20 Gram Stain - Final Toe - Right Big Wound Culture - Final A&P Assessment and plan (1) Osteomyelitis: As seen on MRI done on 05/14 Status: Acute (2) Status post amputation: Right great toe amputation and right first metatarsectomy on 05/15. Case discussed with Dr. Elizondo. Plan for delayed closure most likely on 05/17. Continue with vancomycin and Zosyn till then. Await culture results. Most likely plan to discharge on oral antibiotics with plan to follow-up with Dr. Elizondo as an outpatient. Status: Acute (3) Diabetic infection of right foot: Appreciate Dr. Elizondo's recommendations Status: Acute (4) Gout attack: Status: Acute (5) Diabetes mellitus, type II: Severely uncontrolled. A1c 14.6. Discussed in detail with patient. We will plan to discharge on insulin. Patient is agreeable. Status: Chronic Qualifiers: Diabetes mellitus exterminator helper insulin use: without exterminator helper use Diabetes mellitus complication status: with neurologic complications Diabetes mellitus complication detail: with polyneuropathy Qualified Code(s): E11.42 - Type 2 diabetes mellitus with diabetic polyneuropathy (6) Congestive heart failure: No exacerbation. Hold off on further diuretics. History of congestive heart failure with preserved ejection fraction Status: Chronic Qualifiers: Heart failure type: diastolic Heart failure chronicity: chronic Qualified Code(s): I50.32 - Chronic diastolic (congestive) heart failure Additional A&P Information Hypertension: Goal blood pressure less than 140/90 mmHg. Blood pressures normal for now. Continue to hold off on home dose of lisinopril and amlodipine for now. Tachycardia: Mild tachycardia. Sinus. Depending on vitals within next 24 hours we will plan to increase the dose of Cardizem. Continue other chronic home medications including aspirin, statins, Cardizem, sertraline. Full code. Cardiac carb consistent diet. Heparin for DVT prophylaxis. Attestations Medical Necessity Statement*: Requires further hospitalization for management of right great toe osteomyelitis, s/p amputation with plan for delayed closure on . Time Spent in Patient Care: Greater than 35 minutes (>than 50% of time spent in counselling and/or direct pt care on unit) . Coding Level of Care Code Acute Auto Brake Mechanic for [facility] Fwd Diagnoses Osteomyelitis M86.9 Status post amputation Z89.9 Diabetic infection of right foot E11.628; L08.9 Gout attack M10.9 Diabetes mellitus, type II E11.42 Diabetes mellitus skilled nursing insulin use: without exterminator helper use Diabetes mellitus complication status: with neurologic complications Diabetes mellitus complication detail: with polyneuropathy Congestive heart failure I50.32 Heart failure type: diastolic Heart failure chronicity: chronic
[2021-05-15 17:10] LABS: Glucose Point of Care 285 mg/dL (70-110)
[2021-05-15] MEDS: HYDROcodone-acetaminophen 5-325 mg Tablet 1 TAB PO (18:50)
[2021-05-15] MEDS: atorvastatin 40 mg Tablet PO (20:31)
[2021-05-15 20:34] LABS: Glucose Point of Care 289 mg/dL (70-110)
[2021-05-16] VITALS (8 sets, daily range): BP systolic 96–130; BP diastolic 64–79; PULSE 80–98; RESP 16–18; TEMP 36.7–36.9; O2SAT 94–97
--- NOTE | 2021-05-16 02:07 | PC.NURSE ---
Addendum entered by Amy Ocampo RN 05/16/21 02:08: 0200 Resting in bed on right side with foot elevated. Dressing D/I. No distress. Call light in reach. Original Note: 0200 Resting in bed on back. No distress. call light in reach.
[2021-05-16] MEDS: piperacillin-tazobactam 3.375 GM in sodium chloride 0.9% (plus) 50 ML IV ×3 (03:58→18:39)
--- NOTE | 2021-05-16 04:28 | PC.NURSE ---
0400 pt resting soundly. Groggy but arousable. Oriented x 3. Dressing d/i. No distress.
[2021-05-16 06:00] LABS: Basophils % 0.5 %; Eosinophils # 0.2 10^3/uL (0.0-0.8); Eosinophils % 2.1 %; Hemoglobin 8.8 g/dL (11.5-15.3); Lymphocytes # 1.3 10^3/uL (0.8-4.8); Lymphocytes % 14.3 %; Mean Corpuscular HGB Conc 30.3 g/dL (30.0-36.0); Mean Corpuscular Hemoglobin 22.8 pg (28.0-34.0); Mean Corpuscular Volume 75.1 fl (81-99); Mean Platelet Volume 9.9 fL (7.4-10.4); Monocytes # 0.5 10^3/uL (0.2-0.9); Monocytes % 5.3 %; Neutrophils # 6.82 10^3/uL (1.8-7.7); Neutrophils % 77.1 %; Nucleated Red Blood Cells % 0 %; Platelet Count 301 10^3/cmm (130-400); Red Blood Count 3.86 10^6/uL (4.1-5.3); Red Cell Distribution Width 15.2 % (12.1-15.1); White Blood Count 8.8 10^3/uL (4.0-10.0)
[2021-05-16 06:29] LABS: Alanine Aminotransferase 22 U/L (0-33); Albumin Level 2.7 g/dL (3.5-5.2); Alkaline Phosphatase 104 IU/L (35-105); Aspartate Amino Transferase 23 U/L (0-32); Blood Urea Nitrogen 14 mg/dL (8-23); Calcium 7.9 mg/dL (8.5-10.5); Carbon Dioxide 18 mmol/L (22-29); Chloride 102 mmol/L (98-107); Globulin 3.6 g/dL (1.3-4.6); Glomerular Filtration Rate 100.3 mL/min (90-130); Glucose 194 mg/dL (65-115); Osmolality Calculated 282 mOsm/kg (285-295); Sodium 133 mmol/L (136-145); Total Bilirubin 0.2 mg/dL (0.15-1.2); Total Protein 6.3 g/dL (6.6-8.7)
[2021-05-16 06:42] LABS: Glucose Point of Care 208 mg/dL (70-110)
--- NOTE | 2021-05-16 08:09 | P.PN_ITS ---
Subjective Subjective: Interval history: Patient is 1 day status post first ray amputation right foot secondary to osteomyelitis date of operation 05/15/2021. Significant strikethrough bleeding at the surgical dressings postoperatively, upon removal and there was no pulsatile bleeding, no surgical dressings applied. There is no strikethrough this morning. Patient tolerating regular diet. Amauri gama denies any subjective nausea, vomiting, fever, chills, shortness of breath or chest pain. Vitals/I&O/Wt Last Vital Signs Temp 98.2 F 05/16/21 07:29 Pulse 84 05/16/21 07:29 Resp 16 05/16/21 07:29 BP 115/64 05/16/21 07:29 Pulse Ox 96 05/16/21 07:29 05/15/21 05/16/21 05/16/21 22:59 06:59 14:59 Intake Total 290 / 580 240 / 820 Output Total 700 / 725 520 / 1245 Balance -410 / -145 -280 / -425 Physical Exam Narrative: EXAM NARRATIVE: Patient is alert and oriented ?3 and in no acute distress. The following is a focused bilateral lower extremity exam. VASCULAR: Dorsalis pedis palpable bilaterally, posterior tibial arteries palpable. Capillary refill time less than 3 seconds to the distal hallux bilaterally. Calf is supple and nontender proximally and distally. Decreased pedal hair growth bilaterally. NEUROLOGICAL: Protective sensation intact 0/10 sites, tested with Shoup Smitha monofilament to bilateral feet. DERMATOLOGICAL: No strikethrough blood no ascending erythema or cellulitis at the ankle or leg. Toes 2 through 5 right foot are pink with brisk cap refill. MUSCULOSKELETAL: Status post first ray amputation right foot. Data : 05/16/21 05:22 05/16/21 05:22 Micro: Microbiology 05/15/21 08:40 Gram Stain - Final Toe - #1 05/12/21 12:20 Gram Stain - Final Toe - Right Big Wound Culture - Final A&P Assessment and plan (1) Diabetic infection of right foot: Status: Acute (2) Diabetes mellitus, type II: Status: Chronic Qualifiers: Diabetes mellitus fpc insulin use: without termite exterminator helper use Diabetes mellitus complication status: with neurologic complications Diabetes mellitus complication detail: with polyneuropathy Qualified Code(s): E11.42 - Type 2 diabetes mellitus with diabetic polyneuropathy (3) Non-pressure chronic ulcer of other part of right foot with necrosis of bone: Status: Acute 66-year-old uncontrolled diabetic female with diabetic ulcer and acute osteomyelitis right great toe and first metatarsal. First ray amputation right foot secondary to osteomyelitis performed 05/15/2021 wound left open for further debridement and planned delayed closure Plan for primary delayed closure 05/17/2021 in the AM Patient to be nonweightbearing to the right foot and elevate right foot while resting Continuing IV antibiotics empirically Surgical cultures pending Anticipate discharge planning on Friday on oral antibiotics. Will follow up in podiatry clinic next week Attestations Medical Necessity Statement*: Osteomyelitis Coding Level of Care Code Acute Licensed Occupational Therapist for [facility] Diagnoses Diabetic infection of right foot E11.628; L08.9 Diabetes mellitus, type II E11.42 Diabetes mellitus termite exterminator helper insulin use: without termite exterminator helper use Diabetes mellitus complication status: with neurologic complications Diabetes mellitus complication detail: with polyneuropathy Non-pressure chronic ulcer of other part of right foot with necrosis of bone L97.514
[2021-05-16] MEDS: sertraline 50 mg Tablet PO (08:16)
[2021-05-16] MEDS: insulin lispro 100 unit/1 mL SUBCUT ×4 (08:16→21:58)
[2021-05-16] MEDS: dilTIAZem ER (24HR) 180 mg Capsule PO (08:17)
[2021-05-16] MEDS: pantoprazole DR 40 mg Tablet PO (08:17)
[2021-05-16 10:57] LABS: Glucose Point of Care 364 mg/dL (70-110)
--- NOTE | 2021-05-16 12:03 | PC.SOCIAL ---
IMM Updated Updated pt on IMM. No questions voiced. Provided pt a copy. Initialed, dated, & timed copy in chart.
--- NOTE | 2021-05-16 12:35 | P.PN_ITS ---
Subjective Subjective: Interval history: No acute events overnight. Patient denies any nausea, vomiting, headache. Has remained hemodynamically stable and afebrile. Vitals/I&O/Wt Last Vital Signs Temp 98.4 F 05/16/21 11:09 Pulse 88 05/16/21 11:09 Resp 16 05/16/21 11:09 BP 96/64 05/16/21 11:09 Pulse Ox 94 05/16/21 11:09 05/15/21 05/16/21 05/16/21 22:59 06:59 14:59 Intake Total 290 / 580 240 / 820 590 / 590 Output Total 700 / 725 520 / 1245 650 / 650 Balance -410 / -145 -280 / -425 -60 / -60 Physical Exam Const: COMMON NORMALS: no acute distress and patient oriented x3 HENMT: COMMON NORMALS: oropharynx normal Neck/C-Spine: COMMON NORMALS: no JVD Resp: COMMON NORMALS: normal respiratory effort and clear to auscultation bilaterally AUSCULTATION: clear to auscultation bilaterally Cardio: COMMON NORMALS: no JVD, regular rhythm, S1 normal heart sound present, S2 normal heart sound present and No murmurs present (Cardio) RHYTHM: regular rhythm HEART SOUNDS: S1 normal heart sound present and S2 normal heart sound present GI: COMMON NORMALS: Normal to inspection, nondistended, normoactive bowel sounds present, Soft to palpation and non-tender PALPATION: Yes Soft to palpation Extremity: COMMON NORMALS: no joint enlargement and no pedal edema OTHER: Right foot postoperative bandage soaked with blood Neuro: COMMON NORMALS: patient oriented x3 and moves all extremities Skin: LESIONS: lesion noted (R plantar sub-MTP joint ulcer draining thick turbid fluid) RASHES: rashes noted (Fainter erythema, swelling first toe, distal foot) Data : 05/16/21 05:22 05/16/21 05:22 Micro: Microbiology 05/15/21 08:40 Gram Stain - Final Toe - #1 Tissue Culture - Preliminary 05/12/21 12:20 Gram Stain - Final Toe - Right Big Wound Culture - Final A&P Assessment and plan (1) Osteomyelitis: As seen on MRI done on 05/14 Status: Acute (2) Status post amputation: Right great toe amputation and right first metatarsectomy on 05/15. Case discussed with Dr. Elizondo. Plan for delayed closure most likely on 05/17. Continue with vancomycin and Zosyn till then. Await culture results. Most likely plan to discharge on oral antibiotics with plan to follow-up with Dr. Elizondo as an outpatient. Status: Acute (3) Diabetic infection of right foot: Appreciate Dr. Eilzondo's recommendations Status: Acute (4) Gout attack: Status: Acute (5) Diabetes mellitus, type II: Severely uncontrolled. A1c 14.6. Continue with high-dose insulin sliding scale. Start on Lantus 15 units at bedtime. Discussed in detail with patient. We will plan to discharge on insulin. Patient is agreeable. Status: Chronic Qualifiers: Diabetes mellitus long term care social worker insulin use: without nursing home use Diabetes mellitus complication status: with neurologic complications Diabetes mellitus complication detail: with polyneuropathy Qualified Code(s): E11.42 - Type 2 diabetes mellitus with diabetic polyneuropathy (6) Congestive heart failure: No exacerbation. Hold off on further diuretics. History of congestive heart failure with preserved ejection fraction Status: Chronic Qualifiers: Heart failure type: diastolic Heart failure chronicity: chronic Qualified Code(s): I50.32 - Chronic diastolic (congestive) heart failure (7) Anemia: Most likely postoperative. We will continue to monitor hemoglobin daily. Transfuse if less than 7. Check iron panel and start on oral iron supplementation. Status: Acute Additional A&P Information Hypertension: Goal blood pressure less than 140/90 mmHg. Blood pressures normal for now. Continue to hold off on home dose of lisinopril and amlodipine for now. Tachycardia: Mild tachycardia. Sinus. Depending on vitals within next 24 hours we will plan to increase the dose of Cardizem. Continue other chronic home medications including aspirin, statins, Cardizem, sertraline. Full code. Cardiac carb consistent diet. Heparin for DVT prophylaxis. Attestations Medical Necessity Statement*: Hospitalization for management of postoperative, post amputation care, plan for delayed closure on 05/17 in setting of osteomyelitis and uncontrolled type 2 diabetes mellitus Time Spent in Patient Care: Greater than 35 minutes (>than 50% of time spent in counselling and/or direct pt care on unit) . Coding Level of Care Code Acute Hand Cloth Examiner for [facility] Fw Diagnoses Osteomyelitis M86.9 Status post amputation Z89.9 Diabetic infection of right foot E11.628; L08.9 Gout attack M10.9 Diabetes mellitus, type II E11.42 Diabetes mellitus long term care social worker insulin use: without nursing home use Diabetes mellitus complication status: with neurologic complications Diabetes mellitus complication detail: with polyneuropathy Congestive heart failure I50.32 Heart failure type: diastolic Heart failure chronicity: chronic Anemia D64.9
[2021-05-16 14:17] LABS: Iron 24 ug/dL (37-145); Percent Saturation 9.4 % (20-50); Total Iron Binding Capacity 253 mcg/dl; Unsaturated Iron Binding 229 ug/dL (112-347)
[2021-05-16] MEDS: vancomycin 1,500 MG/300 ML PIGGYBACK 150 MG IV (15:08)
[2021-05-16 16:58] LABS: Glucose Point of Care 270 mg/dL (70-110)
[2021-05-16] MEDS: ferrous gluconate 324 mg Tablet PO (17:51)
[2021-05-16] MEDS: HYDROcodone-acetaminophen 5-325 mg Tablet 1 TAB PO ×2 (21:01→22:30)
[2021-05-16] MEDS: atorvastatin 40 mg Tablet PO (21:02)
[2021-05-16 21:28] LABS: Glucose Point of Care 221 mg/dL (70-110)
[2021-05-16] MEDS: insulin glargine 100 units/1 mL 15 UNIT SUBCUT (21:57)
[2021-05-17] VITALS (20 sets, daily range): BP systolic 107–169; BP diastolic 76–93; PULSE 71–103; RESP 14–20; TEMP 36.4–37.1; O2SAT 95–99
[2021-05-17] MEDS: piperacillin-tazobactam 3.375 GM in sodium chloride 0.9% (plus) 50 ML IV (02:50)
[2021-05-17 05:39] LABS: Basophils % 0.5 %; Eosinophils # 0.2 10^3/uL (0.0-0.8); Eosinophils % 2.9 %; Hematocrit 27.2 % (37.0-47.0); Hemoglobin 8.6 g/dL (11.5-15.3); Lymphocytes # 1.5 10^3/uL (0.8-4.8); Mean Corpuscular HGB Conc 31.6 g/dL (30.0-36.0); Mean Corpuscular Hemoglobin 23.6 pg (28.0-34.0); Mean Corpuscular Volume 74.7 fl (81-99); Mean Platelet Volume 9.9 fL (7.4-10.4); Monocytes # 0.6 10^3/uL (0.2-0.9); Monocytes % 6.9 %; Neutrophils # 5.75 10^3/uL (1.8-7.7); Neutrophils % 71.2 %; Nucleated Red Blood Cells % 0 %; Platelet Count 279 10^3/cmm (130-400); Red Blood Count 3.64 10^6/uL (4.1-5.3); Red Cell Distribution Width 15.3 % (12.1-15.1); White Blood Count 8.1 10^3/uL (4.0-10.0)
[2021-05-17 06:08] LABS: Alanine Aminotransferase 22 U/L (0-33); Albumin Level 3.3 g/dL (3.5-5.2); Alkaline Phosphatase 109 IU/L (35-105); Anion Gap 14.9 (5-19); Aspartate Amino Transferase 21 U/L (0-32); Blood Urea Nitrogen 9 mg/dL (8-23); Carbon Dioxide 23 mmol/L (22-29); Chloride 105 mmol/L (98-107); Globulin 3.5 g/dL (1.3-4.6); Glomerular Filtration Rate 123.8 mL/min (90-130); Glucose 130 mg/dL (65-115); Osmolality Calculated 288 mOsm/kg (285-295); Potassium 3.9 mmol/L (3.5-5.1); Sodium 139 mmol/L (136-145); Total Bilirubin 0.2 mg/dL (0.15-1.2); Total Protein 6.8 g/dL (6.6-8.7)
[2021-05-17 06:34] LABS: Glucose Point of Care 172 mg/dL (70-110)
--- NOTE | 2021-05-17 06:43 | PC.NURSE ---
0630 clean gown and wiped down with chg wipes for surgery this am.
--- NOTE | 2021-05-17 06:44 | PC.NURSE ---
0745 surgery staff here with stretcher. Pt taken to surgery. NPO since midnight. Butterflu necklace removed and placed on bedside table.
--- NOTE | 2021-05-17 07:05 | ANES.PREANE2 ---
Pre-Anesthetic Assessment Pre-Anesthetic Assessment: Height/Weight: Height 1.57 m Weight 81.647 kg Temp Pulse Resp BP Pulse Ox 97.9 F 103 H 18 119/84 97 05/17/21 06:52 05/17/21 06:52 05/17/21 06:52 05/17/21 06:52 05/17/21 06:52 Preop Diagnosis: Osteomyelitis right foot Proposed Procedure: Operation Date: 05/15/21 08:35 Proposed Procedures p Delayed Wound Closure(Right) - Marco Elizondo DPM s right achilles lengthening(Right) - Marco Elizondo DPM Operation Date: 05/17/21 08:05 Proposed Procedures p Delayed Wound Closure(Right) - Marco Elizondo DPM s achillesTendon Lengthening Foot(Right) - Marco Elizondo DPM Familial anesthetic complications: None Was Beta Keyanna taken within 24 hours: N/A Was Clonidine taken within 24 hours: N/A Last intake: Intake Last Liquid Date 05/14/21 Last Liquid Time 17:00 Last Solid Date 05/14/21 Last Solid Time 17:00 Social: Social History: No alcohol and No tobacco Exam: Pre-Anes Outpt Exam: alert, oriented x 3, clear to auscultation bilaterally and regular rate & rhythm Airway: Cervical ROM: WNL MP: 3 Dentition: Full CV/HEM: CV/HEM: CHF Metabolic: Metabolic: DM and Hyperlipidemia Anesthetic Plan: ASA status: 3 Anesthesia: MAC Risk of > 500 ml blood loss (7ml/kg in children): No Meds/Allergies Current Medications: Current Medications Generic Name Dose Route Start Last Admin Trade Name Freq PRN Reason Stop Dose Admin Hydrocodone Bitart /Acetaminophen 1 tab 05/12/21 04:00 05/16/21 22:30 Hydrocodone-Acet aminophen 5-325 Mg Tablet PO 1 tab Q4H PRN Administration MODERATE TO SEVER E PAIN Atorvastatin Calci um 40 mg 05/12/21 21:00 05/16/21 21:02 Atorvastatin 40 Mg Tablet PO 40 mg BEDTIME HERNAN Administration Diltiazem HCl 180 mg 05/12/21 09:00 05/16/21 08:17 Diltiazem Er (24 hr) 180 Mg Capsule PO 180 mg DAILY HERNAN Administration Ferrous Gluconate 324 mg 05/16/21 18:00 05/16/21 17:51 Ferrous Gluconat e 324 Mg Tablet PO 324 mg BIDWM HERNAN Administration Heparin Sodium (Po rcine) 5,000 unit 05/12/21 04:00 05/15/21 03:25 Heparin 5,000 Un it/Ml Inj 1 Ml SUBCUT 5,000 unit Q8H HERNAN Administration Piperacillin Sod/T azobactam 50 mls @ 12.5 mls /hr 05/12/21 05:30 05/17/21 02:50 Sod 3.375 gm/ So dium Chloride IV 12.5 mls/hr Q8H HERNAN Administration Protocol As Directed Vancomycin/PEG/NAD A/Lysine/Water 1,500 mg in 300 m ls @ 150 mls/hr 05/15/21 22:30 05/16/21 17:59 Vancocin IV Infused Q18H HERNAN Infusion Insulin Glargine 15 unit 05/16/21 21:00 05/16/21 21:57 Insulin Glargine 100 Units/1 Ml SUBCUT 15 unit BEDTIME HERNAN Administration Insulin Human Lisp ro 0 unit 05/12/21 08:00 05/16/21 21:58 Insulin Lispro 1 00 Unit/1 Ml SUBCUT 10 unit WM&BEDTIME HERNAN Administration Protocol Pantoprazole Sodiu m 40 mg 05/12/21 09:00 05/16/21 08:[address] 40 Mg Tablet PO 40 mg DAILY HERNAN Administration Sertraline HCl 50 mg 05/12/21 09:00 05/16/21 08:16 Sertraline 50 Mg Tablet PO 50 mg DAILY HERNAN Administration PFSH Anesthesia PFSH: Medical History (Updated 05/16/21 @ 12:39 by George Lundberg MD) Cardiomyopathy Congestive heart failure -normal EF per stress echo done 11/2015 -continue diuretics Diabetes mellitus, type II -has known hx of NIDDM type II, last A1c-8.4 (05/2019) -complicated by peripheral neuropathy and nephropathy Gall bladder disease Gastroesophageal reflux Gout Hypertension Rotator cuff arthropathy of both shoulders Surgical History (Updated 05/15/21 @ 13:19 by George Lundberg MD) H/O shoulder surgery Bilateral History of appendectomy History of cardiac cath History of delivery Hx of cholecystectomy Family History Other Diabetes Social History Smoking and tobacco status: never smoked Alcohol intake: never Lives independently: Yes Household members: spouse Data Anesthesia CBC & Chem 7: 05/17/21 04:56 05/17/21 04:56 Other Labs: Laboratory Results - last 48 hr 05/15/21 05/15/21 05/15/21 07:42 09:08 11:32 WBC RBC Hgb Hct MCV MCH MCHC RDW Plt Count MPV Neut % (Auto) Lymph % (Auto) [place] % (Auto) Eos % (Auto) Baso % (Auto) Neut # (Auto) Lymph # (Auto) [place] # (Auto) Eos # (Auto) Baso # (Auto) Nucleated RBC % (auto) Nucleated RBCs # Sodium Potassium Chloride Carbon Dioxide Anion Gap BUN Creatinine GFR Calculation Glucose POC Glucose 171 H 171 H 210 H Calculated Osmolality Calcium Iron TIBC % Saturation Unsat Iron Binding Total Bilirubin AST ALT Alkaline Phosphatase Total Protein Albumin Globulin 05/15/21 05/15/21 05/15/21 12:08 17:08 20:30 WBC 8.5 RBC 4.46 Hgb 10.5 L Hct 33.8 L MCV 75.8 L MCH 23.5 L MCHC 31.1 RDW 15.2 H Plt Count 350 MPV 9.6 Neut % (Auto) 70.3 Lymph % (Auto) 19.1 [place] % (Auto) 7.4 Eos % (Auto) 2.0 Baso % (Auto) 0.4 Neut # (Auto) 5.96 Lymph # (Auto) 1.6 [place] # (Auto) 0.6 Eos # (Auto) 0.2 Baso # (Auto) 0.0 Nucleated RBC % (auto) 0 Nucleated RBCs # 0.0 Sodium Potassium Chloride Carbon Dioxide Anion Gap BUN Creatinine GFR Calculation Glucose POC Glucose 285 H 289 H Calculated Osmolality Calcium Iron TIBC % Saturation Unsat Iron Binding Total Bilirubin AST ALT Alkaline Phosphatase Total Protein Albumin Globulin 05/16/21 05/16/21 05/16/21 05:22 05:22 05:22 WBC 8.8 RBC 3.86 L Hgb 8.8 L Hct 29.0 L MCV 75.1 L MCH 22.8 L MCHC 30.3 RDW 15.2 H Plt Count 301 MPV 9.9 Neut % (Auto) 77.1 Lymph % (Auto) 14.3 [place] % (Auto) 5.3 Eos % (Auto) 2.1 Baso % (Auto) 0.5 Neut # (Auto) 6.82 Lymph # (Auto) 1.3 [place] # (Auto) 0.5 Eos # (Auto) 0.2 Baso # (Auto) 0.0 Nucleated RBC % (auto) 0 Nucleated RBCs # 0.0 Sodium 133 L Potassium 4.0 Chloride 102 Carbon Dioxide 18 L Anion Gap 17.0 BUN 14 Creatinine 0.6 GFR Calculation 100.3 Glucose 194 H POC Glucose Calculated Osmolality 282 L Calcium 7.9 L Iron 24 L TIBC 253 % Saturation 9.4 L Unsat Iron Binding 229 Total Bilirubin 0.2 AST 23 ALT 22 Alkaline Phosphatase 104 Total Protein 6.3 L Albumin 2.7 L Globulin 3.6 05/16/21 05/16/21 05/16/21 06:33 10:47 16:52 WBC RBC Hgb Hct MCV MCH MCHC RDW Plt Count MPV Neut % (Auto) Lymph % (Auto) [place] % (Auto) Eos % (Auto) Baso % (Auto) Neut # (Auto) Lymph # (Auto) [place] # (Auto) Eos # (Auto) Baso # (Auto) Nucleated RBC % (auto) Nucleated RBCs # Sodium Potassium Chloride Carbon Dioxide Anion Gap BUN Creatinine GFR Calculation Glucose POC Glucose 208 H 364 H 270 H Calculated Osmolality Calcium Iron TIBC % Saturation Unsat Iron Binding Total Bilirubin AST ALT Alkaline Phosphatase Total Protein Albumin Globulin 05/16/21 05/17/21 05/17/21 21:16 04:56 04:56 WBC 8.1 RBC 3.64 L Hgb 8.6 L Hct 27.2 L MCV 74.7 L MCH 23.6 L MCHC 31.6 RDW 15.3 H Plt Count 279 MPV 9.9 Neut % (Auto) 71.2 Lymph % (Auto) 18.0 [place] % (Auto) 6.9 Eos % (Auto) 2.9 Baso % (Auto) 0.5 Neut # (Auto) 5.75 Lymph # (Auto) 1.5 [place] # (Auto) 0.6 Eos # (Auto) 0.2 Baso # (Auto) 0.0 Nucleated RBC % (auto) 0 Nucleated RBCs # 0.0 Sodium 139 Potassium 3.9 Chloride 105 Carbon Dioxide 23 Anion Gap 14.9 BUN 9 Creatinine 0.5 GFR Calculation 123.8 Glucose 130 H POC Glucose 221 H Calculated Osmolality 288 Calcium 8.0 L Iron TIBC % Saturation Unsat Iron Binding Total Bilirubin 0.2 AST 21 ALT 22 Alkaline Phosphatase 109 H Total Protein 6.8 Albumin 3.3 L Globulin 3.5 05/17/21 06:27 WBC RBC Hgb Hct MCV MCH MCHC RDW Plt Count MPV Neut % (Auto) Lymph % (Auto) [place] % (Auto) Eos % (Auto) Baso % (Auto) Neut # (Auto) Lymph # (Auto) [place] # (Auto) Eos # (Auto) Baso # (Auto) Nucleated RBC % (auto) Nucleated RBCs # Sodium Potassium Chloride Carbon Dioxide Anion Gap BUN Creatinine GFR Calculation Glucose POC Glucose 172 H Calculated Osmolality Calcium Iron TIBC % Saturation Unsat Iron Binding Total Bilirubin AST ALT Alkaline Phosphatase Total Protein Albumin Globulin Micro: Microbiology 05/11/21 18:55 Blood Culture - Final Blood NO GROWTH AFTER 5 DAYS 05/11/21 18:55 Blood Culture - Final Blood NO GROWTH AFTER 5 DAYS 05/15/21 08:40 Gram Stain - Final Toe - #1 Anaerobic Culture - Preliminary Tissue Culture - Preliminary 05/15/21 16:12 MRSA Culture - Final Nose Cardiac Studies: No Data to Display
--- NOTE | 2021-05-17 07:51 | P.HPUD_ITS ---
Surgery/Procedure H&P Update DATE OF PROCEDURE: May 17, 2021 DATE H&P PERFORMED: 05/14/21 H&P UPDATE INFORMATION: I have reviewed H&P completed within last 30 days, I have examined patient prior to procedure, No changes to prior documentation and H&P is in [facility] EMR on date indicated PREOP DIAGNOSIS: Osteomyelitis right foot PLANNED PROCEDURE: Operation Date: 05/15/21 08:35 Proposed Procedures p Delayed Wound Closure(Right) - Marco Elizondo DPM s right achilles lengthening(Right) - Marco Elizondo DPM Operation Date: 05/17/21 08:05 Proposed Procedures p Delayed Wound Closure(Right) - Marco Elizondo DPM s achillesTendon Lengthening Foot(Right) - Marco Elizondo DPM
[2021-05-17] MEDS: lidocaine 1% INJ 20 mL 15 ML INJECTION (08:22)
--- NOTE | 2021-05-17 08:45 | P.OP_ITS ---
Operative Report Date of procedure: May 17, 2021 Pre-op Diagnosis: Osteomyelitis right foot, equinus right lower extremity Post-op diagnosis: same Post-op Findings: Same Procedure Done: Primary delayed closure and Achilles lengthening right lower extremity. CPT 03442 and [id number] Implants: 2-0 Vicryl, 3-0 Vicryl, 4-0 nylon, quarter inch Iodosorb packing Specimens removed/disposition: None Pathology: none sent Surgeon: Marco Elizondo D.P.M. Athletic Team Physician: Jennifer Burns Marty Anesthesia: MAC Estimated blood loss: 20 Tourniquet time: See intraoperative documentation IV fluids: 0 Urine output: 0 Complications: 0 Findings: Improved soft tissue appearance post debridement, improved dorsiflexion at the right ankle post lengthening. Condition: stable Disposition: PACU Brief History: Patient had osteomyelitis confirmed on MRI and x-ray right hallux and entire first metatarsal to the base. She is status post right hallux amputation and first metatarsectomy. Recommended further debridement and delayed closure with Achilles lengthening. Risks include pain, bleeding, numbness, infection, surgical site dehiscence, transfer pressure, transfer lesion, Achilles rupture and need for further surgical intervention. Procedure: Under mild sedation patient was brought to the operating room and remained on the gurney in supine position. A timeout was performed. Anesthesia was then administered by the anesthesia service. Local anesthesia injected by myself consisting of one-to-one mixture 1% lidocaine and 0.5% Marcaine plain and a V-block to the myotendinous juncture of the Achilles tendon and a proximal Bhatt block to the right foot. Well-padded pneumatic tourniquet applied high calf right lower extremity. Right lower extremity was then scrubbed, prepped and draped utilizing normal aseptic technique. Attention was directed to the right posterior heel where 1.5 cm to the insertion of the Achilles tendon a hemisection medially was performed percutaneously with a #15 blade of the Achilles tendon in like fashion to more hemisections lateral and medial were performed 1.5 cm in distance. A lengthening of the Achilles tendon was then performed with increased dorsiflexion intraoperatively appreciated when loading the forefoot. These incisions were flushed and closed with 4-0 nylon and covered with an OpSite. Attention was directed to the amputation site of the hallux and the first metatarsectomy at the medial right foot. Debridement down to and including deep fascia, muscle and tendon was performed followed by flush of copious amount of sterile saline solution and ligation of all bleeders. Wound was then closed in a layered fashion with 2-0 Vicryl at deep fascia, 3-0 Vicryl subcutaneous tissue and 4-0 nylon on skin. Original wound subfirst metatarsal head was excisionally debrided of all devitalized tissue and will be left open for tertiary healing. Incision site was dressed with Adaptic, sterile 4 x 4, quarter inch iodoform packed into the plantar forefoot wound, Kerlix, Jagdish wrap and a cam boot. Tourniquet was deflated and a prompt hyperemic response was noted to the distal digits of the right foot. Patient tolerated procedure and anesthesia well was transferred to the PACU with vital signs stable vascular status intact after short period of monitoring she will be transferred back to the floor to continue antibiotics and will be required to remain nonweightbearing elevate right foot at all times while resting.
--- NOTE | 2021-05-17 09:44 | XR_ITS ---
WS: [id number] Right foot, 3 views, 05/17/2021 Clinical Data: post op Comparison: Right foot, 05/11/2021. Findings: There has been amputation of the right great toe and right first metatarsal. There is soft tissue swe lling in the operative site. There are flexion deformities of the second through fifth toes. There is a plantar spur. XR/XR foot RT min 3V* [id number] Impression: Amputation of the right great toe and right first metatarsal.
[2021-05-17] MEDS: lanolin oint 7 gm 1 APPLIC TOPICAL (10:17)
[2021-05-17 10:56] LABS: Glucose Point of Care 207 mg/dL (70-110)
--- NOTE | 2021-05-17 12:32 | PM.PN ---
Subjective Subjective: Interval history: No events overnight. Patient seen post closure of amputation wound today morning. Laying comfortably in bed. Has remained hemodynamically stable and afebrile. Denies any new complaints. Vitals/I&O/Wt Last Vital Signs Temp 98.0 F 05/17/21 11:30 Pulse 92 05/17/21 11:30 Resp 16 05/17/21 11:30 BP 147/91 05/17/21 11:30 Pulse Ox 95 05/17/21 11:30 05/16/21 05/17/21 05/17/21 22:59 06:59 14:59 Intake Total 1120 / 1950 250 / 250 Output Total 1350 / 2900 20 / 20 Balance 1120 / 400 -1350 / -950 230 / 230 Physical Exam Const: COMMON NORMALS: no acute distress and patient oriented x3 HENMT: COMMON NORMALS: oropharynx normal Neck/C-Spine: COMMON NORMALS: no JVD Resp: COMMON NORMALS: normal respiratory effort and clear to auscultation bilaterally AUSCULTATION: clear to auscultation bilaterally Cardio: COMMON NORMALS: no JVD, regular rhythm, S1 normal heart sound present, S2 normal heart sound present and No murmurs present (Cardio) RHYTHM: regular rhythm HEART SOUNDS: S1 normal heart sound present and S2 normal heart sound present GI: COMMON NORMALS: Normal to inspection, nondistended, normoactive bowel sounds present, Soft to palpation and non-tender PALPATION: Yes Soft to palpation Extremity: COMMON NORMALS: no joint enlargement and no pedal edema OTHER: Right foot postoperative bandage soaked with blood Neuro: COMMON NORMALS: patient oriented x3 and moves all extremities Skin: LESIONS: lesion noted (R plantar sub-MTP joint ulcer draining thick turbid fluid) RASHES: rashes noted (Fainter erythema, swelling first toe, distal foot) Data : 05/17/21 04:56 05/17/21 04:56 Micro: Microbiology 05/11/21 18:55 Blood Culture - Final Blood NO GROWTH AFTER 5 DAYS 05/11/21 18:55 Blood Culture - Final Blood NO GROWTH AFTER 5 DAYS 05/15/21 08:40 Gram Stain - Final Toe - #1 Anaerobic Culture - Preliminary Tissue Culture - Preliminary 05/15/21 16:12 MRSA Culture - Final Nose A&P Assessment and plan (1) Osteomyelitis: As seen on MRI done on 05/14. Wound cultures so far negative. MRSA negative. Most likely can discharge on oral antibiotics Augmentin and doxycycline for next 10 days. Status: Acute (2) Status post amputation: Right great toe amputation and right first metatarsectomy on 05/15. Post delayed closure today. Case discussed with Dr. Elizondo. Continue with vancomycin and Zosyn for now. Switch to oral antibiotics on discharge. Physical therapy, weightbearing as per podiatry. Status: Acute (3) Diabetic infection of right foot: Appreciate Dr. Elizondo's recommendations Status: Acute (4) Gout attack: Status: Acute (5) Diabetes mellitus, type II: Severely uncontrolled. A1c 14.6. Continue with high-dose insulin sliding scale. Start on Lantus 15 units at bedtime. Discussed in detail with patient. We will plan to discharge on insulin. Patient is agreeable. Status: Chronic Qualifiers: Diabetes mellitus termite exterminator helper insulin use: without termite exterminator helper use Diabetes mellitus complication status: with neurologic complications Diabetes mellitus complication detail: with polyneuropathy Qualified Code(s): E11.42 - Type 2 diabetes mellitus with diabetic polyneuropathy (6) Congestive heart failure: No exacerbation. Hold off on further diuretics. History of congestive heart failure with preserved ejection fraction Status: Chronic Qualifiers: Heart failure type: diastolic Heart failure chronicity: chronic Qualified Code(s): I50.32 - Chronic diastolic (congestive) heart failure (7) Anemia: Most likely postoperative. We will continue to monitor hemoglobin daily. Transfuse if less than 7. Check iron panel and start on oral iron supplementation. Status: Acute Additional A&P Information Hypertension: Goal blood pressure less than 140/90 mmHg. Blood pressures normal for now. Continue to hold off on home dose of lisinopril and amlodipine for now. Tachycardia: Mild tachycardia. Sinus. Depending on vitals within next 24 hours we will plan to increase the dose of Cardizem. Continue other chronic home medications including aspirin, statins, Cardizem, sertraline. Full code. Cardiac carb consistent diet. Heparin for DVT prophylaxis. Discharge planning: Plan to discharge tomorrow if remains hemodynamically stable. Plan to discharge on insulin and oral antibiotics for next 10 days with advised to follow-up with Dr. Elizondo as an outpatient. Home health. Attestations Medical Necessity Statement*: Requires further hospitalization for osteomyelitis, post amputation and delayed closure in setting of uncontrolled type 2 diabetes mellitus. Time Spent in Patient Care: Greater than 35 minutes (>than 50% of time spent in counselling and/or direct pt care on unit). Coding Level of Care Code Acute Jewel Diameter Gauger for Chg Fwd Diagnoses Osteomyelitis M86.9 Status post amputation Z89.9 Diabetic infection of right foot E11.628; L08.9 Gout attack M10.9 Diabetes mellitus, type II E11.42 Diabetes mellitus termite exterminator helper insulin use: without half-way use Diabetes mellitus complication status: with neurologic complications Diabetes mellitus complication detail: with polyneuropathy Congestive heart failure I50.32 Heart failure type: diastolic Heart failure chronicity: chronic Anemia D64.9
[2021-05-17] MEDS: insulin lispro 100 unit/1 mL SUBCUT ×3 (13:01→21:01)
[2021-05-17] MEDS: vancomycin 1,500 MG/300 ML PIGGYBACK 150 MG IV (13:06)
--- NOTE | 2021-05-17 16:21 | ANE.PACU2 ---
Inpatient post-anesthesia follow up: Airway intact: Yes Vital signs: Temperature 98.0 F Pulse Rate 92 Respiratory Rate 16 Blood Pressure 147/91 Pulse Oximetry 95 Oxygen Delivery Me thod Room Air Oxygen Flow Rate 6 Fraction of Inspir ed Oxygen Hydration adequate: Yes Nausea and vomiting: No Pain level: 2 Mental status: Baseline
[2021-05-17 17:00] LABS: Glucose Point of Care 249 mg/dL (70-110)
[2021-05-17] MEDS: ferrous gluconate 324 mg Tablet PO (17:12)
[2021-05-17 20:19] LABS: Glucose Point of Care 179 mg/dL (70-110)
[2021-05-17] MEDS: insulin glargine 100 units/1 mL 15 UNIT SUBCUT (21:00)
[2021-05-17] MEDS: atorvastatin 40 mg Tablet PO (21:00)
[2021-05-17] MEDS: HYDROcodone-acetaminophen 5-325 mg Tablet 1 TAB PO (21:02)
[2021-05-18 03:56] VITALS: BP 161/92; PULSE 94; RESP 17; TEMP 36.5; O2SAT 96
[2021-05-18] MEDS: vancomycin 1,500 MG/300 ML PIGGYBACK 150 MG IV (03:58)
[2021-05-18 05:31] LABS: Basophils % 0.5 %; Eosinophils # 0.2 10^3/uL (0.0-0.8); Eosinophils % 2.6 %; Hemoglobin 9.2 g/dL (11.5-15.3); Lymphocytes # 2.1 10^3/uL (0.8-4.8); Lymphocytes % 26.7 %; Mean Corpuscular HGB Conc 30.7 g/dL (30.0-36.0); Mean Corpuscular Hemoglobin 22.9 pg (28.0-34.0); Mean Corpuscular Volume 74.6 fl (81-99); Mean Platelet Volume 9.7 fL (7.4-10.4); Monocytes # 0.6 10^3/uL (0.2-0.9); Monocytes % 7.9 %; Neutrophils % 61.9 %; Nucleated Red Blood Cells % 0 %; Platelet Count 327 10^3/cmm (130-400); Red Blood Count 4.02 10^6/uL (4.1-5.3); Red Cell Distribution Width 15.6 % (12.1-15.1); White Blood Count 7.8 10^3/uL (4.0-10.0)
[2021-05-18 05:45] LABS: Alanine Aminotransferase 27 U/L (0-33); Albumin Level 3.4 g/dL (3.5-5.2); Alkaline Phosphatase 122 IU/L (35-105); Anion Gap 15.9 (5-19); Aspartate Amino Transferase 23 U/L (0-32); Blood Urea Nitrogen 10 mg/dL (8-23); Calcium 8.2 mg/dL (8.5-10.5); Carbon Dioxide 23 mmol/L (22-29); Chloride 101 mmol/L (98-107); Globulin 3.9 g/dL (1.3-4.6); Glomerular Filtration Rate 123.8 mL/min (90-130); Glucose 190 mg/dL (65-115); Osmolality Calculated 286 mOsm/kg (285-295); Potassium 3.9 mmol/L (3.5-5.1); Sodium 136 mmol/L (136-145); Total Bilirubin 0.2 mg/dL (0.15-1.2); Total Protein 7.3 g/dL (6.6-8.7)
[2021-05-18 06:00] VITALS: PULSE 95
[2021-05-18 07:40] VITALS: BP 141/85; PULSE 100; RESP 16; TEMP 36.7; O2SAT 95
[2021-05-18] MEDS: ferrous gluconate 324 mg Tablet PO (08:11)
[2021-05-18] MEDS: dilTIAZem ER (24HR) 180 mg Capsule PO (08:11)
[2021-05-18] MEDS: ascorbic acid 500 mg Tablet PO (08:11)
[2021-05-18] MEDS: insulin lispro 100 unit/1 mL SUBCUT ×2 (08:11→12:08)
[2021-05-18] MEDS: sertraline 50 mg Tablet PO (08:11)
[2021-05-18] MEDS: pantoprazole DR 40 mg Tablet PO (08:11)
--- NOTE | 2021-05-18 08:12 | PM.PN ---
Subjective Subjective: Interval history: Patient is 1 day status post primary delayed closure and Achilles lengthening right lower extremity. Doing well, tolerating regular diet. She has remained nonweightbearing has been elevating her right foot. No strikethrough bleeding at the dressing. She is anticipating discharge today. Patient denies any subjective nausea, vomiting, fever, chills, shortness of breath or chest pain. Vitals/I&O/Wt Last Vital Signs Temp 98.0 F 05/18/21 07:40 Pulse 100 05/18/21 07:40 Resp 16 05/18/21 07:40 BP 141/85 05/18/21 07:40 Pulse Ox 95 05/18/21 07:40 05/17/21 05/18/21 05/18/21 22:59 06:59 14:59 Intake Total 900 / 3680 540 / 4220 Output Total 1300 / 2170 2000 / 4170 Balance -400 / 1510 -1460 / 50 Physical Exam Narrative: EXAM NARRATIVE: Patient is alert and oriented ?3 and in no acute distress. The following is a focused bilateral lower extremity exam. VASCULAR: Dorsalis pedis palpable bilaterally, posterior tibial arteries palpable. Capillary refill time less than 3 seconds to the distal hallux bilaterally. Calf is supple and nontender proximally and distally. Decreased pedal hair growth bilaterally. NEUROLOGICAL: Protective sensation intact 0/10 sites, tested with [place] monofilament to bilateral feet. DERMATOLOGICAL: Incision site is well coapted at the right foot, sutures intact, no periincision erythema, warmth or drainage. No active bleeding. MUSCULOSKELETAL: Status post first ray amputation right foot. Data : 05/18/21 05:07 05/18/21 05:07 Micro: Microbiology 05/15/21 08:40 Gram Stain - Final Toe - #1 Anaerobic Culture - Preliminary Tissue Culture - Preliminary A&P Assessment and plan (1) Diabetic infection of right foot: Status: Acute (2) Diabetes mellitus, type II: Status: Chronic (3) Non-pressure chronic ulcer of other part of right foot with necrosis of bone: Status: Acute 66-year-old uncontrolled diabetic female with diabetic ulcer and acute osteomyelitis right great toe and first metatarsal. First ray amputation right foot secondary to osteomyelitis performed 05/15/2021 Primary delayed closure and achilles lengthening performed 05/17/2021 Patient to be nonweightbearing to the right foot and elevate right foot while resting Patient okay for discharge from podiatry standpoint, planning on 10 days of oral antibiotics will follow up in podiatry clinic 05/22/2021 at 3:45 PM. Patient to perform once daily dressing change, she is to use quarter inch iodoform packing to the plantar forefoot wound and gauze and Kerlix with Jagdish wrap to the surgical incision. She was also dispensed a cam boot. Attestations Medical Necessity Statement*: Osteomyelitis Coding Level of Care Code Acute [employer] [facility] Diagnoses Diabetic infection of right foot E11.628; L08.9 Diabetes mellitus, type II E11.9 Non-pressure chronic ulcer of other part of right foot with necrosis of bone L97.514
[2021-05-18 08:38] LABS: Glucose Point of Care 215 mg/dL (70-110)
[2021-05-18] MEDS: piperacillin-tazobactam 3.375 GM in sodium chloride 0.9% (plus) 50 ML IV (10:20)
[2021-05-18 11:12] VITALS: BP 134/74; PULSE 98; RESP 18; TEMP 36.7; O2SAT 95
[2021-05-18 11:23] LABS: Glucose Point of Care 310 mg/dL (70-110)
--- NOTE | 2021-05-18 11:43 | PM.DCS ---
Discharge Providers Date of Admission: 05/11/21 18:32 Date of Discharge: May 18, 2021 Attending Provider at Admission: Kelvin Antunez Attending Provider at Discharge: George Lundberg MD Consults: Podiatry: Dr. Elizondo Primary Care Provider: Tree Souza MD Diagnoses at Discharge Discharge Diagnosis (1) Diabetic infection of right foot: Status: Acute (2) Diabetes mellitus, type II: Status: Chronic Permanent problem details: -has known hx of NIDDM type II, last A1c-8.4 (05/2019) -complicated by peripheral neuropathy and nephropathy (3) Non-pressure chronic ulcer of other part of right foot with necrosis of bone: Status: Acute Reason for Visit Reason for Visit: RIGHT FOOT INJURY Hospital Course Hospital Course Jacquelin Garduno is a 66 year old poorly controlled diabetic female who presented to the emergency department with a right foot ulcer with redness and drainage. Patient states that she has had a wound for greater than 1 year history of wound care treatments as well as previous surgical debridement by Dr. Rios. On admission she had elevated white count, elevated CRP and destruction at the first metatarsal head of the right foot on x-ray indicative of possible osteomyelitis. Patient denies any subjective nausea, vomiting, fever, chills, shortness of breath or chest pain. Patient underwent MRI which confirmed osteomyelitis. Podiatry was consulted. Patient underwent right toe amputation and metatarsectomy on 05/15 with delayed closure on 05/17. During hospitalization she was continued on broad-spectrum antibiotics. Her cultures remain negative. She was found to be having uncontrolled diabetes with A1c of 14.6. Patient is being discharged in hemodynamically stable condition with advised to take oral Augmentin and doxycycline for next 10 days. She is advised to follow-up with Dr. Elizondo within next 1 week. For diabetes she is advised to stop taking Januvia and glipizide and switch over to Lantus 20 units at bedtime, insulin cream use as per sliding scale. She is advised to maintain a blood sugar diary for next 1 week and follow-up with her primary care provider for further adjustment of sliding scale. Patient is advised to be nonweightbearing on right foot. Boot has been provided to her by podiatry. Physical Exam Const: COMMON NORMALS: no acute distress and patient oriented x3 HENMT: COMMON NORMALS: oropharynx normal Neck/C-Spine: COMMON NORMALS: no JVD Resp: COMMON NORMALS: normal respiratory effort and clear to auscultation bilaterally AUSCULTATION: clear to auscultation bilaterally Cardio: COMMON NORMALS: no JVD, regular rhythm, S1 normal heart sound present, S2 normal heart sound present and No murmurs present (Cardio) RHYTHM: regular rhythm HEART SOUNDS: S1 normal heart sound present and S2 normal heart sound present GI: COMMON NORMALS: Normal to inspection, nondistended, normoactive bowel sounds present, Soft to palpation and non-tender PALPATION: Yes Soft to palpation Extremity: COMMON NORMALS: no joint enlargement and no pedal edema OTHER: Right foot postoperative bandage soaked with blood Neuro: COMMON NORMALS: patient oriented x3 and moves all extremities Skin: LESIONS: lesion noted (R plantar sub-MTP joint ulcer draining thick turbid fluid) RASHES: rashes noted (Fainter erythema, swelling first toe, distal foot) Discharge Data Data Completed and Pending: Completed Studies During Hospitalization Category Date Time Status XR foot RT min 3V * [id number] Routine Exams 05/17/21 09:44 Completed XR foot RT min 3V * [id number] Stat Exams 05/11/21 17:52 Com[place] wo/[place] [id number] Routine MRI 05/14/21 10:00 [place] [id number] Rout ine Ultrasound 05/14/21 11:52 Completed Pending at discharge Category Date Time Status Anaerobic Culture Routine Lab 05/15/21 08:40 Results Tissue Culture an d Gram Stain Routi ne Lab 05/15/21 08:40 Results Pathology: Surgic al [PTH] Routine Pth 05/15/21 09:05 Received Labs from last 24 hours 05/18/21 05/18/21 05/18/21 10:53 06:26 05:07 WBC RBC Hgb Hct MCV MCH MCHC RDW Plt Count MPV Neut % (Auto) Lymph % (Auto) [place] % (Auto) Eos % (Auto) Baso % (Auto) Neut # (Auto) Lymph # (Auto) [place] # (Auto) Eos # (Auto) Baso # (Auto) Nucleated RBC % (a uto) Nucleated RBCs # Sodium 136 Potassium 3.9 Chloride 101 Carbon Dioxide 23 Anion Gap 15.9 BUN 10 Creatinine 0.5 GFR Calculation 123.8 Glucose 190 H POC Glucose 310 H 215 H Calculated Osmolal ity 286 Calcium 8.2 L Total Bilirubin 0.2 AST 23 ALT 27 Alkaline Phosphata se 122 H Total Protein 7.3 Albumin 3.4 L Globulin 3.9 05/18/21 05/17/21 05/17/21 05:07 20:12 16:56 WBC 7.8 RBC 4.02 L Hgb 9.2 L Hct 30.0 L MCV 74.6 L MCH 22.9 L MCHC 30.7 RDW 15.6 H Plt Count 327 MPV 9.7 Neut % (Auto) 61.9 Lymph % (Auto) 26.7 [place] % (Auto) 7.9 Eos % (Auto) 2.6 Baso % (Auto) 0.5 Neut # (Auto) 4.80 Lymph # (Auto) 2.1 [place] # (Auto) 0.6 Eos # (Auto) 0.2 Baso # (Auto) 0.0 Nucleated RBC % (a uto) 0 Nucleated RBCs # 0.0 Sodium Potassium Chloride Carbon Dioxide Anion Gap BUN Creatinine GFR Calculation Glucose POC Glucose 179 H 249 H Calculated Osmolal ity Calcium Total Bilirubin AST ALT Alkaline Phosphata se Total Protein Albumin Globulin Addt'l Data from Hospital Stay: Laboratory Results WBC 7.8 10^3/uL (4.0- 10.0) 05/18/21 05:07 RBC 4.02 10^6/uL (4.1 -5.3) L 05/18/21 05:07 Hgb 9.2 g/dL (11.5-15 .3) L 05/18/21 05:07 Hct 30.0 % (37.0-47.0 ) L 05/18/21 05:07 MCV 74.6 fl (81-99) L 05/18/21 05:07 MCH 22.9 pg (28.0-34. 0) L 05/18/21 05:07 MCHC 30.7 g/dL (30.0-3 6.0) 05/18/21 05:07 RDW 15.6 % (12.1-15.1 ) H 05/18/21 05:07 Plt Count 327 10^3/cmm (130 -400) 05/18/21 05:07 MPV 9.7 fL (7.4-10.4) 05/18/21 05:07 Neut % (Auto) 61.9 % 05/18/21 05:07 Lymph % (Auto) 26.7 % 05/18/21 05:07 [place] % (Auto) 7.9 % 05/18/21 05:07 Eos % (Auto) 2.6 % 05/18/21 05:07 Baso % (Auto) 0.5 % 05/18/21 05:07 Neut # (Auto) 4.80 10^3/uL (1.8 -7.7) 05/18/21 05:07 Lymph # (Auto) 2.1 10^3/uL (0.8- 4.8) 05/18/21 05:07 [place] # (Auto) 0.6 10^3/uL (0.2- 0.9) 05/18/21 05:07 Eos # (Auto) 0.2 10^3/uL (0.0- 0.8) 05/18/21 05:07 Baso # (Auto) 0.0 10^3/uL (0.0- 0.1) 05/18/21 05:07 Nucleated RBC % (a uto) 0 % 05/18/21 05:07 Nucleated RBCs # 0.0 /100WBC 05/18/21 05:07 Sodium 136 mmol/L (136-1 45) 05/18/21 05:07 Potassium 3.9 mmol/L (3.5-5 .1) 05/18/21 05:07 Chloride 101 mmol/L (98-10 7) 05/18/21 05:07 Carbon Dioxide 23 mmol/L (22-29) 05/18/21 05:07 Anion Gap 15.9 (5-19) 05/18/21 05:07 BUN 10 mg/dL (8-23) 05/18/21 05:07 Creatinine 0.5 mg/dL (0.5-0. 9) 05/18/21 05:07 GFR Calculation 123.8 mL/min (90- 130) 05/18/21 05:07 Glucose 190 mg/dL (65-115 ) H 05/18/21 05:07 POC Glucose 310 mg/dL (70-110 ) H 05/18/21 10:53 Estimat Average Gl ucose 372 05/14/21 05:02 Hemoglobin A1c 14.6 % (4.0-6.0) H 05/14/21 05:02 Calculated Osmolal ity 286 mOsm/kg (285- 295) 05/18/21 05:07 Uric Acid 2.8 mg/dL (2.4-5. 7) 05/12/21 04:37 Calcium 8.2 mg/dL (8.5-10 .5) L 05/18/21 05:07 Iron 24 ug/dL (37-145) L 05/16/21 05:22 TIBC 253 mcg/dl 05/16/21 05:22 % Saturation 9.4 % (20-50) L 05/16/21 05:22 Unsat Iron Binding 229 ug/dL (112-34 7) 05/16/21 05:22 Total Bilirubin 0.2 mg/dL (0.15-1 .2) 05/18/21 05:07 AST 23 U/L (0-32) 05/18/21 05:07 ALT 27 U/L (0-33) 05/18/21 05:07 Alkaline Phosphata se 122 IU/L (35-105) H 05/18/21 05:07 C-Reactive Protein 172.5 mg/L (0.0-4 .9) H 05/11/21 18:55 Total Protein 7.3 g/dL (6.6-8.7 ) 05/18/21 05:07 Albumin 3.4 g/dL (3.5-5.2 ) L 05/18/21 05:07 Globulin 3.9 g/dL (1.3-4.6 ) 05/18/21 05:07 Triglycerides 131 mg/dL (0-150) 05/14/21 05:02 Cholesterol 145 mg/dL (0-200) 05/14/21 05:02 LDL Cholesterol, C alc 86 mg/dL (50-129) 05/14/21 05:02 Total VLDL Cholest valentino 26 mg/dL (0-30) 05/14/21 05:02 HDL Cholesterol 33 mg/dL (60-100) L 05/14/21 05:02 Cholesterol/HDL Ra mariama 4.39 mg/dL (0.0-4 .40) 05/14/21 05:02 Procalcitonin 0.10 ng/mL (0-0.5 ) 05/12/21 04:37 Vancomycin Trough 12.0 ug/mL (10-15 ) 05/17/21 10:33 Impressions Foot MRI 05/14/21 10:00 IMPRESSION: 1. Osteomyelitis involving the big toe extending from the distal phalanx to the base of the first metatarsal. Normal bone marrow signal involving the first cuneiform. 2. Diffuse surrounding edema and cellulitis worse at the MTP joint. Small amount of phlegmon about the first metatarsal head. Foot X-Ray 05/17/21 09:44 Impression: Amputation of the right great toe and right first metatarsal. Microbiology 05/15/21 08:40 Toe - #1 Gram Stain - Final 05/15/21 08:40 Toe - #1 Anaerobic Culture - Preliminary 05/15/21 08:40 Toe - #1 Tissue Culture - Preliminary 05/11/21 18:55 Blood Blood Culture - Final NO GROWTH AFTER 5 DAYS 05/11/21 18:55 Blood Blood Culture - Final NO GROWTH AFTER 5 DAYS 05/15/21 16:12 Nose MRSA Culture - Final 05/12/21 12:20 Toe - Right Big Gram Stain - Final 05/12/21 12:20 Toe - Right Big Wound Culture - Final Vitals: Last Vital Signs Temp 98.1 F 05/18/21 11:12 Pulse 98 05/18/21 11:12 Resp 18 05/18/21 11:12 BP 134/74 05/18/21 11:12 Pulse Ox 95 05/18/21 11:12 Discharge Plan Discharge Patient Disposition: Home Condition: Stable Prescriptions: New pantoprazole 40 mg Tablet,Delayed Release (Dr/Ec) 40 mg PO DAILY Qty: 14 RF: 0 ferrous gluconate 324 mg (37.5 mg iron) Tablet 324 mg PO BIDWM Qty: 60 RF: 0 insulin glargine 100 unit/mL (3 mL) insulin pen 20 unit SUBCUT QPM Qty: 15 RF: 0 Cartia XT 240 mg capsule,extended release 24hr 240 mg PO Q24H Qty: 30 RF: 0 doxycycline hyclate 100 mg tablet 100 mg PO BID 10 Days Qty: 20 RF: 0 Augmentin 500-125 mg tablet 1 tab PO BID 10 Days Qty: 20 RF: 0 Continued cyclobenzaprine 10 mg Tablet 10 mg PO TID PRN (Reason: Muscle Spasm) RF: 0 aspirin 325 mg Tablet 325 mg PO DAILY RF: 0 lisinopril 40 mg Tablet 40 mg PO QAM RF: 0 sertraline 50 mg Tablet 50 mg PO DAILY RF: 0 allopurinol 100 mg Tablet 100 mg PO DAILY RF: 0 atorvastatin [Lipitor] 40 mg tablet 40 mg PO BEDTIME RF: 0 multivitamin Tablet 1 tab PO DAILY RF: 0 metformin 850 mg tablet 850 mg PO BID RF: 0 amlodipine 5 mg tablet 5 mg PO QAM RF: 0 Vitamin C 500 mg Tablet 500 mg PO DAILY RF: 0 Vitamin B-12 1 tab PO DAILY RF: 0 vitamin E 1 cap PO DAILY RF: 0 Discontinued bumetanide 0.5 mg Tablet 0.5 mg PO QAM RF: 0 diltiazem HCl 180 mg Tablet Extended Release 24 Hr 180 mg PO QAM RF: 0 potassium chloride [Klor-Con M10] 10 mEq tablet,ER particles/crystals 10 meq PO QAM RF: 0 glipizide 10 mg Tablet 20 mg PO BID RF: 0 Januvia 50 mg tablet 50 mg PO QAM RF: 0 sulfamethoxazole-trimethoprim 800-160 mg tablet 1 tab PO BID RF: 0 Discharge Orders: Discharge Order (Routine); Ordered 05/18/21 Ordered By: George Lundberg Other Ambulatory Orders: Miscellaneous Procedure (Order) Location: None Selected Ordered By: George Lundberg Referrals: [facility] – [place] [facility] ([facility]) [Outside] Tree Souza MD [Primary Care Provider] - 05/25/21 2:00 pm Marco Elizondo DPM [Physician] - 05/22/21 3:45 pm Discharge Diet: Cardiac and Diabetic Discharge Activity: Resume usual activity Patient Instructions: Opioid Safety Activity Restrictions/Additional Instructions: Dose of Cardizem has been changed to 240 mg daily. For now do not take Bumex and potassium. Antibiotics will be doxycycline and Augmentin 2 times a day for next 10 days. Please follow-up with Dr. Elizondo within next 1 week.Patient to perform once daily dressing change, she is to use quarter inch iodoform packing to the plantar forefoot wound and gauze and Kerlix with Jagdish wrap to the surgical incision. She was also dispensed a cam boot. For diabetes do not take Januvia and glipizide anymore. Continue taking Metformin as before. He will be on insulin. Take Lantus at bedtime 20 units. Humalog 3 times a day as per sliding scale provided. Please maintain your blood sugar diary for next 1 week and follow-up with your primary care provider on the set appointment for further adjustment to Humalog dose. Discharge Attestations Time Spent in Discharge Care*: greater than 30 min Specific Discharge Activities: educating patient, discussing with pcp/other providers, discussing with watch caser/social workers/dc planners, documenting/other paperwork and evaluating patient/reviewing data Status at Discharge: Cognitive status at discharge: cognitively intact, Behavioral status at discharge: cooperative, Functional status at discharge: uses cane/walker Overall status at discharge: patient is progressing back to baseline Quality Metrics Clinical Quality Measures During this hospital stay, did patient experience: None Coding Level of Care Code Acute [facility] note Diagnoses Diabetic infection of right foot E11.628; L08.9 Diabetes mellitus, type II E11.9 Non-pressure chronic ulcer of other part of right foot with necrosis of bone L97.514
--- NOTE | 2021-05-18 13:18 | PC.CHAP ---
Pastoral Care Encounter/Spiritual Assessment Type of Contact [] Declined patient safety sitter visit [] Patient/Family/Request visit [] Outpatient visit [] Follow-up visit [] Physician referral [] Code/Alert [xx] Routine visit [] Staff referral [] Actively dying [] Patient sleeping [] Family support [] [] Out of room [] Palliative care [] [] Receiving care in room [] Pre-surgical visit [] Trauma [] Long length of stay [] ICU visit [] Other: Relational/Emotional Strength [xx] Patient feels connected with others/family/visitors/staff [] Distress [] Loneliness/isolation [] Abandonment Spirituality of Patient [xx] Person of [place] [] Attends Sikh of their [place] [xx] Believes in Prayer [xx] Reads Bible or Mosque materials [] There are Spiritual issues to be addressed Physician Relations Representative Interventions [xx] Prayer [xx] Active listening [xx] Non-anxious presence [] Spiritual/emotional support [] Crisis/trauma care [] Spiritual counseling [] Bereavement support [] Provided bereavement packet [xx] Provided Bible/devotional materials [] Provided toy/stuffed animal, coloring book to patient or family member [] Provided Communion [] Anointing/[place] [] Salvation [xx] Completed spiritual assessment [] Other: Impact on Illness or Injury [] Angry [] Fearful [] Anxious [] Often cries [] Exhaustion [] Unable to work [] Unable to attend church [xx] Unable to walk/stand [] Unable to read [xx] Unable to drive [] Unable to eat/drink [] Unable to sleep [x] Unable to be with family [] Patient intubated [] Other: Summary Patient stated she feels better and may get discharged today. She worries more about her who is a special agent group insurance stuck in bad weather and traffic in [place] and is behind schedule getting home. Time spent with patient 5 minutes
--- NOTE | 2021-05-18 15:35 | PC.NURSE ---
Wound care was done with Dr. Elizondo at bedside this morning. Pt was educated at this time on daily wound dressing changes. All new medications/dc'd medications were reviewed and pt verbalized understanding.
== END 2021-05-18 14:30 | disposition home health service (06) | DRG 617 ==
LOC: ER 20:01 → MEDSURG 20:04
PROVIDERS: Hospitalist; Podiatrist Foot & Ankle Surgery; Admitting Provider Internal Medicine; Emergency Provider Family Medicine; PCP Family Medicine; Visit Provider Student in an Organized Health Care Education/Training Program
PROC: 0Y6P0Z0 Detachment at Right 1st Toe, Complete, Open Approach (ICD-10-PCS; principal; 2021-05-15 08:35)
PROC: 0Y6P0Z0 Detachment at Right 1st Toe, Complete, Open Approach (ICD-10-PCS; 2021-05-15 08:35)
PROC: 0YQM0ZZ Repair Right Foot, Open Approach (ICD-10-PCS; CPT 13160; principal; 2021-05-17 08:05)
PROC: 0YQM0ZZ Repair Right Foot, Open Approach (ICD-10-PCS; CPT 28261; 2021-05-17 08:05)
DX: E11.65 Type 2 diabetes mellitus with hyperglycemia (principal); M86.171 Other acute osteomyelitis, right ankle and foot; I42.9 Cardiomyopathy, unspecified; I50.32 Chronic diastolic (congestive) heart failure; L03.115 Cellulitis of right lower limb; E11.69 Type 2 diabetes mellitus with other specified complication; E11.42 Type 2 diabetes mellitus with diabetic polyneuropathy; E11.21 Type 2 diabetes mellitus with diabetic nephropathy; E11.621 Type 2 diabetes mellitus with foot ulcer; L97.514 Non-pressure chronic ulcer of other part of right foot with necrosis of bone; I11.0 Hypertensive heart disease with heart failure; K21.9 Gastro-esophageal reflux disease without esophagitis; M10.9 Gout, unspecified; E78.5 Hyperlipidemia, unspecified; D64.9 Anemia, unspecified; R00.0 Tachycardia, unspecified
CPT/HCPCS: 36415; 36416; 73630; 73720; 80053; 80061; 80202; 82962; 83036; 83540; 83550; 84145; 84550; 85025; 86140; 87040; 87070; 87075; 87176; 87205; 87641; 88305; 88311; 93005; 93923; 96372; 97161; 99285; A9577; J1644; J1815 ×2; J2370; J2543; J2704; J3010; J3370; J3490; J7030; J7040

== ENCOUNTER → 2021-08-07 12:45 | Outpatient (BNVA) | payer MEDICARE, OTHER, SELFPAY | PROVIDERS: PCP Family Medicine; Visit Provider Internal Medicine | DX: E11.628 Type 2 diabetes mellitus with other skin complications (principal); E11.65 Type 2 diabetes mellitus with hyperglycemia; L08.9 Local infection of the skin and subcutaneous tissue, unspecified; E78.2 Mixed hyperlipidemia; Z89.9 Acquired absence of limb, unspecified; Z79.4 Long term (current) use of insulin; Z79.84 Long term (current) use of oral hypoglycemic drugs | CPT/HCPCS: 99204 ==

== ENCOUNTER → 2021-09-03 13:54 | Outpatient (BNVA) | payer MEDICARE, OTHER, SELFPAY | PROVIDERS: PCP Family Medicine; Visit Provider Podiatrist Foot & Ankle Surgery | DX: Z89.431 Acquired absence of right foot (principal); M20.41 Other hammer toe(s) (acquired), right foot; M20.42 Other hammer toe(s) (acquired), left foot; E11.65 Type 2 diabetes mellitus with hyperglycemia; E11.628 Type 2 diabetes mellitus with other skin complications; Z09 Encounter for follow-up examination after completed treatment for conditions other than malignant neoplasm | CPT/HCPCS: 99213; 99214 ==

== ENCOUNTER 2021-09-04 10:36 | Outpatient (CLI) | payer MEDICARE, OTHER, SELFPAY ==
--- NOTE | 2021-09-04 10:52 | XR_ITS ---
WS: [id number] DEXA (DUAL ENERGY X-RAY ABSORPTIOMETRY) Bone mineral density was performed using a Nexeon machine. HISTORY: OSTEOPOROSIS SCREENING COMPARISON: None available. Lumbar spine BMD (L1-L4): 1.269 g/cm2 T score: 0.7 Z score: 1.7 Total hip BMD: Left: 0.894 g/cm2. T score: -0.9 Z score: -0.1 Right: 0.835 g/cm2. T score: -1.4 Z score: -0.6 10 year probability of a major osteoporotic fracture is 10.5%. XR/XR DEXA axial skeleton* [id number] IMPRESSION: OSTEOPENIA based upon the WHO classification for females.
== END 2021-09-04 10:37 | disposition home or self-care (01) ==
PROVIDERS: PCP Family Medicine; Visit Provider Family Medicine
DX: Z13.820 Encounter for screening for osteoporosis (principal); Z78.0 Asymptomatic menopausal state; M85.80 Other specified disorders of bone density and structure, unspecified site
CPT/HCPCS: 77080

== ENCOUNTER 2021-09-14 11:35 | Outpatient (CLI) | payer MEDICARE, OTHER, SELFPAY ==
--- NOTE | 2021-09-14 11:46 | MM_ITS ---
WS: [id number] BILATERAL 3D TOMOSYNTHESIS DIGITAL SCREENING MAMMOGRAPHY WITH CAD CLINICAL INFORMATION: SCREENING HISTORY: Screening mammogram. No current complaints. COMPARISON: TECHNIQUE: Bilateral CC and MLO views. FINDINGS: Scattered fibroglandular densities bilaterally. A few incidental punctate calcifications. No suspicio us focal mass, asymmetry, calcifications, or architectural distortion. No evidence of malignancy. MM/[place] [id number] IMPRESSION: BI-RADS: 2-Benign FOLLOW UP: 1 Year Follow-up Recommend return to annual screening mammography.
== END 2021-09-14 11:36 | disposition home or self-care (01) ==
LOC: RAD 11:37
PROVIDERS: PCP Family Medicine; Visit Provider Family Medicine
DX: Z12.31 Encounter for screening mammogram for malignant neoplasm of breast (principal)
CPT/HCPCS: 77063; 77067

== ENCOUNTER → 2022-01-08 09:44 | Outpatient (BNVA) | payer MEDICARE, OTHER, SELFPAY | PROVIDERS: PCP Family Medicine; Visit Provider Podiatrist Foot & Ankle Surgery | DX: E11.65 Type 2 diabetes mellitus with hyperglycemia (principal); E11.628 Type 2 diabetes mellitus with other skin complications; L08.9 Local infection of the skin and subcutaneous tissue, unspecified; Z89.411 Acquired absence of right great toe; Z79.4 Long term (current) use of insulin; Z79.84 Long term (current) use of oral hypoglycemic drugs | CPT/HCPCS: 99214 ==

== ENCOUNTER 2022-04-11 12:17 | Emergency (ER) | payer MEDICARE, OTHER, SELFPAY ==
[2022-04-11 12:42] VITALS: BP 114/70; PULSE 99; RESP 16; TEMP 36.5; O2SAT 93
--- NOTE | 2022-04-11 14:03 | W.ED.GENADLT ---
HPI - General Adult General: Chief complaint: General Medical Stated complaint: Fever, Weakness, Cough Time Seen by Provider: 04/11/22 13:59 Source: patient Mode of arrival: ambulatory History of Present Illness: 67-year-old female presents emergency room complaining of cough congestion. Cough is been mildly productive. She had a poor appetite low-grade fever. She did recently have a flu vaccine when she equates with the onset of her symptoms. She denies any chest or abdominal pain. Onset (ago): day(s) Severity: mild Relieving factors: none Exacerbating factors: none Associated symptoms: Reports cough, dyspnea, fevers/chills, malaise and short of breath; Deny chest pain, confusion, diaphoresis, decreased appetite, headache(s), nausea, rash, palpitations, seizures, syncope, vomiting or weakness Treatments prior to arrival: none Review of Systems Const: Reports: fever(s), chills and malaise; Denies: diaphoresis ENMT: Denies: throat pain, ear or mastoid pain, nasal discharge or nasal congestion Card: Denies: chest pain, palpitations or syncope Resp: Reports: dyspnea and non-productive cough; Denies: productive cough or wheezing GI: Denies: abdominal pain, nausea or vomiting : Denies: flank pain, difficulty voiding, dysuria, urinary frequency or urinary urgency Skin/Breast: Denies: rash Neuro: Denies: headache(s) or confusion PFSH ED PFSH: Medical History Cardiomyopathy Congestive heart failure -normal EF per stress echo done 11/2015 -continue diuretics Diabetes mellitus, type II -has known hx of NIDDM type II, last A1c-8.4 (05/2019) -complicated by peripheral neuropathy and nephropathy Gall bladder disease Gastroesophageal reflux Gout Gout attack Hypertension Rotator cuff arthropathy of both shoulders Surgical History H/O shoulder surgery Bilateral History of appendectomy History of cardiac cath History of delivery Hx of cholecystectomy Family History Other Diabetes Social History Smoking and tobacco status: current every day smoker Alcohol intake: never Lives independently: Yes Household members: spouse Physical Exam Const: COMMON NORMALS: no acute distress GENERAL APPEARANCE: cooperative and comfortable ORIENTATION/CONSCIOUSNESS: Yes awake, Yes oriented to person, Yes oriented to place and Yes oriented to time HENMT: COMMON NORMALS: normocephalic, atraumatic and hearing grossly normal bilaterally HEAD & SCALP: normocephalic and atraumatic Resp: COMMON NORMALS: normal respiratory effort, No retractions and No use of accessory muscles AUSCULTATION: rhonchi (Right base) Cardio: COMMON NORMALS: regular rate, regular rhythm and No murmurs present (Cardio) RATE: regular rate RHYTHM: regular rhythm GI: COMMON NORMALS: Soft to palpation and No hepatosplenomegaly present AUSCULTATION: Yes normoactive bowel sounds PALPATION: Yes Soft to palpation, No Tenderness to palpation present (GI), No Guarding due to palpation present (GI) and Yes No hepatosplenomegaly present Extremity: COMMON NORMALS: normal to inspection, capillary refill normal, no clubbing, cyanosis or edema, no calf tenderness and no pedal edema Neuro: SENSORIUM/ORIENTATION: Yes oriented to person, Yes oriented to place and Yes oriented to time Skin: COMMON NORMALS: no rashes or lesions noted GENERAL SKIN EXAM: no rashes or lesions noted Course Vital Signs: Vital signs: Vital Signs Temperature 97.7 F 04/11/22 12:42 Pulse Rate 99 04/11/22 12:42 Respiratory Rate 16 04/11/22 12:42 Blood Pressure 114/70 04/11/22 12:42 Pulse Oximetry 93 04/11/22 12:42 Oxygen Delivery Me thod 04/11/22 12:42 MDM - General Adult Medical Decision Making Flu and COVID swabs are negative. Chest x-ray questionable pneumonia given the presentation we will go ahead and start on Levaquin albuterol follow-up with primary care if not improving. Lab Data Radiology Impressions Chest X-Ray 04/11/22 14:25 IMPRESSION: Ill-defined medial right basilar opacity suspicious for pneumonia. Laboratory Results Influenza Type A Ag negative (Negative) 04/11/22 14:06 Influenza Type B Ag negative (Negative) 04/11/22 14:06 SARS-CoV-2 Ag (Rapid) negative (Negative) 04/11/22 14:06 Discharge Plan Discharge Patient Disposition: Home Clinical Impression: Pneumonia Condition: Stable Prescriptions: New levofloxacin 750 mg tablet 750 mg PO DAILY 7 Days Qty: 7 0RF albuterol sulfate 90 mcg/actuation HFA aerosol inhaler 2 inh INHALATION Q4H PRN (Reason: shortness of breath or wheezing) Qty: 18 0RF No Action (DME) Walker See Rx Instructions .Route .MEDSUPPLY Qty: 1 0RF Rx Instructions: As directed insulin lispro [Humalog Lior TalikPen U-100] 100 unit/mL insulin pen, half-unit See Rx Instructions SUBCUT BID Rx Instructions: 13:50 sliding scale 140 to 180-4 units, 2:40 2 units for every 40 above 180, maximum 18 tidac (DME) Dexcom G6 Cuff Matcher Misc See Rx Instructions .Route Qty: 1 0RF Rx Instructions: Check BS 4-6 times a day. (DME) Dexcom G6 Sensor Device See Rx Instructions .Route Qty: 3 3RF Rx Instructions: Change every 10 days. (DME) Dexcom G6 Transmitter Device See Rx Instructions .Route Qty: 1 3RF Rx Instructions: Change every 90 days. (DME) Diabetic Shoes with 3 pairs of inserts See Rx Instructions .ROUTE .MEDSUPPLY Qty: 1 0RF Rx Instructions: As directed [facility] P [facility] cyclobenzaprine 10 mg Tablet 10 mg PO TID PRN (Reason: Muscle Spasm) aspirin 325 mg Tablet 325 mg PO DAILY lisinopril 40 mg Tablet 40 mg PO QAM sertraline 50 mg Tablet 50 mg PO DAILY allopurinol 100 mg Tablet 100 mg PO DAILY atorvastatin [Lipitor] 40 mg tablet 40 mg PO BEDTIME multivitamin Tablet 1 tab PO DAILY metformin 850 mg tablet 850 mg PO BID Rx Instructions: pt states she is still taking-ext med history shows last filled 06/01/20 90d/s amlodipine 5 mg tablet 5 mg PO QAM Vitamin C 500 mg Tablet 500 mg PO DAILY Vitamin B-12 1 tab PO DAILY pantoprazole 40 mg Tablet,Delayed Release (Dr/Ec) 40 mg PO DAILY Qty: 14 0RF insulin glargine 100 unit/mL (3 mL) insulin pen 20 unit SUBCUT QPM Qty: 15 0RF Cartia XT 240 mg capsule,extended release 24hr 240 mg PO Q24H Qty: 30 0RF Discharge Orders: Discharge ED (Routine); Ordered 04/11/22 Ordered By: Leonard Forbes Referrals: Nikos Cortez MD [Primary Care Provider] - Discharge Diet: Usual diet Discharge Activity: Increase activity as tolerated Patient Instructions: Opioid Safety, Pain Management Activity Restrictions/Additional Instructions: You were seen for shortness of breath and cough in the emergency room. Your chest x-ray showed a right lower lobe pneumonia. Follow-up with your primary care doctor if not improving. 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
--- NOTE | 2022-04-11 14:25 | XRR_ITS ---
PROCEDURE INFORMATION: Exam: XR Chest Exam date and time: 04/11/2022 3:32 PM Age: 67 years old Clinical indication: Cough and dyspnea; Additional info: Dyspnea/cough TECHNIQUE: Imaging protocol: Radiologic exam of the chest. Views: 1 view. COMPARISON: CR XR chest 1V portable [id number] 10/18/2019 4:07 PM FINDINGS: Lungs: Ill-defined medial right basilar opacity. Pleural spaces: No pleural effusion. No pneumothorax. Heart/Mediastinum: No cardiomegaly. Bones/joints: Rotator cuff repair anchors noted in both humeral heads. Visualized osseous structures are intact. XR/XR chest 1V portable [id number] IMPRESSION: Ill-defined medial right basilar opacity suspicious for pneumonia.
[2022-04-11 14:49] LABS: Influenza A by IFA negative (Negative); Influenza B by IFA negative (Negative); SARS Covid-2 Antigen negative (Negative)
[2022-04-11] MEDS: levoFLOXacin 750 mg Tablet PO (15:56)
== END 2022-04-11 15:57 | disposition home or self-care (01) ==
PROVIDERS: Registered Nurse; Emergency Provider Family Medicine; PCP Family Medicine
DX: J18.9 Pneumonia, unspecified organism (principal); Z79.4 Long term (current) use of insulin; Z79.82 Long term (current) use of aspirin; Z20.822 Contact with and (suspected) exposure to COVID-19; F17.210 Nicotine dependence, cigarettes, uncomplicated; I11.0 Hypertensive heart disease with heart failure; I50.9 Heart failure, unspecified; E11.9 Type 2 diabetes mellitus without complications
CPT/HCPCS: 71045; 87426; 87804; 99284

== ENCOUNTER → 2022-05-28 08:59 | Outpatient (BNVA) | payer MEDICARE, OTHER, SELFPAY | PROVIDERS: PCP Family Medicine; Visit Provider Podiatrist Foot & Ankle Surgery | DX: E11.8 Type 2 diabetes mellitus with unspecified complications (principal); Z79.4 Long term (current) use of insulin; Z79.84 Long term (current) use of oral hypoglycemic drugs; M20.41 Other hammer toe(s) (acquired), right foot; M20.42 Other hammer toe(s) (acquired), left foot; E11.65 Type 2 diabetes mellitus with hyperglycemia; E11.628 Type 2 diabetes mellitus with other skin complications; L08.9 Local infection of the skin and subcutaneous tissue, unspecified | CPT/HCPCS: 99214 ==

== ENCOUNTER → 2022-08-27 09:16 | Outpatient (BNVA) | payer MEDICARE, OTHER, SELFPAY | PROVIDERS: PCP Family Medicine; Visit Provider Podiatrist Foot & Ankle Surgery | DX: E11.8 Type 2 diabetes mellitus with unspecified complications (principal); M20.41 Other hammer toe(s) (acquired), right foot; M20.42 Other hammer toe(s) (acquired), left foot; E11.65 Type 2 diabetes mellitus with hyperglycemia; E11.628 Type 2 diabetes mellitus with other skin complications; L08.9 Local infection of the skin and subcutaneous tissue, unspecified | CPT/HCPCS: 99213 ==

== ENCOUNTER → 2022-11-26 11:16 | Outpatient (BNVA) | payer MEDICARE, OTHER, SELFPAY | PROVIDERS: PCP Family Medicine; Visit Provider Podiatrist Foot & Ankle Surgery | DX: M20.41 Other hammer toe(s) (acquired), right foot (principal); M20.42 Other hammer toe(s) (acquired), left foot; E11.65 Type 2 diabetes mellitus with hyperglycemia; Z79.4 Long term (current) use of insulin; Z79.84 Long term (current) use of oral hypoglycemic drugs | CPT/HCPCS: 99214 ==

== ENCOUNTER 2023-01-21 10:18 | Outpatient (CLI) | payer MEDICARE, OTHER, SELFPAY ==
--- NOTE | 2023-01-21 10:23 | MM_ITS ---
WS: [id number] BILATERAL 3D TOMOSYNTHESIS DIGITAL SCREENING MAMMOGRAPHY WITH CAD CLINICAL INFORMATION: SCREENING HISTORY: Screening mammogram. No current complaints. COMPARISON: 09/14/2021 TECHNIQUE: Bilateral CC and MLO views. FINDINGS: Scattered fibroglandular densities bilaterally. No suspicious focal mass, asymmetry, calcifications, or architectural distortion. No evidence of malignancy. Incidental punctate and lucent centered calci fications. IMPRESSION: MM/[place] [id number] BI-RADS: 2-Benign FOLLOW UP: 1 Year Follow-up Recommend return to annual screening mammography.
== END 2023-01-21 10:19 | disposition home or self-care (01) ==
PROVIDERS: PCP Family Medicine; Visit Provider Family Medicine
DX: Z12.31 Encounter for screening mammogram for malignant neoplasm of breast (principal)
CPT/HCPCS: 77063; 77067

== ENCOUNTER → 2023-02-25 10:07 | Outpatient (BNVA) | payer MEDICARE, OTHER, SELFPAY | PROVIDERS: PCP Family Medicine; Visit Provider Podiatrist Foot & Ankle Surgery | DX: Z89.431 Acquired absence of right foot; E11.65 Type 2 diabetes mellitus with hyperglycemia; L60.3 Nail dystrophy; Z79.4 Long term (current) use of insulin; Z79.84 Long term (current) use of oral hypoglycemic drugs | CPT/HCPCS: 99213 ==

== ENCOUNTER → 2023-05-07 11:02 | Outpatient (BNVA) | payer MEDICARE, OTHER, SELFPAY | PROVIDERS: PCP Family Medicine; Visit Provider Podiatrist Foot & Ankle Surgery | DX: E11.8 Type 2 diabetes mellitus with unspecified complications (principal); M20.41 Other hammer toe(s) (acquired), right foot; M20.42 Other hammer toe(s) (acquired), left foot; E11.65 Type 2 diabetes mellitus with hyperglycemia; L60.3 Nail dystrophy; Z79.4 Long term (current) use of insulin; Z79.84 Long term (current) use of oral hypoglycemic drugs | CPT/HCPCS: 99213 ==

== ENCOUNTER → 2023-07-01 10:12 | Outpatient (BNVA) | payer MEDICARE, OTHER, SELFPAY | PROVIDERS: PCP Family Medicine; Visit Provider Podiatrist Foot & Ankle Surgery | DX: M20.41 Other hammer toe(s) (acquired), right foot; M20.42 Other hammer toe(s) (acquired), left foot; E11.65 Type 2 diabetes mellitus with hyperglycemia; L60.3 Nail dystrophy; Z79.4 Long term (current) use of insulin; Z79.84 Long term (current) use of oral hypoglycemic drugs | CPT/HCPCS: 99213 ==

== ENCOUNTER → 2023-09-16 09:35 | Outpatient (BNVA) | payer MEDICARE, OTHER, SELFPAY | PROVIDERS: PCP Family Medicine; Visit Provider Podiatrist Foot & Ankle Surgery | DX: E11.65 Type 2 diabetes mellitus with hyperglycemia; L60.3 Nail dystrophy; M20.41 Other hammer toe(s) (acquired), right foot; M20.42 Other hammer toe(s) (acquired), left foot; Z79.84 Long term (current) use of oral hypoglycemic drugs; Z79.4 Long term (current) use of insulin | CPT/HCPCS: 11721 ==

== ENCOUNTER → 2023-10-29 13:31 | Outpatient (BNVA) | payer MEDICARE, OTHER, SELFPAY | PROVIDERS: PCP Family Medicine; Visit Provider Surgery | DX: Z12.11 Encounter for screening for malignant neoplasm of colon (principal) | CPT/HCPCS: 99024; 99204 ==

== ENCOUNTER → 2024-01-20 10:17 | Outpatient (BNVA) | payer MEDICARE, OTHER, SELFPAY | PROVIDERS: PCP Family Medicine; Visit Provider Podiatrist Foot & Ankle Surgery | DX: E11.65 Type 2 diabetes mellitus with hyperglycemia (principal); M20.41 Other hammer toe(s) (acquired), right foot; M20.42 Other hammer toe(s) (acquired), left foot; Z79.4 Long term (current) use of insulin | CPT/HCPCS: 99213 ==

== ENCOUNTER 2024-02-04 10:57 | Outpatient (CLI) | payer MEDICARE, OTHER, SELFPAY ==
--- NOTE | 2024-02-04 10:58 | MM_ITS ---
WS: [id number] BILATERAL SCREENING DIGITAL TOMOSYNTHESIS MAMMOGRAM WITH CAD HISTORY: SCREENING COMPARISON: 01/21/2023, 09/14/2021 Bilateral CC and MLO views with tomosynthesis and synthetic mammography submitted. Computer aided det ection analyzed. Breast composition: The breasts are almost entirely fatty. No suspicious masses, microcalcifications or architectural distortion. Benign calcifications in each breast. MM/MM scr BI tomosynthesis [id number] IMPRESSION: BI-RADS: 2 - Benign. FOLLOW UP: 1 Year Follow-up
== END 2024-02-04 10:58 | disposition home or self-care (01) ==
LOC: RAD 10:57
PROVIDERS: PCP Family Medicine; Visit Provider Family Medicine
DX: Z12.31 Encounter for screening mammogram for malignant neoplasm of breast (principal); R92.313 Mammographic fatty tissue density, bilateral breasts; R92.1 Mammographic calcification found on diagnostic imaging of breast
CPT/HCPCS: 77063; 77067

== ENCOUNTER 2024-03-02 06:29 | Day surgery (SDC) | payer MEDICARE, OTHER, SELFPAY ==
[2024-03-02 06:48] VITALS: BP 142/88; PULSE 92; RESP 17; TEMP 36.4; O2SAT 97; BMI 35.4
[2024-03-02] MEDS: sodium chloride 0.9% 1,000 ML 30 ML IV (06:58)
--- NOTE | 2024-03-02 07:01 | ANES.PREANE2 ---
Pre-Anesthetic Assessment Height/Weight: Height 1.6 m Weight 90.718 kg Temp Pulse Resp BP Pulse Ox O2 Del Method 97.6 F 92 17 142/88 97 Room Air 03/02/24 06:48 03/02/24 06:48 03/02/24 06:48 03/02/24 06:48 03/02/24 06:48 03/02/24 06:48 Preop Diagnosis: screening Operation Date: 03/02/24 07:40 Proposed Procedures p Colonoscopy 08102, G0121, Z12.11(Not Applicable) - Cliff Kennedy MD Familial anesthetic complications: none Was Beta Keyanna taken within 24 hours: N/A Was Clonidine taken within 24 hours: N/A Last intake: Intake Last Liquid Date 03/01/24 Last Liquid Time 21:00 Last Solid Date 02/29/24 Last Solid Time 19:00 Social No alcohol and No tobacco Exam alert, oriented x 3, clear to auscultation bilaterally and regular rate & rhythm Airway Submandibular: within normal limits Cervical ROM: within normal limits Mallampati: Class II Dentition: chipped and full Pulmonary None reported CV/HEM Arrythmia and Hypertension None reported Hepatic None reported GI Gastroesophageal Reflux Disease Metabolic Diabetes Mellitus and Hyperlipidemia [facility] Lower Back Pain Neuropsych None reported Anesthetic Plan ASA status: 2 Anesthesia: MAC Risk of > 500 ml blood loss (7ml/kg in children): No Medications/Allergies Home Medications Medication Instructions Recorded Confirmed Last Taken Type atorvastatin 40 mg tablet (Lipitor) 40 mg PO BEDTIME 08/07/19 03/02/24 03/01/24 History aspirin 325 mg tablet 325 mg PO DAILY 10/18/19 02/26/24 02/24/24 History cyclobenzaprine 10 mg tablet 10 mg PO TID PRN Muscle Spasm 10/18/19 02/26/24 Unknown History lisinopril 40 mg tablet 40 mg PO QAM 10/18/19 03/02/24 03/01/24 History ascorbic acid (vitamin C) 500 mg 500 mg PO DAILY 05/12/21 03/02/24 03/01/24 History tablet (Vitamin C) multivitamin 1 tab PO DAILY 05/12/21 03/02/24 03/01/24 History insulin glargine 100 unit/mL (3 20 unit (0.2 mL) SUBCUT QPM #15 mL 05/18/21 03/02/24 02/29/24 Rx mL) subcutaneous pen pantoprazole 40 mg tablet,delayed 40 mg PO DAILY #14 tabs 05/18/21 03/02/24 03/01/24 Rx release Walker #1 ea 05/29/21 02/26/24 Unknown Rx blood-glucose meter,continuous #1 ea 08/07/21 02/26/24 Unknown Rx (Dexcom G6 Pompom Maker) blood-glucose sensor (Dexcom G6 #3 ea 08/07/21 02/26/24 Unknown Rx Sensor device) blood-glucose transmitter (Dexcom #1 ea 08/07/21 02/26/24 Unknown Rx G6 Transmitter device) insulin lispro 100 unit/mL See Rx Instructions SUBCUT BID 08/07/21 03/02/24 02/29/24 History subcutaneous half-unit pen (Humalog Lior KwikPen (U-100)) Diabetic Shoes with 3 pairs of #1 ea 09/03/21 02/26/24 Unknown Rx inserts albuterol sulfate 90 mcg/actuation 2 inh inhalation Q4H PRN shortness 04/11/22 02/26/24 Unknown Rx aerosol inhaler of breath or wheezing #18 grams Diabetic shoes with Custom molded #1 ea 02/04/24 02/26/24 Unknown Rx insoles Allergies Allergy/AdvReac Type Severity Reaction Status Date / Time ibuprofen Allergy ALGY-Rash Verified 03/02/24 06:44 Current Medications Generic Name Dose Route Start Last Admin Trade Name Freq PRN Reason Stop Dose Admin Sodium Chloride 1,000 mls @ 30 mls/hr 03/02/24 06:45 03/02/24 06:58 Sodium Chloride 0.9% IV 03/03/24 06:44 30 mls/hr .Q24H HERNAN Administration PFSH Anesthesia Medical History Gout attack Gout Rotator cuff arthropathy of both shoulders Congestive heart failure -normal EF per stress echo done 11/2015 -continue diuretics Cardiomyopathy Hypertension Gastroesophageal reflux Gall bladder disease Diabetes mellitus, type II -has known hx of NIDDM type II, last A1c-8.4 (05/2019) -complicated by peripheral neuropathy and nephropathy Surgical History History of cardiac cath H/O shoulder surgery Bilateral Hx of cholecystectomy History of appendectomy History of delivery Family History Other Diabetes Social History Smoking and tobacco/nicotine status: current every day tobacco/nicotine user Alcohol intake: never Substance/Drug Use: never Lives independently: Yes Household members: spouse Data Anesthesia Cardiac Studies: No Data to Display
[2024-03-02 07:04] LABS: Glucose Point of Care 192 mg/dL (70-110)
--- NOTE | 2024-03-02 07:22 | W.PM.OPSFHP ---
Same Day Surgery H&P Indication for Procedure/HPI DATE OF PROCEDURE: March 02, 2024 CHIEF COMPLAINT/INDICATIONFOR SURGICAL PROCEDURE: need for screening colonoscopy PREOP DIAGNOSIS: screening PLANNED PROCEDURE: Operation Date: 03/02/24 07:40 Proposed Procedures p Colonoscopy 50525, G0121, Z12.11(Not Applicable) - Cliff Kennedy MD Medications/Allergies* Home Medications Medication Instructions Recorded Confirmed Type atorvastatin 40 mg tablet (Lipitor) 40 mg PO BEDTIME 08/07/19 03/02/24 History aspirin 325 mg tablet 325 mg PO DAILY 10/18/19 02/26/24 History cyclobenzaprine 10 mg tablet 10 mg PO TID PRN Muscle Spasm 10/18/19 02/26/24 History lisinopril 40 mg tablet 40 mg PO QAM 10/18/19 03/02/24 History ascorbic acid (vitamin C) 500 mg 500 mg PO DAILY 05/12/21 03/02/24 History tablet (Vitamin C) multivitamin 1 tab PO DAILY 05/12/21 03/02/24 History insulin lispro 100 unit/mL See Rx Instructions SUBCUT BID 08/07/21 03/02/24 History subcutaneous half-unit pen (Humalog Lior KwikPen (U-100)) Allergies/Adverse Reactions Allergy/AdvReac Type Severity Reaction Status Date / Time ibuprofen Allergy ALGY-Rash Verified 03/02/24 06:44 Current Medications: Generic Name Dose Route Start Last Admin Trade Name Freq PRN Reason Stop Dose Admin Sodium Chloride 1,000 mls @ 30 mls/hr 03/02/24 06:45 03/02/24 06:58 Sodium Chloride 0.9% IV 03/03/24 06:44 30 mls/hr .Q24H HERNAN Administration Pertinent History/Comorbid Conditions* Medical History (Updated 11/30/22 @ 11:57 by Marco Elizondo DPM) Gout attack Gout Rotator cuff arthropathy of both shoulders Congestive heart failure -normal EF per stress echo done 11/2015 -continue diuretics Cardiomyopathy Hypertension Gastroesophageal reflux Gall bladder disease Diabetes mellitus, type II -has known hx of NIDDM type II, last A1c-8.4 (05/2019) -complicated by peripheral neuropathy and nephropathy Surgical History (Updated 08/07/21 @ 13:47 by Keith Hale MD) History of cardiac cath H/O shoulder surgery Bilateral Hx of cholecystectomy History of appendectomy History of delivery Family History (Updated 08/06/19 @ 19:00 by Autumn Ivory MD) Diabetes Social History Smoking and tobacco/nicotine status: current every day tobacco/nicotine user Alcohol intake: never Substance/Drug Use: never Lives independently: Yes Household members: spouse Pertinent Exam Findings alert, oriented x 3 and clear to auscultation bilaterally Recommendations Surgery/Procedure today Coding Level of Care Code Acute Code for Chg Fwchapo
[2024-03-02 07:57] VITALS: BP 122/76; PULSE 81; RESP 16; TEMP 36.2; O2SAT 99
[2024-03-02 08:15] VITALS: BP 118/81; PULSE 76; RESP 16; O2SAT 98
--- NOTE | 2024-03-02 08:40 | ANE.PACU2 ---
Inpatient post-anesthesia follow up: Airway intact: Yes Vital signs: Temperature 97.2 F Pulse Rate 76 Respiratory Rate 16 Blood Pressure 118/81 Pulse Oximetry 98 Oxygen Delivery Me thod Room Air Oxygen Flow Rate Fraction of Inspir ed Oxygen Hydration adequate: Yes Nausea and vomiting: No Pain level: 1 Mental status: Baseline
== END 2024-03-02 08:40 | disposition home or self-care (01) ==
PROVIDERS: PCP Family Medicine; Visit Provider Surgery
PROC: 0DJD8ZZ Inspection of Lower Intestinal Tract, Via Natural or Artificial Opening Endoscopic (ICD-10-PCS; CPT 45378; principal; 2024-03-02 07:40)
DX: Z12.11 Encounter for screening for malignant neoplasm of colon (principal); E11.40 Type 2 diabetes mellitus with diabetic neuropathy, unspecified; Z79.4 Long term (current) use of insulin; I11.0 Hypertensive heart disease with heart failure; I50.9 Heart failure, unspecified; K21.9 Gastro-esophageal reflux disease without esophagitis; E78.5 Hyperlipidemia, unspecified; Z79.82 Long term (current) use of aspirin; F17.200 Nicotine dependence, unspecified, uncomplicated
CPT/HCPCS: 36416; 82962; G0121; J2704; J7030

== ENCOUNTER 2024-04-06 18:27 | Inpatient (IN) | payer MEDICARE, OTHER, SELFPAY ==
[2024-04-06 18:34] VITALS: BP 134/85; PULSE 100; RESP 18; TEMP 36.7; O2SAT 98
--- NOTE | 2024-04-06 18:41 | XRR_ITS ---
PROCEDURE INFORMATION: Exam: XR Left Hip Exam date and time: 04/06/2024 6:45 PM Age: 69 years old Clinical indication: Injury or trauma; Fall; Blunt trauma (contusions or hematomas); Left; Hip; Additional info: Fall/hip pain, w/ pelvis TECHNIQUE: Imaging protocol: Radiologic exam of the left hip. Views: 2 or 3 views hip with pelvis when performed. COMPARISON: No relevant prior studies available. FINDINGS: Bones/joints: Intertrochanteric fracture on the left. Avulsion of the left lesser trochanter identified. No hip joint dislocation. No pubic symphyseal or sacroiliac joint widening. Soft tissues: Unremarkable. XR/XR hip LT 2-3V wo/w pel* [id number] IMPRESSION: As above.
--- NOTE | 2024-04-06 18:41 | XRR_ITS ---
PROCEDURE INFORMATION: Exam: XR Left Knee Exam date and time: 04/06/2024 6:50 PM Age: 69 years old Clinical indication: Injury or trauma; Fall; Blunt trauma; Knee; Left; Additional info: Fall/knee pain TECHNIQUE: Imaging protocol: Radiologic exam of the left knee. Views: 3 views. COMPARISON: No relevant prior studies available. FINDINGS: Bones/joints: Normal. Soft tissues: Normal. XR/XR knee LT 3V* [id number] IMPRESSION: No acute findings.
--- NOTE | 2024-04-06 18:43 | W.ED.EXTPRO ---
HPI - Extremity Problem General: Chief complaint: Extremity Injury, Lower Stated complaint: Fall, Hip Pain Time Seen by Provider: 04/06/24 18:38 Source: patient Mode of arrival: EMS Limitations: no limitations History of Present Illness: Patient is a 69-year-old female who presents the emergency department by ambulance for a fall and subsequent left hip pain that occurred prior to arrival. Patient states she tripped over her cane and this caused the injury, primarily pain is reported to the anterior left hip also states she is having some pain in the left knee. She states that the ride over here in the ambulance, every time he had a bump this caused severe pain, and she is reporting severe pain at this time. She denies any symptoms prior to the fall, stating this was an accident. She has no history of hip fracture or dislocation to either side. No distal neurovascular symptoms, she has not been ambulatory since the incident. MD Complaint: joint pain Onset (ago): minute(s) Pain Consistency: constant Location: left and lower extremity (Hip) Radiation: distal Exacerbating factors: range of motion and weight bearing Associated symptoms: Deny chest pain, fever(s) or rash Related Data Home Medications Medication Instructions Recorded Confirmed atorvastatin 40 mg tablet (Lipitor) 40 mg PO BEDTIME 08/07/19 03/02/24 aspirin 325 mg tablet 325 mg PO DAILY 10/18/19 02/26/24 cyclobenzaprine 10 mg tablet 10 mg PO TID PRN Muscle Spasm 10/18/19 02/26/24 lisinopril 40 mg tablet 40 mg PO QAM 10/18/19 03/02/24 ascorbic acid (vitamin C) 500 mg 500 mg PO DAILY 05/12/21 03/02/24 tablet (Vitamin C) multivitamin 1 tab PO DAILY 05/12/21 03/02/24 insulin lispro 100 unit/mL See Rx Instructions SUBCUT BID 08/07/21 03/02/24 subcutaneous half-unit pen (Humalog Lior Carley (U-100)) Previous Rx's Medication Instructions Recorded insulin glargine 100 unit/mL (3 20 unit (0.2 mL) SUBCUT QPM #15 mL 05/18/21 mL) subcutaneous pen pantoprazole 40 mg tablet,delayed 40 mg PO DAILY #14 tabs 05/18/21 release Walker #1 ea 05/29/21 blood-glucose meter,continuous #1 ea 08/07/21 (Dexcom G6 Mainspring Winder And Oiler) blood-glucose sensor (Dexcom G6 #3 ea 08/07/21 Sensor device) blood-glucose transmitter (Dexcom #1 ea 08/07/21 G6 Transmitter device) Diabetic Shoes with 3 pairs of #1 ea 09/03/21 inserts albuterol sulfate 90 mcg/actuation 2 inh inhalation Q4H PRN shortness 04/11/22 aerosol inhaler of breath or wheezing #18 grams Diabetic shoes with Custom molded #1 ea 02/04/24 insoles Allergies Allergy/AdvReac Type Severity Reaction Status Date / Time ibuprofen Allergy ALGY-Rash Verified 03/02/24 06:44 Review of Systems General: Reports: 10 or more systems reviewed and unremarkable except in HPI and below Const: Reports: other (Fall); Denies: fever(s) or chills Card: Denies: chest pain Resp: Denies: dyspnea or productive cough GI: Denies: abdominal pain, nausea, vomiting or diarrhea : Denies: flank pain Musc: Reports: joint pain (Left hip and left knee); Denies: neck pain, back pain, extremity pain, extremity swelling, joint swelling, joint redness, joint warmth, limited range of motion or muscle weakness Skin/Breast: Denies: rash Neuro: Denies: headache(s), numbness in extremities or weakness in extremities PFSH ED PFSH: Medical History Gout attack Gout Rotator cuff arthropathy of both shoulders Congestive heart failure -normal EF per stress echo done 11/2015 -continue diuretics Cardiomyopathy Hypertension Gastroesophageal reflux Gall bladder disease Diabetes mellitus, type II -has known hx of NIDDM type II, last A1c-8.4 (05/2019) -complicated by peripheral neuropathy and nephropathy Surgical History History of cardiac cath H/O shoulder surgery Bilateral Hx of cholecystectomy History of appendectomy History of delivery Family History Other Diabetes Social History Smoking and tobacco/nicotine status: current every day tobacco/nicotine user Alcohol intake: never Substance/Drug Use: never Lives independently: Yes Household members: spouse Physical Exam Const: COMMON NORMALS: patient oriented x3, no limitations, alert and well nourished GENERAL APPEARANCE: in distress (Secondary to pain) HENMT: COMMON NORMALS: normocephalic and atraumatic HEAD & SCALP: normocephalic and atraumatic Neck/C-Spine: COMMON NORMALS: full ROM, supple and no meningeal signs Resp: COMMON NORMALS: normal respiratory effort, No use of accessory muscles and clear to auscultation bilaterally AUSCULTATION: clear to auscultation bilaterally Cardio: COMMON NORMALS: regular rate and regular rhythm RATE: regular rate RHYTHM: regular rhythm Extremity: COMMON NORMALS: capillary refill normal, no joint enlargement and no clubbing, cyanosis or edema NARRATIVE EXTREMITY EXAM: Reproducible tenderness to palpation of left anterior thigh. No obvious shortening or internal/external rotation of the left lower extremity. Positive logroll. No distal neurovascular symptoms. Severe pain with any attempted range of motion of the left hip. Neuro: COMMON NORMALS: patient oriented x3, moves all extremities, no focal motor deficits and no sensory deficits noted SENSORIUM/ORIENTATION: Yes alert MENINGEAL SIGNS: Yes no meningeal signs Skin: COMMON NORMALS: no rashes or lesions noted GENERAL SKIN EXAM: no rashes or lesions noted Course Vital Signs: Vital signs: Vital Signs Temperature 98.1 F 04/06/24 18:34 Pulse Rate 100 04/06/24 18:34 Respiratory Rate 22 H 04/06/24 19:29 Blood Pressure 134/85 04/06/24 18:34 Pulse Oximetry 100 04/06/24 19:29 Oxygen Delivery Me thod Room Air 04/06/24 18:34 MDM - Extremity (Nontraumatic) Medical Decision Making Patient had accidental trip and fall prior to arrival. No obvious deformity on physical examination, she did have anterior left thigh pain and pain with any range of motion. X-ray showing signs of a left intertrochanteric fracture, her distal neurovascular status normal at this time. Spoke with Dr. Mcgowan, who accepts care of patient will operate on the morning. Spoke with Dr. Pineda, agrees to accept patient to the hospital for pain control tonight. IV placed and patient being given IV pain medications at this time. Her and family informed of plan, they agree and all other questions and concerns were addressed at this time. XR interpretation done by ED provider, pending radiology final review ED provider radiology interpretation(s): X-ray of left hip with pelvis showing intertrochanteric fracture with no significant displacement. Discharge Plan Discharge Patient Disposition: Admitted As Inpatient Clinical Impression: Closed hip fracture Qualifiers: Encounter type: initial encounter Laterality: left Qualified Code(s): S72.002A - Fracture of unspecified part of neck of left femur, initial encounter for closed fracture Condition: Stable Coding Level of Care Code ED Nut Sorter Operator for Long Du
[2024-04-06 18:47] VITALS: RESP 20
--- NOTE | 2024-04-06 19:16 | P.HP_ITS ---
Providers/Chief Complaint Primary Care Provider: Nikos Cortez MD Chief Complaint: Fall, Hip Pain History of Present Illness Jacquelin Garduno is a 69 year old female with a past medical history significant for insulin dependent type 2 diabetes mellitus, mixed hyperlipidemia, hypertension and right diabetic foot wound who presents to the emergency department with severe left-sided hip pain following mechanical fall. She rates her pain greater than 10 out of 10. Movement exacerbates the pain. The pain medication she received in the ED helped the pain somewhat. She reports she tripped over her cane which was the nidus for the fall. She reports the fall was an accident. Was also having associated left knee pain where she has an abrasion. Denies prior hip fractures or dislocations. Denies prior hip surgeries. Denies prior adverse effects to anesthesia. Review of Systems Narrative: A complete review of systems was obtained and is negative except as stated in HPI. Medications/Allergies Home Medications Medication Instructions Recorded Confirmed Last Taken Type atorvastatin 40 mg tablet (Lipitor) 40 mg PO BEDTIME 08/07/19 03/02/24 03/01/24 History aspirin 325 mg tablet 325 mg PO DAILY 10/18/19 02/26/24 02/24/24 History cyclobenzaprine 10 mg tablet 10 mg PO TID PRN Muscle Spasm 10/18/19 02/26/24 Unknown History lisinopril 40 mg tablet 40 mg PO QAM 10/18/19 03/02/24 03/01/24 History ascorbic acid (vitamin C) 500 mg 500 mg PO DAILY 05/12/21 03/02/24 03/01/24 History tablet (Vitamin C) multivitamin 1 tab PO DAILY 05/12/21 03/02/24 03/01/24 History insulin glargine 100 unit/mL (3 20 unit (0.2 mL) SUBCUT QPM #15 mL 05/18/21 03/02/24 02/29/24 Rx mL) subcutaneous pen pantoprazole 40 mg tablet,delayed 40 mg PO DAILY #14 tabs 05/18/21 03/02/24 03/01/24 Rx release Walker #1 ea 05/29/21 02/26/24 Unknown Rx blood-glucose meter,continuous #1 ea 08/07/21 02/26/24 Unknown Rx (Dexcom G6 Service Delivery Supervisor) blood-glucose sensor (Dexcom G6 #3 ea 08/07/21 02/26/24 Unknown Rx Sensor device) blood-glucose transmitter (Dexcom #1 ea 08/07/21 02/26/24 Unknown Rx G6 Transmitter device) insulin lispro 100 unit/mL See Rx Instructions SUBCUT BID 08/07/21 03/02/24 02/29/24 History subcutaneous half-unit pen (Humalog Lior KwikPen (U-100)) Diabetic Shoes with 3 pairs of #1 ea 09/03/21 02/26/24 Unknown Rx inserts albuterol sulfate 90 mcg/actuation 2 inh inhalation Q4H PRN shortness 04/11/22 02/26/24 Unknown Rx aerosol inhaler of breath or wheezing #18 grams Diabetic shoes with Custom molded #1 ea 02/04/24 02/26/24 Unknown Rx insoles Allergies Allergy/AdvReac Type Severity Reaction Status Date / Time ibuprofen Allergy ALGY-Rash Verified 03/02/24 06:44 PFSH Acute PFSH: Medical History (Updated 04/06/24 @ 19:47 by Александр Pineda MD) Gout attack Gout Rotator cuff arthropathy of both shoulders Congestive heart failure -normal EF per stress echo done 11/2015 -continue diuretics Cardiomyopathy Hypertension Gastroesophageal reflux Gall bladder disease Diabetes mellitus, type II -has known hx of NIDDM type II, last A1c-8.4 (05/2019) -complicated by peripheral neuropathy and nephropathy Surgical History History of cardiac cath H/O shoulder surgery Bilateral Hx of cholecystectomy History of appendectomy History of delivery Family History Other Diabetes Social History Smoking and tobacco/nicotine status: current every day tobacco/nicotine user Alcohol intake: never Substance/Drug Use: never Lives independently: Yes Household members: spouse Vitals/I&O/Wt Last Vital Signs Temp 98.1 F 04/06/24 18:34 Pulse 100 04/06/24 18:34 Resp 20 H 04/06/24 18:47 BP 134/85 04/06/24 18:34 Pulse Ox 98 04/06/24 18:34 O2 Del Method Room Air 04/06/24 18:34 Physical Exam Narrative: General: Patient is awake and alert. In moderate distress from hip pain. Head: Normocephalic. Atraumatic. EOM intact. Neck: No JVD. Cardiovascular: RRR. No gallops. No murmurs. No peripheral edema. Lungs: Clear to auscultation, no use of accessory muscles, no crackles or wheezes. Skin: No jaundice. No rashes. Abdomen: Normal bowel sounds, abdomen soft and nontender. Genito Urinary: Urinary catheter. Rectal: Rectal exam not performed since no symptoms indicated blood loss. Extremities: No cyanosis or clubbing. Abrasion present on left anterior knee. Musculoskeletal: No erythematous joints. Neurological: Moves all 4 extremities. No myoclonus. Pedal pulses intact. A&P Assessment and plan (1) Closed hip fracture: Left sided hip fracture 2/2 mechanical fall Strict bed rest Orthopedics Dr Mcgowan consulted by ED, plan for surgery tomorrow NPO after midnight Schaffer catheter Multimodal pain control with bowel regimen Qualifiers: Encounter type: initial encounter Laterality: left Qualified Code(s): S72.002A - Fracture of unspecified part of neck of left femur, initial encounter for closed fracture (2) Diabetes mellitus, type II: Continue home Lantus at reduce rate Plan for sliding scale insulin once diet resumes Avoid hypoglycemia (3) Hyperlipemia, mixed: Continue statin (4) Hypertension: Continue lisinopril (5) Anemia: Monitor blood counts Plan DVT: SCD d/t surgery tomorrow Attestations Medical Necessity Statement*: Patient presents with severe left hip pain, found to have hip fracture with expected hospitalization to cross 2 midnights for pain control, surgical intervention, serial labs, therapy evaluation, and supportive care. Coding Level of Care Code Acute Code for Chg Fwd Diagnoses Closed hip fracture S72.002A Encounter type: initial encounter Laterality: left Type 2 diabetes mellitus with diabetic polyneuropathy, without long-term current use of insulin E11.9 Hyperlipemia, mixed E78.2 Hypertension I10 Anemia D64.9
[2024-04-06 19:29] VITALS: RESP 22; O2SAT 100
[2024-04-06] MEDS: morphine 4 mg/mL SDV 1 mL IVP (19:29)
[2024-04-06] MEDS: ondansetron 2 mg/ML SDV 2 mL 4 MG IVP (19:29)
[2024-04-06] MEDS: pantoprazole 40 mg SDV IVP (20:33)
[2024-04-06 22:08] VITALS: BP 129/69; PULSE 87; RESP 17; TEMP 37; O2SAT 98
[2024-04-06 22:14] VITALS: BP 112/75; PULSE 82; O2SAT 97
[2024-04-06 22:16] VITALS: BMI 37.6
[2024-04-06 22:35] VITALS: RESP 16
[2024-04-06] MEDS: HYDROmorphone 1 mg/mL INJ 1 mL 0.5 MG IVP (22:35)
[2024-04-06] MEDS: sennosides 8.6 mg Tablet 17.2 MG PO (22:36)
[2024-04-07] VITALS (19 sets, daily range): BP systolic 92–156; BP diastolic 62–97; PULSE 77–118; RESP 16–18; TEMP 36.4–37.2; O2SAT 92–100
--- NOTE | 2024-04-07 07:10 | P.CONIM_ITS ---
Providers/Reason For Consult Consulting Physician/Specialty*: Hospitalist Reason for Consult*: Left intertrochanteric hip fracture Attending Physician: Александр Pineda MD Primary Care Provider: Nikos Cortez MD History of Present Illness History of Present Illness Jacquelin Garduno is a 69 year old female patient's report tripping with her cane falling onto her knee and left hip. She sustained a left injury greater trochanteric hip fracture. The x-rays do not show any evidence of any fracture. Review of Systems General: Reports: 10 or more systems reviewed and unremarkable except in HPI and below Const: Reports: other (Fall); Denies: fever(s) or chills Card: Denies: chest pain Resp: Denies: dyspnea or productive cough GI: Denies: abdominal pain, nausea, vomiting or diarrhea : Denies: flank pain Musc: Reports: joint pain (Left hip and left knee); Denies: neck pain, back pain, extremity pain, extremity swelling, joint swelling, joint redness, joint warmth, limited range of motion or muscle weakness Skin/Breast: Denies: rash Neuro: Denies: headache(s), numbness in extremities or weakness in extremities Medications/Allergies Home Medications Medication Instructions Recorded Confirmed Last Taken Type atorvastatin 40 mg tablet (Lipitor) 40 mg PO BEDTIME 08/07/19 03/02/24 03/01/24 History aspirin 325 mg tablet 325 mg PO DAILY 10/18/19 02/26/24 02/24/24 History cyclobenzaprine 10 mg tablet 10 mg PO TID PRN Muscle Spasm 10/18/19 02/26/24 Unknown History lisinopril 40 mg tablet 40 mg PO QAM 10/18/19 03/02/24 03/01/24 History ascorbic acid (vitamin C) 500 mg 500 mg PO DAILY 05/12/21 03/02/24 03/01/24 History tablet (Vitamin C) multivitamin 1 tab PO DAILY 05/12/21 03/02/24 03/01/24 History insulin glargine 100 unit/mL (3 20 unit (0.2 mL) SUBCUT QPM #15 mL 05/18/21 03/02/24 02/29/24 Rx mL) subcutaneous pen pantoprazole 40 mg tablet,delayed 40 mg PO DAILY #14 tabs 05/18/21 03/02/24 03/01/24 Rx release Walker #1 ea 05/29/21 02/26/24 Unknown Rx blood-glucose meter,continuous #1 ea 08/07/21 02/26/24 Unknown Rx (Dexcom G6 Stripper Black And White) blood-glucose sensor (Dexcom G6 #3 ea 08/07/21 02/26/24 Unknown Rx Sensor device) blood-glucose transmitter (Dexcom #1 ea 08/07/21 02/26/24 Unknown Rx G6 Transmitter device) insulin lispro 100 unit/mL See Rx Instructions SUBCUT BID 08/07/21 03/02/24 02/29/24 History subcutaneous half-unit pen (Humalog Lior KwikPen (U-100)) Diabetic Shoes with 3 pairs of #1 ea 09/03/21 02/26/24 Unknown Rx inserts albuterol sulfate 90 mcg/actuation 2 inh inhalation Q4H PRN shortness 04/11/22 02/26/24 Unknown Rx aerosol inhaler of breath or wheezing #18 grams Diabetic shoes with Custom molded #1 ea 02/04/24 02/26/24 Unknown Rx insoles Allergies Allergy/AdvReac Type Severity Reaction Status Date / Time ibuprofen Allergy ALGY-Rash Verified 03/02/24 06:44 Current Medications Generic Name Dose Route Start Last Admin Trade Name Freq PRN Reason Stop Dose Admin Hydromorphone HCl 0.5 mg 04/06/24 22:08 04/06/24 22:35 Hydromorphone 1 Mg/Ml Inj 1 Ml IVP 0.5 mg Q3H PRN Administration severe pain Senna 17.2 mg 04/06/24 22:08 04/06/24 22:36 Sennosides 8.6 Mg Tablet PO 17.2 mg BEDTIME HERNAN Administration PFSH Acute PFSH: Medical History (Updated 04/06/24 @ 19:47 by Александр Pineda MD) Gout attack Gout Rotator cuff arthropathy of both shoulders Congestive heart failure -normal EF per stress echo done 11/2015 -continue diuretics Cardiomyopathy Hypertension Gastroesophageal reflux Gall bladder disease Diabetes mellitus, type II -has known hx of NIDDM type II, last A1c-8.4 (05/2019) -complicated by peripheral neuropathy and nephropathy Surgical History History of cardiac cath H/O shoulder surgery Bilateral Hx of cholecystectomy History of appendectomy History of delivery Family History Other Diabetes Social History Smoking and tobacco/nicotine status: current every day tobacco/nicotine user Alcohol intake: never Substance/Drug Use: never Lives independently: Yes Household members: spouse Vitals/I&O/Wt Last Vital Signs Temp 98.3 F 04/07/24 04:00 Pulse 77 04/07/24 04:00 Resp 17 04/07/24 04:00 BP 128/75 04/07/24 04:00 Pulse Ox 95 04/07/24 04:00 O2 Del Method Room Air 04/07/24 00:00 04/06/24 04/07/24 04/07/24 22:59 06:59 14:59 Output Total 900 / 900 Balance -900 / -900 Weight last 48 hrs Weight 212 lb 9.6 oz Weight 212 lb 9.6 oz Physical Exam Narrative: Currently patient is resting bed comfortably. She is not in pain laying in bed. Left leg is somewhat externally rotated and shortened. She has an abrasion over her left knee. Urinary Catheter Management: Schaffer: Cath Placed During This Visit: yes Reason for Continuing Indwelling Catheter: Other Urinary Catheter Date of Insertion: 04/06/24 Urinary Catheter Time of Insertion: 22:15 A&P Assessment and plan (1) Closed hip fracture: Patient has a left intertrochanteric hip fracture. Plan will be to do an intramedullary nail today. I had an open and honest discussion with the patient about the risks, benefits and alternatives to both surgical and nonsurgical treatment. The patient verbalized understanding of the inherent unpredictability associated with surgery. Risk of surgery were discussed including, but not limited to, infection, bleeding, temporary and permanent nerve damage, continued pain, stiffness, incomplete healing, need for revision surgery, blood clot and other complications. The patient verbalized understanding that there is spine is elective in nature and if they find any of these risks to be unacceptable then they should choose not to have the surgery. The patient verbalized understanding of these risks and elected to proceed with the surgery. Qualifiers: Encounter type: initial encounter Laterality: left Qualified Code(s): S72.002A - Fracture of unspecified part of neck of left femur, initial encounter for closed fracture Coding Level of Care Code Acute Code for Chg Fwd Diagnoses Closed hip fracture S72.002A Encounter type: initial encounter Laterality: left
--- NOTE | 2024-04-07 08:30 | P.PN_ITS ---
Subjective 2 Subjective: Seen this morning. No labs available from admission or overnight. ? Ordered CBC CMP magnesium PT/INR chest x-ray EKG as preop workup Check urinalysis Patient had a mechanical fall Is on Lantus at home and takes a sliding scale. Vitals/I&O/Wt Last Vital Signs Temp 98.1 F 04/07/24 11:35 Pulse 82 04/07/24 11:35 Resp 17 04/07/24 11:35 BP 126/69 04/07/24 11:35 Pulse Ox 94 04/07/24 11:35 O2 Del Method Room Air 04/07/24 11:35 04/06/24 04/07/24 04/07/24 22:59 06:59 14:59 Output Total 900 / 900 250 / 250 Balance -900 / -900 -250 / -250 Weight last 48 hrs Weight 96.434 kg Weight 96.434 kg Physical Exam 2 Narrative: General: Patient is awake and alert. Head: Normocephalic. Atraumatic. EOM intact. Cardiovascular: RRR. No gallops. No murmurs. No peripheral edema. Lungs: Clear to auscultation, no use of accessory muscles, no crackles or wheezes. Abdomen: Normal bowel sounds, abdomen soft and nontender. Extremities: No cyanosis or clubbing. Abrasion present on left anterior knee. Musculoskeletal: No erythematous joints. Neurological: Moves all 4 extremities. No myoclonus. Pedal pulses intact. Urinary Catheter Management: Schaffer: Cath Placed During This Visit: yes Reason for Continuing Indwelling Catheter: Other Urinary Catheter Date of Insertion: 04/06/24 Urinary Catheter Time of Insertion: 22:15 Data 04/07/24 10:03 04/07/24 10:03 A&P Assessment and plan (1) Closed hip fracture: Left sided hip fracture 2/2 mechanical fall Strict bed rest Orthopedics Dr Mcgowan consulted by ED, plan for surgery tomorrow NPO after midnight Schaffer catheter Multimodal pain control with bowel regimen Preop workup ordered CMP CBC INR EKG chest x-ray, all pending at this time. Qualifiers: Encounter type: initial encounter Laterality: left Qualified Code(s): S72.002A - Fracture of unspecified part of neck of left femur, initial encounter for closed fracture (2) Diabetes mellitus, type II: Continue home Lantus at reduce rate Plan for sliding scale insulin once diet resumes Avoid hypoglycemia Hold Trulicity (3) Hyperlipemia, mixed: Continue statin (4) Hypertension: Hold lisinopril at this time secondary to anticipated surgery ? Continue hydralazine 5 mg every 4 hours as needed Continue aspirin, atorvastatin (5) Anemia: Monitor blood counts (6) UTI (urinary tract infection): Placed on ceftriaxone daily ? Awaiting urine culture Plan DVT: SCD d/t surgery tomorrow Attestations 2 Medical Necessity Statement*: Hip fracture. Diagnoses Closed hip fracture S72.002A Encounter type: initial encounter Laterality: left Type 2 diabetes mellitus with diabetic polyneuropathy, without long-term current use of insulin E11.9 Hyperlipemia, mixed E78.2 Hypertension I10 Anemia D64.9 UTI (urinary tract infection) N39.0
--- NOTE | 2024-04-07 08:54 | XR_ITS ---
WS: [id number] Exam: XR chest 1V portable [id number] Date/Time of Exam: 04/07/2024 8:56 AM Reason For Exam: pre surgery Comparison 04/11/2022. Lungs are fully expanded and clear. Normal cardiomediastinal silhouette and bony structures. No pleur al effusions. Rotator cuff anchoring screws in both humeral heads. DJD of both shoulders most severe on the LEFT. XR/XR chest 1V portable [id number] IMPRESSION: 1. No acute cardiopulmonary finding.
[2024-04-07] MEDS: HYDROmorphone 1 mg/mL INJ 1 mL 0.5 MG IVP (09:55)
--- NOTE | 2024-04-07 09:58 | PC.CHAP ---
Pastoral Care Encounter/Spiritual Assessment Type of Contact [] Declined client relationship executive visit [] Patient/Family/Request visit [] Outpatient visit [] Follow-up visit [] Physician referral [] Code/Alert [x] Routine visit [] Staff referral [] Actively dying [] Patient sleeping [] Family support [] [] Out of room [] Palliative care [] [] Receiving care in room [] Pre-surgical visit [] Trauma [] Long length of stay [] ICU visit [] Other: Relational/Emotional Strength [x] Patient feels connected with others/family/visitors/staff [] Distress [] Loneliness/isolation [] Abandonment Spirituality of Patient [x] Person of [place] [] Attends Baptism of their [place] [x] Believes in Prayer [] Reads Bible or Hinduism materials [] There are Spiritual issues to be addressed [employer]ier Apprentice Interventions [x] Prayer [x] Active listening [] Non-anxious presence [x] Spiritual/emotional support [] Crisis/trauma care [] Spiritual counseling [] Bereavement support [] Provided bereavement packet [] Provided Bible/devotional materials [] Provided toy/stuffed animal, coloring book to patient or family member [] Provided Communion [] Anointing/[place] [] Salvation [x] Completed spiritual assessment [] Other: Impact on Illness or Injury [] Angry [] Fearful [] Anxious [] Often cries [] Exhaustion [] Unable to work [] Unable to attend sikhism [] Unable to walk/stand [] Unable to read [] Unable to drive [] Unable to eat/drink [] Unable to sleep [] Unable to be with family [] Patient intubated [] Other: Summary Time spent with patient 5 min
[2024-04-07 10:31] LABS: Glucose Point of Care 168 mg/dL (70-110)
[2024-04-07] MEDS: sodium chloride 0.9% 1,000 ML 75 ML IV ×2 (10:31→23:10)
[2024-04-07 10:48] LABS: Basophils % 0.2 %; Eosinophils # 0.1 10^3/uL (0.0-0.8); Eosinophils % 1.1 %; Hematocrit 34.9 % (36-47); Lymphocytes # 1.9 10^3/uL (0.8-4.8); Lymphocytes % 20.3 %; Mean Corpuscular HGB Conc 32.4 g/dL (30-55); Mean Corpuscular Hemoglobin 25.3 pg (27-33); Mean Corpuscular Volume 78.1 fl (85-98); Mean Platelet Volume 10.2 fL (7.4-10.4); Monocytes # 0.8 10^3/uL (0.2-0.9); Monocytes % 8.5 %; Neutrophils # 6.55 10^3/uL (1.8-7.7); Neutrophils % 69.6 %; Nucleated Red Blood Cells % 0 %; Platelet Count 193 10^3/cmm (157-399); Red Blood Count 4.47 10^6/uL (3.85-5.65); Red Cell Distribution Width 15.6 % (12.1-15.1); White Blood Count 9.41 10^3/uL (3.29-11.43)
[2024-04-07 10:53] LABS: Bilirubin Urine Negative (Negative); Blood Urine 2+ (Negative); Glucose Urine UA Negative (Normal); Ketones Urine Negative (Negative); Leukocyte Esterase Urine 3+ (Negative); Nitrate Urine Negative (Negative); Protein Urine Negative (Negative); Urine Appearance Clear (CLEAR); Urine Color Yellow (Yellow); pH Urine 5.5 (5-7)
[2024-04-07 11:01] LABS: Add Urine Microscopic? YES; Bacteria Urine None Seen /hpf; Hyaline Casts Urine 0.81 /lpf; Squamous Epithelial Cell Urine 0-5 /hpf (0-5); WBC Urine 51-100 /hpf (0-5)
[2024-04-07 11:02] LABS: Add Urine Culture? Yes
[2024-04-07 11:06] LABS: Alanine Aminotransferase 31 U/L (0-33); Albumin Level 3.5 g/dL (3.5-5.2); Alkaline Phosphatase 111 U/L (35-105); Aspartate Amino Transferase 28 U/L (0-32); Blood Urea Nitrogen 20 mg/dL (8-23); Calcium 7.8 mg/dL (8.5-10.5); Carbon Dioxide 23 mmol/L (22-29); Chloride 96 mmol/L (98-107); Creatinine Clr Calc Pharmacy 74.3895; Glomerular Filtration Rate 83.2 mL/min (90-130); Glucose 184 mg/dL (65-115); Magnesium 1.8 mg/dL (1.7-2.3); Osmolality Calculated 277 mOsm/kg (285-295); Sodium 130 mmol/L (136-145); Total Bilirubin 0.4 mg/dL (0.15-1.2); Total Protein 6.5 g/dL (6.6-8.7)
--- NOTE | 2024-04-07 13:38 | PC.NURSE ---
patient off the floor for surgery at 1330.
[2024-04-07] MEDS: sodium chloride 0.9% 1,000 ML 30 ML IV (14:45)
--- NOTE | 2024-04-07 14:48 | P.ANESASSM_ITS ---
Pre-Anesthetic Assessment Height/Weight: Height 1.6 m Weight 96.434 kg Temp Pulse Resp BP Pulse Ox O2 Del Method 99.0 F 82 17 136/77 96 Room Air 04/07/24 13:40 04/07/24 13:40 04/07/24 13:40 04/07/24 13:40 04/07/24 13:40 04/07/24 13:40 Preop Diagnosis: Left intertrochanteric hip fracture Operation Date: 04/07/24 16:05 Proposed Procedures p Trochanteric Femoral Nail(Left) - Josep Mcgowan, DO Familial anesthetic complications: None Was Beta Keyanna taken within 24 hours: N/A Was Clonidine taken within 24 hours: N/A Last intake: Intake Last Liquid Date 04/06/24 Last Liquid Time 23:00 Last Solid Date 04/06/24 Last Solid Time 16:00 Social Tobacco and No alcohol Exam alert, oriented x 3, clear to auscultation bilaterally and regular rate & rhythm Airway Mallampati: Class I Dentition: chipped (Poor dentition, one black) CV/HEM Hypertension Metabolic Diabetes Mellitus Anesthetic Plan ASA status: 3 Anesthesia: General Other: RSI for dulaglutide Risk of > 500 ml blood loss (7ml/kg in children): No Medications/Allergies Home Medications Medication Instructions Recorded Confirmed Last Taken Type aspirin 325 mg tablet 325 mg PO DAILY 10/18/19 04/07/24 02/24/24 History lisinopril 40 mg tablet 40 mg PO QAM 10/18/19 04/07/24 03/01/24 History ascorbic acid (vitamin C) 500 mg 500 mg PO DAILY 05/12/21 04/07/24 03/01/24 History tablet (Vitamin C) multivitamin 1 tab PO DAILY 05/12/21 04/07/24 03/01/24 History pantoprazole 40 mg tablet,delayed 40 mg PO DAILY #14 tabs 05/18/21 04/07/24 03/01/24 Rx release Walker #1 ea 05/29/21 04/07/24 Unknown Rx blood-glucose meter,continuous #1 ea 08/07/21 04/07/24 Unknown Rx (Dexcom G6 Skin Care Instructor) blood-glucose sensor (Dexcom G6 #3 ea 08/07/21 04/07/24 Unknown Rx Sensor device) blood-glucose transmitter (Dexcom #1 ea 08/07/21 04/07/24 Unknown Rx G6 Transmitter device) insulin lispro 100 unit/mL See Rx Instructions SUBCUT BID 08/07/21 04/07/24 02/29/24 History subcutaneous half-unit pen (Humalog Lior JorgePen (U-100)) Diabetic Shoes with 3 pairs of #1 ea 09/03/21 04/07/24 Unknown Rx inserts Diabetic shoes with Custom molded #1 ea 02/04/24 04/07/24 Unknown Rx insoles atorvastatin 80 mg tablet 80 mg PO DAILY 04/07/24 04/07/24 Unknown History bumetanide 0.5 mg tablet 0.5 mg PO DAILY 04/07/24 04/07/24 Unknown History dulaglutide 0.75 mg/0.5 mL 0.75 mg SUBCUT Q7D 04/07/24 04/07/24 Unknown History subcutaneous pen injector (Trulicity) dulaglutide 1.5 mg/0.5 mL 1.5 mg SUBCUT Q7D 04/07/24 04/07/24 Unknown History subcutaneous pen injector (Trulicity) dulaglutide 3 mg/0.5 mL 3 mg SUBCUT Q7D 04/07/24 04/07/24 Unknown History subcutaneous pen injector (Trulicity) hydrochlorothiazide 12.5 mg tablet 12.5 mg PO DAILY 04/07/24 04/07/24 Unknown History Allergies Allergy/AdvReac Type Severity Reaction Status Date / Time ibuprofen Allergy ALGY-Rash Verified 03/02/24 06:44 Current Medications Generic Name Dose Route Start Last Admin Trade Name Freq PRN Reason Stop Dose Admin Hydromorphone HCl 0.5 mg 04/06/24 22:08 04/07/24 09:55 Hydromorphone 1 Mg/Ml Inj 1 Ml IVP 0.5 mg Q3H PRN Administration severe pain Sodium Chloride 1,000 mls @ 75 mls/hr 04/07/24 10:15 04/07/24 10:31 Sodium Chloride 0.9% IV 75 mls/hr .[id number] HERNAN Administration Insulin Human Lispro 0 unit 04/07/24 12:00 04/07/24 11:36 Insulin Lispro 100 Unit/1 Ml SUBCUT Not Given WM&BEDTIME [facility] Protocol Senna 17.2 mg 04/06/24 22:08 04/06/24 22:36 Sennosides 8.6 Mg Tablet PO 17.2 mg BEDTIME HERNAN Administration PFSH Anesthesia Medical History (Updated 04/07/24 @ 13:30 by Jonelle Millan MD) Gout attack Gout Rotator cuff arthropathy of both shoulders Congestive heart failure -normal EF per stress echo done 11/2015 -continue diuretics Cardiomyopathy Hypertension Gastroesophageal reflux Gall bladder disease Diabetes mellitus, type II -has known hx of NIDDM type II, last A1c-8.4 (05/2019) -complicated by peripheral neuropathy and nephropathy Surgical History History of cardiac cath H/O shoulder surgery Bilateral Hx of cholecystectomy History of appendectomy History of delivery Family History Other Diabetes Social History Smoking and tobacco/nicotine status: current every day tobacco/nicotine user Alcohol intake: never Substance/Drug Use: never Lives independently: Yes Household members: spouse Data Anesthesia 04/07/24 10:03 04/07/24 10:03 Short CBC 04/07/24 Range/Units 10:03 WBC 9.41 (3.29-11.43) 10^3/uL Hgb 11.30 (11.27-16.99) g/dL Hct 34.9 L (36-47) % MCV 78.1 L (85-98) fl Plt Count 193 (157-399) 10^3/cmm Neut % (Auto) 69.6 % Neut # (Auto) 6.55 (1.8-7.7) 10^3/uL BMP 04/07/24 10:03 Sodium 130 L Potassium 4.0 Chloride 96 L Carbon Dioxide 23 BUN 20 Creatinine 0.7 Glucose 184 H Calcium 7.8 L Liver Function 04/07/24 Range/Units 10:03 Total Bilirubin 0.4 (0.15-1.2) mg/dL AST 28 (0-32) U/L ALT 31 (0-33) U/L Alkaline Phosphatase 111 H (35-105) U/L Albumin 3.5 (3.5-5.2) g/dL Urine 04/07/24 Range/Units 10:05 Urine Color Yellow (Yellow) Urine Appearance Clear (CLEAR) Urine pH 5.5 (5-7) Ur Specific [place] 1.010 (1.005-1.030) Urine Protein Negative (Negative) Urine Glucose (UA) Negative (Normal) Urine Ketones Negative (Negative) Urine Nitrate Negative (Negative) Urine Bilirubin Negative (Negative) Ur Leukocyte Esterase 3+ A (Negative) Urine RBC 11-20 H (0-2) /hpf Urine WBC 51-100 H (0-5) /hpf Coags 04/07/24 10:03 PT 13.50 INR 1.00 Cardiac Studies: 2 No Data to Display
--- NOTE | 2024-04-07 14:58 | SC_ITS ---
WS: [id number] Exam: C-arm FL for CVA [id number] Date/Time of Exam: 04/07/2024 2:58 PM Reason For Exam: LT FEMORAL NAIL Intraoperative AP and lateral C-arm images of the LEFT hip are submitted. There is internal fixation involving an intertrochanteric fracture of the LEFT hip with an intramedul ramiro neto and femoral neck screw. Fracture position is satisfactory for healing.
[2024-04-07] MEDS: ceFAZolin 2,000 mg SDV 2000 MG IVP (15:34)
--- NOTE | 2024-04-07 16:57 | PM.OP ---
Operative Report Date of procedure: April 07, 2024 Pre-op diagnosis: Left intertrochanteric hip fracture Post-op diagnosis: same Procedure done: Left intramedullary hip nail Surgeon: Josep Mcgowan DO Estimated blood loss (mL): 50 Procedure: Left intramedullary hip nail Patient is brought the op suite after undergoing anesthesia was placed in the supine position on the fracture table. All his impingement well-padded. Patient's prepped draped real sterile fashion. Skin incision made over the Left hip. The starting pin was inserted into the left greater trochanter tip. AP lateral fluoroscopy and shows improved position. Wire was driven in. The opening reamer was then inserted. In the proximal femur was opened. The proximal part of the femur was too tight to place initially so I reamed up to 12 mm. A gamma nail was then inserted and the pathway for the screw was centered for the center center position of the femoral head. The guide was then placed on the skin the skin incisions made in the tissue protector was then passed against the femur. The guidewire was passed into the center center position of the femoral head. It was measured to be 100mm length. I put in I drilled to 100 mm. A 100 mm screw was placed. The locking bolt was then placed proximally. Next at the attension was brought to the distal locking screw. This was again a tissue protector then passed after incision was made to the femur. The femur was drilled and a distal locking screw was placed measuring 37.5 mm. AP and lateral fluoroscopy ensured that the hardware and fracture in good position. Wounds were irrigated and closed with Vicryl and nylon jonh. Sterile dressings were applied patient transferred to the PACU in stable condition
--- NOTE | 2024-04-07 17:20 | ANE.PACU2 ---
Inpatient post-anesthesia follow up: Airway intact: Yes Vital signs: Temperature 97.6 F Pulse Rate 77 Respiratory Rate 18 Blood Pressure 124/78 Pulse Oximetry 93 Oxygen Delivery Me thod Room Air Oxygen Flow Rate 8 Fraction of Inspir ed Oxygen Hydration adequate: Yes Nausea and vomiting: No Pain level: 1 Mental status: Baseline
[2024-04-07 17:31] LABS: Glucose Point of Care 180 mg/dL (70-110)
[2024-04-07] MEDS: oxyCODONE 5 mg IR Tab/Cap PO ×2 (19:38→23:38)
[2024-04-07 21:50] LABS: Glucose Point of Care 308 mg/dL (70-110)
[2024-04-07] MEDS: insulin lispro 100 unit/1 mL SUBCUT (21:53)
[2024-04-07] MEDS: sennosides 8.6 mg Tablet 17.2 MG PO (21:54)
[2024-04-07] MEDS: cefTRIAXone 1,000 mg SDV 1000 MG IVP (23:10)
[2024-04-08] VITALS (11 sets, daily range): BP systolic 111–158; BP diastolic 64–82; PULSE 77–99; RESP 14–18; TEMP 36.4–37.1; O2SAT 93–99
[2024-04-08] MEDS: oxyCODONE 5 mg IR Tab/Cap PO ×5 (03:22→23:34)
[2024-04-08 06:12] LABS: Basophils % 0.2 %; Eosinophils % 0.2 %; Hematocrit 31.5 % (36-47); Lymphocytes % 10.4 %; Mean Corpuscular HGB Conc 32.4 g/dL (30-55); Mean Corpuscular Hemoglobin 26.3 pg (27-33); Mean Corpuscular Volume 81.2 fl (85-98); Mean Platelet Volume 10.3 fL (7.4-10.4); Monocytes # 0.6 10^3/uL (0.2-0.9); Monocytes % 5.9 %; Neutrophils # 7.93 10^3/uL (1.8-7.7); Neutrophils % 82.9 %; Nucleated Red Blood Cells % 0 %; Platelet Count 180 10^3/cmm (157-399); Red Blood Count 3.88 10^6/uL (3.85-5.65); Red Cell Distribution Width 15.6 % (12.1-15.1); White Blood Count 9.58 10^3/uL (3.29-11.43)
[2024-04-08 06:30] LABS: Anion Gap 14.3 (5-19); Blood Urea Nitrogen 15 mg/dL (8-23); Calcium 7.8 mg/dL (8.5-10.5); Carbon Dioxide 21 mmol/L (22-29); Chloride 99 mmol/L (98-107); Creatinine Clr Calc Pharmacy 75.9896; Glomerular Filtration Rate 99.4 mL/min (90-130); Glucose 207 mg/dL (65-115); Magnesium 1.9 mg/dL (1.7-2.3); Osmolality Calculated 277 mOsm/kg (285-295); Potassium 4.3 mmol/L (3.5-5.1); Sodium 130 mmol/L (136-145)
[2024-04-08 06:32] LABS: Glucose Point of Care 144 mg/dL (70-110)
[2024-04-08 06:37] LABS: Glucose Point of Care 211 mg/dL (70-110)
--- NOTE | 2024-04-08 07:49 | PM.PN ---
Subjective Subjective: Patient complaining of hip and left knee pain. Stated that it took 4 people to get her up to the commode. Currently she is sitting on the commode complaining of pain. Likely will need to go to the longterm. Vitals/I&O/Wt Last Vital Signs Temp 97.6 F 04/08/24 03:45 Pulse 77 04/08/24 03:45 Resp 15 04/08/24 03:45 BP 124/78 04/08/24 03:45 Pulse Ox 93 04/08/24 03:45 O2 Del Method Room Air 04/08/24 03:45 O2 Flow Rate 8 04/07/24 17:00 04/07/24 04/08/24 04/08/24 22:59 06:59 14:59 Intake Total 134.5 / 134.5 948.75 / 1083.25 Output Total 1025 / 1275 200 / 1475 Balance -890.5 / -1140.5 748.75 / -391.75 Weight last 48 hrs Weight 220 lb 14.4 oz Weight 212 lb 9.6 oz Weight 212 lb 9.6 oz Physical Exam Narrative: Abrasion over left knee x-rays were negative. Patient is currently on the commode. Wound dressing looks clean dry and intact. Urinary Catheter Management: Schaffer: Cath Placed During This Visit: yes, but has since been removed by the nurse Reason for Continuing Indwelling Catheter: Other Urinary Catheter Date of Insertion: 04/06/24 Urinary Catheter Time of Insertion: 22:15 Date Urinary Catheter Removed: 04/08/24 Time Urinary Catheter Discontinued: 06:46 Data 04/08/24 05:23 04/08/24 05:23 A&P Assessment and plan (1) Closed hip fracture: Postop day #1 left hip nail. Patient complaining of knee pain. Ice to left knee and left hip Likely discharge planning to longterm Follow-up in orthopedic clinic in 2 weeks. DVT prophylaxis per hospitalist. Qualifiers: Encounter type: initial encounter Laterality: left Qualified Code(s): S72.002A - Fracture of unspecified part of neck of left femur, initial encounter for closed fracture Attestations Medical Necessity Statement*: Per primary service Coding Level of Care Code Acute Code for Chg Fwd Diagnoses Closed hip fracture S72.002A Encounter type: initial encounter Laterality: left
[2024-04-08] MEDS: pantoprazole DR 40 mg Tablet PO (08:41)
[2024-04-08] MEDS: aspirin 325 mg Tablet PO (08:41)
[2024-04-08] MEDS: atorvastatin 40 mg Tablet 80 MG PO (08:41)
[2024-04-08] MEDS: hydroCHLOROthiazide 25 mg Tablet 12.5 MG PO (08:41)
[2024-04-08] MEDS: insulin lispro 100 unit/1 mL SUBCUT ×4 (08:41→21:46)
[2024-04-08 11:05] LABS: Glucose Point of Care 296 mg/dL (70-110)
--- NOTE | 2024-04-08 16:31 | P.PN_ITS ---
Subjective 2 Subjective: No acute overnight events noted Medications: Reviewed: Yes Vitals/I&O/Wt Last Vital Signs Temp 97.9 F 04/08/24 11:30 Pulse 86 04/08/24 11:30 Resp 16 04/08/24 12:25 BP 111/73 04/08/24 11:30 Pulse Ox 97 04/08/24 11:30 O2 Del Method Room Air 04/08/24 11:30 O2 Flow Rate 8 04/07/24 17:00 04/08/24 04/08/24 04/08/24 06:59 14:59 22:59 Intake Total 948.75 / 1083.25 340 / 340 Output Total 200 / 1475 Balance 748.75 / -391.75 340 / 340 Weight last 48 hrs Weight 100.199 kg Weight 96.434 kg Weight 96.434 kg Physical Exam 2 Narrative: General: Patient is awake and alert. Head: Normocephalic. Atraumatic. EOM intact. Cardiovascular: RRR. No gallops. No murmurs. No peripheral edema. Lungs: Clear to auscultation, no use of accessory muscles, no crackles or wheezes. Abdomen: Normal bowel sounds, abdomen soft and nontender. Extremities: No cyanosis or clubbing. Abrasion present on left anterior knee. Musculoskeletal: No erythematous joints. Neurological: Moves all 4 extremities. No myoclonus. Pedal pulses intact. Urinary Catheter Management: Schaffer: Cath Placed During This Visit: yes, but has since been removed by the nurse Reason for Continuing Indwelling Catheter: Other Urinary Catheter Date of Insertion: 04/06/24 Urinary Catheter Time of Insertion: 22:15 Date Urinary Catheter Removed: 04/08/24 Time Urinary Catheter Discontinued: 06:46 Data 04/08/24 05:23 04/08/24 05:23 Micro: Microbiology 04/07/24 10:05 Urine Culture - Preliminary Urine,Clean Catch A&P Assessment and plan (1) Closed hip fracture: Left sided hip fracture 2/2 mechanical fall Strict bed rest Orthopedics Dr Mcgowan consulted by ED, plan for surgery tomorrow NPO after midnight Schaffer catheter Multimodal pain control with bowel regimen Preop workup ordered CMP CBC INR EKG chest x-ray, all pending at this time. Qualifiers: Encounter type: initial encounter Laterality: left Qualified Code(s): S72.002A - Fracture of unspecified part of neck of left femur, initial encounter for closed fracture (2) Diabetes mellitus, type II: Continue home Lantus at reduce rate Plan for sliding scale insulin once diet resumes Avoid hypoglycemia Hold Trulicity (3) Hyperlipemia, mixed: Continue statin (4) Hypertension: Hold lisinopril at this time secondary to anticipated surgery ? Continue hydralazine 5 mg every 4 hours as needed Continue aspirin, atorvastatin (5) Anemia: Monitor blood counts (6) UTI (urinary tract infection): Placed on ceftriaxone daily ? Awaiting urine culture Plan DVT: SCD d/t surgery tomorrow 04/08/24 She is s/p left hip nail for hip fracture Follow-up orthopedics for further recommendations Will need subacute rehab Will do p.o. Eliquis 2.5 mg twice daily for DVT prophylaxis. Attestations 2 Medical Necessity Statement*: Need continued hospitalization for management of postop care for left hip. Time Spent in Patient Care: 20 minutes Coding Level of Care Code Acute Code for [facility] Diagnoses Closed hip fracture S72.002A Encounter type: initial encounter Laterality: left Type 2 diabetes mellitus with diabetic polyneuropathy, without long-term current use of insulin E11.9 Hyperlipemia, mixed E78.2 Hypertension I10 Anemia D64.9 UTI (urinary tract infection) N39.0 Time Spent (min) 20
[2024-04-08 16:44] LABS: Glucose Point of Care 292 mg/dL (70-110)
[2024-04-08] MEDS: sodium chloride 0.9% 1,000 ML 75 ML IV (17:55)
[2024-04-08 21:31] LABS: Glucose Point of Care 303 mg/dL (70-110)
[2024-04-08] MEDS: apixaban 5 mg Tablet 2.5 MG PO (21:45)
[2024-04-08] MEDS: sennosides 8.6 mg Tablet 17.2 MG PO (21:45)
[2024-04-08] MEDS: cefTRIAXone 1,000 mg SDV 1000 MG IVP (23:33)
[2024-04-09] VITALS (7 sets, daily range): BP systolic 128–158; BP diastolic 71–90; PULSE 75–101; RESP 14–19; TEMP 36.3–36.9; O2SAT 94–99
[2024-04-09 05:45] LABS: Basophils % 0.2 %; Eosinophils # 0.1 10^3/uL (0.0-0.8); Eosinophils % 1.2 %; Hematocrit 28.4 % (36-47); Lymphocytes # 1.9 10^3/uL (0.8-4.8); Lymphocytes % 22.7 %; Mean Corpuscular HGB Conc 31.7 g/dL (30-55); Mean Corpuscular Hemoglobin 25.9 pg (27-33); Mean Corpuscular Volume 81.8 fl (85-98); Mean Platelet Volume 10.3 fL (7.4-10.4); Monocytes # 0.7 10^3/uL (0.2-0.9); Monocytes % 8.5 %; Neutrophils # 5.44 10^3/uL (1.8-7.7); Neutrophils % 66.9 %; Nucleated Red Blood Cells % 0 %; Platelet Count 166 10^3/cmm (157-399); Red Blood Count 3.47 10^6/uL (3.85-5.65); Red Cell Distribution Width 15.8 % (12.1-15.1); White Blood Count 8.14 10^3/uL (3.29-11.43)
[2024-04-09 06:12] LABS: Anion Gap 14.8 (5-19); Blood Urea Nitrogen 16 mg/dL (8-23); Calcium 7.8 mg/dL (8.5-10.5); Carbon Dioxide 21 mmol/L (22-29); Chloride 101 mmol/L (98-107); Creatinine Clr Calc Pharmacy 76.7219; Glomerular Filtration Rate 83.2 mL/min (90-130); Glucose 210 mg/dL (65-115); Osmolality Calculated 283 mOsm/kg (285-295); Potassium 3.8 mmol/L (3.5-5.1); Sodium 133 mmol/L (136-145)
[2024-04-09] MEDS: sodium chloride 0.9% 1,000 ML 75 ML IV (06:40)
[2024-04-09 06:43] LABS: Glucose Point of Care 252 mg/dL (70-110)
[2024-04-09] MEDS: insulin lispro 100 unit/1 mL SUBCUT ×2 (08:06→11:31)
[2024-04-09] MEDS: hydroCHLOROthiazide 25 mg Tablet 12.5 MG PO (08:07)
[2024-04-09] MEDS: oxyCODONE 5 mg IR Tab/Cap PO ×2 (08:07→11:31)
[2024-04-09] MEDS: atorvastatin 40 mg Tablet 80 MG PO (08:07)
[2024-04-09] MEDS: apixaban 5 mg Tablet 2.5 MG PO (08:07)
[2024-04-09] MEDS: pantoprazole DR 40 mg Tablet PO (08:07)
[2024-04-09] MEDS: aspirin 325 mg Tablet PO (08:07)
[2024-04-09 10:58] LABS: SARS Covid-2 Antigen negative (Negative)
[2024-04-09 11:04] LABS: Glucose Point of Care 313 mg/dL (70-110)
--- NOTE | 2024-04-09 12:29 | P.DS_ITS ---
Discharge Providers Date of Admission: 04/06/24 19:17 Date of Discharge: April 09, 2024 Attending Provider at Admission: Александр Pineda MD Attending Provider at Discharge: Tamara Robert MD Primary Care Provider: Nikos Cortez MD Diagnoses at Discharge Discharge Diagnosis (1) Closed hip fracture: Status: Acute Qualifiers: Encounter type: initial encounter Laterality: left Qualified Code(s): S72.002A - Fracture of unspecified part of neck of left femur, initial encounter for closed fracture (2) Diabetes mellitus, type II: Status: Acute Permanent problem details: -has known hx of NIDDM type II, last A1c-8.4 (05/2019) -complicated by peripheral neuropathy and nephropathy (3) Hyperlipemia, mixed: Status: Acute (4) Hypertension: Status: Acute (5) Anemia: Status: Acute (6) UTI (urinary tract infection): Status: Acute Reason for Visit Reason for Visit: Fall, Hip Pain Brief History: Jacquelin Garduno is a 69 year old female with a past medical history significant for insulin dependent type 2 diabetes mellitus, mixed hyperlipidemia, hy pertension and right diabetic foot wound who presents to the emergency department with severe left-sided hip pain following mechanical fall. She rates her pain greater than 10 out of 10. Movement exacerbates the pain. The pain medication she received in the ED helped the pain somewhat. She reports she tripped over her cane which was the nidus for the fall. She reports the fall was an accident. Was also having associated left knee pain where she has an abrasion. Denies prior hip fractures or dislocations. Denies prior hip surgeries. Denies prior adverse effects to anesthesia. Hospital Course Hospital Course (1) Closed hip fracture: Left sided hip fracture 2/2 mechanical fall Strict bed rest Orthopedics Dr Mcgowan consulted by ED, plan for surgery tomorrow NPO after midnight Schaffer catheter Multimodal pain control with bowel regimen (2) Diabetes mellitus, type II: Continue home Lantus at reduce rate Plan for sliding scale insulin once diet resumes Avoid hypoglycemia Hold Trulicity (3) Hyperlipemia, mixed: Continue statin (4) Hypertension: Hold lisinopril at this time secondary to anticipated surgery ? Continue hydralazine 5 mg every 4 hours as needed Continue aspirin, atorvastatin (5) Anemia: Monitor blood counts (6) UTI (urinary tract infection): Placed on ceftriaxone daily ? Awaiting urine culture Plan DVT: SCD d/t surgery tomorrow 04/08/24 She is s/p left hip nail for hip fracture Follow-up orthopedics for further recommendations Will need subacute rehab Will do p.o. Eliquis 2.5 mg twice daily for DVT prophylaxis. 04/09/24 She is doing better and participating with physical therapy. Will discharge her to SNF today Need to continue with p.o. antibiotics for UTI for 7 days. Physical Exam Narrative: General: Patient is awake and alert. Head: Normocephalic. Atraumatic. EOM intact. Cardiovascular: RRR. No gallops. No murmurs. No peripheral edema. Lungs: Clear to auscultation, no use of accessory muscles, no crackles or wheezes. Abdomen: Normal bowel sounds, abdomen soft and nontender. Extremities: No cyanosis or clubbing. Abrasion present on left anterior knee. Musculoskeletal: No erythematous joints. Neurological: Moves all 4 extremities. No myoclonus. Pedal pulses intact. Urinary Catheter Management: Schaffer: Cath Placed During This Visit: yes, but has since been removed by the nurse Reason for Continuing Indwelling Catheter: Other Urinary Catheter Date of Insertion: 04/06/24 Urinary Catheter Time of Insertion: 22:15 Date Urinary Catheter Removed: 04/08/24 Time Urinary Catheter Discontinued: 06:46 Discharge Data Studies Completed and Pending Completed Studies During Hospitalization Category Date Time Status XR chest 1V portable [id number] Routine Exams 04/07/24 08:54 Completed XR hip LT 2-3V wo/w pel* [id number] Stat Exams 04/06/24 18:41 Completed XR knee LT 3V* [id number] Stat Exams 04/06/24 18:41 Completed Radiology Impressions Hip/Pelvis X-Ray 04/06/24 18:41 IMPRESSION: As above. Knee X-Ray 04/06/24 18:41 IMPRESSION: No acute findings. Chest X-Ray 04/07/24 08:54 IMPRESSION: 1. No acute cardiopulmonary finding. Laboratory Results WBC 8.14 10^3/uL (3.29-11.43) 04/09/24 04:57 RBC 3.47 10^6/uL (3.85-5.65) L 04/09/24 04:57 Hgb 9.00 g/dL (11.27-16.99) L 04/09/24 04:57 Hct 28.4 % (36-47) L 04/09/24 04:57 MCV 81.8 fl (85-98) L 04/09/24 04:57 MCH 25.9 pg (27-33) L 04/09/24 04:57 MCHC 31.7 g/dL (30-55) 04/09/24 04:57 RDW 15.8 % (12.1-15.1) H 04/09/24 04:57 Plt Count 166 10^3/cmm (157-399) 04/09/24 04:57 MPV 10.3 fL (7.4-10.4) 04/09/24 04:57 Neut % (Auto) 66.9 % 04/09/24 04:57 Lymph % (Auto) 22.7 % 04/09/24 04:57 [place] % (Auto) 8.5 % 04/09/24 04:57 Eos % (Auto) 1.2 % 04/09/24 04:57 Baso % (Auto) 0.2 % 04/09/24 04:57 Neut # (Auto) 5.44 10^3/uL (1.8-7.7) 04/09/24 04:57 Lymph # (Auto) 1.9 10^3/uL (0.8-4.8) 04/09/24 04:57 [place] # (Auto) 0.7 10^3/uL (0.2-0.9) 04/09/24 04:57 Eos # (Auto) 0.1 10^3/uL (0.0-0.8) 04/09/24 04:57 Baso # (Auto) 0.0 10^3/uL (0.0-0.1) 04/09/24 04:57 Nucleated RBC % (auto) 0 % 04/09/24 04:57 Nucleated RBCs # 0.0 /100WBC 04/09/24 04:57 PT 13.50 SECONDS (12.1-14.9) 04/07/24 10:03 INR 1.00 (0.8-1.2) 04/07/24 10:03 Sodium 133 mmol/L (136-145) L 04/09/24 04:57 Potassium 3.8 mmol/L (3.5-5.1) 04/09/24 04:57 Chloride 101 mmol/L (98-107) 04/09/24 04:57 Carbon Dioxide 21 mmol/L (22-29) L 04/09/24 04:57 Anion Gap 14.8 (5-19) 04/09/24 04:57 BUN 16 mg/dL (8-23) 04/09/24 04:57 Creatinine 0.7 mg/dL (0.5-0.9) 04/09/24 04:57 GFR Calculation 83.2 mL/min (90-130) L 04/09/24 04:57 Glucose 210 mg/dL (65-115) H 04/09/24 04:57 POC Glucose 313 mg/dL (70-110) H 04/09/24 10:44 Calculated Osmolality 283 mOsm/kg (285-295) L 04/09/24 04:57 Calcium 7.8 mg/dL (8.5-10.5) L 04/09/24 04:57 Magnesium 1.9 mg/dL (1.7-2.3) 04/08/24 05:23 Total Bilirubin 0.4 mg/dL (0.15-1.2) 04/07/24 10:03 AST 28 U/L (0-32) 04/07/24 10:03 ALT 31 U/L (0-33) 04/07/24 10:03 Alkaline Phosphatase 111 U/L (35-105) H 04/07/24 10:03 Total Protein 6.5 g/dL (6.6-8.7) L 04/07/24 10:03 Albumin 3.5 g/dL (3.5-5.2) 04/07/24 10:03 Globulin 3.0 g/dL (1.3-4.6) 04/07/24 10:03 Urine Color Yellow (Yellow) 04/07/24 10:05 Urine Appearance Clear (CLEAR) 04/07/24 10:05 Urine pH 5.5 (5-7) 04/07/24 10:[address] 1.010 (1.005-1.030) 04/07/24 10:05 Urine Protein Negative (Negative) 04/07/24 10:05 Urine Glucose (UA) Negative (Normal) 04/07/24 10:05 Urine Ketones Negative (Negative) 04/07/24 10:05 Urine Blood 2+ (Negative) A 04/07/24 10:05 Urine Nitrate Negative (Negative) 04/07/24 10:05 Urine Bilirubin Negative (Negative) 04/07/24 10:05 Urine Urobilinogen 1.0 mg/dL (Negative) 04/07/24 10:05 Ur Leukocyte Esterase 3+ (Negative) A 04/07/24 10:05 Urine RBC 11-20 /hpf (0-2) H 04/07/24 10:05 Urine WBC 51-100 /hpf (0-5) H 04/07/24 10:05 Ur Squamous Epith Cells 0-5 /hpf (0-5) 04/07/24 10:05 Amorphous Sediment Not Reportable 04/07/24 10:05 Urine Bacteria None seen /hpf (NONE) 04/07/24 10:05 Hyaline Casts 0.81 /lpf 04/07/24 10:05 SARS-CoV-2 Ag (Rapid) negative (Negative) 04/09/24 10:32 Vitals Last Vital Signs Temp 97.8 F 04/09/24 12:20 Pulse 101 H 04/09/24 12:20 Resp 17 04/09/24 12:20 BP 130/90 04/09/24 12:20 Pulse Ox 94 04/09/24 12:20 O2 Del Method Room Air 04/09/24 12:20 O2 Flow Rate 8 04/07/24 17:00 Discharge Plan Discharge Patient Disposition: Xfer SNF Condition: Stable Prescriptions: New Eliquis 5 mg Tablet 2.5 mg PO BID@0900,2100 30 Days Qty: 60 0RF levofloxacin 750 mg tablet 750 mg PO DAILY 7 Days Qty: 7 0RF Continued insulin lispro [Humalog Lior KwikDale U-100] 100 unit/mL insulin pen, half- unit See Rx Instructions SUBCUT BID Rx Instructions: 13:50 sliding scale 140 to 180-4 units, 2:40 2 units for every 40 above 180, maximum 18 tidac aspirin 325 mg Tablet 325 mg PO DAILY lisinopril 40 mg Tablet 40 mg PO QAM multivitamin Tablet 1 tab PO DAILY ascorbic acid (vitamin C) [Vitamin C] 500 mg Tablet 500 mg PO DAILY pantoprazole 40 mg Tablet,Delayed Release (Dr/Ec) 40 mg PO DAILY Qty: 14 0RF atorvastatin 80 mg Tablet 80 mg PO DAILY bumetanide 0.5 mg tablet 0.5 mg PO DAILY hydrochlorothiazide 12.5 mg tablet 12.5 mg PO DAILY Trulicity 1.5 mg/0.5 mL pen injector 1.5 mg SUBCUT Q7D Discontinued Trulicity 0.75 mg/0.5 mL pen injector 0.75 mg SUBCUT Q7D Trulicity 3 mg/0.5 mL pen injector 3 mg SUBCUT Q7D No Action (DME) Walker See Rx Instructions .Route .MEDSUPPLY Qty: 1 0RF Rx Instructions: As directed (DME) Dexcom G6 Accounts Receivable Collector Misc See Rx Instructions .Route Qty: 1 0RF Rx Instructions: Check BS 4-6 times a day. (DME) Dexcom G6 Sensor Device See Rx Instructions .Route Qty: 3 3RF Rx Instructions: Change every 10 days. (DME) Dexcom G6 Transmitter Device See Rx Instructions .Route Qty: 1 3RF Rx Instructions: Change every 90 days. (DME) Diabetic Shoes with 3 pairs of inserts See Rx Instructions .ROUTE .MEDSUPPLY Qty: 1 0RF Rx Instructions: As directed [employer] (DME) Diabetic shoes with Custom molded insoles See Rx Instructions .Route .MEDSUPPLY Qty: 1 0RF Rx Instructions: As directed by [facility] Discharge Orders: Discharge Order (Routine); Ordered 04/09/24 Ordered By: Tamara Robert Referrals: Nikos Cortez MD [Primary Care Provider] - Discharge Diet: Cardiac and Diabetic Discharge Activity: As per PT/OT instructions Patient Instructions: Acute Wound Care (DC), Opioid Safety, Post Anesthesia Care Activity Restrictions/Additional Instructions: You are being discharged from the hospital today during which time you have been under the care of Dr. Mcgowan. You had a left intertrochanteric hip fracture. You were treated for this injury with left intramedullary hip nail. You may resume you normal diet (including any special diets as directed by your primary doctor) as well as your home medications. You should follow up with you primary doctor if you have any questions regarding medication you took prior to your stay in the hospital. You may take your pain medication as prescribed. After the first few days, take your pain medication as needed. Do not drive or drink alcohol while taking your pain medication. Your injury may increase your risk of developing a blood clot,or DVT, in your arm or leg. This could potentially dislodge and travel to your lungs and become a life threatening condition called apulmonary embolus,or PE. You have been prescribed aspirin, Eliquis or Lovenox to be taken to prevent this. Frequent movement of the feet will also help prevent this from occurring. If you develop any new or worsening cough, chestpain, bloody sputum or shortness of breath, call 911 or go to the EmergencyRoom. Always keep your surgical incision/dressing clean and dry. If you experience increasing pain at your incision site, redness, swelling, increasing discharge, foul odors, or fevers (greater than 100.4), night sweats or chills you should call the office at the above number. If you feel this is an emergency you should be evaluated in the Emergency Department of a nearby hospital. Orthopedic Patient Instructions Summary: Weight Bearing: As tolerated Activity: As tolerated. Diet: Regular. Wound Care: Keep dressing clean and dry. Anticoagulation: Eliquis, Lovenox or aspirin Pain Medication: Take only as needed. Ice, rest and elevation will be of great benefit. Please plan to follow-up [facility] Dr Mcgowan in 2 weeks. You will need to call the clinic [phone] to schedule this visit. Thank you far allowing me to participate in your care. Do not hesitate to call the office with any questions or concerns. Discharge Attestations Time Spent in Discharge Care*: less than 30 min Status at Discharge: Cognitive status at discharge: cognitively intact , Behavioral status at discharge: cooperative , Quality Metrics Clinical Quality Measures [ No reported AMI, CVA or VTE this stay] Coding Level of Care Code Acute Code for [facility] Diagnoses Closed hip fracture S72.002A Encounter type: initial encounter Laterality: left Type 2 diabetes mellitus with diabetic polyneuropathy, without long-term current use of insulin E11.9 Hyperlipemia, mixed E78.2 Hypertension I10 Anemia D64.9 UTI (urinary tract infection) N39.0 Time Spent (min) 20
--- NOTE | 2024-04-09 13:12 | PM.DCS ---
Discharge Providers Date of Admission: 04/06/24 19:17 Date of Discharge: April 09, 2024 Attending Provider at Admission: Александр Pineda MD Attending Provider at Discharge: Tamara Robert MD Primary Care Provider: Nikos Cortez MD Diagnoses at Discharge Discharge Diagnosis (1) Closed hip fracture: Status: Acute Qualifiers: Encounter type: initial encounter Laterality: left Qualified Code(s): S72.002A - Fracture of unspecified part of neck of left femur, initial encounter for closed fracture (2) Diabetes mellitus, type II: Status: Acute Permanent problem details: -has known hx of NIDDM type II, last A1c-8.4 (05/2019) -complicated by peripheral neuropathy and nephropathy (3) Hyperlipemia, mixed: Status: Acute (4) Hypertension: Status: Acute (5) Anemia: Status: Acute (6) UTI (urinary tract infection): Status: Acute Reason for Visit Reason for Visit: Fall, Hip Pain Hospital Course Hospital Course (1) Closed hip fracture: Left sided hip fracture 2/2 mechanical fall Strict bed rest Orthopedics Dr Mcgowan consulted by ED, plan for surgery tomorrow NPO after midnight Schaffer catheter Multimodal pain control with bowel regimen (2) Diabetes mellitus, type II: Continue home Lantus at reduce rate Plan for sliding scale insulin once diet resumes Avoid hypoglycemia Hold Trulicity (3) Hyperlipemia, mixed: Continue statin (4) Hypertension: Hold lisinopril at this time secondary to anticipated surgery ? Continue hydralazine 5 mg every 4 hours as needed Continue aspirin, atorvastatin (5) Anemia: Monitor blood counts (6) UTI (urinary tract infection): Placed on ceftriaxone daily ? Awaiting urine culture Plan DVT: SCD d/t surgery tomorrow 04/08/24 She is s/p left hip nail for hip fracture Follow-up orthopedics for further recommendations Will need subacute rehab Will do p.o. Eliquis 2.5 mg twice daily for DVT prophylaxis. 04/09/24 She is doing better and participating with physical therapy. Will discharge her to SNF today Need to continue with p.o. antibiotics for UTI for 7 days. Physical Exam Urinary Catheter Management: Schaffer: Cath Placed During This Visit: yes, but has since been removed by the nurse Reason for Continuing Indwelling Catheter: Other Urinary Catheter Date of Insertion: 04/06/24 Urinary Catheter Time of Insertion: 22:15 Date Urinary Catheter Removed: 04/08/24 Time Urinary Catheter Discontinued: 06:46 Discharge Data Studies Completed and Pending Completed Studies During Hospitalization Category Date Time Status XR chest 1V portable [id number] Routine Exams 04/07/24 08:54 Completed XR hip LT 2-3V wo/w pel* [id number] Stat Exams 04/06/24 18:41 Completed XR knee LT 3V* [id number] Stat Exams 04/06/24 18:41 Completed Radiology Impressions Hip/Pelvis X-Ray 04/06/24 18:41 IMPRESSION: As above. Knee X-Ray 04/06/24 18:41 IMPRESSION: No acute findings. Chest X-Ray 04/07/24 08:54 IMPRESSION: 1. No acute cardiopulmonary finding. Laboratory Results WBC 8.14 10^3/uL (3.29-11.43) 04/09/24 04:57 RBC 3.47 10^6/uL (3.85-5.65) L 04/09/24 04:57 Hgb 9.00 g/dL (11.27-16.99) L 04/09/24 04:57 Hct 28.4 % (36-47) L 04/09/24 04:57 MCV 81.8 fl (85-98) L 04/09/24 04:57 MCH 25.9 pg (27-33) L 04/09/24 04:57 MCHC 31.7 g/dL (30-55) 04/09/24 04:57 RDW 15.8 % (12.1-15.1) H 04/09/24 04:57 Plt Count 166 10^3/cmm (157-399) 04/09/24 04:57 MPV 10.3 fL (7.4-10.4) 04/09/24 04:57 Neut % (Auto) 66.9 % 04/09/24 04:57 Lymph % (Auto) 22.7 % 04/09/24 04:57 [place] % (Auto) 8.5 % 04/09/24 04:57 Eos % (Auto) 1.2 % 04/09/24 04:57 Baso % (Auto) 0.2 % 04/09/24 04:57 Neut # (Auto) 5.44 10^3/uL (1.8-7.7) 04/09/24 04:57 Lymph # (Auto) 1.9 10^3/uL (0.8-4.8) 04/09/24 04:57 [place] # (Auto) 0.7 10^3/uL (0.2-0.9) 04/09/24 04:57 Eos # (Auto) 0.1 10^3/uL (0.0-0.8) 04/09/24 04:57 Baso # (Auto) 0.0 10^3/uL (0.0-0.1) 04/09/24 04:57 Nucleated RBC % (auto) 0 % 04/09/24 04:57 Nucleated RBCs # 0.0 /100WBC 04/09/24 04:57 PT 13.50 SECONDS (12.1-14.9) 04/07/24 10:03 INR 1.00 (0.8-1.2) 04/07/24 10:03 Sodium 133 mmol/L (136-145) L 04/09/24 04:57 Potassium 3.8 mmol/L (3.5-5.1) 04/09/24 04:57 Chloride 101 mmol/L (98-107) 04/09/24 04:57 Carbon Dioxide 21 mmol/L (22-29) L 04/09/24 04:57 Anion Gap 14.8 (5-19) 04/09/24 04:57 BUN 16 mg/dL (8-23) 04/09/24 04:57 Creatinine 0.7 mg/dL (0.5-0.9) 04/09/24 04:57 GFR Calculation 83.2 mL/min (90-130) L 04/09/24 04:57 Glucose 210 mg/dL (65-115) H 04/09/24 04:57 POC Glucose 313 mg/dL (70-110) H 04/09/24 10:44 Calculated Osmolality 283 mOsm/kg (285-295) L 04/09/24 04:57 Calcium 7.8 mg/dL (8.5-10.5) L 04/09/24 04:57 Magnesium 1.9 mg/dL (1.7-2.3) 04/08/24 05:23 Total Bilirubin 0.4 mg/dL (0.15-1.2) 04/07/24 10:03 AST 28 U/L (0-32) 04/07/24 10:03 ALT 31 U/L (0-33) 04/07/24 10:03 Alkaline Phosphatase 111 U/L (35-105) H 04/07/24 10:03 Total Protein 6.5 g/dL (6.6-8.7) L 04/07/24 10:03 Albumin 3.5 g/dL (3.5-5.2) 04/07/24 10:03 Globulin 3.0 g/dL (1.3-4.6) 04/07/24 10:03 Urine Color Yellow (Yellow) 04/07/24 10:05 Urine Appearance Clear (CLEAR) 04/07/24 10:05 Urine pH 5.5 (5-7) 04/07/24 10:05 Ur Specific [place] 1.010 (1.005-1.030) 04/07/24 10:05 Urine Protein Negative (Negative) 04/07/24 10:05 Urine Glucose (UA) Negative (Normal) 04/07/24 10:05 Urine Ketones Negative (Negative) 04/07/24 10:05 Urine Blood 2+ (Negative) A 04/07/24 10:05 Urine Nitrate Negative (Negative) 04/07/24 10:05 Urine Bilirubin Negative (Negative) 04/07/24 10:05 Urine Urobilinogen 1.0 mg/dL (Negative) 04/07/24 10:05 Ur Leukocyte Esterase 3+ (Negative) A 04/07/24 10:05 Urine RBC 11-20 /hpf (0-2) H 04/07/24 10:05 Urine WBC 51-100 /hpf (0-5) H 04/07/24 10:05 Ur Squamous Epith Cells 0-5 /hpf (0-5) 04/07/24 10:05 Amorphous Sediment Not Reportable 04/07/24 10:05 Urine Bacteria None seen /hpf (NONE) 04/07/24 10:05 Hyaline Casts 0.81 /lpf 04/07/24 10:05 SARS-CoV-2 Ag (Rapid) negative (Negative) 04/09/24 10:32 Vitals Last Vital Signs Temp 97.8 F 04/09/24 12:20 Pulse 101 H 04/09/24 12:20 Resp 17 04/09/24 12:20 BP 130/90 04/09/24 12:20 Pulse Ox 94 04/09/24 12:20 O2 Del Method Room Air 04/09/24 12:20 O2 Flow Rate 8 04/07/24 17:00 Discharge Plan Discharge Patient Disposition: Xfer SNF Condition: Stable Prescriptions: New Eliquis 5 mg Tablet 2.5 mg PO BID@0900,2100 30 Days Qty: 60 0RF levofloxacin 750 mg tablet 750 mg PO DAILY 7 Days Qty: 7 0RF oxycodone-acetaminophen [Percocet] 5-325 mg tablet 1 tab PO TID PRN (Reason: pain) Qty: 30 0RF Continued insulin lispro [Humalog Lior KwikPen U-100] 100 unit/mL insulin pen, half-unit See Rx Instructions SUBCUT BID Rx Instructions: 13:50 sliding scale 140 to 180-4 units, 2:40 2 units for every 40 above 180, maximum 18 tidac aspirin 325 mg Tablet 325 mg PO DAILY lisinopril 40 mg Tablet 40 mg PO QAM multivitamin Tablet 1 tab PO DAILY ascorbic acid (vitamin C) [Vitamin C] 500 mg Tablet 500 mg PO DAILY pantoprazole 40 mg Tablet,Delayed Release (Dr/Ec) 40 mg PO DAILY Qty: 14 0RF atorvastatin 80 mg Tablet 80 mg PO DAILY bumetanide 0.5 mg tablet 0.5 mg PO DAILY hydrochlorothiazide 12.5 mg tablet 12.5 mg PO DAILY Held Trulicity 1.5 mg/0.5 mL pen injector 1.5 mg SUBCUT Q7D Hold Instructions: hold Discontinued Trulicity 0.75 mg/0.5 mL pen injector 0.75 mg SUBCUT Q7D Trulicity 3 mg/0.5 mL pen injector 3 mg SUBCUT Q7D No Action (DME) Walker See Rx Instructions .Route .MEDSUPPLY Qty: 1 0RF Rx Instructions: As directed (DME) Dexcom G6 Gun Perforator Loader Misc See Rx Instructions .Route Qty: 1 0RF Rx Instructions: Check BS 4-6 times a day. (DME) Dexcom G6 Sensor Device See Rx Instructions .Route Qty: 3 3RF Rx Instructions: Change every 10 days. (DME) Dexcom G6 Transmitter Device See Rx Instructions .Route Qty: 1 3RF Rx Instructions: Change every 90 days. (DME) Diabetic Shoes with 3 pairs of inserts See Rx Instructions .ROUTE .MEDSUPPLY Qty: 1 0RF Rx Instructions: As directed [employer] (DME) Diabetic shoes with Custom molded insoles See Rx Instructions .Route .MEDSUPPLY Qty: 1 0RF Rx Instructions: As directed by [facility] Discharge Orders: Discharge Order (Routine); Ordered 04/09/24 Ordered By: Tamara Robert Referrals: Nikos Cortez MD [Primary Care Provider] - Discharge Diet: Cardiac and Diabetic Discharge Activity: As per PT/OT instructions Patient Instructions: Acute Wound Care (DC), Opioid Safety, Post Anesthesia Care Activity Restrictions/Additional Instructions: You are being discharged from the hospital today during which time you have been under the care of Dr. Mcgowan. You had a left intertrochanteric hip fracture. You were treated for this injury with left intramedullary hip nail. You may resume you normal diet (including any special diets as directed by your primary doctor) as well as your home medications. You should follow up with you primary doctor if you have any questions regarding medication you took prior to your stay in the hospital. You may take your pain medication as prescribed. After the first few days, take your pain medication as needed. Do not drive or drink alcohol while taking your pain medication. Your injury may increase your risk of developing a blood clot,or DVT, in your arm or leg. This could potentially dislodge and travel to your lungs and become a life threatening condition called apulmonary embolus,or PE. You have been prescribed aspirin, Eliquis or Lovenox to be taken to prevent this. Frequent movement of the feet will also help prevent this from occurring. If you develop any new or worsening cough, chestpain, bloody sputum or shortness of breath, call 911 or go to the EmergencyRoom. Always keep your surgical incision/dressing clean and dry. If you experience increasing pain at your incision site, redness, swelling, increasing discharge, foul odors, or fevers (greater than 100.4), night sweats or chills you should call the office at the above number. If you feel this is an emergency you should be evaluated in the Emergency Department of a nearby hospital. Orthopedic Patient Instructions Summary: Weight Bearing: As tolerated Activity: As tolerated. Diet: Regular. Wound Care: Keep dressing clean and dry. Anticoagulation: Eliquis, Lovenox or aspirin Pain Medication: Take only as needed. Ice, rest and elevation will be of great benefit. Please plan to follow-up wlth Dr Mcgowan in 2 weeks. You will need to call the clinic [phone] to schedule this visit. Thank you far allowing me to participate in your care. Do not hesitate to call the office with any questions or concerns. Discharge Attestations Time Spent in Discharge Care*: less than 30 min Status at Discharge: Cognitive status at discharge: cognitively intact, Behavioral status at discharge: cooperative, Quality Metrics Clinical Quality Measures [ No reported AMI, CVA or VTE this stay] Coding Level of Care Code Acute Code for Chg Fwd Diagnoses Closed hip fracture S72.002A Encounter type: initial encounter Laterality: left Type 2 diabetes mellitus with diabetic polyneuropathy, without long-term current use of insulin E11.9 Hyperlipemia, mixed E78.2 Hypertension I10 Anemia D64.9 UTI (urinary tract infection) N39.0
--- NOTE | 2024-04-09 13:47 | PC.NURSE ---
This nurse gave report to ABEL Campos at [facility] at 1345. [facility] expected to be here in 45 mins to transport pt.
== END 2024-04-09 14:38 | disposition skilled nursing facility (03) | DRG 481 ==
LOC: ER 19:45 → MEDSURG 20:40
PROVIDERS: Internal Medicine; Orthopaedic Surgery; Admitting Provider Internal Medicine; Emergency Provider Physician Assistant; PCP Family Medicine; Visit Provider Internal Medicine
PROC: 0QH706Z Insertion of Intramedullary Internal Fixation Device into Left Upper Femur, Open Approach (ICD-10-PCS; CPT 27245; principal; 2024-04-07 15:35)
DX: S72.142A Displaced intertrochanteric fracture of left femur, initial encounter for closed fracture (principal); N39.0 Urinary tract infection, site not specified; E11.21 Type 2 diabetes mellitus with diabetic nephropathy; E11.40 Type 2 diabetes mellitus with diabetic neuropathy, unspecified; E78.2 Mixed hyperlipidemia; I10 Essential (primary) hypertension; D64.9 Anemia, unspecified; F17.200 Nicotine dependence, unspecified, uncomplicated; K21.9 Gastro-esophageal reflux disease without esophagitis; M25.562 Pain in left knee; W01.0XXA Fall on same level from slipping, tripping and stumbling without subsequent striking against object, initial encounter; Z79.4 Long term (current) use of insulin; Z79.82 Long term (current) use of aspirin
CPT/HCPCS: 36415; 36416; 51702; 71045; 73502; 73562; 77001; 80048; 80053; 81001; 82962; 83735; 85025; 85610; 87086; 87426; 96372; 96374; 96375; 97110; 97116; 97161; 97165; 99285; C1713; C1776; J0690; J0696; J1100; J1171; J1815; J2270; J2405; J2470; J2704; J3010; J7030

== ENCOUNTER → 2024-04-22 15:39 | Outpatient (BNVA) | payer MEDICARE, OTHER, SELFPAY | PROVIDERS: PCP Family Medicine; Visit Provider Orthopaedic Surgery | DX: S72.002D Fracture of unspecified part of neck of left femur, subsequent encounter for closed fracture with routine healing; X58.XXXD Exposure to other specified factors, subsequent encounter | CPT/HCPCS: 99024 ==

== ENCOUNTER 2024-04-25 10:48 | Inpatient (IN) | payer MEDICARE, OTHER, SELFPAY ==
[2024-04-25] VITALS (17 sets, daily range): BP systolic 107–140; BP diastolic 58–85; PULSE 66–154; RESP 10–25; TEMP 36.4–36.8; O2SAT 92–100; BMI 34.3
--- NOTE | 2024-04-25 10:54 | ECG_ITS ---
[facility]24[facility]25 Pat Name: Jacquelin Garduno Department: Room: Gender: Female Char Puller: : 1955 Requested By: Leonard Alex Order Number: [id number] Reading MD: IVORY THORNTON Measurements Intervals [place] Rate: 150 P: 189 MT: 97 QRS: 174 QRSD: 87 T: 136 QT: 281 QTc: 444 Interpretive Statements SINUS TACHYCARDIA WITH SHORT MT INTERVAL WITH OCCASIONAL ECTOPIC PREMATURE COMPLEXES, POSSIBLE ATRIAL FLUTTER POSSIBLE RIGHT VENTRICULAR HYPERTROPHY [SOME/ALL OF: PROMINENT R IN V1, LATE TRANSITION, RAD, ELEAZAR, SSS] CRITICAL TEST RESULT Compared to ECG 05/12/2021 06:25:14 Sinus rhythm no longer present Ventricular premature complex(es) no longer present Electronically Signed On 04-26-2024 16:09:45 TOOLING SUPERVISOR by IVORY THORNTON [id number]
--- NOTE | 2024-04-25 11:07 | ED_ITS ---
HPI - Arrhythmia/Palpitations 2 General: Chief Complaint: Arrhythmia/Palpitations Stated Complaint: IRREGULAR HEARTBEAT Time Seen by Provider: 04/25/24 10:50 History of Present Illness: 61-year-old female [facility] with complaint of irregular rapid heart rate. She has no history of atrial fibrillation last month the patient was admitted with a left hip fracture underwent open reduction internal fixation was discharged to the care home. She is on Eliquis 2.5 twice daily. She is denying any chest pain or shortness of breath but she does note significant rapid heart rate that began suddenly this morning. No other symptoms. She has chronic urinary incontinence issues but this has not changed recently Related Data Home Medications Medication Instructions Recorded Confirmed aspirin 325 mg tablet 325 mg PO DAILY 10/18/19 04/25/24 lisinopril 40 mg tablet 40 mg PO QAM 10/18/19 04/25/24 ascorbic acid (vitamin C) 500 mg 500 mg PO DAILY 05/12/21 04/25/24 tablet (Vitamin C) multivitamin 1 tab PO DAILY 05/12/21 04/25/24 insulin lispro 100 unit/mL See Rx Instructions SUBCUT BID 08/07/21 04/25/24 subcutaneous half-unit pen (Humalog Lior Carley (U-100)) atorvastatin 80 mg tablet 80 mg PO DAILY 04/07/24 04/25/24 bumetanide 0.5 mg tablet 0.5 mg PO DAILY 04/07/24 04/25/24 dulaglutide 1.5 mg/0.5 mL 1.5 mg SUBCUT Q7D 04/07/24 04/25/24 subcutaneous pen injector (Trulicity) apixaban 2.5 mg tablet (Eliquis) 2.5 mg PO BID 04/25/24 04/25/24 docusate sodium 100 mg capsule 100 mg PO BID 04/25/24 04/25/24 (Colace) hydrocodone 7.5 mg-acetaminophen 1 tab PO Q6H PRN Pain 04/25/24 04/25/24 325 mg tablet insulin glargine 100 unit/mL (3 30 unit SUBCUT QPM 04/25/24 04/25/24 mL) subcutaneous pen (Lantus Solostar U-100 Insulin) polyethylene glycol 3350 17 4 g PO DAILY 04/25/24 04/25/24 gram/dose oral powder Previous Rx's Medication Instructions Recorded pantoprazole 40 mg tablet,delayed 40 mg PO DAILY #14 tabs 05/18/21 release Walker #1 ea 05/29/21 blood-glucose meter,continuous #1 ea 08/07/21 (Dexcom G6 Outside Installer Apprentice) blood-glucose sensor (Dexcom G6 #3 ea 08/07/21 Sensor device) blood-glucose transmitter (Dexcom #1 ea 08/07/21 G6 Transmitter device) Diabetic Shoes with 3 pairs of #1 ea 09/03/21 inserts Diabetic shoes with Custom molded #1 ea 02/04/24 insoles Allergies Allergy/AdvReac Type Severity Reaction Status Date / Time ibuprofen Allergy ALGY-Rash Verified 04/22/24 16:15 Review of Systems 2 Const: Denies: fever(s) or chills Card: Reports: palpitations and irregular heart rhythm; Denies: chest pain Resp: Denies: dyspnea GI: Denies: abdominal pain : Denies: dysuria, urinary frequency or urinary urgency Musc: Denies: neck pain or back pain Skin/Breast: Denies: rash PFSH ED 2 PFSH: Medical History (Updated 04/25/24 @ 16:54 by Leonard Forbes DO) Hypertension Hyperlipemia, mixed Anemia Gout attack Gout Rotator cuff arthropathy of both shoulders Congestive heart failure -normal EF per stress echo done 11/2015 -continue diuretics Cardiomyopathy Gastroesophageal reflux Gall bladder disease Diabetes mellitus, type II -has known hx of NIDDM type II, last A1c-8.4 (05/2019) -complicated by peripheral neuropathy and nephropathy Surgical History (Updated 04/25/24 @ 16:54 by Leonard Forbes DO) History of cardiac cath H/O shoulder surgery Bilateral Hx of cholecystectomy History of appendectomy History of delivery Family History Other Diabetes Social History Smoking and tobacco/nicotine status: never used tobacco/nicotine Alcohol intake: never Substance/Drug Use: never Lives independently: Yes Household members: spouse Physical Exam 2 Const: GENERAL APPEARANCE: cooperative ORIENTATION/CONSCIOUSNESS: Yes awake, Yes oriented to person, Yes oriented to place and Yes oriented to time HENMT: COMMON NORMALS: normocephalic, atraumatic and hearing grossly normal bilaterally HEAD & SCALP: normocephalic and atraumatic Resp: COMMON NORMALS: normal respiratory effort, No retractions, No use of accessory muscles and clear to auscultation bilaterally AUSCULTATION: clear to auscultation bilaterally Cardio: COMMON NORMALS: No murmurs present (Cardio) RATE: tachycardic R HYTHM: abnormal rhythm irregularly irregular GI: COMMON NORMALS: Soft to palpation and No hepatosplenomegaly present A USCULTATION: Yes normoactive bowel sounds PALPATION: Yes Soft to palpation, No Tenderness to palpation present (GI), No Guarding due to palpation present (GI) and Yes No hepatosplenomegaly present Extremity: COMMON NORMALS: normal to inspection, capillary refill normal, no clubbing, cyanosis or edema, no calf tenderness and no pedal edema Neuro: SENSORIUM/ORIENTATION: Yes oriented to person, Yes oriented to place and Yes oriented to time Skin: COMMON NORMALS: no rashes or lesions noted GENERAL SKIN EXAM: no rashes or lesions noted Course 2 Vital Signs: Vital signs: Vital Signs Temperature 97.6 F 04/25/24 16:00 Pulse Rate 87 04/25/24 16:00 Respiratory Rate 19 H 04/25/24 16:00 Blood Pressure 113/58 04/25/24 16:00 Pulse Oximetry 97 04/25/24 16:00 Oxygen Delivery Me thod Room Air 04/25/24 16:00 MDM - Arrhythmia/Palpitations Medical Decision Making Presents in A-fib with RVR we titrated her up on Cardizem and ultimately got her heart rate to decrease and then convert to a normal sinus rhythm we can titrating her down will admit for new onset A-fib with RVR discussed with hospitalist orders written. D-dimer was elevated CTA of the chest negative for PE Medical Records I reviewed the patient's medical records. Lab Data I reviewed the patient's lab results. 04/25/24 11:46 04/25/24 11:46 Radiology Impressions Chest CTA 04/25/24 12:36 IMPRESSION: 1. No pulmonary embolism. 2. No acute infiltrates. COMMENTS: Consistent with the [employer]'s Incidental Findings Committee white paper (J Am Shai Radiol 2015): In patients aged 35 years and older with an incidental thyroid nodule equal to or greater than 1.[address], MRI or extrathyroidal US, further evaluation with dedicated thyroid US is recommended for patients with normal life expectancy and without comorbidities. For smaller nodules without suspicious features, no further evaluation or follow up is recommended. Laboratory Results WBC 8.67 10^3/uL (3.29-11.43) 04/25/24 11:46 RBC 4.28 10^6/uL (3.85-5.65) 04/25/24 11:46 Hgb 10.60 g/dL (11.27-16.99) L 04/25/24 11:46 Hct 34.2 % (36-47) L 04/25/24 11:46 MCV 79.9 fl (85-98) L 04/25/24 11:46 MCH 24.8 pg (27-33) L 04/25/24 11:46 MCHC 31.0 g/dL (30-55) 04/25/24 11:46 RDW 16.8 % (12.1-15.1) H 04/25/24 11:46 Plt Count 490 10^3/cmm (157-399) H 04/25/24 11:46 MPV 9.4 fL (7.4-10.4) 04/25/24 11:46 Neut % (Auto) 77.2 % 04/25/24 11:46 Lymph % (Auto) 13.6 % 04/25/24 11:46 [place] % (Auto) 8.4 % 04/25/24 11:46 Eos % (Auto) 0.1 % 04/25/24 11:46 Baso % (Auto) 0.2 % 04/25/24 11:46 Neut # (Auto) 6.69 10^3/uL (1.8-7.7) 04/25/24 11:46 Lymph # (Auto) 1.2 10^3/uL (0.8-4.8) 04/25/24 11:46 [place] # (Auto) 0.7 10^3/uL (0.2-0.9) 04/25/24 11:46 Eos # (Auto) 0.0 10^3/uL (0.0-0.8) 04/25/24 11:46 Baso # (Auto) 0.0 10^3/uL (0.0-0.1) 04/25/24 11:46 Nucleated RBC % (auto) 0 % 04/25/24 11:46 Nucleated RBCs # 0.0 /100WBC 04/25/24 11:46 D-Dimer 4.17 ug/mLFEU (0-0.59) H 04/25/24 11:46 Sodium 126 mmol/L (136-145) L 04/25/24 11:46 Potassium 3.9 mmol/L (3.5-5.1) 04/25/24 11:46 Chloride 89 mmol/L (98-107) L 04/25/24 11:46 Carbon Dioxide 22 mmol/L (22-29) 04/25/24 11:46 Anion Gap 18.9 (5-19) 04/25/24 11:46 BUN 15 mg/dL (8-23) 04/25/24 11:46 Creatinine 0.8 mg/dL (0.5-0.9) 04/25/24 11:46 GFR Calculation 71.3 mL/min (90-130) L 04/25/24 11:46 Glucose 333 mg/dL (65-115) H 04/25/24 11:46 Estimat Average Glucose 194 04/25/24 11:46 Hemoglobin A1c 8.4 % (4.0-6.0) H 04/25/24 11:46 Calculated Osmolality 276 mOsm/kg (285-295) L 04/25/24 11:46 Calcium 8.4 mg/dL (8.5-10.5) L 04/25/24 11:46 Iron 13 ug/dL (37-145) L 04/25/24 11:46 TIBC 269 mcg/dl 04/25/24 11:46 % Saturation 4.8 % (20-50) L 04/25/24 11:46 Unsat Iron Binding 256 ug/dL (112-347) 04/25/24 11:46 Ferritin 128 ng/mL (15-150) 04/25/24 11:46 Total Bilirubin 0.6 mg/dL (0.15-1.2) 04/25/24 11:46 AST 22 U/L (0-32) 04/25/24 11:46 ALT 23 U/L (0-33) 12/08/24 11:46 Alkaline Phosphatase 250 U/L (35-105) H 04/25/24 11:46 Troponin T Baseline 11 ng/L (0-10) H 04/25/24 11:46 NT-Pro-B Natriuret Pep 540 pg/mL (0-125) H 04/25/24 11:46 Total Protein 6.8 g/dL (6.6-8.7) 04/25/24 11:46 Albumin 3.3 g/dL (3.5-5.2) L 04/25/24 11:46 Globulin 3.5 g/dL (1.3-4.6) 04/25/24 11:46 Procalcitonin 0.07 ng/mL (0-0.5) 04/25/24 11:46 TSH 0.56 uIU/mL (0.27-4.20) 04/25/24 11:46 TSH 0.58 uIU/mL (0.27-4.20) 04/25/24 11:46 All radiology interpretation(s) finalized by discharge Discharge Plan Discharge Patient Disposition: Admitted As Inpatient Admit Provider: Jonelle Millan Clinical Impression: Atrial fibrillation, Diabetes type 2, uncontrolled, Elevated d-dimer, Status post-operative repair of hip fracture, Hypertension Condition: Stable Coding Level of Care Code ED [facility]
[2024-04-25] MEDS: dilTIAZem 100 MG in sodium chloride 0.9% (add-van) 100 ML IV (11:17)
[2024-04-25] MEDS: dilTIAZem 5 mg/mL SDV 5 mL 20 MG IVP (11:17)
--- NOTE | 2024-04-25 11:33 | PC.PHAR ---
[facility]
[2024-04-25 11:53] LABS: Basophils % 0.2 %; Eosinophils % 0.1 %; Hematocrit 34.2 % (36-47); Lymphocytes # 1.2 10^3/uL (0.8-4.8); Lymphocytes % 13.6 %; Mean Corpuscular Hemoglobin 24.8 pg (27-33); Mean Corpuscular Volume 79.9 fl (85-98); Mean Platelet Volume 9.4 fL (7.4-10.4); Monocytes # 0.7 10^3/uL (0.2-0.9); Monocytes % 8.4 %; Neutrophils # 6.69 10^3/uL (1.8-7.7); Neutrophils % 77.2 %; Nucleated Red Blood Cells % 0 %; Platelet Count 490 10^3/cmm (157-399); Red Blood Count 4.28 10^6/uL (3.85-5.65); Red Cell Distribution Width 16.8 % (12.1-15.1); White Blood Count 8.67 10^3/uL (3.29-11.43)
[2024-04-25 12:11] LABS: Troponin(5th) Baseline 11 ng/L (0-10)
--- NOTE | 2024-04-25 12:14 | ECG_ITS ---
[facility] Pat Name: Jacquelin Garduno Department: Room: Gender: Female Hospital Liaison: : 1955 Requested By: Leonard Aelx Order Number: [id number] Reading MD: IVORY THORNTON Measurements Intervals [place] Rate: 95 P: 64 [place]: 160 QRS: 17 QRSD: 89 T: 45 QT: 340 QTc: 429 Interpretive Statements SINUS RHYTHM Compared to ECG 04/25/2024 10:54:46 No significant changes Electronically Signed On 04-26-2024 16:16:37 HOUSECLEANER by IVORY THORNTON [email or web address]
[2024-04-25 12:15] LABS: D Dimer 4.17 ug/mLFEU (0-0.59)
[2024-04-25 12:30] LABS: Alanine Aminotransferase 23 U/L (0-33); Albumin Level 3.3 g/dL (3.5-5.2); Alkaline Phosphatase 250 U/L (35-105); Anion Gap 18.9 (5-19); Aspartate Amino Transferase 22 U/L (0-32); Blood Urea Nitrogen 15 mg/dL (8-23); Calcium 8.4 mg/dL (8.5-10.5); Carbon Dioxide 22 mmol/L (22-29); Chloride 89 mmol/L (98-107); Creatinine Clr Calc Pharmacy 78.8651; Globulin 3.5 g/dL (1.3-4.6); Glomerular Filtration Rate 71.3 mL/min (90-130); Glucose 333 mg/dL (65-115); Osmolality Calculated 276 mOsm/kg (285-295); Potassium 3.9 mmol/L (3.5-5.1); Sodium 126 mmol/L (136-145); Thyroid Stimulating Hormone 0.58 uIU/mL (0.27-4.20); Total Bilirubin 0.6 mg/dL (0.15-1.2); Total Protein 6.8 g/dL (6.6-8.7)
--- NOTE | 2024-04-25 12:36 | CTR_ITS ---
PROCEDURE INFORMATION: Exam: CTA Chest With Contrast Exam date and time: 04/25/2024 12:51 PM Age: 69 years old Clinical indication: Abnormal findings; Abnormal diagnostic tests; Elevated d-dimer; Additional info: Elevated d-dimer tachycardia TECHNIQUE: Imaging protocol: Computed tomographic angiography of the chest with contrast. Exam focused on the arteries. 3D rendering (Not supervised by radiologist): MIP and/or 3D reconstructed images were created by the technologist. Radiation optimization: All CT scans at this facility use at least one of these dose optimization techniques: automated exposure control; mA and/or kV adjustment per patient size (includes targeted exams where dose is matched to clinical indication); or iterative reconstruction. Contrast material: OMNI 350; Contrast volume: 66 ml; Contrast route: INTRAVENOUS (IV); COMPARISON: CR XR chest 1V portable [id number] 04/07/2024 8:58 AM RADIATION DOSE METRICS: Total DLP (mGy-cm): 482.65 FINDINGS: Pulmonary arteries: Normal. No pulmonary emboli. Aorta: Unremarkable. No aortic aneurysm. No aortic dissection. Thyroid: Hypodense left thyroid nodule measuring 2 cm. Lungs: Unremarkable. No consolidation. No masses. Pleural spaces: Unremarkable. No pneumothorax. No pleural effusion. Heart: Unremarkable. No cardiomegaly. No pericardial effusion. Lymph nodes: Unremarkable. No enlarged lymph nodes. Diaphragm: There is a small hiatal hernia. Bones/joints: Post bilateral rotator cuff repair. Mild degenerative disease of bilateral acromioclavicular joints. Severe degenerative disease of bilateral glenohumeral joints. Multilevel anterior osteophytes of the thoracic spine. There is a posterior osteophyte disc complex at T10-T11 causing mild bony canal stenosis. Bilateral glenohumeral joint bodies. Soft tissues: Unremarkable. CT/CT angio chest PE protcl [id number] IMPRESSION: 1. No pulmonary embolism. 2. No acute infiltrates. COMMENTS: Consistent with the [employer]'s Incidental Findings Committee white paper (J Am Shai Radiol 2015): In patients aged 35 years and older with an incidental thyroid nodule equal to or greater than 1.[address], MRI or extrathyroidal US, further evaluation with dedicated thyroid US is recommended for patients with normal life expectancy and without comorbidities. For smaller nodules without suspicious features, no further evaluation or follow up is recommended.
[2024-04-25] MEDS: iohexol 350 mg/mL 500 mL Btl (per mL) IV (12:52)
--- NOTE | 2024-04-25 13:05 | USR_ITS ---
PROCEDURE INFORMATION: Exam: US Duplex Lower Extremity Veins, Bilateral Exam date and time: 04/25/2024 4:03 PM Age: 69 years old Clinical indication: Screening exam; R/O dvt TECHNIQUE: Imaging protocol: Real-time duplex ultrasound of the bilateral extremities with 2-D aldridge scale, color Doppler flow and spectral waveform analysis including responses to compression and other maneuvers (when performed) with image documentation. Complete exam focused on the lower extremity veins. COMPARISON: CT lower leg RT w con [id number] 08/06/2019 3:36 PM FINDINGS: Right deep veins: Unremarkable. The common femoral, femoral, proximal profunda femoral, popliteal, posterior tibial and peroneal veins are patent without thrombus. Normal Doppler waveforms. Normal compressibility and/or augmentation response. Left deep veins: Unremarkable. The common femoral, femoral, proximal profunda femoral, popliteal, posterior tibial and peroneal veins are patent without thrombus. Normal Doppler waveforms. Normal compressibility and/or augmentation response. Superficial veins: Greater saphenous veins at the saphenofemoral junctions are patent bilaterally without thrombus. Soft tissues: Unremarkable. US/[place] [id number] IMPRESSION: No sonographic evidence of deep venous thrombosis.
--- NOTE | 2024-04-25 13:13 | PM.HP ---
Providers/Chief Complaint Primary Care Provider: Nikos Cortez MD Chief Complaint: IRREGULAR HEARTBEAT History of Present Illness Jacquelin Garduno is a 69 year old female With past medical history of type 2 diabetes mellitus, mixed hyperlipidemia, hypertension, right tabetic foot wound, recent hip fracture repair presented to the hospital today from shelter stating that her heart rate was high. She says she has not felt right in the last few days. States she felt febrile however never checked her fever. Has not been coughing. Denies chest pain, nausea vomiting diarrhea. Says does have some mild shortness of breath when moving from bathroom back to bed and vice versa. She states she had her jonh out last week and since then has not felt right. Does states she has generalized abdominal pain and she feels she is constipated. Has also been having urinary frequency and urgency. Family present at bedside. Denies any other complaints at this time. Medications/Allergies Home Medications Medication Instructions Recorded Confirmed Last Taken Type aspirin 325 mg tablet 325 mg PO DAILY 10/18/19 04/25/24 04/25/24 History lisinopril 40 mg tablet 40 mg PO QAM 10/18/19 04/25/24 04/25/24 History ascorbic acid (vitamin C) 500 mg 500 mg PO DAILY 05/12/21 04/25/24 04/25/24 History tablet (Vitamin C) multivitamin 1 tab PO DAILY 05/12/21 04/25/24 04/25/24 History pantoprazole 40 mg tablet,delayed 40 mg PO DAILY #14 tabs 05/18/21 04/25/24 04/25/24 Rx release Walker #1 ea 05/29/21 04/25/24 Unknown Rx blood-glucose meter,continuous #1 ea 08/07/21 04/25/24 Unknown Rx (Dexcom G6 Soyfreeze Operator) blood-glucose sensor (Dexcom G6 #3 ea 08/07/21 04/25/24 Unknown Rx Sensor device) blood-glucose transmitter (Dexcom #1 ea 08/07/21 04/25/24 Unknown Rx G6 Transmitter device) insulin lispro 100 unit/mL See Rx Instructions SUBCUT BID 08/07/21 04/25/24 04/25/24 History subcutaneous half-unit pen (Humalog Lior KwikPen (U-100)) Diabetic Shoes with 3 pairs of #1 ea 09/03/21 04/25/24 Unknown Rx inserts Diabetic shoes with Custom molded #1 ea 02/04/24 04/25/24 Unknown Rx insoles atorvastatin 80 mg tablet 80 mg PO DAILY 04/07/24 04/25/24 04/25/24 History bumetanide 0.5 mg tablet 0.5 mg PO DAILY 04/07/24 04/25/24 04/25/24 History dulaglutide 1.5 mg/0.5 mL 1.5 mg SUBCUT Q7D 04/07/24 04/25/24 Unknown History subcutaneous pen injector (Trulicity) apixaban 2.5 mg tablet (Eliquis) 2.5 mg PO BID 04/25/24 04/25/24 04/25/24 History docusate sodium 100 mg capsule 100 mg PO BID 04/25/24 04/25/24 04/25/24 History (Colace) hydrocodone 7.5 mg-acetaminophen 1 tab PO Q6H PRN Pain 04/25/24 04/25/24 04/25/24 History 325 mg tablet insulin glargine 100 unit/mL (3 30 unit SUBCUT QPM 04/25/24 04/25/24 04/24/24 History mL) subcutaneous pen (Lantus Solostar U-100 Insulin) polyethylene glycol 3350 17 4 g PO DAILY 04/25/24 04/25/24 04/25/24 History gram/dose oral powder Allergies Allergy/AdvReac Type Severity Reaction Status Date / Time ibuprofen Allergy ALGY-Rash Verified 04/22/24 16:15 PFSH Acute PFSH: Medical History (Updated 04/25/24 @ 13:27 by Jonelle Millan MD) Hypertension Hyperlipemia, mixed Anemia Gout attack Gout Rotator cuff arthropathy of both shoulders Congestive heart failure -normal EF per stress echo done 11/2015 -continue diuretics Cardiomyopathy Gastroesophageal reflux Gall bladder disease Diabetes mellitus, type II -has known hx of NIDDM type II, last A1c-8.4 (05/2019) -complicated by peripheral neuropathy and nephropathy Surgical History (Updated 04/25/24 @ 13:27 by Jonelle Millan MD) History of cardiac cath H/O shoulder surgery Bilateral Hx of cholecystectomy History of appendectomy History of delivery Family History Other Diabetes Social History Smoking and tobacco/nicotine status: never used tobacco/nicotine Alcohol intake: never Substance/Drug Use: never Lives independently: Yes Household members: spouse Vitals/I&O/Wt Last Vital Signs Temp 98.1 F 04/25/24 10:53 Pulse 96 04/25/24 12:30 Resp 21 H 04/25/24 12:30 BP 109/64 04/25/24 12:30 Pulse Ox 99 04/25/24 12:30 O2 Del Method Room Air 04/25/24 10:53 04/24/24 04/25/24 04/25/24 22:59 06:59 14:59 Intake Total 12.126 / 12.126 Balance 12.126 / 12.126 Weight last 48 hrs Weight 96.615 kg Physical Exam Narrative: General: Patient is awake and alert. Oriented x 3. Head: Normocephalic. Atraumatic. EOM intact. Cardiovascular: RRR. No gallops. No murmurs. No peripheral edema. Lungs: Clear to auscultation, no use of accessory muscles, no crackles or wheezes. Abdomen: Normal bowel sounds, abdomen soft and nontender. Extremities: No cyanosis or clubbing. No edema bilateral lower extremities. Musculoskeletal: No erythematous joints. Neurological: Moves all 4 extremities. Urinary Catheter Management: Schaffer: Cath Placed During This Visit: yes Reason for Continuing Indwelling Catheter: Other Urinary Catheter Date of Insertion: 04/06/24 Urinary Catheter Time of Insertion: 22:15 Data 04/25/24 11:46 04/25/24 11:46 A&P Assessment and plan (1) Diabetes type 2, uncontrolled: Qualifiers: Glycemic state: with hyperglycemia Qualified Code(s): E11.65 - Type 2 diabetes mellitus with hyperglycemia (2) Hypertension: (3) Congestive heart failure: Qualifiers: Heart failure type: diastolic Heart failure chronicity: chronic Qualified Code(s): I50.32 - Chronic diastolic (congestive) heart failure (4) Status post-operative repair of hip fracture: (5) Elevated d-dimer: Plan #Atrial fibrillation with RVR, new onset #Diabetes mellitus, insulin-dependent #Hyperlipidemia #Hypertension #Constipation #Diastolic congestive heart failure #Gout ? Continue Cardizem drip. Will convert to oral accordingly. ? Blood pressure stable at this time. ? Switch Eliquis to 5 twice daily. ? Check echocardiogram ? Hold home lisinopril ? Continue to atorvastatin, aspirin ? Continue docusate senna ? Placed on MiraLAX ? Check urinalysis, urine culture ? Check labs in a.m. CBC CMP magnesium ? I will hold off on Bumex at this time encourage oral hydration. Patient appears to be euvolemic. ? PT ?D-dimer elevated, check CTA chest to rule out PE, check venous Dopplers bilateral lower extremities. Full code DVT prophylaxis: Eliquis 5 twice daily. Attestations Medical Necessity Statement*: Greater than 2 midnight stay for management of atrial fibrillation with RVR. Patient currently on a Cardizem drip. Diagnoses Uncontrolled type 2 diabetes mellitus with hyperglycemia E11.65 Glycemic state: with hyperglycemia Hypertension I10 Chronic diastolic congestive heart failure I50.32 Heart failure type: diastolic Heart failure chronicity: chronic Status post-operative repair of hip fracture Z98.890; Z87.81 Elevated d-dimer R79.89
[2024-04-25 13:55] LABS: Estmated Average Glucose 194; Hemoglobin A1C 8.4 % (4.0-6.0)
[2024-04-25 14:03] LABS: NT Pro B Type Natriuretic Pept 540 pg/mL (0-125); Procalcitonin 0.07 ng/mL (0-0.5); Thyroid Stimulating Hormone 0.56 uIU/mL (0.27-4.20)
[2024-04-25 14:14] LABS: Ferritin 128 ng/mL (15-150); Iron 13 ug/dL (37-145); Percent Saturation 4.8 % (20-50); Total Iron Binding Capacity 269 mcg/dl; Unsaturated Iron Binding 256 ug/dL (112-347)
--- NOTE | 2024-04-25 14:41 | USCV_ITS ---
Jacquelin Garduno Age: 69 Gender: F : 1955 Exam Date: 04/25/2024 16:43 Ordering Phys: Jonelle Millan MD Technologist: Javy Al [place] [facility] [place]: new [place] afib BP: 116 / 70 HR: 88 Rhythm: Sinus Technical Quality: Adequate MEASUREMENTS (Male / Female) Normal Values 2D ECHO LV Diastolic Diameter PLAX 3.2 cm 4.2 - 5.9 / 3.9 - 5.3 cm IVS Diastolic Thickness 1.1 cm 0.6 - 1.0 / 0.6 - 0.9 cm IVS Systolic Thickness 1.3 cm LVPW Diastolic Thickness 1.2 cm 0.6 - 1.0 / 0.6 - 0.9 cm LVPW Systolic Thickness 1.2 cm LVOT Diameter 2.0 cm LV Ejection Fraction 2D Teich 66.8 % LV Ejection Fraction MOD 4C 61.5 % LV Ejection Fraction MOD 2C 58.2 % LV Ejection Fraction 2C AL 57.2 % LA Diameter 4.0 cm RA Systolic Volume 4C AL 29.1 ml RA Systolic Volume 4C MOD 29.7 ml LA Sys Volume AL 52.5 cm cubed LA Sys Volume Index AL 24.3 cm cubed/m squared Aorta at Sinotubular Diameter 2.8 cm M-MODE LA Ao Ratio MM 1.2 AV Cusp Separation MM 1.2 cm DOPPLER AV Peak Velocity 124.0 cm/s LVOT Peak Velocity 100.0 cm/s AV Area Cont Eq vti 2.7 cm squared AV Area Cont Eq pk 2.6 cm squared MV Peak Velocity 111.0 cm/s MV Area PHT 4.3 cm squared Mitral E to A Ratio 0.7 TV Peak Velocity 262.7 cm/s TR Peak Velocity 275.0 cm/s TR Peak Gradient 30.3 mmHg TR Mean Velocity 235.0 cm/s TR Mean Gradient 22.8 mmHg TR Velocity Time Integral 80.9 cm PV Peak Velocity 110.0 cm/s RV Ejection Time 0.3 s FINDINGS Left Ventricle Normal left ventricular size, systolic function and wall thickness, with no regional wall motion abnormalities. Left ventricular ejection fraction is estimated at 60 %. Grade I/IV diastolic dysfunction (abnormal relaxation filling pattern), normal to mildly elevated filling pressures. Right Ventricle The right ventricle is normal in size and function. Right Atrium The right atrium is normal in size. Left Atrium The left atrium is normal in size. Mitral Valve Mildly thickened mitral valve. Mild mitral annular calcification. No mitral valve stenosis. Trace mitral valve regurgitation. Aortic Valve Mild aortic valve calcification. No aortic valve stenosis. Trace aortic valve regurgitation. Tricuspid Valve Structurally normal tricuspid valve without significant stenosis or regurgitation. Pulmonary artery systolic pressure is normal. Pulmonic Valve Mild pulmonary valve regurgitation. Pericardium Normal pericardium without effusion. Aorta Normal ascending aorta dimension. IVC The inferior vena cava appears normal. CONCLUSIONS Normal left ventricular size, systolic function and wall thickness, with no regional wall motion abnormalities. Left ventricular ejection fraction is estimated at 60 %. Grade I/IV diastolic dysfunction (abnormal relaxation filling pattern), normal to mildly elevated filling pressures. Mildly thickened mitral valve. Mild mitral annular calcification. No mitral valve stenosis. Trace mitral valve regurgitation. Structurally normal tricuspid valve without significant stenosis or regurgitation. Pulmonary artery systolic pressure is normal. Mild aortic valve calcification. No aortic valve stenosis. Trace aortic valve regurgitation. Mild pulmonary valve regurgitation. There is no pericardial effusion. Right atrial pressure is around 5 mm of mercury. Becky Gutierrez MD (Electronically Signed) Final Date: 25 April 2024 21:37 S
[2024-04-25 14:57] LABS: Troponin 5 2HR 12.15 ng/L (0-10); Troponin 5 2HR Delta 1.15 ABS# (0-10)
--- NOTE | 2024-04-25 17:02 | ECG_ITS ---
[facility] Test Date: 2024-04-25 Pat Name: Jacquelin Garduno Department: Room: 103 Gender: Female Type Caster: : 1955 Requested By: Leonard Alex Order Number: [id number] Reading MD: IVORY THORNTON Measurements Intervals [place] Rate: 86 P: 58 [place]: 160 QRS: 10 QRSD: 88 T: 22 QT: 382 QTc: 457 Interpretive Statements SINUS RHYTHM WITH OCCASIONAL VENTRICULAR PREMATURE COMPLEXES Compared to ECG 04/25/2024 12:14:17 Ventricular premature complex(es) now present Electronically Signed On 04-26-2024 16:15:54 TANK BOTTOM ASSEMBLER by IVORY THORNTON [id number]
[2024-04-25 17:33] LABS: Glucose Point of Care 284 mg/dL (70-110)
[2024-04-25] MEDS: insulin glargine 100 units/1 mL 25 UNIT SUBCUT (17:45)
[2024-04-25] MEDS: insulin lispro 100 unit/1 mL SUBCUT ×2 (17:45→21:37)
[2024-04-25 18:38] LABS: Troponin 5 6HR 14.91 ng/L (0-10); Troponin 5 6HR Delta 3.91 ng/L (0-12)
[2024-04-25 19:46] LABS: Bilirubin Urine Negative (Negative); Blood Urine Negative (Negative); Glucose Urine UA 2+ (Normal); Ketones Urine Negative (Negative); Leukocyte Esterase Urine Negative (Negative); Nitrate Urine Negative (Negative); Protein Urine 1+ (Negative); Urine Appearance Clear (CLEAR); Urine Color Yellow (Yellow)
[2024-04-25 20:03] LABS: Add Urine Microscopic? YES; Bacteria Urine TRACE /hpf; RBC Urine 0-4 /hpf (0-2); Specific Gravity, Urine 1.058 (1.005-1.030); Squamous Epithelial Cell Urine 0-4 /hpf (0-5); WBC Urine 0-4 /hpf (0-5)
[2024-04-25] MEDS: atorvastatin 40 mg Tablet PO (20:35)
[2024-04-25] MEDS: apixaban 5 mg Tablet PO (20:35)
[2024-04-25 20:56] LABS: Glucose Point of Care 258 mg/dL (70-110)
[2024-04-25] MEDS: acetaminophen 325 mg Tablet 650 MG PO (21:37)
[2024-04-25] MEDS: dilTIAZem 100 MG in sodium chloride 0.9% (add-van) 100 ML 10 MG IV (21:39)
[2024-04-26] VITALS (7 sets, daily range): BP systolic 122–157; BP diastolic 65–94; PULSE 77–104; RESP 16–26; TEMP 36.6–37; O2SAT 98–99
[2024-04-26 05:12] LABS: Basophils % 0.3 %; Eosinophils # 0.1 10^3/uL (0.0-0.8); Eosinophils % 1.1 %; Hematocrit 30.1 % (36-47); Lymphocytes # 1.4 10^3/uL (0.8-4.8); Lymphocytes % 19.3 %; Mean Corpuscular HGB Conc 30.6 g/dL (30-55); Mean Corpuscular Hemoglobin 24.7 pg (27-33); Mean Corpuscular Volume 80.9 fl (85-98); Mean Platelet Volume 9.6 fL (7.4-10.4); Monocytes # 0.8 10^3/uL (0.2-0.9); Neutrophils # 5.09 10^3/uL (1.8-7.7); Nucleated Red Blood Cells % 0 %; Platelet Count 469 10^3/cmm (157-399); Red Blood Count 3.72 10^6/uL (3.85-5.65); Red Cell Distribution Width 16.8 % (12.1-15.1); White Blood Count 7.47 10^3/uL (3.29-11.43)
[2024-04-26 06:41] LABS: Glucose Point of Care 201 mg/dL (70-110)
[2024-04-26] MEDS: insulin lispro 100 unit/1 mL SUBCUT ×4 (08:05→21:44)
[2024-04-26] MEDS: aspirin 325 mg Tablet PO (08:05)
[2024-04-26] MEDS: apixaban 5 mg Tablet PO ×2 (08:05→21:45)
[2024-04-26] MEDS: pantoprazole DR 40 mg Tablet PO (08:05)
[2024-04-26 08:12] LABS: Blood Urea Nitrogen 11 mg/dL (8-23); Calcium 8.7 mg/dL (8.5-10.5); Carbon Dioxide 21 mmol/L (22-29); Chloride 95 mmol/L (98-107); Creatinine Clr Calc Pharmacy 77.5349; Glomerular Filtration Rate 83.2 mL/min (90-130); Glucose 209 mg/dL (65-115); Magnesium 1.9 mg/dL (1.7-2.3); Osmolality Calculated 276 mOsm/kg (285-295); Sodium 130 mmol/L (136-145)
[2024-04-26 08:13] LABS: Anion Gap 18.2 (5-19); Potassium 4.2 mmol/L (3.5-5.1)
--- NOTE | 2024-04-26 09:37 | PC.CHAP ---
Pastoral Care Encounter/Spiritual Assessment Type of Contact [] Declined graphic user interface designer visit [] Patient/Family/Request visit [] Outpatient visit [] Follow-up visit [] Physician referral [] Code/Alert [x] Routine visit [] Staff referral [] Actively dying [] Patient sleeping [x] Family support [] [] Out of room [] Palliative care [] [] Receiving care in room [] Pre-surgical visit [] Trauma [] Long length of stay [] ICU visit [] Other: Relational/Emotional Strength [] Patient feels connected with others/family/visitors/staff [] Distress [] Loneliness/isolation [] Abandonment Spirituality of Patient [x] Person of [place] [] Attends Adventism of their [place] [x] Believes in Prayer [] Reads Bible or Moravian materials [] There are Spiritual issues to be addressed Fancy Wire Drawer Interventions [x] Prayer [x] Active listening [] Non-anxious presence [] Spiritual/emotional support [] Crisis/trauma care [] Spiritual counseling [] Bereavement support [] Provided bereavement packet [x] Provided Bible/devotional materials [] Provided toy/stuffed animal, coloring book to patient or family member [] Provided Communion [] Anointing/[place] [] Salvation [x] Completed spiritual assessment [] Other: Impact on Illness or Injury [] Angry [] Fearful [] Anxious [] Often cries [] Exhaustion [] Unable to work [] Unable to attend sabianist [] Unable to walk/stand [] Unable to read [] Unable to drive [] Unable to eat/drink [] Unable to sleep [] Unable to be with family [] Patient intubated [] Other: Summary Time spent with patient 10 min
[2024-04-26] MEDS: dilTIAZem 100 MG in sodium chloride 0.9% (add-van) 100 ML 10 MG IV (09:49)
[2024-04-26] MEDS: dilTIAZem 60 mg Tablet PO ×3 (10:13→21:45)
[2024-04-26 12:12] LABS: Glucose Point of Care 288 mg/dL (70-110)
--- NOTE | 2024-04-26 12:27 | P.PN_ITS ---
Subjective 2 Subjective: seen today still on cardizem drip feels better Rate controlled complains of hip pain, reqesting tylenol Vitals/I&O/Wt Last Vital Signs Temp 98.0 F 04/26/24 11:27 Pulse 98 04/26/24 11:27 Resp 21 H 04/26/24 11:27 BP 122/85 04/26/24 11:27 Pulse Ox 98 04/26/24 11:27 O2 Del Method Room Air 04/26/24 11:27 04/25/24 04/26/24 04/26/24 22:59 06:59 14:59 Intake Total 331.999 / 344.125 39.833 / 383.958 56.042 / 56.042 Output Total 300 / 300 900 / 1200 Balance 31.999 / 44.125 -860.167 / -816.042 56.042 / 56.042 Weight last 48 hrs Weight 93.485 kg Weight 96.615 kg Weight 96.615 kg Physical Exam 2 Narrative: General: Patient is awake and alert. Oriented x 3. Cardiovascular:irregularly irregular, on cardizem drip, no gross murmers Lungs: Clear to auscultation, no use of accessory muscles, no crackles or wheezes. Abdomen: Normal bowel sounds, abdomen soft and nontender. Extremities: No cyanosis or clubbing. No edema bilateral lower extremities. Musculoskeletal: No erythematous joints. Neurological: Moves all 4 extremities. Urinary Catheter Management: Schaffer: Cath Placed During This Visit: yes Reason for Continuing Indwelling Catheter: Other Urinary Catheter Date of Insertion: 04/06/24 Urinary Catheter Time of Insertion: 22:15 Data 04/26/24 04:44 04/26/24 07:44 A&P Assessment and plan (1) Diabetes type 2, uncontrolled: Qualifiers: Glycemic state: with hyperglycemia Qualified Code(s): E11.65 - Type 2 diabetes mellitus with hyperglycemia (2) Hypertension: (3) Congestive heart failure: Qualifiers: Heart failure type: diastolic Heart failure chronicity: chronic Qualified Code(s): I50.32 - Chronic diastolic (congestive) heart failure (4) Status post-operative repair of hip fracture: (5) Elevated d-dimer: Plan #Atrial fibrillation with RVR, new onset #Diabetes mellitus, insulin-dependent #Hyperlipidemia #Hypertension #Constipation #Diastolic congestive heart failure #Gout ? Continue Cardizem drip. Will convert to oral accordingly. ? Blood pressure stable at this time. ? Switch Eliquis to 5 twice daily. ? Check echocardiogram ? Hold home lisinopril ? Continue to atorvastatin, aspirin ? Continue docusate senna ? Placed on MiraLAX ? Check urinalysis, urine culture ? Check labs in a.m. CBC CMP magnesium ? I will hold off on Bumex at this time encourage oral hydration. Patient appears to be euvolemic. ? PT ?D-dimer elevated, check CTA chest to rule out PE, check venous Dopplers bilateral lower extremities. - check ua, urine culture hb 10.60, check iron studies, tibc, ferritin, sliding scale insulin mod dose intensity consistent carb cardiac diet reduce home lantus to 25 units as patient hospitalized. Full code DVT prophylaxis: Eliquis 5 twice daily. 04/26/2024 - switch to oral cardizem 60 q6h, stop cardizem drip - continue eliquis 5 bid - tylenol for hip pain, - cta chest neg, dopplers neg for PE - hb stable 9.20 - continue ssi mod dose intensity, switch lantus to 30 units home dose - echo reviewed - if rate remains controlled on oral cardizem, plan to send to [place] in AM - PT Attestations 2 Medical Necessity Statement*: Greater than 2 midnight stay for management of atrial fibrillation with RVR. Patient currently on a Cardizem drip. Diagnoses Uncontrolled type 2 diabetes mellitus with hyperglycemia E11.65 Glycemic state: with hyperglycemia Hypertension I10 Chronic diastolic congestive heart failure I50.32 Heart failure type: diastolic Heart failure chronicity: chronic Status post-operative repair of hip fracture Z98.890; Z87.81 Elevated d-dimer R79.89
[2024-04-26] MEDS: bumetanide 1 mg Tablet 0.5 MG PO (12:57)
[2024-04-26] MEDS: HYDROcodone-acetaminophen 7.5-325 mg Tablet 1 TAB PO (15:49)
[2024-04-26 17:28] LABS: Glucose Point of Care 316 mg/dL (70-110)
[2024-04-26] MEDS: insulin glargine 100 units/1 mL 25 UNIT SUBCUT (17:50)
[2024-04-26 20:36] LABS: Glucose Point of Care 385 mg/dL (70-110)
[2024-04-26] MEDS: atorvastatin 40 mg Tablet PO (21:45)
[2024-04-26] MEDS: acetaminophen 325 mg Tablet 650 MG PO (23:47)
[2024-04-27] VITALS (9 sets, daily range): BP systolic 111–143; BP diastolic 71–89; PULSE 77–108; RESP 14–20; TEMP 36.5–37; O2SAT 93–99
[2024-04-27 03:12] LABS: Basophils % 0.4 %; Eosinophils # 0.1 10^3/uL (0.0-0.8); Eosinophils % 1.2 %; Hematocrit 28.5 % (36-47); Lymphocytes % 24.1 %; Mean Corpuscular HGB Conc 30.9 g/dL (30-55); Mean Corpuscular Hemoglobin 24.6 pg (27-33); Mean Corpuscular Volume 79.8 fl (85-98); Monocytes # 0.8 10^3/uL (0.2-0.9); Monocytes % 9.8 %; Neutrophils # 5.39 10^3/uL (1.8-7.7); Neutrophils % 63.9 %; Nucleated Red Blood Cells % 0 %; Platelet Count 482 10^3/cmm (157-399); Red Blood Count 3.57 10^6/uL (3.85-5.65); Red Cell Distribution Width 16.7 % (12.1-15.1); White Blood Count 8.43 10^3/uL (3.29-11.43)
[2024-04-27 03:30] LABS: Blood Urea Nitrogen 10 mg/dL (8-23); Calcium 8.5 mg/dL (8.5-10.5); Carbon Dioxide 23 mmol/L (22-29); Chloride 97 mmol/L (98-107); Creatinine Clr Calc Pharmacy 77.5349; Glomerular Filtration Rate 99.4 mL/min (90-130); Glucose 105 mg/dL (65-115); Osmolality Calculated 269 mOsm/kg (285-295); Sodium 130 mmol/L (136-145)
[2024-04-27] MEDS: dilTIAZem 60 mg Tablet PO ×4 (04:00→22:04)
[2024-04-27 06:22] LABS: Glucose Point of Care 159 mg/dL (70-110)
[2024-04-27] MEDS: insulin lispro 100 unit/1 mL SUBCUT ×4 (08:03→22:05)
[2024-04-27] MEDS: pantoprazole DR 40 mg Tablet PO (08:03)
[2024-04-27] MEDS: apixaban 5 mg Tablet PO ×2 (08:03→22:04)
[2024-04-27] MEDS: bumetanide 1 mg Tablet 0.5 MG PO (08:03)
[2024-04-27] MEDS: acetaminophen 325 mg Tablet 650 MG PO ×2 (10:57→18:32)
[2024-04-27] MEDS: aspirin 81 mg EC Tablet PO (10:57)
--- NOTE | 2024-04-27 11:44 | P.PN_ITS ---
Subjective 2 Subjective: Seen this morning. Patient is rate controlled. On oral Cardizem. Was seen by physical therapy yesterday, rehab recommended. Vitals/I&O/Wt Last Vital Signs Temp 98.4 F 04/27/24 11:13 Pulse 108 H 04/27/24 11:13 Resp 16 04/27/24 11:13 BP 111/89 04/27/24 11:13 Pulse Ox 99 04/27/24 11:13 O2 Del Method Room Air 04/27/24 11:13 04/26/24 04/27/24 04/27/24 22:59 06:59 14:59 Intake Total 0 / 87.875 Output Total 1300 / 1300 1000 / 1000 Balance -1300 / -1212.125 -1000 / -1000 Weight last 48 hrs Weight 95.028 kg Weight 93.485 kg Weight 96.615 kg Physical Exam 2 Narrative: General: Patient is awake and alert. Oriented x 3. Cardiovascular: Sinus rhythm, rate controlled, normal S1-S2 Lungs: Clear to auscultation, no use of accessory muscles, no crackles or wheezes. Abdomen: Normal bowel sounds, abdomen soft and nontender. Extremities: No cyanosis or clubbing. No edema bilateral lower extremities. Musculoskeletal: No erythematous joints. Neurological: Moves all 4 extremities. Urinary Catheter Management: Schaffer: Cath Placed During This Visit: yes Reason for Continuing Indwelling Catheter: Other Urinary Catheter Date of Insertion: 04/06/24 Urinary Catheter Time of Insertion: 22:15 Data 04/27/24 02:50 04/27/24 02:50 Micro: Microbiology 04/25/24 19:22 Urine Culture - Preliminary Urine,Clean Catch A&P Assessment and plan (1) Diabetes type 2, uncontrolled: Qualifiers: Glycemic state: with hyperglycemia Qualified Code(s): E11.65 - Type 2 diabetes mellitus with hyperglycemia (2) Hypertension: (3) Congestive heart failure: Qualifiers: Heart failure type: diastolic Heart failure chronicity: chronic Qualified Code(s): I50.32 - Chronic diastolic (congestive) heart failure (4) Status post-operative repair of hip fracture: (5) Elevated d-dimer: Plan #Atrial fibrillation with RVR, new onset #Diabetes mellitus, insulin-dependent #Hyperlipidemia #Hypertension #Constipation #Diastolic congestive heart failure #Gout ? Continue Cardizem drip. Will convert to oral accordingly. ? Blood pressure stable at this time. ? Switch Eliquis to 5 twice daily. ? Check echocardiogram ? Hold home lisinopril ? Continue to atorvastatin, aspirin ? Continue docusate senna ? Placed on MiraLAX ? Check urinalysis, urine culture ? Check labs in a.m. CBC CMP magnesium ? I will hold off on Bumex at this time encourage oral hydration. Patient appears to be euvolemic. ? PT ?D-dimer elevated, check CTA chest to rule out PE, check venous Dopplers bilateral lower extremities. - check ua, urine culture hb 10.60, check iron studies, tibc, ferritin, sliding scale insulin mod dose intensity consistent carb cardiac diet reduce home lantus to 25 units as patient hospitalized. Full code DVT prophylaxis: Eliquis 5 twice daily. 04/27/2024 -Continue Cardizem every 6 hours, switch to to 40 daily at discharge. - continue eliquis 5 bid - tylenol for hip pain, - cta chest neg, dopplers neg for PE - hb stable 9.20 - continue ssi mod dose intensity, switch lantus to 30 units home dose - echo reviewed -Seen by physical therapy, rehab recommended. ? Plan to discharge to intermediate once insurance authorization comes through. Attestations 2 Medical Necessity Statement*: Pending placement Diagnoses Uncontrolled type 2 diabetes mellitus with hyperglycemia E11.65 Glycemic state: with hyperglycemia Hypertension I10 Chronic diastolic congestive heart failure I50.32 Heart failure type: diastolic Heart failure chronicity: chronic Status post-operative repair of hip fracture Z98.890; Z87.81 Elevated d-dimer R79.89
[2024-04-27 12:37] LABS: Glucose Point of Care 338 mg/dL (70-110)
[2024-04-27] MEDS: metoprolol tartrate 25 mg Tablet 12.5 MG PO ×2 (12:37→22:05)
[2024-04-27 16:07] LABS: Glucose Point of Care 261 mg/dL (70-110)
[2024-04-27 20:23] LABS: Glucose Point of Care 275 mg/dL (70-110)
[2024-04-27] MEDS: HYDROcodone-acetaminophen 7.5-325 mg Tablet 1 TAB PO (22:05)
[2024-04-27] MEDS: insulin glargine 100 units/1 mL 28 UNIT SUBCUT (22:05)
[2024-04-27] MEDS: atorvastatin 40 mg Tablet PO (22:05)
[2024-04-28] VITALS: BP 143/74; PULSE 94; RESP 18; TEMP 36.5; O2SAT 98
[2024-04-28 03:55] LABS: Basophils % 0.2 %; Eosinophils # 0.2 10^3/uL (0.0-0.8); Eosinophils % 1.9 %; Hematocrit 31.2 % (36-47); Lymphocytes # 2.1 10^3/uL (0.8-4.8); Lymphocytes % 24.4 %; Mean Corpuscular HGB Conc 30.4 g/dL (30-55); Mean Corpuscular Hemoglobin 24.7 pg (27-33); Mean Platelet Volume 9.4 fL (7.4-10.4); Monocytes # 0.7 10^3/uL (0.2-0.9); Monocytes % 8.4 %; Neutrophils # 5.48 10^3/uL (1.8-7.7); Neutrophils % 64.7 %; Nucleated Red Blood Cells % 0 %; Platelet Count 515 10^3/cmm (157-399); Red Blood Count 3.85 10^6/uL (3.85-5.65); Red Cell Distribution Width 16.8 % (12.1-15.1); White Blood Count 8.47 10^3/uL (3.29-11.43)
[2024-04-28 04:00] VITALS: BP 115/69; PULSE 79; RESP 15; TEMP 36.6; O2SAT 98
[2024-04-28 04:16] LABS: Anion Gap 15.3 (5-19); Blood Urea Nitrogen 10 mg/dL (8-23); Calcium 8.5 mg/dL (8.5-10.5); Carbon Dioxide 22 mmol/L (22-29); Chloride 99 mmol/L (98-107); Creatinine Clr Calc Pharmacy 78.1907; Glomerular Filtration Rate 99.4 mL/min (90-130); Glucose 141 mg/dL (65-115); Osmolality Calculated 275 mOsm/kg (285-295); Potassium 4.3 mmol/L (3.5-5.1); Sodium 132 mmol/L (136-145)
[2024-04-28] MEDS: dilTIAZem 60 mg Tablet PO ×2 (04:22→10:14)
[2024-04-28 06:00] VITALS: PULSE 86
[2024-04-28 06:20] LABS: Glucose Point of Care 148 mg/dL (70-110)
[2024-04-28 07:35] VITALS: BP 135/73; PULSE 96; RESP 24; TEMP 36.8; O2SAT 97
[2024-04-28] MEDS: insulin lispro 100 unit/1 mL SUBCUT (08:14)
[2024-04-28] MEDS: pantoprazole DR 40 mg Tablet PO (08:14)
[2024-04-28] MEDS: metoprolol tartrate 25 mg Tablet 12.5 MG PO (08:16)
[2024-04-28] MEDS: bumetanide 1 mg Tablet 0.5 MG PO (08:16)
[2024-04-28] MEDS: aspirin 81 mg EC Tablet PO (08:16)
[2024-04-28] MEDS: apixaban 5 mg Tablet PO (08:25)
[2024-04-28] MEDS: acetaminophen 325 mg Tablet 650 MG PO (08:26)
--- NOTE | 2024-04-28 08:52 | P.DS_ITS ---
Discharge Providers Date of Admission: 04/25/24 12:19 Date of Discharge: April 28, 2024 Attending Provider at Admission: Jonelle Millan MD Attending Provider at Discharge: Jonelle Mlilan MD Primary Care Provider: Nikos Cortez MD Diagnoses at Discharge Discharge Diagnosis (1) Diabetes type 2, uncontrolled: Status: Acute Qualifiers: Glycemic state: with hyperglycemia Qualified Code(s): E11.65 - Type 2 diabetes mellitus with hyperglycemia (2) Hypertension: Status: Acute (3) Congestive heart failure: Status: Acute Qualifiers: Heart failure chronicity: chronic Heart failure type: diastolic Qualified Code(s): I50.32 - Chronic diastolic (congestive) heart failure Permanent problem details: -normal EF per stress echo done 11/2015 -continue diuretics (4) Status post-operative repair of hip fracture: Status: Acute (5) Elevated d-dimer: Status: Resolved Reason for Visit Reason for Visit: IRREGULAR HEARTBEAT Hospital Course Hospital Course Admitted for A-fib with RVR. She was placed on Cardizem drip and admission to Cardizem to 40 oral daily. Lopressor 12.5 twice daily was also added, at discharge she was switched to Toprol 12.5 daily. Eliquis 5 twice daily added as well. PT assessment done pt to go home with home health event monitor ordered Physical Exam Narrative: General: Patient is awake and alert. Oriented x 3. Cardiovascular: Sinus rhythm, rate controlled, normal S1-S2 Lungs: Clear to auscultation, no use of accessory muscles, no crackles or wheezes. Abdomen: Normal bowel sounds, abdomen soft and nontender. Extremities: No cyanosis or clubbing. No edema bilateral lower extremities. Musculoskeletal: No erythematous joints. Neurological: Moves all 4 extremities. Urinary Catheter Management: Schaffer: Cath Placed During This Visit: yes Reason for Continuing Indwelling Catheter: Other Urinary Catheter Date of Insertion: 04/06/24 Urinary Catheter Time of Insertion: 22:15 Discharge Data Studies Completed and Pending Completed Studies During Hospitalization Category Date Time Status CT angio chest PE protcl [id number] Stat Cat Scan 04/25/24 12:36 [place] [id number] Stat Ultrasound 04/25/24 13:05 Completed US echo complete [CV. echo complete* [id number]] Routine Ultrasound 04/25/24 14:41 Completed Pending at discharge Category Date Time Status Urine Culture Stat Lab 04/25/24 19:22 Results Radiology Impressions Chest CTA 04/25/24 12:36 IMPRESSION: 1. No pulmonary embolism. 2. No acute infiltrates. COMMENTS: Consistent with the [employer]'s Incidental Findings Committee white paper (J Am Shai Radiol 2015): In patients aged 35 years and older with an incidental thyroid nodule equal to or greater than 1.[address], MRI or extrathyroidal US, further evaluation with dedicated thyroid US is recommended for patients with normal life expectancy and without comorbidities. For smaller nodules without suspicious features, no further evaluation or follow up is recommended. Venous Duplex 04/25/24 13:05 IMPRESSION: No sonographic evidence of deep venous thrombosis. Laboratory Results WBC 8.47 10^3/uL (3.29-11.43) 04/28/24 03:10 RBC 3.85 10^6/uL (3.85-5.65) 04/28/24 03:10 Hgb 9.50 g/dL (11.27-16.99) L 04/28/24 03:10 Hct 31.2 % (36-47) L 04/28/24 03:10 MCV 81.0 fl (85-98) L 04/28/24 03:10 MCH 24.7 pg (27-33) L 04/28/24 03:10 MCHC 30.4 g/dL (30-55) 04/28/24 03:10 RDW 16.8 % (12.1-15.1) H 04/28/24 03:10 Plt Count 515 10^3/cmm (157-399) H 04/28/24 03:10 MPV 9.4 fL (7.4-10.4) 04/28/24 03:10 Neut % (Auto) 64.7 % 04/28/24 03:10 Lymph % (Auto) 24.4 % 04/28/24 03:10 [place] % (Auto) 8.4 % 04/28/24 03:10 Eos % (Auto) 1.9 % 04/28/24 03:10 Baso % (Auto) 0.2 % 04/28/24 03:10 Neut # (Auto) 5.48 10^3/uL (1.8-7.7) 04/28/24 03:10 Lymph # (Auto) 2.1 10^3/uL (0.8-4.8) 04/28/24 03:10 [place] # (Auto) 0.7 10^3/uL (0.2-0.9) 04/28/24 03:10 Eos # (Auto) 0.2 10^3/uL (0.0-0.8) 04/28/24 03:10 Baso # (Auto) 0.0 10^3/uL (0.0-0.1) 04/28/24 03:10 Nucleated RBC % (auto) 0 % 04/28/24 03:10 Nucleated RBCs # 0.0 /100WBC 04/28/24 03:10 D-Dimer 4.17 ug/mLFEU (0-0.59) H 04/25/24 11:46 Sodium 132 mmol/L (136-145) L 04/28/24 03:10 Potassium 4.3 mmol/L (3.5-5.1) 04/28/24 03:10 Chloride 99 mmol/L (98-107) 04/28/24 03:10 Carbon Dioxide 22 mmol/L (22-29) 04/28/24 03:10 Anion Gap 15.3 (5-19) 04/28/24 03:10 BUN 10 mg/dL (8-23) 04/28/24 03:10 Creatinine 0.6 mg/dL (0.5-0.9) 04/28/24 03:10 GFR Calculation 99.4 mL/min (90-130) 04/28/24 03:10 Glucose 141 mg/dL (65-115) H 04/28/24 03:10 POC Glucose 148 mg/dL (70-110) H 04/28/24 06:16 Estimat Average Glucose 194 04/25/24 11:46 Hemoglobin A1c 8.4 % (4.0-6.0) H 04/25/24 11:46 Calculated Osmolality 275 mOsm/kg (285-295) L 04/28/24 03:10 Calcium 8.5 mg/dL (8.5-10.5) 04/28/24 03:10 Magnesium 1.9 mg/dL (1.7-2.3) 04/26/24 07:44 Iron 13 ug/dL (37-145) L 04/25/24 11:46 TIBC 269 mcg/dl 04/25/24 11:46 % Saturation 4.8 % (20-50) L 04/25/24 11:46 Unsat Iron Binding 256 ug/dL (112-347) 04/25/24 11:46 Ferritin 128 ng/mL (15-150) 04/25/24 11:46 Total Bilirubin 0.6 mg/dL (0.15-1.2) 04/25/24 11:46 AST 22 U/L (0-32) 04/25/24 11:46 ALT 23 U/L (0-33) 04/25/24 11:46 Alkaline Phosphatase 250 U/L (35-105) H 04/25/24 11:46 Troponin T Baseline 11 ng/L (0-10) H 04/25/24 11:46 Troponin T 120 Minute 12.15 ng/L (0-10) H 04/25/24 14:15 Delta Troponin T 1.15 ABS# (0-10) 04/25/24 14:15 Troponin T Hi Sens 6Hr 14.91 ng/L (0-10) H 04/25/24 17:51 Troponin T Hi Sens 6Hr Delta 3.91 ng/L (0-12) 04/25/24 17:51 NT-Pro-B Natriuret Pep 540 pg/mL (0-125) H 04/25/24 11:46 Total Protein 6.8 g/dL (6.6-8.7) 04/25/24 11:46 Albumin 3.3 g/dL (3.5-5.2) L 04/25/24 11:46 Globulin 3.5 g/dL (1.3-4.6) 04/25/24 11:46 Procalcitonin 0.07 ng/mL (0-0.5) 04/25/24 11:46 TSH 0.56 uIU/mL (0.27-4.20) 04/25/24 11:46 TSH 0.58 uIU/mL (0.27-4.20) 04/25/24 11:46 Urine Color Yellow (Yellow) 04/25/24 19:22 Urine Appearance Clear (CLEAR) 04/25/24 19:22 Urine pH 7.0 (5-7) 04/25/24 19:22 Ur Specific [place] 1.058 (1.005-1.030) H 04/25/24 19:22 Urine Protein 1+ (Negative) A 04/25/24 19:22 Urine Glucose (UA) 2+ (Normal) H 04/25/24 19:22 Urine Ketones Negative (Negative) 04/25/24 19:22 Urine Blood Negative (Negative) 04/25/24 19:22 Urine Nitrate Negative (Negative) 04/25/24 19:22 Urine Bilirubin Negative (Negative) 04/25/24 19:22 Urine Urobilinogen 4.0 mg/dL (Negative) H 04/25/24 19:22 Ur Leukocyte Esterase Negative (Negative) 04/25/24 19:22 Urine RBC 0-4 /hpf (0-2) H 04/25/24 19:22 Urine WBC 0-4 /hpf (0-5) H 04/25/24 19:22 Ur Squamous Epith Cells 0-4 /hpf (0-5) H 04/25/24 19:22 Amorphous Sediment Not Reportable 04/25/24 19:22 Urine Bacteria Trace /hpf (NONE) 04/25/24 19:22 Vitals Last Vital Signs Temp 98.3 F 04/28/24 07:35 Pulse 96 04/28/24 07:35 Resp 24 H 04/28/24 07:35 BP 135/73 04/28/24 07:35 Pulse Ox 97 04/28/24 07:35 O2 Del Method Room Air 04/28/24 07:35 Discharge Plan Discharge Patient Disposition: Home Health Service Condition: Stable Prescriptions: New aspirin 81 mg Tablet,Delayed Release (Dr/Ec) 81 mg PO DAILY Qty: 30 0RF Eliquis 5 mg Tablet 5 mg PO BID@0900,2100 Qty: 60 0RF metoprolol succinate [Toprol XL] 25 mg tablet extended release 24 hr 12.5 mg PO DAILY Qty: 30 0RF diltiazem HCl 240 mg capsule,extended release 24 hr 240 mg PO DAILY Qty: 30 0RF Continued (DME) Walker See Rx Instructions .Route .MEDSUPPLY Qty: 1 0RF Rx Instructions: As directed insulin lispro [Humalog Lior KwikPen U-100] 100 unit/mL insulin pen, half- unit See Rx Instructions SUBCUT BID Rx Instructions: 13:50 sliding scale 140 to 180-4 units, 2:40 2 units for every 40 above 180, maximum 18 tidac (DME) Dexcom G6 Voice Data Communications Engineer Misc See Rx Instructions .Route Qty: 1 0RF Rx Instructions: Check BS 4-6 times a day. (DME) Dexcom G6 Sensor Device See Rx Instructions .Route Qty: 3 3RF Rx Instructions: Change every 10 days. (DME) Dexcom G6 Transmitter Device See Rx Instructions .Route Qty: 1 3RF Rx Instructions: Change every 90 days. (DME) Diabetic Shoes with 3 pairs of inserts See Rx Instructions .ROUTE .MEDSUPPLY Qty: 1 0RF Rx Instructions: As directed [employer] (DME) Diabetic shoes with Custom molded insoles See Rx Instructions .Route .MEDSUPPLY Qty: 1 0RF Rx Instructions: As directed by [facility] multivitamin Tablet 1 tab PO DAILY ascorbic acid (vitamin C) [Vitamin C] 500 mg Tablet 500 mg PO DAILY pantoprazole 40 mg Tablet,Delayed Release (Dr/Ec) 40 mg PO DAILY Qty: 14 0RF atorvastatin 80 mg Tablet 80 mg PO DAILY bumetanide 0.5 mg tablet 0.5 mg PO DAILY Trulicity 1.5 mg/0.5 mL pen injector 1.5 mg SUBCUT Q7D Hold Instructions: hold hydrocodone-acetaminophen 7.5-325 mg Tablet 1 tab PO Q6H PRN (Reason: Pain) docusate sodium [Colace] 100 mg Capsule 100 mg PO BID polyethylene glycol 3350 17 gram/dose Powder 4 g PO DAILY insulin glargine [Lantus Solostar U-100 Insulin] 100 unit/mL (3 mL) insulin pen 30 unit SUBCUT QPM Discontinued aspirin 325 mg Tablet 325 mg PO DAILY lisinopril 40 mg Tablet 40 mg PO QAM Eliquis 2.5 mg Tablet 2.5 mg PO BID Discharge Orders: Discharge Order (Routine); Ordered 04/28/24 Ordered By: Jonelle Millan Other Ambulatory Orders: DME: Walker (Order) Location: None Selected Ordered By: Jonelle Millan MCT/Event Monitor 21 Days (Routine) Timeframe: 1 Day Facility: [facility] - Location: Radiology Ordered By: Jonelle Millan Referrals: [facility] [Outside] Nikos Cortez MD [Primary Care Provider] - 4-7 days (Patient needs to call and make follow up apppointment) Garcia,Raymundo, M.D [Physician] - 06/17/24 2:30 pm Discharge Diet: Cardiac and Diabetic Discharge Activity: Increase activity as tolerated and As per PT/OT instructions Patient Instructions: Atrial Fibrillation, Metoprolol (By mouth) (Lopressor, Toprol XL), Diltiazem (By mouth) (Cardizem, Cardizem CD, Cardizem LA, Cardizem SR), Meal Planning with Diabetes Exchanges (DC), Holter Monitor (GEN), Opioid Safety, Wound Care (General) Activity Restrictions/Additional Instructions: Patient has an appointment with [facility] @ 11:00 am on 05/03/2024 to get the 21 day event monitor placed Discharge Attestations Time Spent in Discharge Care*: greater than 30 min Status at Discharge: Cognitive status at discharge: cognitively intact , Behavioral status at discharge: cooperative , Quality Metrics Clinical Quality Measures [ No reported AMI, CVA or VTE this stay] Coding Level of Care Code Acute Code for Chg Fwd Diagnoses Uncontrolled type 2 diabetes mellitus with hyperglycemia E11.65 Glycemic state: with hyperglycemia Hypertension I10 Chronic diastolic congestive heart failure I50.32 Heart failure chronicity: chronic Heart failure type: diastolic Status post-operative repair of hip fracture Z98.890; Z87.81 Elevated d-dimer R79.89
--- NOTE | 2024-04-28 10:04 | PC.NURSE ---
home equipment called and they said they will bring the pt's rolator walker in room, pt notified.
[2024-04-28 10:22] VITALS: BP 100/80; PULSE 87; RESP 20; TEMP 37; O2SAT 96
[2024-04-28 10:32] VITALS: BP 100/80; PULSE 87; RESP 20; TEMP 37; O2SAT 96
--- NOTE | 2024-04-28 11:21 | PC.NURSE ---
Discharge Note Patient discharged to via accompanied by . Discharge instructions reviewed with patient and/or industrial relations representative. Mobile pharmacy medications and/or prescriptions provided. Belongings/home medications returned.
== END 2024-04-28 11:18 | disposition home health service (06) | DRG 309 ==
LOC: ER 12:32 → CSU 14:43
PROVIDERS: Admitting Provider Internal Medicine; Emergency Provider Family Medicine; PCP Family Medicine; Visit Provider Internal Medicine
DX: I48.91 Unspecified atrial fibrillation (principal); I50.32 Chronic diastolic (congestive) heart failure; E11.65 Type 2 diabetes mellitus with hyperglycemia; E11.42 Type 2 diabetes mellitus with diabetic polyneuropathy; E78.2 Mixed hyperlipidemia; I11.0 Hypertensive heart disease with heart failure; Z79.82 Long term (current) use of aspirin; Z79.4 Long term (current) use of insulin; Z79.85 Long-term (current) use of injectable non-insulin antidiabetic drugs; Z79.891 Long term (current) use of opiate analgesic; M10.9 Gout, unspecified; K21.9 Gastro-esophageal reflux disease without esophagitis; Z90.49 Acquired absence of other specified parts of digestive tract; K59.00 Constipation, unspecified
CPT/HCPCS: 36415; 36416; 71275; 80048; 80053; 81001; 82728; 82962; 83036; 83540; 83550; 83735; 83880; 84145; 84443; 84484; 85025; 85378; 87086; 93005; 93306; 93970; 96365; 96366; 96372; 96375; 97110; 97116; 97161; 97165; 97535; 99285; A9270; J1815; J3490

== ENCOUNTER → 2024-05-25 15:15 | Outpatient (BNVA) | payer MEDICARE, OTHER, SELFPAY | PROVIDERS: PCP Family Medicine; Visit Provider Orthopaedic Surgery | DX: Z98.890 Other specified postprocedural states (principal); Z87.81 Personal history of (healed) traumatic fracture | CPT/HCPCS: 73502; 99024 ==

== ENCOUNTER → 2024-06-17 14:17 | Outpatient (BNVA) | payer MEDICARE, OTHER, SELFPAY | PROVIDERS: PCP Family Medicine; Visit Provider Internal Medicine | DX: I10 Essential (primary) hypertension (principal); E11.65 Type 2 diabetes mellitus with hyperglycemia; I48.91 Unspecified atrial fibrillation; Z79.01 Long term (current) use of anticoagulants; Z79.4 Long term (current) use of insulin | CPT/HCPCS: 99214 ==

== ENCOUNTER → 2024-07-05 14:08 | Outpatient (BNVA) | payer MEDICARE, OTHER, SELFPAY | PROVIDERS: PCP Family Medicine; Visit Provider Podiatrist Foot & Ankle Surgery | DX: E11.65 Type 2 diabetes mellitus with hyperglycemia (principal); M20.41 Other hammer toe(s) (acquired), right foot; M20.42 Other hammer toe(s) (acquired), left foot; Z79.4 Long term (current) use of insulin | CPT/HCPCS: 99213 ==

== ENCOUNTER → 2024-07-06 09:52 | Outpatient (BNVA) | payer MEDICARE, OTHER, SELFPAY | PROVIDERS: PCP Family Medicine; Visit Provider Orthopaedic Surgery | DX: Z98.890 Other specified postprocedural states (principal); Z87.81 Personal history of (healed) traumatic fracture; M25.562 Pain in left knee | CPT/HCPCS: 73502; 73560; 73565; 99024 ==

== ENCOUNTER → 2024-09-30 13:01 | Outpatient (BNVA) | payer MEDICARE, OTHER, SELFPAY | PROVIDERS: PCP Family Medicine; Visit Provider Orthopaedic Surgery | DX: Z98.890 Other specified postprocedural states (principal); Z87.81 Personal history of (healed) traumatic fracture | CPT/HCPCS: 99024 ==

== ENCOUNTER → 2024-10-06 12:47 | Outpatient (BNVA) | payer MEDICARE, OTHER, SELFPAY | PROVIDERS: PCP Family Medicine; Visit Provider Podiatrist Foot & Ankle Surgery | DX: E11.65 Type 2 diabetes mellitus with hyperglycemia (principal); M20.41 Other hammer toe(s) (acquired), right foot; M20.42 Other hammer toe(s) (acquired), left foot; Z79.4 Long term (current) use of insulin | CPT/HCPCS: 99213 ==

== ENCOUNTER 2024-11-02 13:31 | Outpatient (CLI) | payer MEDICARE, OTHER, SELFPAY ==
--- NOTE | 2024-11-02 13:32 | XR_ITS ---
WS: [id number] SCREENING DEXA SCAN [employer] CLINICAL INFORMATION: OSTEOPENIA,POSTMENOPAUSAL COMPARISON: 2021 FINDINGS: The L1-L4 bone mineral density measures 1.239 g/cm2. This corresponds to a T score score of 0.5 and Z score of 1.4. Left forearm bone mineral density measures 0.692. This corresponds to a T score of -2.1 and Z score of -0.4. XR/XR DEXA axial skeleton* [id number] IMPRESSION: Normal bone mineralization lumbar spine. Osteopenia LEFT forearm Bone mineral density lumbar spine decreased -2.4%
== END 2024-11-02 13:32 | disposition home or self-care (01) ==
PROVIDERS: PCP Family Medicine; Visit Provider Family Medicine
DX: M81.0 Age-related osteoporosis without current pathological fracture (principal); M85.832 Other specified disorders of bone density and structure, left forearm
CPT/HCPCS: 77080

== ENCOUNTER → 2024-11-10 13:21 | Outpatient (BNVA) | payer MEDICARE, OTHER, SELFPAY | PROVIDERS: PCP Family Medicine; Visit Provider Student in an Organized Health Care Education/Training Program | DX: M17.12 Unilateral primary osteoarthritis, left knee (principal); M25.562 Pain in left knee; M22.2X1 Patellofemoral disorders, right knee; M22.2X2 Patellofemoral disorders, left knee | CPT/HCPCS: 73560; 73565 ==

== ENCOUNTER 2024-11-10 14:34 | Outpatient (CLI) | payer MEDICARE, OTHER, SELFPAY | END 2024-11-10 14:35 | disposition home or self-care (01) | LOC: SPT 14:35 | PROVIDERS: PCP Family Medicine; Visit Provider Student in an Organized Health Care Education/Training Program | DX: Z46.89 Encounter for fitting and adjustment of other specified devices (principal); M25.562 Pain in left knee | CPT/HCPCS: 20610; L1852 ==

== ENCOUNTER → 2024-12-28 11:43 | Outpatient (BNVA) | payer MEDICARE, OTHER, SELFPAY | PROVIDERS: PCP Family Medicine; Visit Provider Internal Medicine | DX: I48.91 Unspecified atrial fibrillation (principal); Z79.01 Long term (current) use of anticoagulants; Z79.82 Long term (current) use of aspirin; E11.65 Type 2 diabetes mellitus with hyperglycemia; Z79.4 Long term (current) use of insulin; I10 Essential (primary) hypertension | CPT/HCPCS: 99214 ==

== ENCOUNTER → 2024-12-29 08:48 | Outpatient (BNVA) | payer MEDICARE, OTHER, SELFPAY | PROVIDERS: PCP Family Medicine; Visit Provider Physician Assistant | DX: M67.441 Ganglion, right hand (principal) | CPT/HCPCS: 73130; 99204 ==

== ENCOUNTER 2025-01-03 15:39 | Outpatient (CLI) | payer MEDICARE, OTHER, SELFPAY ==
--- NOTE | 2025-01-03 15:45 | USR_ITS ---
PROCEDURE INFORMATION: Exam: US Duplex Bilateral Extracranial Arteries; Complete; Carotid Arteries Exam date and time: 01/03/2025 3:55 PM Age: 69 years old Clinical indication: Condition or disease; Other: CVA; Additional info: History of stroke TECHNIQUE: Imaging protocol: Real-time duplex ultrasound scan of the bilateral extracranial arteries combining ramirez scale, color Doppler and spectral waveform analysis with image documentation. Complete exam. Exam focused on the carotid arteries. COMPARISON: CT head wo con* [id number] 10/18/2019 3:41 PM FINDINGS: Right common carotid artery: No occlusion or stenosis. Waveforms are normal. Right internal carotid artery: No occlusion or stenosis. Waveforms are normal. Maximum peak systolic velocity is 59.6 cm/s. Maximum end-diastolic velocity is 19.6 cm/s Right ICA/CCA ratio: Within normal limits measuring 0.8. Right external carotid artery: No stenosis in the origin. Right vertebral artery: Antegrade flow. Left common carotid artery: No occlusion or stenosis. Waveforms are normal. Left internal carotid artery: No occlusion or stenosis. Waveforms are normal. Maximum peak systolic velocity is 58.4 cm/s. Maximum end-diastolic velocity is 17.1 cm/s. Left ICA/CCA ratio: Within normal limits measuring 1.3. Left external carotid artery: No stenosis in the origin. Left vertebral artery: Antegrade flow. Other findings: Diffuse mild atherosclerotic disease bilaterally with minimal plaque. There are no elevated velocities bilaterally. US/CV carotid duplex BI* [id number] IMPRESSION: Mild stenosis (less than 50%) of the internal carotid arteries bilaterally. REFERENCES: SRU CRITERIA. The degree of internal carotid artery stenosis is based on criteria defined by the Society of Radiologists in Ultrasound (SRU). Normal is no stenosis. Mild is less than 50% stenosis. Moderate is 50-69% stenosis. Severe is greater than 69% stenosis to near occlusion. Near occlusion is a markedly narrowed lumen. Total occlusion is no detectable patent lumen. Reference: Sarahi Carlson, et al. Carotid Artery Stenosis: Ramirez-Scale and Doppler US Diagnosis-Society of Radiologists in Ultrasound Consensus Conference. Radiology 2003; 229:340-346.
== END 2025-01-03 15:40 | disposition home or self-care (01) ==
LOC: RAD 15:40
PROVIDERS: PCP Family Medicine; Visit Provider Internal Medicine
DX: R42 Dizziness and giddiness (principal); I65.23 Occlusion and stenosis of bilateral carotid arteries
CPT/HCPCS: 93880

== ENCOUNTER → 2025-01-05 12:55 | Outpatient (BNVA) | payer MEDICARE, OTHER, SELFPAY | PROVIDERS: PCP Family Medicine; Visit Provider Podiatrist Foot & Ankle Surgery | DX: E11.8 Type 2 diabetes mellitus with unspecified complications (principal); E11.65 Type 2 diabetes mellitus with hyperglycemia; Z89.431 Acquired absence of right foot; Z79.4 Long term (current) use of insulin | CPT/HCPCS: 99214 ==

== ENCOUNTER 2025-02-04 10:56 | Outpatient (CLI) | payer MEDICARE, OTHER, SELFPAY ==
--- NOTE | 2025-02-04 10:59 | MM_ITS ---
WS: [id number] BILATERAL SCREENING DIGITAL TOMOSYNTHESIS MAMMOGRAM WITH CAD HISTORY: SCREENING COMPARISON: 02/04/2024, 01/21/2023 Bilateral CC and MLO views with tomosynthesis and synthetic mammography submitted. Computer aided detection analyzed. Breast composition: There are scattered areas of fibroglandular density. No suspicious masses, microcalcifications or architectural distortion. Benign calcifications in each breast. MM/MM scr BI tomosynthesis [id number] IMPRESSION: BI-RADS: 2 - Benign. FOLLOW UP: 1 Year Follow-up
== END 2025-02-04 10:57 | disposition home or self-care (01) ==
LOC: RAD 10:57
PROVIDERS: PCP Family Medicine; Visit Provider Family Medicine
DX: Z12.31 Encounter for screening mammogram for malignant neoplasm of breast (principal); R92.323 Mammographic fibroglandular density, bilateral breasts; R92.1 Mammographic calcification found on diagnostic imaging of breast
CPT/HCPCS: 77063; 77067

== ENCOUNTER 2025-02-11 08:34 | Day surgery (SDC) | payer MEDICARE, OTHER, SELFPAY ==
[2025-02-11] VITALS (7 sets, daily range): BP systolic 132–185; BP diastolic 86–116; PULSE 94–112; RESP 16–20; TEMP 36.4–37.1; O2SAT 94–98; BMI 29.8
--- NOTE | 2025-02-11 08:51 | ANES.PREANE2 ---
Pre-Anesthetic Assessment Height/Weight: Height 5 ft 6 in Temp Pulse Resp BP Pulse Ox O2 Del Method 98.8 F 112 H 18 185/116 98 Room Air 02/11/25 08:50 02/11/25 08:50 02/11/25 08:50 02/11/25 08:50 02/11/25 08:50 02/11/25 08:50 Preop Diagnosis: cyst Operation Date: 02/11/25 10:10 Proposed Procedures p Right Dorsal hand cyst excision(Right) - Richie García, DO Was Beta Keyanna taken within 24 hours: N/A Was Clonidine taken within 24 hours: N/A Social No alcohol and No tobacco Exam alert, oriented x 3, clear to auscultation bilaterally and regular rate & rhythm Airway Submandibular: within normal limits Cervical ROM: within normal limits Mallampati: Class III Dentition: full Anesthetic Plan ASA status: 3 Anesthesia: MAC Other: No prior issues with anesthesia NPO since yesterday evening IDDM, preop BS History of hypertension on metoprolol and diltiazem GERD, controlled with Protonix Plan for MAC and local via surgeon Medications/Allergies Home Medications ?Medication ?Instructions ?Recorded ?Confirmed ?Last Taken ?Type ascorbic acid (vitamin C) 500 mg 500 mg PO DAILY 05/12/21 02/10/25 02/10/25 History tablet (Vitamin C) multivitamin 1 tab PO DAILY 05/12/21 02/10/25 02/10/25 History pantoprazole 40 mg tablet,delayed 40 mg PO DAILY #14 tabs 05/18/21 02/10/25 02/10/25 Rx release Walker #1 ea 05/29/21 01/05/25 Unknown Rx blood-glucose sensor (Dexcom G6 #3 ea 08/07/21 01/05/25 Unknown Rx Sensor device) blood-glucose transmitter (Dexcom #1 ea 08/07/21 01/05/25 Unknown Rx G6 Transmitter device) blood-glucose,crusher tender,cont #1 ea 08/07/21 01/05/25 Unknown Rx (Dexcom G6 Hot Mill Worker) insulin lispro 100 unit/mL See Rx Instructions SUBCUT BID 08/07/21 02/10/25 02/10/25 History subcutaneous half-unit pen (Humalog Lior KwikPen (U-100)) Diabetic Shoes with 3 pairs of #1 ea 09/03/21 01/05/25 Unknown Rx inserts atorvastatin 80 mg tablet 80 mg PO DAILY 04/07/24 02/10/25 02/10/25 History bumetanide 0.5 mg tablet 0.5 mg PO DAILY 04/07/24 02/10/25 02/10/25 History dulaglutide 1.5 mg/0.5 mL 1.5 mg SUBCUT Q7D 04/07/24 02/10/25 02/03/25 History subcutaneous pen injector (Trulicity) insulin glargine 100 unit/mL (3 30 unit SUBCUT QPM 04/25/24 02/10/25 02/10/25 History mL) subcutaneous pen (Lantus Solostar U-100 Insulin) apixaban 5 mg tablet (Eliquis) 5 mg PO BID@0900,2100 #60 tabs 04/28/24 02/10/25 02/10/25 Rx aspirin 81 mg tablet,delayed 81 mg PO DAILY #30 tabs 04/28/24 02/10/25 02/10/25 Rx release diltiazem HCl 240 mg capsule,24 240 mg PO DAILY #30 caps 04/28/24 02/10/25 02/10/25 Rx hr,extended release metoprolol succinate 25 mg 12.5 mg (1/2 x 25 mg) PO DAILY #30 04/28/24 02/10/25 02/10/25 Rx tablet,extended release 24 hr tabs (Toprol XL) medial iron miner blasting brace (left knee) #1 ea 11/10/24 01/05/25 Unknown Rx magnesium 250 mg tablet 250 mg PO DAILY 12/28/24 02/10/25 02/10/25 History Diabetic shoes with Custom molded #1 ea 01/05/25 01/05/25 Unknown Rx insoles tramadol 50 mg tablet 50 mg PO Q6H PRN pain 5 days #20 02/11/25 Unknown Rx tabs Allergies Allergy/AdvReac Type Severity Reaction Status Date / Time ibuprofen Allergy ALGY-Rash Verified 02/10/25 08:40 PFSH Anesthesia Medical History (Updated 01/09/25 @ 08:32 by Marco Elizondo DPM) Hypertension Hyperlipemia, mixed Anemia Gout attack Gout Rotator cuff arthropathy of both shoulders Congestive heart failure -normal EF per stress echo done 11/2015 -continue diuretics Cardiomyopathy Gastroesophageal reflux Gall bladder disease Diabetes mellitus, type II -has known hx of NIDDM type II, last A1c-8.4 (05/2019) -complicated by peripheral neuropathy and nephropathy Surgical History History of cardiac cath H/O shoulder surgery Bilateral Hx of cholecystectomy History of appendectomy History of delivery Family History Other Diabetes Social History Smoking and tobacco/nicotine status: never used tobacco/nicotine Alcohol intake: never Substance/Drug Use: never Lives independently: Yes Household members: spouse Data Anesthesia 02/11/25 09:10 Cardiac Studies: Echocardiogram 04/25/24 Cardiac Event Monitor 05/03/24
[2025-02-11] MEDS: acetaminophen 1,000 MG/100 ML PIGGYBACK 400 MG IV (09:08)
--- NOTE | 2025-02-11 09:15 | W.PM.OPSFHP ---
Same Day Surgery H&P Indication for Procedure/HPI DATE OF PROCEDURE: February 11, 2025 CHIEF COMPLAINT/INDICATIONFOR SURGICAL PROCEDURE: Right dorsal hand cyst PREOP DIAGNOSIS: Right dorsal hand cyst PLANNED PROCEDURE: Operation Date: 02/11/25 10:10 Proposed Procedures p Right Dorsal hand cyst excision(Right) - Richie Mariano, DO Medications/Allergies* Home Medications ?Medication ?Instructions ?Recorded ?Confirmed ?Type ascorbic acid (vitamin C) 500 mg 500 mg PO DAILY 05/12/21 02/10/25 History tablet (Vitamin C) multivitamin 1 tab PO DAILY 05/12/21 02/10/25 History insulin lispro 100 unit/mL See Rx Instructions SUBCUT BID 08/07/21 02/10/25 History subcutaneous half-unit pen (Humalog Lior KwikPen (U-100)) atorvastatin 80 mg tablet 80 mg PO DAILY 04/07/24 02/10/25 History bumetanide 0.5 mg tablet 0.5 mg PO DAILY 04/07/24 02/10/25 History dulaglutide 1.5 mg/0.5 mL 1.5 mg SUBCUT Q7D 04/07/24 02/10/25 History subcutaneous pen injector (Trulicity) insulin glargine 100 unit/mL (3 30 unit SUBCUT QPM 04/25/24 02/10/25 History mL) subcutaneous pen (Lantus Solostar U-100 Insulin) magnesium 250 mg tablet 250 mg PO DAILY 12/28/24 02/10/25 History Allergies/Adverse Reactions Allergy/AdvReac Type Severity Reaction Status Date / Time ibuprofen Allergy ALGY-Rash Verified 02/10/25 08:40 Current Medications: Generic Name Dose Route Start Last Admin Trade Name Freq PRN Reason Stop Dose Admin Sodium Chloride 1,000 mls @ 30 mls/hr 02/11/25 08:45 02/11/25 09:05 Sodium Chloride 0.9% IV 02/12/25 08:44 30 mls/hr .Q24H HERNAN Administration Pertinent History/Comorbid Conditions* Medical History (Updated 01/09/25 @ 08:32 by Marco Elizondo DPM) Hypertension Hyperlipemia, mixed Anemia Gout attack Gout Rotator cuff arthropathy of both shoulders Congestive heart failure -normal EF per stress echo done 11/2015 -continue diuretics Cardiomyopathy Gastroesophageal reflux Gall bladder disease Diabetes mellitus, type II -has known hx of NIDDM type II, last A1c-8.4 (05/2019) -complicated by peripheral neuropathy and nephropathy Surgical History (Updated 05/04/24 @ 00:00 by TATO Lester) History of cardiac cath H/O shoulder surgery Bilateral Hx of cholecystectomy History of appendectomy History of delivery Family History (Updated 08/06/19 @ 19:00 by Autumn Ivory MD) Diabetes Social History Smoking and tobacco/nicotine status: never used tobacco/nicotine Alcohol intake: never Substance/Drug Use: never Lives independently: Yes Household members: spouse Pertinent Exam Findings alert, oriented x 3, operative site marked and procedure specific exam findings Exam today demonstrates patient's right hand has a dorsal hand cyst that is soft and mobile does not appear to be attached to tendon. Please refer to detailed orthopedic examination on 12/29/2024 listed below: Right hand?dorsal aspect of hand has a large palpable fluid-filled soft cyst that is mobile and tender. No signs of any abscess or infection. Full range of motion fingers and wrist. Recommendations Risks and benefits of procedure reviewed and Patient/family agree to proceed Surgery/Procedure today Other Plans: Plan to proceed to the OR today for right dorsal hand cyst excision. Patient understands the ins outs procedure the risk benefits complication alternatives surgical nonsurgical treatment options. Understand risk of surgery patient elects proceed with surgical invention. All questions answered at this time. Coding Level of Care Code Acute Code for [place] Fwd
[2025-02-11 09:41] LABS: Blood Urea Nitrogen 19 mg/dL (8-23); Calcium 8.8 mg/dL (8.5-10.5); Carbon Dioxide 24 mmol/L (22-29); Chloride 98 mmol/L (98-107); Creatinine Clr Calc Pharmacy 73.4676; Glucose 205 mg/dL (65-115); Osmolality Calculated 290 mOsm/kg (285-295); Sodium 136 mmol/L (136-145)
[2025-02-11 09:43] LABS: Anion Gap 18.4 (5-19); Potassium 4.4 mmol/L (3.5-5.1)
[2025-02-11] MEDS: ceFAZolin 2,000 MG in sodium chloride 0.9% (plus) 50 ML 100 MG IV (10:54)
[2025-02-11] MEDS: sodium bicarbonate 4.2% 0.5 mEq/mL SDV 5mL XX (11:20)
[2025-02-11] MEDS: lidocaine-epi 1% 20 mL INJ INJECTION (11:20)
--- NOTE | 2025-02-11 11:32 | PM.OP ---
Operative Report Date of procedure: February 11, 2025 Surgeon: Richie Mariano DO Procedure: Preoperative diagnosis: Right dorsal hand cyst Postoperative diagnosis: Same Procedure Right?dorsal?cyst excision (3.5 cm x 1.5 cm x 1 cm) Specimens removed/disposition: Right?dorsal?hand ganglion?cyst excised and sent for pathology Surgeon: Richie Mariano DO Estimated blood loss: 3mL Tourniquet time 4 minutes IV fluids: See anesthesia record Complications: None Findings: See operative report narrative Condition: stable Disposition: same day Brief History: Patient's been worked up in the outpatient setting and findings consistent with preoperative diagnosis.? Patient has a right?dorsal?hand ganglion?cyst.? Patient has attempted conservative treatment and this has become significantly painful.? We talked about treatment options as far as nonoperative and operative intervention.? At this point time patient like a more permanent solution in the lowest chance of recurrence and as result through shared decision making we agreed to proceed with a right?dorsal?hand ?cyst excision.? Patient understands risk benefits complication alternatives surgical nonsurgical treatment options.? Understanding risk of surgery patient agrees to proceed.? All questions answered.? Consent obtained in the preoperative holding area. Procedure: Patient seen evaluate in the preoperative holding area.? Consent was signed and reviewed with patient.? All questions were answered at that time.? Correct extremity was then marked.? Once seen evaluated by anesthesia patient was then brought back to the operative suite.? Patient was then placed in supine position all bony prominences well-padded patient was properly secured to the bed.? An armboard was then applied for the right upper extremity.? A nonsterile tourniquet was applied to the right upper extremity arm.? Patient then underwent anesthesia per the anesthesia department.? Once appropriately anesthetized the right upper extremity was then prepped and draped in standard orthopedic fashion.? Final timeout performed.? Patient received appropriate preoperative antibiotics. Under sterile aseptic technique I began with local anesthetic for my preplanned surgical site.? Then I utilized an Esmarch tourniquet to exsanguinate the right upper extremity to 250 mmHg Patient had a large soft mobile ?cyst over the dorsal aspect of the hand I subsequently given the significant thinning of the tissue from the cyst distally I performed a standard Tanya incision around the cyst. I then switched to Littler dissection scissors and spread longitudinally to identify branches of the superficial radial nerve.? All neurovascular structures were protected throughout the case.? I immediately encountered the ?cyst which was just deep to the skin and very superficial with no adherence to the extensor tendons. I subsequently dissected circumferentially all the way to the base and transected this to its entirety. Size was roughly 3.5 cm x 1.5 cm x 1 cm. This did extend right up underneath the skin and had thinned and stretched out the skin distally I subsequently removed this but there was stretched skin distally due to the duration of this being there. I utilized bipolar electrocautery to to seal off the?cyst bed to prevent any further?cyst recurrence.??Cyst was then sent for pathology.? I then thoroughly irrigated the wound bed tourniquet was deflated.? Hemostasis was satisfactory with bipolar electrocautery.? I then closed the incision in 3-0 nylon suture for skin interrupted fashion. Xeroform over the incisions 4 x 4's ABD soft roll, bulky soft dressing patient was then awakened from anesthesia and taken back in stable condition. Disposition: Patient taken back in stable condition recovering well.? Patient will receive appropriate discharge instructions as well as pain medication postoperatively.?? We will follow-up with in the orthopedic office in 2 weeks.? Patient understands of any questions or concerns and contact the office.
--- NOTE | 2025-02-11 12:11 | W.PM.BPON ---
Date of Procedure: 02/11/2025 Surgeon: Richie Mariano DO Ophthalmic Lens Inspector(s): None Procedure(s) performed: Right dorsal hand cyst excision (3.5 cm x 1.5 cm x 1 cm) Findings of the procedure(s): Underwent procedure as planned without issues or complications taken recovery in stable condition Estimated blood loss: 3 mL Specimen(s) removed: Right dorsal hand cyst excised and sent for specimen Post-operative diagnosis: Right dorsal hand cyst
--- NOTE | 2025-02-11 12:37 | ANE.PACU2 ---
Inpatient post-anesthesia follow up: Airway intact: Yes Vital signs: Temperature 98 F Pulse Rate 98 Respiratory Rate 18 Blood Pressure 146/86 Pulse Oximetry 97 Oxygen Delivery Me thod Room Air Oxygen Flow Rate Fraction of Inspir ed Oxygen Hydration adequate: Yes Nausea and vomiting: No Pain level: 1 Mental status: Baseline
== END 2025-02-11 12:37 | disposition home or self-care (01) ==
PROVIDERS: Student in an Organized Health Care Education/Training Program; PCP Family Medicine; Visit Provider Student in an Organized Health Care Education/Training Program
PROC: (CPT 26160; principal; 2025-02-11 10:10)
DX: M67.441 Ganglion, right hand (principal); D36.12 Benign neoplasm of peripheral nerves and autonomic nervous system, upper limb, including shoulder; I10 Essential (primary) hypertension; D64.9 Anemia, unspecified; K21.9 Gastro-esophageal reflux disease without esophagitis; E11.9 Type 2 diabetes mellitus without complications; Z79.82 Long term (current) use of aspirin; Z79.4 Long term (current) use of insulin
CPT/HCPCS: 26160; 36415; 36416; 80048; 82962; 88304; J0131; J0690; J2250; J2704; J7030; J9999

== ENCOUNTER → 2025-02-25 08:32 | Outpatient (BNVA) | payer MEDICARE, OTHER, SELFPAY | PROVIDERS: PCP Family Medicine; Visit Provider Physician Assistant | DX: Z98.890 Other specified postprocedural states (principal) | CPT/HCPCS: 99024 ==

== ENCOUNTER → 2025-04-06 13:36 | Outpatient (BNVA) | payer MEDICARE, OTHER, SELFPAY | PROVIDERS: PCP Family Medicine; Visit Provider Podiatrist Foot & Ankle Surgery | DX: E11.65 Type 2 diabetes mellitus with hyperglycemia (principal); L60.3 Nail dystrophy; Z89.431 Acquired absence of right foot; L60.0 Ingrowing nail; L03.116 Cellulitis of left lower limb; Z79.4 Long term (current) use of insulin | CPT/HCPCS: 11721; 99214 ==

== ENCOUNTER → 2025-05-03 08:34 | Outpatient (BNVA) | payer MEDICARE, OTHER, SELFPAY | PROVIDERS: PCP Family Medicine; Visit Provider Student in an Organized Health Care Education/Training Program | DX: M17.12 Unilateral primary osteoarthritis, left knee (principal); Z71.89 Other specified counseling; E11.65 Type 2 diabetes mellitus with hyperglycemia; Z89.431 Acquired absence of right foot; Z79.4 Long term (current) use of insulin | CPT/HCPCS: 20610; 99213; J3301; J9999 ==